=== PATIENT | male | born 1970 | race Caucasian/White ===

== ENCOUNTER 2020-01-01 19:29 | Emergency (ER) | payer BC ==
[2020-01-01] MEDS ORDERED: RINGERS LACTATED IV ONE (20:11)
[2020-01-01] MEDS ORDERED: ACETAMINOPHEN 325 MG TABLET PO ONE (20:11)
--- NOTE | 2020-01-01 20:14 | ER Document Report ---
ED Respiratory Problem - General Chief Complaint: Shortness Of Breath Stated Complaint: SHORTNESS OF BREATH Time Seen by Provider: 01/01/20 19:53 Mode of Arrival: Ambulatory Information source: Patient Notes: Patient presents complaining of body aches for the past week. Patient states he was diagnosed with Covid 5 days ago. Patient reports cough for the past 4 days. Patient denies any nausea vomiting or diarrhea. Patient states he just developed a fever today. Patient states that he checked his oxygen saturation at home and it was 88 which prompted his visit tonight. Patient denies any chronic underlying medical problems. - HPI Patient complains to provider of: Cough Onset: Other - 4 days Duration: Continuous Quality of pain: Achy Pain Level: 1 Context: denies: Hx asthma, Smoker Cough: Nonproductive Associated symptoms: Cough, Fever. denies: Anxiety, Chest pain/discomfort Similar symptoms previously: No Recently seen / treated by doctor: Yes Past Medical History - General Information source: Patient - Social History Smoking Status: Never Smoker Frequency of alcohol use: None Drug Abuse: None Occupation: [employer] Lives with: Family Family History: Reviewed & Not Pertinent - Medical History Medical History: Negative Surgical Hx: Negative Review of Systems - Review of Systems Constitutional: Fever, Recent illness - Diagnosed with Covid recently EENT: No symptoms reported Cardiovascular: No symptoms reported. denies: Chest pain Respiratory: Cough Gastrointestinal: No symptoms reported. denies: Abdominal pain, Diarrhea, Nausea, Vomiting Genitourinary: No symptoms reported Male Genitourinary: No symptoms reported Musculoskeletal: No symptoms reported Skin: No symptoms reported Hematologic/Lymphatic: No symptoms reported Neurological/Psychological: No symptoms reported Physical Exam - Vital signs Vitals: Temp Pulse Resp BP Pulse Ox 102.8 F H 118 H 32 H 127/84 H 93 01/01/20 19:48 01/01/20 19:48 01/01/20 19:48 01/01/20 19:48 01/01/20 19:48 - Notes Notes: PHYSICAL EXAMINATION: GENERAL: Well-appearing and in no acute distress. HEAD: Atraumatic, normocephalic. EYES: sclera anicteric, conjunctiva are normal. ENT: nares patent. Moist mucous membranes. NECK: Normal range of motion, supple without lymphadenopathy LUNGS: Mild tachypnea, occasional rhonchi that clears with cough HEART: Tachycardia, rhythm regular without murmur ABDOMEN: Soft, nontender, normal bowel sounds, no guarding. EXTREMITIES: Normal range of motion, no pitting edema. BACK: No CVA tenderness NEUROLOGICAL: Cranial nerves grossly intact. Normal speech. Normal gait. PSYCH: Normal mood, normal affect. SKIN: Warm, Dry, normal turgor, no rashes or lesions noted Course - Re-evaluation Re-evalutation: 01/02/20 01:37 RN states that patient's IV has been problematic for his CTA imaging. 01/02/20 01:41 CTA report reviewed, patient with bilateral groundglass opacities with bibasilar infiltrates noted. 01/02/20 02:03 Repeat vital signs temp 98.4, heart rate 94, respiratory rate 24, blood pressure 123/79, oxygen saturation 91%. Patient was road tested and oxygen saturation remained 92 to 93% heart rate was in the 110s and respiratory rate of 28. Consulted with Dr. Garcia who recommends giving a dose of Decadron as well as an inhaler. Dr. Cuevas agrees with plan to discharge patient with a prescription for antibiotic as well. Reviewed Covid pathway to determine patients who require admission or who can be managed on outpatient basis. Patient presents in the low risk category with main risk factor being obesity and male gender. Patient without any chronic underlying medical problems. 01/02/20 02:22 Discussed plan of care with patient, patient states that he is feeling better than when he initially presented. Discussed with patient worsening signs or symptoms that he should return immediately for. Patient does have a home pulse oximeter. Patient encouraged to check his oxygen saturation at home and return for any drops in oxygen level. Patient states that he does feel safe being discharged at this time. Offered to call hospitalist to discuss the case for consideration for admission, patient declines at this time. The patient was evaluated during the global Covid 19 pandemic, and that diagnosis was suspected/considered upon their initial presentation. Their evaluation, treatment and testing was consistent with current guidelines for patients who present with complaints or symptoms that may be related to Covid 19. Patient presents with upper respiratory symptoms worrisome for possible Covid 19. Patient does not have emergency worrying symptoms such as difficulty b reathing, shortness of breath, chest pain, pressure, confusion or cyanosis. Patient appears suitable for discharge as they are not of an advanced age, do not have any chronic medical conditions such as diabetes, CAD, immune deficiency, chronic lung disease or chronic kidney disease. Patient's vital signs are stable and patient is nontoxic in appearance. Good return precautions have been discussed with patient, patient verbalized understanding and is agreeable with discharge plan of care at this time. 01/02/20 02:[address] Argueta regarding outpatient management of Covid positive patients. He does advise giving this particular patient a 5-day course of the Decadron 6 mg. - Vital Signs Vital signs: Temp Pulse Resp BP Pulse Ox 99.4 F 108 H 20 117/77 91 L 01/02/20 00:06 01/01/20 22:48 01/01/20 22:48 01/01/20 22:48 01/01/20 22:48 - Laboratory Result Diagrams: 01/01/20 21:30 01/01/20 21:30 Laboratory results interpreted by me: 01/01/20 01/01/20 01/01/20 21:30 21:30 23:26 D-Dimer 0.80 H VBG pH 7.47 H VBG pCO2 32.4 L Sodium 136.9 L Glucose 129 H AST 87 H ALT 64 H Labs- All tests 24 hr 01/01/20 01/01/20 01/01/20 21:30 21:30 21:30 WBC 7.2 RBC 5.25 Hgb 15.2 Hct 43.5 MCV 83 MCH 28.9 MCHC 34.9 RDW 13.7 Plt Count 207 Lymph % (Auto) 14.9 [place] % (Auto) 8.1 Eos % (Auto) 0.0 Baso % (Auto) 0.3 Absolute Neuts (auto) 5.5 Absolute Lymphs (auto) 1.1 Absolute Monos (auto) 0.6 Absolute Eos (auto) 0.0 Absolute Basos (auto) 0.0 Seg Neutrophils % 76.7 PT 12.6 INR 0.92 D-Dimer 0.80 H VBG pH VBG pCO2 VBG HCO3 VBG Base Excess Sodium 136.9 L Potassium 4.4 Chloride 102 Carbon Dioxide 22 Anion Gap 13 BUN 16 Creatinine 0.99 Est GFR ( Amer) > 60 Est GFR (MDRD) Non-Af > 60 Glucose 129 H Lactic Acid Calcium 9.0 Total Bilirubin 0.5 Direct Bilirubin 0.2 Neonat Total Bilirubin Not Reportable Neonat Direct Bilirubin Not Reportable Neonat Indirect Bili Not Reportable AST 87 H ALT 64 H Alkaline Phosphatase 42 Total Protein 6.6 Albumin 3.8 01/01/20 01/01/20 21:30 23:26 WBC RBC Hgb Hct MCV MCH MCHC RDW Plt Count Lymph % (Auto) [place] % (Auto) Eos % (Auto) Baso % (Auto) Absolute Neuts (auto) Absolute Lymphs (auto) Absolute Monos (auto) Absolute Eos (auto) Absolute Basos (auto) Seg Neutrophils % PT INR D-Dimer VBG pH 7.47 H VBG pCO2 32.4 L VBG HCO3 23.0 VBG Base Excess 0.3 Sodium Potassium Chloride Carbon Dioxide Anion Gap BUN Creatinine Est GFR ( Amer) Est GFR (MDRD) Non-Af Glucose Lactic Acid 1.2 Calcium Total Bilirubin Direct Bilirubin Neonat Total Bilirubin Neonat Direct Bilirubin Neonat Indirect Bili AST ALT Alkaline Phosphatase Total Protein Albumin - Diagnostic Test Radiology reviewed: Image reviewed, Reports reviewed - EKG Interpretation by Me EKG shows normal: Sinus rhythm Rate: Tachycardia Rhythm: NSR Additional EKG results interpreted by me: 01/02/20 01:41 Sinus tachycardia, rate of 114, QTc 430, no acute ischemic changes Discharge - Discharge Clinical Impression: COVID-19, Pulmonary infiltrates Fever Qualifiers: Fever type: unspecified Qualified Code(s): R50.9 - Fever, unspecified Condition: Stable Disposition: HOME, SELF-CARE Instructions: Viral Pneumonia ([facility]), Steroid Medication, Inhaled Bronchodilators ([facility]) Additional Instructions: Return immediately for any new or worsening symptoms Followup with your primary care provider, call Saturday to make a followup appointment Prescriptions: Dexamethasone [Decadron 4 Mg Tablet] 6 mg PO DAILY #8 tablet Azithromycin [Zithromax 250 mg Tablet] 250 mg PO DAILY 4 Days #4 tablet Referrals: [facility] [Provider Group] - Follow up as needed
--- NOTE | 2020-01-01 20:46 | RADIOLOGY REPORT (SQ) ---
EXAM DESCRIPTION: XR CHEST 1 VIEW COMPLETED DATE/TME: 01/01/2020 20:11 CLINICAL HISTORY: 49 years, Male, fever, cough COMPARISON: None. NUMBER OF VIEWS: 1 TECHNIQUE: Portable AP upright view of the chest was obtained at 8:20 PM. LIMITATIONS: Low lung volumes FINDINGS: Heart size within normal limits for technique and low lung volumes. There is mild infiltration or edema within the right perihilar region. There is mild linear atelectasis left mid to lower chest. There is no evidence of pleural effusion or pneumothorax. IMPRESSION: Mild right perihilar infiltration or edema. copyright 2010 [employer]- All Rights Reserved
[2020-01-01] MEDS ORDERED: CEFTRIAXONE 1 GM/D5W RTU 1 GM/50 ML RTUPB IV ONE (21:21)
[2020-01-01] MEDS ORDERED: AZITHROMYCIN INJ 500 MG VIAL IV ONE (21:21)
[2020-01-01 21:58] LABS: ABSOLUTE LYMPHOCYTES (AUTO) 1.1 10^3/uL (0.5-4.7); ABSOLUTE MONOCYTES (AUTO) 0.6 10^3/uL (0.1-1.4); ABSOLUTE NEUT (AUTO) 5.5 10^3/uL (1.7-8.2); BASOPHILS % (AUTO) 0.3 % (0-2); HEMATOCRIT 43.5 % (37.9-51.0); HEMOGLOBIN 15.2 g/dL (13.5-17.0); LYMPHOCYTES % (AUTO) 14.9 % (13-45); MEAN CORPUSCULAR HEMOGLOBIN 28.9 pg (27.0-33.4); MEAN CORPUSCULAR HGB CONC 34.9 g/dL (32.0-36.0); MEAN CORPUSCULAR VOLUME 83 fl (80-97); MONOCYTES % (AUTO) 8.1 % (3-13); PLATELET COUNT 207 10^3/uL (150-450); RED BLOOD COUNT 5.25 10^6/uL (4.35-5.55); RED CELL DISTRIBUTION WIDTH 13.7 % (11.5-14.0); SEGMENTED NEUTROPHILS % (AUTO) 76.7 % (42-78); TOTAL CELLS COUNTED % (AUTO) 100 %; WHITE BLOOD COUNT 7.2 10^3/uL (4.0-10.5)
[2020-01-01 22:02] LABS: INTERNATIONAL RATION (INR) 0.92; PROTHROMBIN TIME 12.6 SEC (11.4-15.4)
[2020-01-01 22:12] LABS: ALBUMIN 3.8 g/dL (3.5-5.0); ALKALINE PHOSPHATASE 42 U/L (38-126); ANION GAP 13 (5-19); ASPARTATE AMINO TRANSFERASE 87 U/L (17-59); BILIRUBIN,DIRECT 0.2 mg/dL (0.0-0.4); BILIRUBIN,TOTAL 0.5 mg/dL (0.2-1.3); BLOOD UREA NITROGEN 16 mg/dL (7-20); CARBON DIOXIDE 22 mmol/L (22-30); CHLORIDE 102 mmol/L (98-107); GLUCOSE 129 mg/dL (75-110); POTASSIUM 4.4 mmol/L (3.6-5.0); TOTAL PROTEIN 6.6 g/dL (6.3-8.2)
--- NOTE | 2020-01-01 22:22 | EKG REPORT ---
SEVERITY:- OTHERWISE NORMAL ECG - SINUS TACHYCARDIA : Confirmed by: Kashif Eaton MD 01-Jan-2020 22:22:12
[2020-01-01] MEDS ORDERED: ACETAMINOPHEN 325 MG TABLET ONE (22:43)
[2020-01-01 23:38] LABS: VENOUS BLOOD BASE EXCESS 0.3 mmol/L; VENOUS BLOOD PCO2 32.4 mmHg (35-63); VENOUS BLOOD PH 7.47 (7.30-7.42)
--- NOTE | 2020-01-02 01:37 | RADIOLOGY REPORT (SQ) ---
EXAM DESCRIPTION: CT CHEST ANGIOGRAPHY WITHOUT THEN WITH IV CONTRAST COMPLETED DATE/TME: 01/01/2020 22:41 CLINICAL HISTORY: hypoxia, hx covid COMPARISON: None Available. TECHNIQUE: CTA of the chest obtained following the uncomplicated intravenous administration of 75 mL Omnipaque 350. 3-D/MIP reformatted images of the chest available for evaluation. FINDINGS: Chest: Pulmonary arteries: Contrast bolus is adequate.No filling defects identified in the pulmonary arteries to suggest pulmonary embolus. Thyroid:No abnormalities of the visualized thyroid. Great Vessels: Atherosclerotic calcification of the thoracic aorta. Thoracic Aorta:No abnormalities of the thoracic aorta identified. Heart: Coronary artery atherosclerosis. Cardiomegaly. No significant pericardial effusion. Lymph Nodes: Probably prominent mediastinal lymph nodes are likely reactive. Esophagus:No abnormalities of the esophagus identified. Other:No additional findings. Lungs: Diffuse bilateral peripheral groundglass opacities as well as linear bibasilar opacities. Pleura:No pleural effusion or pneumothorax. Trachea/Airways:No abnormalities of the visualized trachea or airways. Bones:No destructive osseous lesions. Upper Abdomen:Limited images of the upper abdomen demonstrate no definite abnormalities of visualized portions of the gallbladder, pancreas, spleen, adrenal glands, or kidneys. Diffusely decreased density of the liver. IMPRESSION: 1. No pulmonary embolus. 2. Diffuse bilateral peripheral groundglass opacities as well as linear bibasilar opacities. Commonly reported imaging features of COVID-19 pneumonia are present. Other processes such as influenza pneumonia and organizing pneumonia, as can be seen with drug toxicity and connective tissue disease, can cause a similar imaging pattern. [PneTyp] Reference: https://pubs.rsna.org/doi/full/10.1148/ryct.0231057682 3. Coronary artery atherosclerosis. Cardiomegaly. 4. Hepatic steatosis This exam was performed according to our departmental dose-optimization program, which includes automated exposure control, adjustment of the mA and/or kV according to patient size and/or use of iterative reconstruction technique.
[2020-01-02] MEDS ORDERED: DEXAMETHASONE SOD PHOS INJ 10 MG/1 ML VIAL IV ONE (02:04)
[2020-01-02] MEDS ORDERED: ALBUTEROL SULFATE HFA (90 MCG/PUFF) 8 GM MDI (1 MDI/ER DISP) IH ONE (02:04)
[2020-01-02 03:04] VITALS: BP 127/82
== END 2020-01-02 03:21 | disposition home or self-care (01) ==
LOC: ER 19:29
DX: U07.1 COVID-19 (principal); J98.11 Atelectasis; R50.9 Fever, unspecified; R06.02 Shortness of breath; M79.10 Myalgia, unspecified site
CPT/HCPCS: 93005; 99285; 96361; 96375; 96365; 36415; 87040; 83605; 85025; 85610; 80053; 85379; 82803; 71045; 71275; 93010; J7120; J0456; J0696; J1100; J3490

== ENCOUNTER 2020-01-03 09:36 | Inpatient (IN) | payer BC ==
--- NOTE | 2020-01-03 10:20 | RADIOLOGY REPORT (SQ) ---
EXAM DESCRIPTION: CHEST SINGLE VIEW IMAGES COMPLETED DATE/TIME: 01/03/2020 10:06 am REASON FOR STUDY: SOB COMPARISON: 01/01/2020 NUMBER OF VIEWS: One view. TECHNIQUE: Single frontal radiographic image of the chest acquired. LIMITATIONS: None. FINDINGS: LUNGS AND PLEURA: Low lung volumes. Increasing airspace opacities in both lungs. No evid ence of cavitation. MEDIASTINUM AND HEART: Stable heart size and mediastinal structures. BONY STRUCTURES: No acute findings. HARDWARE: None. OTHER: No other significant finding. IMPRESSION: Rehydration versus progressing pneumonia. TECHNICAL DOCUMENTATION: JOB ID: [id number] Reading location - IP/workstation name: [email or web address]
[2020-01-03] MEDS ORDERED: PIPERACILLIN/TAZOBACTAM 3.375 GM VIAL IV ONE (10:38)
--- NOTE | 2020-01-03 10:38 | ER Document Report ---
ED Respiratory Problem - General Chief Complaint: Shortness Of Breath Stated Complaint: DIFFICULTY BREATHING Time Seen by Provider: 01/03/20 09:44 Notes: 49-year-old male presents to emergency department with difficulty breathing. The patient was diagnosed with Covid on 23 December. Is progressively getting worse. States the difficulty breathing is gotten worse has had productive cough of clear yellow sputum. Fevers at home chills. Some nausea no vomiting. Denies any abdominal pain. Denies leg swelling. Denies rashes. Positive sore throat runny nose and congestion. Denies headache or neck stiffness. Nursing is noted low O2 sats. Patient does not have a history of respiratory disease and is not on any kind of oxygen supplementation. - Related Data Allergies/Adverse Reactions: No Known Allergies Allergy (Unverified 01/03/20 12:03) Past Medical History - Social History Smoking Status: Never Smoker Chew tobacco use (# tins/day): No Frequency of alcohol use: None Drug Abuse: None Family History: Reviewed & Not Pertinent Patient has homicidal ideation: No Review of Systems - Review of Systems Constitutional: Chills, Fever, Malaise, Weakness EENT: Nose congestion, Throat pain. denies: Eye pain, Double vision Cardiovascular: Dyspnea, Dizziness. denies: Chest pain, Palpitations, Orthopnea, Edema Respiratory: Cough, Short of breath, Wheezing. denies: Hurts to breathe, Hemoptysis, Stridor Gastrointestinal: Nausea. denies: Abdomen distended, Abdominal pain, Diarrhea, Vomiting Genitourinary: denies: Dysuria, Hematuria Musculoskeletal: denies: Back pain, Neck pain Skin: denies: Rash Neurological/Psychological: denies: Weakness, Loss of power, Headaches, Numbness -: Yes All other systems reviewed and negative Physical Exam - Vital signs Vitals: Temp 100.1 F 01/03/20 09:36 - Notes Notes: GENERAL_APPEARANCE: well_nourished, alert, cooperative, noticeable distress VITALS: reviewed, see vital signs table. HEAD: no_swelling\tenderness on the head. EYES: PERRL, EOMI, conjunctiva_clear. NOSE: Clear_nasal_discharge. Mild turbinate inflammation MOUTH: (-)decreased moisture. THROAT: Mild_tonsilar_inflammation, no_airway_obstruction. no_lymphadenopathy NECK: supple, no_neck_tenderness, (-)thyromegaly. No meningismus or nuchal rigidity BACK: no_back_tenderness. CHEST_WALL: no_chest_tenderness. LUNGS: Scant_wheezing, no_rales, no_rhonchi, (-)accessory muscle use, diminished air exchange bilateral. HEART: normal_rate, normal_rhythm, normal_S1, normal_S2, (-)S3, (-)S4, no_murmur, no_rub. ABDOMEN: normal_BS, soft, no_abd_tenderness, (-)guarding, (-)rebound, no_organomegaly, no_abd_masses. EXTREMITIES: good pulses in all_extremities, no_swelling\tenderness in the extremities, no_edema. SKIN: warm, dry, good_color, no_rash. Purpura no petechiae MENTAL_STATUS: speech_clear, oriented_X_3, normal_affect, responds_appropriately to questions. NEURO: Neg Motor or Sensory Deficits on exam, CN 2-12 intact, DTR 2+ symmetric x 4, No cerbellar signs Course - Re-evaluation Re-evalutation: 01/03/20 10:37 49-year-old Covid positive male presents with respiratory distress. Patient had sats in the 70s on room air. We placed him on a cannula then had to go to a nonrebreather. We will place him on BiPAP. Best we can get him on a nonrebreather was 89 to 90%. We will start septic work-up and admit the patient to the hospital. 01/03/20 12:24 Patient has had to go on BiPAP. He is maintained his sats with BiPAP we have given him IV steroids and empiric antibiotics. Patient will be admitted to our Covid unit here. On BiPAP the patient was given his doses IV fluids mildly elevated lactic acidosis sources known as Covid. Perfusion exam at 1220 --lungs are still diminished there is still brisk capillary refill patient is still tachycardic. Positive SIRS criteria including fever, tachypnea, leukocytosis, tachycardia - - source is Covid - Vital Signs Vital signs: Temp Pulse Resp BP Pulse Ox 100.1 F 24 H 137/95 H 96 01/03/20 10:02 01/03/20 12:12 01/03/20 10:02 01/03/20 12:12 - Laboratory Result Diagrams: 01/03/20 10:50 01/03/20 10:50 Laboratory results interpreted by me: 01/03/20 01/03/20 01/03/20 10:50 10:50 10:50 WBC 14.2 H RBC 5.57 H Seg Neuts % (Manual) 87 H Lymphocytes % (Manual) 7 L Abs Neuts (Manual) 12.4 H BUN 21 H Glucose 140 H Lactic Acid 2.7 H AST 66 H ALT 61 H - Diagnostic Test Radiology reviewed: Reports reviewed Radiology results interpreted by me: 01/03/20 12:25 Chest X-Ray 01/03/20 09:45 IMPRESSION: Rehydration versus progressing pneumonia. - EKG Interpretation by Me Rate: Tachycardia Rhythm: NSR Critical Care Note - Critical Care Note Total time excluding time spent on procedures (mins): 32 Discharge - Discharge Clinical Impression: COVID-19, Pulmonary infiltrates Fever Qualifiers: Fever type: unspecified Qualified Code(s): R50.9 - Fever, unspecified Respiratory failure Qualifiers: Chronicity: acute Respiratory failure complication: hypoxia Qualified Code(s): J96.01 - Acute respiratory failure with hypoxia Condition: Fair Disposition: ADMITTED INPATIENT Admitting Provider: Landon (Hospitalist) Unit Admitted: [facility]
[2020-01-03] MEDS ORDERED: DEXAMETHASONE SOD PHOS INJ 10 MG/1 ML VIAL IV ONE (10:39)
[2020-01-03] MEDS ORDERED: NORMAL SALINE 1000 ML 1,000 ML IV ONE ×2 (10:56→12:18)
[2020-01-03 11:10] LABS: VENOUS BLOOD BASE EXCESS 1.1 mmol/L; VENOUS BLOOD HCO3 25.8 mmol/L (20-32); VENOUS BLOOD PCO2 40.9 mmHg (35-63); VENOUS BLOOD PH 7.42 (7.30-7.42)
[2020-01-03 11:12] LABS: HEMATOCRIT 46.7 % (37.9-51.0); HEMOGLOBIN 15.9 g/dL (13.5-17.0); MEAN CORPUSCULAR HEMOGLOBIN 28.6 pg (27.0-33.4); MEAN CORPUSCULAR HGB CONC 34.1 g/dL (32.0-36.0); MEAN CORPUSCULAR VOLUME 84 fl (80-97); PLATELET COUNT 294 10^3/uL (150-450); RED BLOOD COUNT 5.57 10^6/uL (4.35-5.55); RED CELL DISTRIBUTION WIDTH 13.7 % (11.5-14.0); WHITE BLOOD COUNT 14.2 10^3/uL (4.0-10.5)
[2020-01-03 11:16] LABS: INTERNATIONAL RATION (INR) 0.96
[2020-01-03 11:33] LABS: ALKALINE PHOSPHATASE 48 U/L (38-126); ANION GAP 13 (5-19); ASPARTATE AMINO TRANSFERASE 66 U/L (17-59); BILIRUBIN,DIRECT 0.1 mg/dL (0.0-0.4); BILIRUBIN,TOTAL 0.6 mg/dL (0.2-1.3); BLOOD UREA NITROGEN 21 mg/dL (7-20); CALCIUM 9.3 mg/dL (8.4-10.2); CARBON DIOXIDE 25 mmol/L (22-30); CHLORIDE 104 mmol/L (98-107); GLUCOSE 140 mg/dL (75-110); POTASSIUM 4.3 mmol/L (3.6-5.0)
[2020-01-03 11:41] LABS: ABSOLUTE LYMPHOCYTES# (MANUAL) 1.1 10^3/uL (0.5-4.7); ABSOLUTE MONOCYTES # (MANUAL) 0.7 10^3/uL (0.1-1.4); BASOPHILS % (MANUAL) 0 % (0-2); EOSINOPHILS % (MANUAL) 0 % (0-6); LYMPHOCYTES % (MANUAL) 7 % (13-45); MONOCYTES % (MANUAL) 5 % (3-13); PLATELET COMMENT ADEQUATE; RBC MORPHOLOGY COMMENT NORMO-CYTIC/CHROMIC; SEGMENTED NEUTROPHILS % (MAN) 87 % (42-78); TOTAL CELLS COUNTED 100
--- NOTE | 2020-01-03 14:17 | EKG REPORT ---
SEVERITY:- BORDERLINE ECG - SINUS RHYTHM MILD NONSPECIFIC ST-T CHANGES INFERIOR WALL : Confirmed by: Kashif Eaton MD 03-Jan-2020 14:17:09
[2020-01-03] MEDS ORDERED: ONDANSETRON HCL INJ/PF 4 MG/2 ML SDV IV PRN (15:02)
[2020-01-03] MEDS ORDERED: DEXTROSE 40% GEL 15 GM TUBE PO PRN ×2 (15:02)
[2020-01-03] MEDS ORDERED: DEXTROSE 50%-WATER 25 GM/50 ML DISP.SYRIN IV PRN ×2 (15:02)
[2020-01-03] MEDS ORDERED: GLUCAGON,HUMAN RECOMB 1 MG INJ SUBCUT PRN (15:02)
--- NOTE | 2020-01-03 15:31 | PDOC H&P ---
History of Present Illness Admission Date/PCP: 01/03/20 12:56 History of Present Illness: ZI ALLEN is a 49 year old male who denies any significant past medical history and is on no home medications who initially presented to a local urgent care on 12/27/2019 and was diagnosed with coronavirus infection. He was stable at that time and was told to stay home and quarantine. He came to this ER on 01/01/2020 with some shortness of breath but apparently was not hypoxic at that time. He was given some Decadron and azithromycin and sent home. He comes back in today with worsening shortness of breath and was found to be hypoxic ER. He had an elevated temperature of 100.1 Fahrenheit in the ER. His oxygen saturations at 1 point were in the mid 70s on room air. He was put on nasal cannula and his saturations came up to close to 80%. He was then switched to a mask and up to a nonrebreather and only got his saturations into the upper 80s. He was put on a BiPAP and his saturations came up into the mid 90s and he was very comfortable at that point. Social History Smoking Status: Never Smoker Electronic Cigarette use?: No Family History Family History: Reviewed & Not Pertinent Parental Family History Reviewed: Yes Children Family History Reviewed: Yes Sibling(s) Family History Reviewed.: Yes Medication/Allergy Home Medications: Azithromycin [Zithromax 250 mg Tablet] 250 mg PO DAILY 4 Days #4 tablet 01/02/20 Dexamethasone [Decadron 4 Mg Tablet] 6 mg PO DAILY #8 tablet 01/02/20 Allergies/Adverse Reactions: No Known Allergies Allergy (Unverified 01/03/20 12:03) Review of Systems All systems: reviewed and no additional remarkable complaints except as stated - All systems were reviewed and were negative except as noted in the HPI Physical Exam Vital Signs: Temp Pulse Resp BP Pulse Ox 98.6 F 32 H 154/93 H 94 01/03/20 13:01 01/03/20 13:01 01/03/20 13:01 01/03/20 13:01 Intake & Output 01/02/20 01/03/20 01/04/20 07:59 06:59 06:59 Intake Total 2100 Output Total 257 Balance 1843 Weight 108.862 kg General appearance: PRESENT: cooperative, disheveled, mild distress, morbidly obese Head exam: PRESENT: atraumatic, normocephalic Eye exam: PRESENT: conjunctival injection, EOMI, PERRLA. ABSENT: nystagmus, scleral icterus Ear exam: PRESENT: normal external ear exam Neck exam: PRESENT: full ROM. ABSENT: carotid bruit, JVD, lymphadenopathy, meningismus, tenderness, thyromegaly Respiratory exam: PRESENT: symmetrical, tachypnea, unlabored. ABSENT: accessory muscle use, chest wall tenderness, clear to auscultation deepali - Breath sounds were coarse, crackles, prolonged expiratory phas, rhonchi, wheezes Cardiovascular exam: PRESENT: RRR, +S1, +S2 Pulses: PRESENT: normal carotid pulses Vascular exam: PRESENT: normal capillary refill GI/Abdominal exam: PRESENT: normal bowel sounds, soft, other - Pendulous abdominal pannus. ABSENT: distended, guarding, rebound, tenderness Extremities exam: ABSENT: clubbing, pedal edema Musculoskeletal exam: PRESENT: normal inspection. ABSENT: deformity Neurological exam: PRESENT: alert, awake, oriented to person, oriented to place, oriented to time, oriented to situation, CN II-XII grossly intact. ABSENT: motor sensory deficit Psychiatric exam: PRESENT: appropriate affect, normal mood Skin exam: PRESENT: dry, warm Results Laboratory Results: 01/03/20 10:50 01/03/20 10:50 01/03/20 01/03/20 01/03/20 10:50 10:50 10:50 WBC 14.2 H RBC 5.57 H Hgb 15.9 Hct 46.7 MCV 84 MCH 28.6 MCHC 34.1 RDW 13.7 Plt Count 294 Seg Neutrophils % Not Reportable VBG pH 7.42 VBG pCO2 40.9 VBG HCO3 25.8 VBG Base Excess 1.1 Sodium 141.9 Potassium 4.3 Chloride 104 Carbon Dioxide 25 Anion Gap 13 BUN 21 H Creatinine 1.07 Est GFR ( Amer) > 60 Glucose 140 H Lactic Acid Calcium 9.3 Total Bilirubin 0.6 AST 66 H Alkaline Phosphatase 48 Total Protein 7.0 Albumin 4.0 01/03/20 01/03/20 10:50 13:00 WBC RBC Hgb Hct MCV MCH MCHC RDW Plt Count Seg Neutrophils % VBG pH VBG pCO2 VBG HCO3 VBG Base Excess Sodium Potassium Chloride Carbon Dioxide Anion Gap BUN Creatinine Est GFR ( Amer) Glucose Lactic Acid 2.7 H 1.6 Calcium Total Bilirubin AST Alkaline Phosphatase Total Protein Albumin Impressions: Chest X-Ray 01/03/20 09:45 IMPRESSION: Rehydration versus progressing pneumonia. Assessment and Plan - Diagnosis (1) Acute respiratory failure with hypoxia Is this a current diagnosis for this admission?: Yes (2) COVID-19 Is this a current diagnosis for this admission?: Yes (3) Obesity (BMI 30-39.9) Is this a current diagnosis for this admission?: Yes - Plan Summary Summary: Patient does not have a primary care provider and has not seen a doctor in quite some time so it is unknown what health problems he actually has aside from obesity. He said he does not smoke, drink, or use any drugs. He does not have any known heart, kidney, or liver problems, and he does not know of any problems with his blood sugar. He said he was sick for about 3 days before he went to see the urgent care on 26 December. That would mean that today is day 12 of his symptoms. He is away from the initial onset of his symptoms by a long enough period of time that remdesivir may not be able to help him, but his symptoms have progressed and it would be reasonable to give this to him and so we have gotten it released from the pharmacy. We will put him on some Decadron. We will provide oxygen support. He is gotten some IV fluids. We will try to wean him to the nasal cannula or high flow nasal cannula as he tolerates. - Time Time Spent with patient: 35 or more minutes Anticipated Discharge Disposition: Pending clinical course Anticipated Discharge Timeframe: Pending clinical course - Inpatient Certification Based on my medical assessment, after consideration of the patient's comorbidities, presenting symptoms, or acuity I expect that the services needed warrant INPATIENT care.: Yes I certify that my determination is in accordance with my understanding of Medicare's requirements for reasonable and necessary INPATIENT services [42 CFR 412.3e].: Yes Medical Necessity: Failure to Improve With Outpatient Therapy, Need Close Monitoring Due to Risk of Patient Decompensation, Need For Continuous Telemetry Monitoring, Risk of Complication if Not Cared For in Hospital
[2020-01-03] MEDS ORDERED: REMDESIVIR 200 MG in NORMAL SALINE 250 ML IV ONE (16:00)
[2020-01-03] MEDS: POTASSI CL 20 MEQ/D5-1/2NS 1L 1,000 ML IV PRN (16:39)
[2020-01-03] MEDS: ENOXAPARIN SODIUM INJ 40 MG/0.4 ML DISP.SYRIN SUBCUT SCH (17:33)
[2020-01-03] MEDS ORDERED: IPRATROPIUM/ALBUTEROL 0.5-2.5 MG/3 ML AMPUL NEB ONE (21:00)
[2020-01-04] MEDS: IPRATROPIUM/ALBUTEROL 0.5-2.5 MG/3 ML AMPUL NEB SCH ×4 (02:24→20:31)
[2020-01-04 08:25] LABS: HEMATOCRIT 42.6 % (37.9-51.0); HEMOGLOBIN 14.4 g/dL (13.5-17.0); MEAN CORPUSCULAR HEMOGLOBIN 28.7 pg (27.0-33.4); MEAN CORPUSCULAR HGB CONC 33.9 g/dL (32.0-36.0); MEAN CORPUSCULAR VOLUME 85 fl (80-97); PLATELET COUNT 263 10^3/uL (150-450); RED BLOOD COUNT 5.03 10^6/uL (4.35-5.55); RED CELL DISTRIBUTION WIDTH 14.2 % (11.5-14.0); WHITE BLOOD COUNT 12.7 10^3/uL (4.0-10.5)
[2020-01-04 08:41] LABS: ANION GAP 9 (5-19); BLOOD UREA NITROGEN 19 mg/dL (7-20); CALCIUM 8.4 mg/dL (8.4-10.2); CARBON DIOXIDE 23 mmol/L (22-30); CHLORIDE 110 mmol/L (98-107); GLUCOSE 123 mg/dL (75-110); POTASSIUM 4.5 mmol/L (3.6-5.0)
[2020-01-04] MEDS ORDERED: DEXAMETHASONE SOD PHOSPHATE INJ 4 MG/1 ML VIAL IV SCH (10:00)
[2020-01-04] MEDS ORDERED: DEXAMETHASONE SOD PHOS INJ 10 MG/1 ML VIAL IV SCH (10:00)
[2020-01-04] MEDS: CEFTRIAXONE 1 GM/D5W RTU 1 GM/50 ML RTUPB IV SCH (11:13)
[2020-01-04] MEDS: ENOXAPARIN SODIUM INJ 40 MG/0.4 ML DISP.SYRIN SUBCUT SCH (11:14)
[2020-01-04] MEDS: REMDESIVIR 100 MG in NORMAL SALINE 250 ML IV SCH (11:14)
[2020-01-04] MEDS: AZITHROMYCIN 500 MG in DEXTROSE 5%-WATER 250 ML IV SCH (11:14)
[2020-01-04] MEDS: DEXAMETHASONE SOD PHOSPHATE INJ 4 MG/1 ML VIAL IV SCH (11:16)
[2020-01-04] MEDS: POTASSI CL 20 MEQ/D5-1/2NS 1L 1,000 ML IV PRN (14:50)
--- NOTE | 2020-01-04 15:08 | PDOC PROGRESS REPORT ---
Subjective Progress Note for:: 01/04/20 Subjective:: No adverse events overnight. Patient remains BiPAP dependent. He is comfortable as long as he is on BiPAP. We have been unable to wean him thus far. Reason For Visit: ACUTE HYPOXIC RESPIRATORY FAILURE,COVID 19 Physical Exam Vital Signs: Temp Pulse Resp BP Pulse Ox 98.5 F 87 28 H 152/82 H 94 01/04/20 08:00 01/04/20 14:32 01/04/20 14:32 01/04/20 08:00 01/04/20 14:32 Intake & Output 01/03/20 01/04/20 01/05/20 06:59 06:59 06:59 Intake Total 3350 Output Total 1162 Balance 2188 Weight 109.9 kg General appearance: PRESENT: cooperative, disheveled, no apparent distress, morbidly obese Respiratory exam: PRESENT: symmetrical, tachypnea, unlabored. ABSENT: accessory muscle use, chest wall tenderness, clear to auscultation deepali - Breath sounds were coarse, crackles, prolonged expiratory phas, rhonchi, wheezes Cardiovascular exam: PRESENT: RRR, +S1, +S2 Pulses: PRESENT: normal carotid pulses Vascular exam: PRESENT: normal capillary refill GI/Abdominal exam: PRESENT: normal bowel sounds, soft, other - Pendulous abdominal pannus. ABSENT: distended, guarding, rebound, tenderness Extremities exam: ABSENT: clubbing, pedal edema Musculoskeletal exam: PRESENT: normal inspection. ABSENT: deformity Neurological exam: PRESENT: alert, awake, oriented to person, oriented to place, oriented to time, oriented to situation Psychiatric exam: PRESENT: appropriate affect, normal mood Skin exam: PRESENT: dry, warm Results Laboratory Results: 01/04/20 07:39 01/04/20 07:39 01/03/20 01/04/20 01/04/20 15:30 07:39 07:39 WBC 12.7 H RBC 5.03 Hgb 14.4 Hct 42.6 MCV 85 MCH 28.7 MCHC 33.9 RDW 14.2 H Plt Count 263 Sodium 142.1 Potassium 4.5 Chloride 110 H Carbon Dioxide 23 Anion Gap 9 BUN 19 Creatinine 0.84 Est GFR ( Amer) > 60 Glucose 123 H Lactic Acid 1.3 Calcium 8.4 Impressions: Chest X-Ray 01/03/20 09:45 IMPRESSION: Rehydration versus progressing pneumonia. Assessment and Plan - Diagnosis (1) Acute respiratory failure with hypoxia Is this a current diagnosis for this admission?: Yes (2) COVID-19 Is this a current diagnosis for this admission?: Yes (3) Obesity (BMI 30-39.9) Is this a current diagnosis for this admission?: Yes - Plan Summary Summary: We continue with BiPAP support, remdesivir, and dexamethasone. He is on empiric antibiotic coverage for any possible bacterial pneumonia. We will continue to wean O2 as tolerated. Continue supportive care. - Time Time Spent with patient: 15-24 minutes Anticipated Discharge Disposition: Pending clinical course Anticipated Discharge Timeframe: Ending clinical course
[2020-01-05] MEDS: IPRATROPIUM/ALBUTEROL 0.5-2.5 MG/3 ML AMPUL NEB SCH ×4 (02:08→20:59)
[2020-01-05 05:46] LABS: HEMATOCRIT 47.7 % (37.9-51.0); HEMOGLOBIN 16.3 g/dL (13.5-17.0); MEAN CORPUSCULAR HEMOGLOBIN 28.5 pg (27.0-33.4); MEAN CORPUSCULAR HGB CONC 34.2 g/dL (32.0-36.0); MEAN CORPUSCULAR VOLUME 83 fl (80-97); PLATELET COUNT 300 10^3/uL (150-450); RED BLOOD COUNT 5.73 10^6/uL (4.35-5.55); WHITE BLOOD COUNT 12.9 10^3/uL (4.0-10.5)
[2020-01-05 05:52] LABS: ANION GAP 11 (5-19); BLOOD UREA NITROGEN 17 mg/dL (7-20); CALCIUM 8.8 mg/dL (8.4-10.2); CARBON DIOXIDE 26 mmol/L (22-30); CHLORIDE 107 mmol/L (98-107); GLUCOSE 128 mg/dL (75-110)
[2020-01-05 06:32] LABS: POTASSIUM 4.1 mmol/L (3.6-5.0)
[2020-01-05] MEDS: ZINC SULFATE 220 MG CAPSULE PO SCH (09:18)
[2020-01-05] MEDS: CHOLECALCIFEROL (D3) 1,000 UNIT (25 MCG) TABLET PO SCH (09:18)
[2020-01-05] MEDS: ASCORBIC ACID 500 MG TABLET PO SCH ×2 (09:18→18:05)
[2020-01-05] MEDS: ENOXAPARIN SODIUM INJ 40 MG/0.4 ML DISP.SYRIN SUBCUT SCH (09:19)
[2020-01-05] MEDS: DEXAMETHASONE SOD PHOSPHATE INJ 4 MG/1 ML VIAL IV SCH (09:19)
[2020-01-05] MEDS: CEFTRIAXONE 1 GM/D5W RTU 1 GM/50 ML RTUPB IV SCH (09:21)
[2020-01-05] MEDS: AZITHROMYCIN 500 MG in DEXTROSE 5%-WATER 250 ML IV SCH (11:24)
[2020-01-05] MEDS: REMDESIVIR 100 MG in NORMAL SALINE 250 ML IV SCH (12:30)
[2020-01-05] MEDS: POTASSI CL 20 MEQ/D5-1/2NS 1L 1,000 ML IV PRN (13:30)
--- NOTE | 2020-01-05 15:12 | PDOC PROGRESS REPORT ---
Subjective Progress Note for:: 01/05/20 Subjective:: Patient remains very hypoxic. However seems to be comfortable on CPAP. He was tried on nonrebreather this morning but did not tolerate it and had to be placed back on NIPPV. Settings changed to CPAP from BiPAP. Doing adequately on CPAP. However requiring high FiO2's. Patient himself voices some shortness of breath but states is tolerable while he is on the machine. He has not been able to eat anything so far. Discussed with him about trying him on some food today. We will try to put him on a high flow nasal cannula while eating. Reason For Visit: ACUTE HYPOXIC RESPIRATORY FAILURE,COVID 19 Physical Exam Vital Signs: Temp Pulse Resp BP Pulse Ox 97.8 F 97 22 H 161/84 H 90 L 01/05/20 08:39 01/05/20 08:39 01/05/20 08:39 01/05/20 08:39 01/05/20 08:39 Intake & Output 01/04/20 01/05/20 01/06/20 06:59 06:59 06:59 Intake Total 3350 550 300 Output Total 1162 1150 Balance 2188 -600 300 Weight 109.9 kg 110 kg General appearance: PRESENT: no acute distress, cooperative Neck exam: ABSENT: JVD Respiratory exam: PRESENT: rales, tachypnea, unlabored. ABSENT: accessory muscle use, retraction, symmetrical, wheezes Cardiovascular exam: PRESENT: RRR, +S1, +S2. ABSENT: tachycardia GI/Abdominal exam: PRESENT: soft. ABSENT: rebound, rigid, tenderness Neurological exam: PRESENT: alert, awake, oriented to person, oriented to place, oriented to time, oriented to situation Psychiatric exam: ABSENT: agitated, anxious Results Laboratory Results: 01/05/20 04:28 01/05/20 04:28 01/05/20 01/05/20 01/05/20 04:28 04:28 10:10 WBC 12.9 H RBC 5.73 H Hgb 16.3 Hct 47.7 MCV 83 MCH 28.5 MCHC 34.2 RDW 14.0 Plt Count 300 Sodium 143.7 Potassium 4.1 Chloride 107 Carbon Dioxide 26 Anion Gap 11 BUN 17 Creatinine 0.83 Est GFR ( Amer) > 60 Glucose 128 H Calcium 8.8 Blood Type B POSITIVE Antibody Screen NEGATIVE Impressions: Chest X-Ray 01/03/20 09:45 IMPRESSION: Rehydration versus progressing pneumonia. Assessment and Plan - Diagnosis (1) Acute respiratory failure with hypoxia Is this a current diagnosis for this admission?: Yes Plan: Secondary to COVID-19 infection. Still significantly hypoxic. NIPPV changed to CPAP 12/85%. We will try high flow nasal cannula intermittently to allow us start him on a diet. Check ABG today (2) Pneumonia due to COVID-19 virus Is this a current diagnosis for this admission?: Yes Plan: Not much improvement. Receiving azithromycin d2/3, ceftriaxone, remdesivir day 3, IV dexamethasone day 3 We will try some convalescent plasma today. Start vitamin and zinc supplements Bronchodilator therapy Check D-dimer in the a.m. (3) High blood pressure Qualifiers: Hypertension type: unspecified Qualified Code(s): I10 - Essential (primary) hypertension Is this a current diagnosis for this admission?: Yes Plan: Blood pressure has remained quite high, will start patient on a small dose of amlodipine. (4) Obesity (BMI 30-39.9) Is this a current diagnosis for this admission?: Yes - Time Time Spent with patient: 15-24 minutes Anticipated Discharge Disposition: Home, Self Care Anticipated Discharge Timeframe: >72hr
[2020-01-05] MEDS ORDERED: AMLODIPINE BESYLATE 5 MG TABLET PO ONE ×2 (15:30→18:45)
[2020-01-06] MEDS: IPRATROPIUM/ALBUTEROL 0.5-2.5 MG/3 ML AMPUL NEB SCH ×4 (02:12→20:00)
[2020-01-06] MEDS: POTASSI CL 20 MEQ/D5-1/2NS 1L 1,000 ML IV PRN ×2 (04:25→17:10)
[2020-01-06 05:57] LABS: HEMATOCRIT 43.4 % (37.9-51.0); HEMOGLOBIN 14.9 g/dL (13.5-17.0); MEAN CORPUSCULAR HEMOGLOBIN 28.8 pg (27.0-33.4); MEAN CORPUSCULAR HGB CONC 34.4 g/dL (32.0-36.0); MEAN CORPUSCULAR VOLUME 84 fl (80-97); PLATELET COUNT 353 10^3/uL (150-450); RED BLOOD COUNT 5.17 10^6/uL (4.35-5.55); RED CELL DISTRIBUTION WIDTH 13.4 % (11.5-14.0); WHITE BLOOD COUNT 13.8 10^3/uL (4.0-10.5)
[2020-01-06 06:16] LABS: ANION GAP 10 (5-19); BLOOD UREA NITROGEN 17 mg/dL (7-20); CALCIUM 8.7 mg/dL (8.4-10.2); CARBON DIOXIDE 24 mmol/L (22-30); CHLORIDE 107 mmol/L (98-107); GLUCOSE 123 mg/dL (75-110); POTASSIUM 4.8 mmol/L (3.6-5.0)
[2020-01-06 06:22] LABS: ARTERIAL BLOOD BASE EXCESS -2.2 mmol/L; ARTERIAL BLOOD H2CO3 0.91 mmol/L (1.05-1.35); ARTERIAL BLOOD HCO3 20.6 mmol/L (20-24); ARTERIAL BLOOD O2 SATURATION 93.3 % (94-98); ARTERIAL BLOOD PCO2 30.2 mmHg (35-45); ARTERIAL BLOOD PH 7.45 (7.35-7.45); ARTERIAL BLOOD PO2 62.6 mmHg (80-100); ARTERIAL BLOOD TOTAL CO2 21.5 mmol/L (23-27)
[2020-01-06 06:33] LABS: ARTERIAL BLOOD FIO2 75%
[2020-01-06] MEDS: ENOXAPARIN SODIUM INJ 40 MG/0.4 ML DISP.SYRIN SUBCUT SCH (10:23)
[2020-01-06] MEDS: ZINC SULFATE 220 MG CAPSULE PO SCH (10:23)
[2020-01-06] MEDS: AMLODIPINE BESYLATE 5 MG TABLET PO SCH (10:23)
[2020-01-06] MEDS: ASCORBIC ACID 500 MG TABLET PO SCH ×2 (10:23→17:06)
[2020-01-06] MEDS: DEXAMETHASONE SOD PHOSPHATE INJ 4 MG/1 ML VIAL IV SCH (10:23)
[2020-01-06] MEDS: CHOLECALCIFEROL (D3) 1,000 UNIT (25 MCG) TABLET PO SCH (10:23)
[2020-01-06] MEDS: CEFTRIAXONE 1 GM/D5W RTU 1 GM/50 ML RTUPB IV SCH (10:24)
[2020-01-06] MEDS: AZITHROMYCIN 500 MG in DEXTROSE 5%-WATER 250 ML IV SCH (11:14)
--- NOTE | 2020-01-06 12:34 | PDOC PROGRESS REPORT ---
Subjective Progress Note for:: 01/06/20 Subjective:: Patient remains quite hypoxic. Still voices that he feels okay in terms of his breathing. He denies any chest pain. Appears quite fatigued. Asked for some help reaching his food tray to eat breakfast this morning. Reason For Visit: ACUTE HYPOXIC RESPIRATORY FAILURE,COVID 19 Physical Exam Vital Signs: Temp Pulse Resp BP Pulse Ox 98.5 F 99 18 145/80 H 91 L 01/06/20 10:06 01/06/20 10:06 01/06/20 10:06 01/06/20 10:06 01/06/20 10:06 Intake & Output 01/05/20 01/06/20 01/07/20 06:59 06:59 06:59 Intake Total 1550 1910 50 Output Total 1150 850 Balance 400 1060 50 Weight 110 kg 112 kg General appearance: PRESENT: cooperative, mild distress Neck exam: ABSENT: JVD Respiratory exam: PRESENT: accessory muscle use, symmetrical, unlabored. ABSENT: tachypnea, wheezes Cardiovascular exam: PRESENT: RRR, +S1, +S2. ABSENT: tachycardia GI/Abdominal exam: PRESENT: soft. ABSENT: rebound, rigid, tenderness Neurological exam: PRESENT: alert, awake, oriented to person, oriented to place, oriented to time Results Laboratory Results: 01/06/20 05:11 01/06/20 05:11 01/06/20 01/06/20 01/06/20 05:11 05:11 06:00 WBC 13.8 H RBC 5.17 Hgb 14.9 Hct 43.4 MCV 84 MCH 28.8 MCHC 34.4 RDW 13.4 Plt Count 353 Carbonic Acid 0.91 L HCO3/H2CO3 Ratio 22:1 ABG pH 7.45 ABG pCO2 30.2 L ABG pO2 62.6 L ABG HCO3 20.6 ABG O2 Saturation 93.3 L ABG Base Excess -2.2 FiO2 75% Sodium 140.7 Potassium 4.8 Chloride 107 Carbon Dioxide 24 Anion Gap 10 BUN 17 Creatinine 0.86 Est GFR ( Amer) > 60 Glucose 123 H Calcium 8.7 Impressions: Chest X-Ray 01/03/20 09:45 IMPRESSION: Rehydration versus progressing pneumonia. Assessment and Plan - Diagnosis (1) Acute respiratory failure with hypoxia Is this a current diagnosis for this admission?: Yes Plan: Secondary to COVID-19 infection. Still significantly hypoxic. CPAP 12/75%. Alternate between that and HFNC 55L/80% to allow patient to eat. ABG with pO2/FIO2 of 82 indicative of Severe ARDS (2) Pneumonia due to COVID-19 virus Is this a current diagnosis for this admission?: Yes Plan: No significant improvement. Received azithromycin 3-4 days of Azithromycin and ceftriaxone which I will go ahead and d/c. Remdesivir day 06/06, IV dexamethasone day 06/11 Planned for convalescent plasma. However patient is B+ and currently no compatible units are available at this time according to Blood bank. Vitamin and zinc supplements Bronchodilator therapy D-dimer is elevated so I will start patient on therapeutic range Lovenox (3) High blood pressure Qualifiers: Hypertension type: unspecified Qualified Code(s): I10 - Essential (primary) hypertension Is this a current diagnosis for this admission?: Yes Plan: Still high but better controlled today on a small dose of amlodipine. (4) Obesity (BMI 30-39.9) Is this a current diagnosis for this admission?: Yes - Time Time Spent with patient: 25-34 minutes Anticipated Discharge Disposition: Home, Self Care Anticipated Discharge Timeframe: >72hr
[2020-01-06] MEDS: REMDESIVIR 100 MG in NORMAL SALINE 250 ML IV SCH (13:55)
[2020-01-06] MEDS ORDERED: ENOXAPARIN SODIUM INJ 40 MG/0.4 ML DISP.SYRIN SUBCUT SCH (22:00)
[2020-01-06] MEDS: ENOXAPARIN SODIUM INJ 120 MG/0.8 ML DISP.SYRIN SUBCUT SCH (22:28)
[2020-01-07] MEDS: IPRATROPIUM/ALBUTEROL 0.5-2.5 MG/3 ML AMPUL NEB SCH ×4 (01:55→19:52)
[2020-01-07] MEDS: POTASSI CL 20 MEQ/D5-1/2NS 1L 1,000 ML IV PRN ×2 (02:39→23:00)
[2020-01-07] MEDS ORDERED: LORAZEPAM INJ 2 MG/1 ML VIAL IV ONE ×2 (05:00→23:30)
[2020-01-07] MEDS ORDERED: ONDANSETRON HCL INJ/PF 4 MG/2 ML SDV IV PRN (09:30)
[2020-01-07] MEDS: CHOLECALCIFEROL (D3) 1,000 UNIT (25 MCG) TABLET PO SCH (10:00)
[2020-01-07] MEDS: AMLODIPINE BESYLATE 5 MG TABLET PO SCH (10:00)
[2020-01-07] MEDS: ENOXAPARIN SODIUM INJ 120 MG/0.8 ML DISP.SYRIN SUBCUT SCH ×2 (10:00→21:23)
[2020-01-07] MEDS: ZINC SULFATE 220 MG CAPSULE PO SCH (10:00)
[2020-01-07] MEDS: REMDESIVIR 100 MG in NORMAL SALINE 250 ML IV SCH (10:00)
[2020-01-07] MEDS: DEXAMETHASONE SOD PHOSPHATE INJ 4 MG/1 ML VIAL IV SCH (10:00)
[2020-01-07] MEDS: ASCORBIC ACID 500 MG TABLET PO SCH ×2 (10:00→17:15)
--- NOTE | 2020-01-07 14:42 | PDOC PROGRESS REPORT ---
Subjective Progress Note for:: 01/07/20 Subjective:: No adverse events overnight. Patient is stable on CPAP with FiO2 of 80%. He gets a little anxious at times and he got a dose of Ativan last night and was able to rest comfortably enough without his respiratory rate being compromised. He has had a little bit of an elevated temperature but no outright fever. They were having some trouble obtaining his convalescent plasma because of his blood type. Reason For Visit: ACUTE HYPOXIC RESPIRATORY FAILURE,COVID 19 Physical Exam Vital Signs: Temp Pulse Resp BP Pulse Ox 100.0 F 108 H 22 H 140/85 H 94 01/07/20 12:17 01/07/20 12:17 01/07/20 12:17 01/07/20 12:17 01/07/20 12:17 Intake & Output 01/06/20 01/07/20 01/08/20 06:59 06:59 06:59 Intake Total 1910 1524 250 Output Total 850 1005 200 Balance 1060 519 50 Weight 112 kg 110.8 kg General appearance: PRESENT: cooperative, disheveled, no apparent distress, morbidly obese Respiratory exam: PRESENT: symmetrical, tachypnea, unlabored. ABSENT: accessory muscle use, chest wall tenderness, clear to auscultation deepali - Breath sounds were coarse, crackles, prolonged expiratory phase, rhonchi, wheezes Cardiovascular exam: PRESENT: RRR, +S1, +S2 Pulses: PRESENT: normal carotid pulses Vascular exam: PRESENT: normal capillary refill GI/Abdominal exam: PRESENT: normal bowel sounds, soft, other - Pendulous abdominal pannus. ABSENT: distended, guarding, rebound, tenderness Extremities exam: ABSENT: clubbing, pedal edema Musculoskeletal exam: PRESENT: normal inspection. ABSENT: deformity Neurological exam: PRESENT: Drowsy but arousable, oriented to person, oriented to place, oriented to time, oriented to situation Psychiatric exam: PRESENT: appropriate affect, normal mood Skin exam: PRESENT: dry, warm Results Laboratory Results: 01/06/20 05:11 01/06/20 05:11 Impressions: Chest X-Ray 01/03/20 09:45 IMPRESSION: Rehydration versus progressing pneumonia. Assessment and Plan - Diagnosis (1) Acute respiratory failure with hypoxia Is this a current diagnosis for this admission?: Yes (2) COVID-19 Is this a current diagnosis for this admission?: Yes (3) Obesity (BMI 30-39.9) Is this a current diagnosis for this admission?: Yes - Plan Summary Summary: He has been receiving remdesivir and Decadron. Currently on CPAP with 80% FiO2. Attempting to acquire his convalescent plasma treatment but he may be beyond the window which it would do him any good. Continue other supportive measures. Monitoring closely for changes in status. - Time Time Spent with patient: 15-24 minutes Anticipated Discharge Disposition: Undetermined Anticipated Discharge Timeframe: Undetermined
[2020-01-07] MEDS ORDERED: LORAZEPAM INJ 2 MG/1 ML VIAL ONE (23:11)
[2020-01-08 00:58] LABS: ARTERIAL BLOOD BASE EXCESS -1.6 mmol/L; ARTERIAL BLOOD H2CO3 0.92 mmol/L (1.05-1.35); ARTERIAL BLOOD HCO3 21.1 mmol/L (20-24); ARTERIAL BLOOD O2 SATURATION 92.4 % (94-98); ARTERIAL BLOOD PCO2 30.6 mmHg (35-45); ARTERIAL BLOOD PH 7.46 (7.35-7.45); ARTERIAL BLOOD PO2 59.6 mmHg (80-100); ARTERIAL BLOOD TOTAL CO2 22.1 mmol/L (23-27)
[2020-01-08 00:59] LABS: ARTERIAL BLOOD FIO2 75%
[2020-01-08] MEDS: IPRATROPIUM/ALBUTEROL 0.5-2.5 MG/3 ML AMPUL NEB SCH ×4 (02:09→20:16)
[2020-01-08] MEDS ORDERED: LORAZEPAM INJ 2 MG/1 ML VIAL ONE (06:33)
[2020-01-08] MEDS ORDERED: LORAZEPAM INJ 2 MG/1 ML VIAL IV ONE (07:00)
--- NOTE | 2020-01-08 07:56 | RADIOLOGY REPORT (SQ) ---
CHEST X-RAY 1 VIEW on 01/08/2020 at 7:22 AM CLINICAL INDICATION: Respiratory distress COMPARISON: 01/03/2020 FINDINGS: There is mild elevation of the right hemidiaphragm. There has been improvement in bilateral opacities consistent with improving edema and/or pneumonia, differential diagnosis would include viral infections and based upon the patient's prior chest CT from 01/02/2020 this likely represents improving COVID 19 pneumonia but please correlate clinically. Heart is upper limits of normal for size. Hilar and mediastinal contours are within normal limits. IMPRESSION: Improving bilateral opacities likely improvement in COVID 19 pneumonia.
[2020-01-08] MEDS: AMLODIPINE BESYLATE 5 MG TABLET PO SCH (09:01)
[2020-01-08] MEDS: ASCORBIC ACID 500 MG TABLET PO SCH ×2 (09:02→17:14)
[2020-01-08] MEDS: CHOLECALCIFEROL (D3) 1,000 UNIT (25 MCG) TABLET PO SCH (09:02)
[2020-01-08] MEDS: DEXAMETHASONE SOD PHOSPHATE INJ 4 MG/1 ML VIAL IV SCH (09:02)
[2020-01-08] MEDS: ENOXAPARIN SODIUM INJ 120 MG/0.8 ML DISP.SYRIN SUBCUT SCH ×2 (09:02→21:40)
[2020-01-08] MEDS: ZINC SULFATE 220 MG CAPSULE PO SCH (09:02)
[2020-01-08] MEDS: ACETAMINOPHEN 325 MG TABLET PO PRN (09:03)
[2020-01-08] MEDS ORDERED: FUROSEMIDE INJ/PF 40 MG/4 ML SDV IV ONE (11:15)
--- NOTE | 2020-01-08 14:34 | PDOC PROGRESS REPORT ---
Subjective Progress Note for:: 01/08/20 Subjective:: Patient notably became more hypoxic overnight and fio2 and PEEP were increased overnight. Also informed that he often gets quite anxious. On assessment this morning, he was on cpap at 90%. He states that he did not feel out of breath at the time and was sitting comfortably in his bed but states that when he gets up to go to the bathroom to urinate he gets very out of breath. He denies any chest pains. Able to eat some food yesterday but not much. Reason For Visit: ACUTE HYPOXIC RESPIRATORY FAILURE,COVID 19 Physical Exam Vital Signs: Temp Pulse Resp BP Pulse Ox 97.7 F 108 H 20 116/69 95 01/08/20 12:18 01/08/20 13:47 01/08/20 13:47 01/08/20 12:18 01/08/20 13:47 Intake & Output 01/07/20 01/08/20 01/09/20 06:59 06:59 06:59 Intake Total 1524 1886 Output Total 1005 2000 Balance 519 -114 Weight 110.8 kg 108.3 kg General appearance: PRESENT: no acute distress, cooperative Neck exam: ABSENT: JVD Respiratory exam: PRESENT: crackles - Bilateral lower lung abrams, symmetrical, tachypnea, unlabored. ABSENT: accessory muscle use, wheezes Cardiovascular exam: PRESENT: +S1, +S2, tachycardia. ABSENT: irregular rhythm GI/Abdominal exam: PRESENT: soft. ABSENT: rebound, rigid, tenderness Extremities exam: ABSENT: pedal edema Neurological exam: PRESENT: alert, awake Psychiatric exam: PRESENT: anxious - Mild. ABSENT: agitated Results Laboratory Results: 01/06/20 05:11 01/06/20 05:11 01/05/20 01/08/20 10:10 00:45 Carbonic Acid 0.92 L HCO3/H2CO3 Ratio 22:1 ABG pH 7.46 H ABG pCO2 30.6 L ABG pO2 59.6 L ABG HCO3 21.1 ABG O2 Saturation 92.4 L ABG Base Excess -1.6 FiO2 75% Blood Type B POSITIVE Antibody Screen NEGATIVE 01/03/20 13:00 Blood Blood Culture - Final NO GROWTH IN 5 DAYS 01/03/20 10:50 Blood Blood Culture - Final NO GROWTH IN 5 DAYS Impressions: Chest X-Ray 11/06/20 00:00 IMPRESSION: Improving bilateral opacities likely improvement in COVID 19 pneumonia. Assessment and Plan - Diagnosis (1) Acute respiratory failure with hypoxia Is this a current diagnosis for this admission?: Yes Plan: Secondary to COVID-19 infection likely w/ ARDS. Unfortunately patient's hypoxia continues to worsen now requiring CPAP FiO2 90%. He is also notably on high PEEP but seems to be tolerating it ok. ABG today showing pao2/fio2 ratio <100 We will leave him on CPAP trial today and only put him on high flow for meals. He has very prominent crackles which may be from his pneumonia/ards but I will try IV lasix and see if he responds to this. (2) Pneumonia due to COVID-19 virus Is this a current diagnosis for this admission?: Yes Plan: No significant improvement. Received azithromycin 3-4 days of Azithromycin and ceftriaxone. Completed 5 days of remdesivir IV dexamethasone day 6 Planned for convalescent plasma. However patient is B+ and currently no compatible units are available at this time according to Blood bank. Vitamin and zinc supplements Bronchodilator therapy Continue therapeutic range Lovenox and trend D-dimer (3) High blood pressure Qualifiers: Hypertension type: unspecified Qualified Code(s): I10 - Essential (primary) hypertension Is this a current diagnosis for this admission?: Yes Plan: c/w amlodipine. (4) Obesity (BMI 30-39.9) Is this a current diagnosis for this admission?: Yes - Time Time Spent with patient: 25-34 minutes Anticipated Discharge Disposition: Home, Self Care Anticipated Discharge Timeframe: undetermined
[2020-01-09] MEDS: IPRATROPIUM/ALBUTEROL 0.5-2.5 MG/3 ML AMPUL NEB SCH ×4 (01:13→20:34)
[2020-01-09 07:14] LABS: ANION GAP 11 (5-19); BLOOD UREA NITROGEN 27 mg/dL (7-20); CARBON DIOXIDE 26 mmol/L (22-30); CHLORIDE 103 mmol/L (98-107); GLUCOSE 103 mg/dL (75-110); PHOSPHORUS 4.6 mg/dL (2.5-4.5); POTASSIUM 4.5 mmol/L (3.6-5.0)
[2020-01-09] MEDS: CHOLECALCIFEROL (D3) 1,000 UNIT (25 MCG) TABLET PO SCH (10:25)
[2020-01-09] MEDS: ASCORBIC ACID 500 MG TABLET PO SCH ×2 (10:25→17:38)
[2020-01-09] MEDS: AMLODIPINE BESYLATE 5 MG TABLET PO SCH (10:25)
[2020-01-09] MEDS: ZINC SULFATE 220 MG CAPSULE PO SCH (10:26)
[2020-01-09] MEDS: ENOXAPARIN SODIUM INJ 120 MG/0.8 ML DISP.SYRIN SUBCUT SCH ×2 (10:26→22:50)
[2020-01-09] MEDS: DEXAMETHASONE SOD PHOSPHATE INJ 4 MG/1 ML VIAL IV SCH (10:26)
--- NOTE | 2020-01-09 12:28 | PDOC PROGRESS REPORT ---
Subjective Progress Note for:: 01/09/20 Subjective:: Patient put out about 2 L yesterday after receiving the Lasix. Today patient appears comfortable during encounter today. Still with mild anxiety. However he is not restless. He requests something to help with nasal congestion. He is not having any fever. Still limited in terms of his ambulation due to his shortness of breath. I discussed with him about getting him up and into a chair today. Reason For Visit: ACUTE HYPOXIC RESPIRATORY FAILURE,COVID 19 Physical Exam Vital Signs: Temp Pulse Resp BP Pulse Ox 98.1 F 87 22 H 127/82 H 95 01/09/20 07:45 01/09/20 09:20 01/09/20 09:20 01/09/20 07:45 01/09/20 09:20 Intake & Output 01/08/20 01/09/20 01/10/20 06:59 06:59 06:59 Intake Total 1886 430 Output Total 1999 2200 Balance -114 -1770 Weight 108.3 kg 108.3 kg General appearance: PRESENT: no acute distress, cooperative Neck exam: ABSENT: JVD Respiratory exam: PRESENT: crackles, symmetrical, unlabored. ABSENT: tachypnea, wheezes Cardiovascular exam: PRESENT: RRR, +S1, +S2. ABSENT: tachycardia GI/Abdominal exam: PRESENT: soft. ABSENT: rebound, rigid, tenderness Extremities exam: ABSENT: pedal edema Neurological exam: PRESENT: alert, awake, oriented to person, oriented to place, oriented to time, oriented to situation Psychiatric exam: PRESENT: anxious - Mild. ABSENT: agitated Focused psych exam: ABSENT: restlessness Results Laboratory Results: 01/06/20 05:11 01/09/20 06:30 01/09/20 06:30 Sodium 140.2 Potassium 4.5 Chloride 103 Carbon Dioxide 26 Anion Gap 11 BUN 27 H Creatinine 0.92 Est GFR ( Amer) > 60 Glucose 103 Calcium 9.0 Phosphorus 4.6 H Magnesium 2.3 01/03/20 13:00 Blood Blood Culture - Final NO GROWTH IN 5 DAYS 01/03/20 10:50 Blood Blood Culture - Final NO GROWTH IN 5 DAYS 01/06/20 05:11 NT-Pro-B Natriuret Pep 338 H Impressions: Chest X-Ray 01/08/20 00:00 IMPRESSION: Improving bilateral opacities likely improvement in COVID 19 pneumonia. Assessment and Plan - Diagnosis (1) Acute respiratory failure with hypoxia Is this a current diagnosis for this admission?: Yes Plan: Unimproved. Secondary to COVID-19 infection likely w/ ARDS. CPAP high peep, FiO2 90%. Alternate with HFNC 90% during meals He did have some response to Lasix yesterday in terms of diuresis. I will try another dose today especially as he will be getting plasma. BNP is not all that impressive. (2) Pneumonia due to COVID-19 virus Is this a current diagnosis for this admission?: Yes Plan: No significant improvement. Received azithromycin 3-4 days of Azithromycin and ceftriaxone. Completed 5 days of remdesivir IV dexamethasone day 7 Convalescent plasma available today Vitamin and zinc supplements Bronchodilator therapy Continue therapeutic range Lovenox and trend D-dimer (3) High blood pressure Qualifiers: Hypertension type: unspecified Qualified Code(s): I10 - Essential (primary) hypertension Is this a current diagnosis for this admission?: Yes Plan: c/w amlodipine. (4) Obesity (BMI 30-39.9) Is this a current diagnosis for this admission?: Yes - Time Time Spent with patient: 25-34 minutes Anticipated Discharge Disposition: Home, Self Care Anticipated Discharge Timeframe: Undetermined
[2020-01-09] MEDS ORDERED: FUROSEMIDE INJ/PF 40 MG/4 ML SDV IV ONE (13:00)
[2020-01-09] MEDS: FLUTICASONE NASAL SPRAY 50 MCG/SPRY 120 SPRAY/16 GM NASL SCH (17:38)
[2020-01-10] MEDS: IPRATROPIUM/ALBUTEROL 0.5-2.5 MG/3 ML AMPUL NEB SCH ×4 (02:30→20:35)
[2020-01-10] MEDS: FLUTICASONE NASAL SPRAY 50 MCG/SPRY 120 SPRAY/16 GM NASL SCH ×2 (05:47→17:35)
[2020-01-10] MEDS: ZINC SULFATE 220 MG CAPSULE PO SCH (09:47)
[2020-01-10] MEDS: CHOLECALCIFEROL (D3) 1,000 UNIT (25 MCG) TABLET PO SCH (09:47)
[2020-01-10] MEDS: ENOXAPARIN SODIUM INJ 120 MG/0.8 ML DISP.SYRIN SUBCUT SCH ×2 (09:47→21:24)
[2020-01-10] MEDS: ASCORBIC ACID 500 MG TABLET PO SCH ×2 (09:47→17:34)
[2020-01-10] MEDS: AMLODIPINE BESYLATE 5 MG TABLET PO SCH (09:47)
[2020-01-10] MEDS: DEXAMETHASONE SOD PHOSPHATE INJ 4 MG/1 ML VIAL IV SCH (09:47)
--- NOTE | 2020-01-10 10:33 | PDOC PROGRESS REPORT ---
Subjective Progress Note for:: 01/10/20 Subjective:: Patient received his convalescent plasma yesterday. This morning we were able to wean down his CPAP FiO2 to 70%. We did transition him to high flow for the daytime. He is resting comfortably in bed. He denies any chest pain. Reason For Visit: ACUTE HYPOXIC RESPIRATORY FAILURE,COVID 19 Physical Exam Vital Signs: Temp Pulse Resp BP Pulse Ox 97.5 F 79 16 133/67 H 94 01/10/20 08:18 01/10/20 08:47 01/10/20 08:47 01/10/20 08:18 01/10/20 08:47 Intake & Output 01/09/20 01/10/20 01/11/20 06:59 06:59 06:59 Intake Total 430 687 Output Total 2200 2250 Balance -1770 -1563 Weight 108.3 kg 108.3 kg General appearance: PRESENT: no acute distress, cooperative Neck exam: ABSENT: JVD Respiratory exam: PRESENT: crackles, symmetrical, unlabored. ABSENT: accessory muscle use, tachypnea, wheezes Cardiovascular exam: PRESENT: RRR, +S1, +S2. ABSENT: tachycardia GI/Abdominal exam: PRESENT: soft. ABSENT: rebound, rigid, tenderness Extremities exam: ABSENT: pedal edema Neurological exam: PRESENT: alert, awake, oriented to person, oriented to place, oriented to time, oriented to situation Psychiatric exam: ABSENT: agitated, anxious Focused psych exam: ABSENT: restlessness Results Laboratory Results: 01/06/20 05:11 01/09/20 06:30 01/09/20 12:45 Blood Type B POSITIVE 01/06/20 05:11 NT-Pro-B Natriuret Pep 338 H Impressions: Chest X-Ray 01/08/20 00:00 IMPRESSION: Improving bilateral opacities likely improvement in COVID 19 pneumonia. Assessment and Plan - Diagnosis (1) Acute respiratory failure with hypoxia Is this a current diagnosis for this admission?: Yes Plan: Unimproved. Secondary to COVID-19 infection likely w/ ARDS. CPAP high peep, FiO2 weaned from 90% to 70%. Alternate with HFNC 80% during meals He did have some response to daily Lasix for the past 2 days in terms of diuresis. It is unclear if this is what has allowed us to wean his FiO2. I will check a BMP and if his renal function permits, we can try another dose today. (2) Pneumonia due to COVID-19 virus Is this a current diagnosis for this admission?: Yes Plan: Tested positive outpatient-record in chart Received azithromycin 3-4 days of Azithromycin and ceftriaxone. Completed 5 days of remdesivir IV dexamethasone day 8 Received convalescent plasma 01/08 Vitamin and zinc supplements Bronchodilator therapy Continue therapeutic range Lovenox and trend D-dimer (3) High blood pressure Qualifiers: Hypertension type: unspecified Qualified Code(s): I10 - Essential (primary) hypertension Is this a current diagnosis for this admission?: Yes Plan: c/w amlodipine. BP is controlled now. (4) Obesity (BMI 30-39.9) Is this a current diagnosis for this admission?: Yes - Time Time Spent with patient: 15-24 minutes Anticipated Discharge Disposition: Home, Self Care Anticipated Discharge Timeframe: Undetermined
[2020-01-10 12:47] LABS: ANION GAP 13 (5-19); BLOOD UREA NITROGEN 35 mg/dL (7-20); CALCIUM 9.3 mg/dL (8.4-10.2); CARBON DIOXIDE 25 mmol/L (22-30); CHLORIDE 102 mmol/L (98-107); GLUCOSE 115 mg/dL (75-110); POTASSIUM 4.4 mmol/L (3.6-5.0)
[2020-01-10] MEDS: MELATONIN 5 MG TABLET PO PRN (23:25)
[2020-01-10] MEDS: ACETAMINOPHEN 325 MG TABLET PO PRN (23:25)
[2020-01-11] MEDS: IPRATROPIUM/ALBUTEROL 0.5-2.5 MG/3 ML AMPUL NEB SCH ×4 (02:25→23:59)
[2020-01-11] MEDS: FLUTICASONE NASAL SPRAY 50 MCG/SPRY 120 SPRAY/16 GM NASL SCH ×2 (05:00→17:52)
[2020-01-11 07:00] LABS: HEMATOCRIT 43.8 % (37.9-51.0); HEMOGLOBIN 14.9 g/dL (13.5-17.0); MEAN CORPUSCULAR HEMOGLOBIN 28.5 pg (27.0-33.4); MEAN CORPUSCULAR HGB CONC 34.1 g/dL (32.0-36.0); MEAN CORPUSCULAR VOLUME 84 fl (80-97); PLATELET COUNT 346 10^3/uL (150-450); RED BLOOD COUNT 5.24 10^6/uL (4.35-5.55); RED CELL DISTRIBUTION WIDTH 13.4 % (11.5-14.0); WHITE BLOOD COUNT 14.3 10^3/uL (4.0-10.5)
[2020-01-11 07:26] LABS: ANION GAP 10 (5-19); BLOOD UREA NITROGEN 32 mg/dL (7-20); CALCIUM 9.2 mg/dL (8.4-10.2); CARBON DIOXIDE 29 mmol/L (22-30); CHLORIDE 99 mmol/L (98-107); GLUCOSE 96 mg/dL (75-110); POTASSIUM 4.6 mmol/L (3.6-5.0)
[2020-01-11] MEDS: AMLODIPINE BESYLATE 5 MG TABLET PO SCH (10:14)
[2020-01-11] MEDS: ASCORBIC ACID 500 MG TABLET PO SCH ×2 (10:14→17:52)
[2020-01-11] MEDS: ENOXAPARIN SODIUM INJ 120 MG/0.8 ML DISP.SYRIN SUBCUT SCH (10:14)
[2020-01-11] MEDS: CHOLECALCIFEROL (D3) 1,000 UNIT (25 MCG) TABLET PO SCH (10:14)
[2020-01-11] MEDS: ZINC SULFATE 220 MG CAPSULE PO SCH (10:14)
[2020-01-11] MEDS: DEXAMETHASONE SOD PHOSPHATE INJ 4 MG/1 ML VIAL IV SCH (10:15)
--- NOTE | 2020-01-11 11:04 | PDOC PROGRESS REPORT ---
Subjective Date:: 01/11/20 Subjective:: Patient's did well yesterday of CPAP for the most part. He still requiring high FiO2 on high flow nasal cannula. He appears very comfortable at rest. Still complaining of stuffy nose. Denies shortness of breath at the time. Denies chest pain. States that he has been sitting up in his chair. Reason For Visit: ACUTE HYPOXIC RESPIRATORY FAILURE,COVID 19 Physical Exam Vital Signs: Temp Pulse Resp BP Pulse Ox 98.1 F 94 22 H 114/74 94 01/11/20 07:16 01/11/20 09:20 01/11/20 09:20 01/11/20 07:16 01/11/20 09:20 Intake & Output 01/10/20 01/11/20 01/12/20 06:59 06:59 06:59 Intake Total 687 580 Output Total 2250 905 200 Balance -1563 -325 -200 Weight 108.3 kg 102.5 kg General appearance: PRESENT: no acute distress, cooperative Head exam: PRESENT: normocephalic Eye exam: PRESENT: EOMI Neck exam: ABSENT: JVD Respiratory exam: PRESENT: crackles - mild lower lung abrams, symmetrical, unlabored. ABSENT: tachypnea, wheezes Cardiovascular exam: PRESENT: RRR, +S1, +S2. ABSENT: tachycardia GI/Abdominal exam: PRESENT: soft. ABSENT: rebound, rigid, tenderness Extremities exam: ABSENT: pedal edema Neurological exam: PRESENT: alert, awake, oriented to person, oriented to place, oriented to time Psychiatric exam: ABSENT: agitated, anxious Results Laboratory Results: 01/11/20 06:09 01/11/20 06:09 01/10/20 01/11/20 01/11/20 12:00 06:09 06:09 WBC 14.3 H RBC 5.24 Hgb 14.9 Hct 43.8 MCV 84 MCH 28.5 MCHC 34.1 RDW 13.4 Plt Count 346 Sodium 140.0 137.6 Potassium 4.4 4.6 Chloride 102 99 Carbon Dioxide 25 29 Anion Gap 13 10 BUN 35 H 32 H Creatinine 0.83 0.84 Est GFR ( Amer) > 60 > 60 Glucose 115 H 96 Calcium 9.3 9.2 Magnesium 2.5 H 01/06/20 05:11 NT-Pro-B Natriuret Pep 338 H Impressions: Chest X-Ray 01/08/20 00:00 IMPRESSION: Improving bilateral opacities likely improvement in COVID 19 pneumonia. Assessment and Plan - Diagnosis (1) Acute respiratory failure with hypoxia Is this a current diagnosis for this admission?: Yes Plan: Some improvement as was able stay off CPAP through yesterday. Secondary to COVID-19 infection likely w/ ARDS. Continue HFNC. Currently spo2 low 90s on 55L/fio2 90% [Goal spo2 90-94%]. CPAP will be kept on standby. He did have some response to 2 days of daily Lasix pushes but I will hold off for now to avoid dehydration since BUN climbed. (2) Pneumonia due to COVID-19 virus Is this a current diagnosis for this admission?: Yes Plan: Tested positive outpatient-record in chart Received azithromycin 3-4 days of Azithromycin and ceftriaxone. Completed 5 days of remdesivir IV dexamethasone day 9 Received convalescent plasma 01/08 Vitamin and zinc supplements Bronchodilator therapy I will de-escalate therapeutic Lovenox to high dose prophylaxis now that he is D-dimer has normalized. We will continue to trend D-dimer every 48 hours. (3) High blood pressure Qualifiers: Hypertension type: unspecified Qualified Code(s): I10 - Essential (primary) hypertension Is this a current diagnosis for this admission?: Yes Plan: c/w amlodipine. BP is controlled now. (4) Obesity (BMI 30-39.9) Is this a current diagnosis for this admission?: Yes - Time Time Spent with patient: 15-24 minutes Anticipated Discharge Disposition: Home, Self Care Anticipated Discharge Timeframe: within 72 hours
[2020-01-11] MEDS ORDERED: ENOXAPARIN SODIUM INJ 120 MG/0.8 ML DISP.SYRIN SUBCUT SCH (22:00)
[2020-01-11] MEDS: ENOXAPARIN SODIUM INJ 40 MG/0.4 ML DISP.SYRIN SUBCUT SCH (22:34)
[2020-01-11] MEDS: MELATONIN 5 MG TABLET PO PRN (22:34)
[2020-01-12] MEDS: FLUTICASONE NASAL SPRAY 50 MCG/SPRY 120 SPRAY/16 GM NASL SCH ×2 (05:49→17:25)
[2020-01-12] MEDS: IPRATROPIUM/ALBUTEROL 0.5-2.5 MG/3 ML AMPUL NEB SCH ×2 (09:18→16:26)
[2020-01-12] MEDS: ENOXAPARIN SODIUM INJ 40 MG/0.4 ML DISP.SYRIN SUBCUT SCH ×2 (10:47→21:58)
[2020-01-12] MEDS: DEXAMETHASONE SOD PHOSPHATE INJ 4 MG/1 ML VIAL IV SCH (10:48)
[2020-01-12] MEDS: ZINC SULFATE 220 MG CAPSULE PO SCH (10:48)
[2020-01-12] MEDS: AMLODIPINE BESYLATE 5 MG TABLET PO SCH (10:48)
[2020-01-12] MEDS: ASCORBIC ACID 500 MG TABLET PO SCH ×2 (10:48→17:25)
[2020-01-12] MEDS: CHOLECALCIFEROL (D3) 1,000 UNIT (25 MCG) TABLET PO SCH (10:48)
--- NOTE | 2020-01-12 14:13 | PDOC PROGRESS REPORT ---
Subjective Date:: 01/12/20 Subjective:: No adverse events overnight. On high-flow NC, when he sleeps he goes on CPAP. H e has been eating a little bit. No fevers. Reason For Visit: ACUTE HYPOXIC RESPIRATORY FAILURE,COVID 19 Physical Exam Vital Signs: Temp Pulse Resp BP Pulse Ox 97.6 F 116 H 22 H 115/62 91 L 01/12/20 11:33 01/12/20 11:33 01/12/20 11:33 01/12/20 11:33 01/12/20 11:33 Intake & Output 01/11/20 01/12/20 01/13/20 06:59 06:59 06:59 Intake Total 580 1220 Output Total 905 1325 Balance -325 -105 Weight 102.5 kg 105.1 kg General appearance: PRESENT: no acute distress, cooperative Head exam: PRESENT: normocephalic Eye exam: PRESENT: EOMI Neck exam: ABSENT: JVD Respiratory exam: PRESENT: crackles -very faint in lower lung abrams, symmetrical, unlabored. ABSENT: tachypnea, wheezes Cardiovascular exam: PRESENT: RRR, +S1, +S2. ABSENT: tachycardia GI/Abdominal exam: PRESENT: soft. ABSENT: rebound, rigid, tenderness Extremities exam: ABSENT: pedal edema Neurological exam: PRESENT: alert, awake, oriented to person, oriented to place, oriented to time Psychiatric exam: ABSENT: agitated, anxious Results Laboratory Results: 01/11/20 06:09 01/11/20 06:09 01/06/20 05:11 NT-Pro-B Natriuret Pep 338 H Impressions: Chest X-Ray 01/08/20 00:00 IMPRESSION: Improving bilateral opacities likely improvement in COVID 19 pneumonia. Assessment and Plan - Diagnosis (1) Acute respiratory failure with hypoxia Is this a current diagnosis for this admission?: Yes (2) COVID-19 Is this a current diagnosis for this admission?: Yes (3) Obesity (BMI 30-39.9) Is this a current diagnosis for this admission?: Yes - Plan Summary Summary: He continues on Decadron. He has received remdesivir and convalescent plasma. He continues on empiric antibiotic therapy. He is anticoagulated. We will continue supportive care with noninvasive ventilation. - Time Time Spent with patient: 15-24 minutes Anticipated Discharge Disposition: Undetermined Anticipated Discharge Timeframe: Undetermined
[2020-01-13] MEDS: IPRATROPIUM/ALBUTEROL 0.5-2.5 MG/3 ML AMPUL NEB SCH ×3 (00:38→15:58)
[2020-01-13] MEDS: FLUTICASONE NASAL SPRAY 50 MCG/SPRY 120 SPRAY/16 GM NASL SCH ×2 (05:43→18:08)
[2020-01-13] MEDS: ZINC SULFATE 220 MG CAPSULE PO SCH (10:49)
[2020-01-13] MEDS: DEXAMETHASONE SOD PHOSPHATE INJ 4 MG/1 ML VIAL IV SCH (10:49)
[2020-01-13] MEDS: AMLODIPINE BESYLATE 5 MG TABLET PO SCH (10:49)
[2020-01-13] MEDS: ENOXAPARIN SODIUM INJ 40 MG/0.4 ML DISP.SYRIN SUBCUT SCH ×2 (10:49→21:31)
[2020-01-13] MEDS: ASCORBIC ACID 500 MG TABLET PO SCH ×2 (10:49→18:01)
[2020-01-13] MEDS: CHOLECALCIFEROL (D3) 1,000 UNIT (25 MCG) TABLET PO SCH (10:49)
--- NOTE | 2020-01-13 15:37 | PDOC PROGRESS REPORT ---
Subjective Date:: 01/13/20 Subjective:: No adverse events overnight. He was switched over to the high flow nasal cannul a and looks comfortable. His saturations were in the upper 80s and low 90s. He said he got short of breath when he went to go to the bathroom. Reason For Visit: ACUTE HYPOXIC RESPIRATORY FAILURE,COVID 19 Physical Exam Vital Signs: Temp Pulse Resp BP Pulse Ox 98.3 F 98 18 112/72 92 01/13/20 11:27 01/13/20 11:27 01/13/20 14:09 01/13/20 11:27 01/13/20 14:09 Intake & Output 01/12/20 01/13/20 01/14/20 06:59 06:59 06:59 Intake Total 1220 Output Total 1325 1100 Balance -105 -1100 Weight 105.1 kg 106 kg General appearance: PRESENT: no acute distress, cooperative Head exam: PRESENT: normocephalic Eye exam: PRESENT: EOMI Neck exam: ABSENT: JVD Respiratory exam: PRESENT: crackles -very faint in lower lung abrams, symmetrical, unlabored. ABSENT: tachypnea, wheezes Cardiovascular exam: PRESENT: RRR, +S1, +S2. ABSENT: tachycardia GI/Abdominal exam: PRESENT: soft. ABSENT: rebound, rigid, tenderness Extremities exam: ABSENT: pedal edema Neurological exam: PRESENT: alert, awake, oriented to person, oriented to place, oriented to time Psychiatric exam: ABSENT: agitated, anxious Results Laboratory Results: 01/11/20 06:09 01/11/20 06:09 01/06/20 05:11 NT-Pro-B Natriuret Pep 338 H Impressions: Chest X-Ray 01/08/20 00:00 IMPRESSION: Improving bilateral opacities likely improvement in COVID 19 pneumonia. Assessment and Plan - Diagnosis (1) Acute respiratory failure with hypoxia Is this a current diagnosis for this admission?: Yes (2) COVID-19 Is this a current diagnosis for this admission?: Yes (3) Obesity (BMI 30-39.9) Is this a current diagnosis for this admission?: Yes - Plan Summary Summary: He continues on Decadron. He has received remdesivir and convalescent plasma. He continues on empiric antibiotic therapy. He is anticoagulated. We will continue supportive care with noninvasive ventilation. He has been transitioned to the high flow nasal cannula. We will wean as tolerated to try to keep his SPO2 at least in the mid to upper 80s as long as he looks comfortable. - Time Time Spent with patient: 15-24 minutes Anticipated Discharge Disposition: Undetermined Anticipated Discharge Timeframe: Undetermined
[2020-01-14] MEDS: IPRATROPIUM/ALBUTEROL 0.5-2.5 MG/3 ML AMPUL NEB SCH ×3 (00:54→16:30)
[2020-01-14] MEDS: FLUTICASONE NASAL SPRAY 50 MCG/SPRY 120 SPRAY/16 GM NASL SCH ×2 (05:16→17:15)
[2020-01-14] MEDS: ZINC SULFATE 220 MG CAPSULE PO SCH (10:09)
[2020-01-14] MEDS: ASCORBIC ACID 500 MG TABLET PO SCH ×2 (10:09→17:16)
[2020-01-14] MEDS: CHOLECALCIFEROL (D3) 1,000 UNIT (25 MCG) TABLET PO SCH (10:09)
[2020-01-14] MEDS: ENOXAPARIN SODIUM INJ 40 MG/0.4 ML DISP.SYRIN SUBCUT SCH ×2 (10:09→21:26)
[2020-01-14] MEDS: AMLODIPINE BESYLATE 5 MG TABLET PO SCH (10:09)
--- NOTE | 2020-01-14 15:48 | PDOC PROGRESS REPORT ---
Subjective Date:: 01/14/20 Subjective:: No adverse events overnight. He still on the high flow nasal cannula, but his f low rate has been cut down to 60 and he appears very comfortable. He has been sleeping fine. Eating and drinking without difficulty. Still gets short of breath when he gets up to go to the bathroom. Reason For Visit: ACUTE HYPOXIC RESPIRATORY FAILURE,COVID 19 Physical Exam Vital Signs: Temp Pulse Resp BP Pulse Ox 98.2 F 121 H 19 122/71 84 L 01/14/20 12:19 01/14/20 14:00 01/14/20 12:19 01/14/20 12:19 01/14/20 12:19 Intake & Output 01/13/20 01/14/20 01/15/20 06:59 06:59 06:59 Output Total 1100 475 Balance -1100 -475 Weight 106 kg 105.9 kg 105.9 kg General appearance: PRESENT: no acute distress, cooperative Head exam: PRESENT: normocephalic Eye exam: PRESENT: EOMI Neck exam: ABSENT: JVD Respiratory exam: PRESENT: crackles -very faint in lower lung abrams, symmetrical, unlabored. ABSENT: tachypnea, wheezes Cardiovascular exam: PRESENT: RRR, +S1, +S2. ABSENT: tachycardia GI/Abdominal exam: PRESENT: soft. ABSENT: rebound, rigid, tenderness Extremities exam: ABSENT: pedal edema Neurological exam: PRESENT: alert, awake, oriented to person, oriented to place, oriented to time Psychiatric exam: ABSENT: agitated, anxious Results Laboratory Results: 01/11/20 06:09 01/11/20 06:09 01/06/20 05:11 NT-Pro-B Natriuret Pep 338 H Impressions: Chest X-Ray 01/08/20 00:00 IMPRESSION: Improving bilateral opacities likely improvement in COVID 19 pneumonia. Assessment and Plan - Diagnosis (1) Acute respiratory failure with hypoxia Is this a current diagnosis for this admission?: Yes (2) COVID-19 Is this a current diagnosis for this admission?: Yes (3) Obesity (BMI 30-39.9) Is this a current diagnosis for this admission?: Yes - Plan Summary Summary: He continues on Decadron. He has received remdesivir and convalescent plasma. He continues on empiric antibiotic therapy. He is anticoagulated. We will continue supportive care with noninvasive ventilation. He has been transitioned to the high flow nasal cannula. We will wean as tolerated to try to keep his SPO2 at least in the mid to upper 80s as long as he looks comfortable. We are now weaning the oxygen and he seems to be tolerating it thus far. - Time Time Spent with patient: 15-24 minutes Anticipated Discharge Disposition: Undetermined Anticipated Discharge Timeframe: Undetermined
[2020-01-15] MEDS: IPRATROPIUM/ALBUTEROL 0.5-2.5 MG/3 ML AMPUL NEB SCH ×3 (00:49→16:46)
[2020-01-15] MEDS: FLUTICASONE NASAL SPRAY 50 MCG/SPRY 120 SPRAY/16 GM NASL SCH ×2 (05:14→17:58)
[2020-01-15] MEDS: ZINC SULFATE 220 MG CAPSULE PO SCH (10:36)
[2020-01-15] MEDS: ASCORBIC ACID 500 MG TABLET PO SCH ×2 (10:37→17:57)
[2020-01-15] MEDS: ENOXAPARIN SODIUM INJ 40 MG/0.4 ML DISP.SYRIN SUBCUT SCH ×2 (10:37→21:03)
[2020-01-15] MEDS: CHOLECALCIFEROL (D3) 1,000 UNIT (25 MCG) TABLET PO SCH (10:37)
[2020-01-15] MEDS: AMLODIPINE BESYLATE 5 MG TABLET PO SCH (10:37)
--- NOTE | 2020-01-15 14:33 | PDOC PROGRESS REPORT ---
Subjective Date:: 01/15/20 Subjective:: No adverse events overnight. He still on the high flow nasal cannula, but his f low rate has been cut down to 15 and he appears very comfortable. He has been sleeping fine. Eating and drinking without difficulty. Still gets short of breath with minimal exertion. He has had a compensatory sinus tachycardia but is asymptomatic. Reason For Visit: ACUTE HYPOXIC RESPIRATORY FAILURE,COVID 19 Physical Exam Vital Signs: Temp Pulse Resp BP Pulse Ox 98.5 F 125 H 18 133/78 H 89 L 01/15/20 11:21 01/15/20 11:21 01/15/20 11:21 01/15/20 11:21 01/15/20 11:21 Intake & Output 01/14/20 01/15/20 01/16/20 06:59 06:59 06:59 Intake Total 160 Output Total 475 1080 Balance -475 -920 Weight 105.9 kg 102.7 kg General appearance: PRESENT: no acute distress, cooperative Head exam: PRESENT: normocephalic Eye exam: PRESENT: EOMI Neck exam: ABSENT: JVD Respiratory exam: PRESENT: crackles -very faint in lower lung abrams, symmetrica l, unlabored. ABSENT: tachypnea, wheezes Cardiovascular exam: PRESENT: tachycardia, +S1, +S2. GI/Abdominal exam: PRESENT: soft. ABSENT: rebound, rigid, tenderness Extremities exam: ABSENT: pedal edema Neurological exam: PRESENT: alert, awake, oriented to person, oriented to place, oriented to time Psychiatric exam: ABSENT: agitated, anxious Results Laboratory Results: 01/11/20 06:09 01/11/20 06:09 01/06/20 05:11 NT-Pro-B Natriuret Pep 338 H Impressions: Chest X-Ray 01/08/20 00:00 IMPRESSION: Improving bilateral opacities likely improvement in COVID 19 pneumonia. Assessment and Plan - Diagnosis (1) Acute respiratory failure with hypoxia Is this a current diagnosis for this admission?: Yes (2) COVID-19 Is this a current diagnosis for this admission?: Yes (3) Obesity (BMI 30-39.9) Is this a current diagnosis for this admission?: Yes - Plan Summary Summary: He continues on Decadron. He has received remdesivir and convalescent plasma. He continues on empiric antibiotic therapy. He is anticoagulated. We will continue supportive care with noninvasive ventilation. He has been transitioned to the high flow nasal cannula. We will wean as tolerated to try to keep his S PO2 at least in the mid to upper 80s as long as he looks comfortable. We are now weaning the oxygen and he seems to be tolerating it thus far. I am not going to do anything about his tachycardia as long as her heart rate remains about where it is. I believe it is compensatory. - Time Time Spent with patient: 15-24 minutes Anticipated Discharge Disposition: Undetermined Anticipated Discharge Timeframe: Undetermined
[2020-01-15] MEDS: ACETAMINOPHEN 325 MG TABLET PO PRN ×2 (14:56→21:05)
[2020-01-15] MEDS: MELATONIN 5 MG TABLET PO PRN (21:04)
[2020-01-16] MEDS: IPRATROPIUM/ALBUTEROL 0.5-2.5 MG/3 ML AMPUL NEB SCH ×3 (00:46→16:34)
[2020-01-16 04:55] LABS: HEMATOCRIT 41.4 % (37.9-51.0); MEAN CORPUSCULAR HEMOGLOBIN 28.5 pg (27.0-33.4); MEAN CORPUSCULAR HGB CONC 33.8 g/dL (32.0-36.0); MEAN CORPUSCULAR VOLUME 84 fl (80-97); PLATELET COUNT 255 10^3/uL (150-450); RED BLOOD COUNT 4.91 10^6/uL (4.35-5.55); RED CELL DISTRIBUTION WIDTH 13.5 % (11.5-14.0); WHITE BLOOD COUNT 17.6 10^3/uL (4.0-10.5)
[2020-01-16 05:07] LABS: ANION GAP 11 (5-19); BLOOD UREA NITROGEN 21 mg/dL (7-20); CALCIUM 9.2 mg/dL (8.4-10.2); CARBON DIOXIDE 25 mmol/L (22-30); CHLORIDE 101 mmol/L (98-107); GLUCOSE 106 mg/dL (75-110)
[2020-01-16] MEDS: FLUTICASONE NASAL SPRAY 50 MCG/SPRY 120 SPRAY/16 GM NASL SCH ×3 (05:12→17:46)
[2020-01-16] MEDS: ENOXAPARIN SODIUM INJ 40 MG/0.4 ML DISP.SYRIN SUBCUT SCH (09:35)
[2020-01-16] MEDS: CHOLECALCIFEROL (D3) 1,000 UNIT (25 MCG) TABLET PO SCH (09:36)
[2020-01-16] MEDS: ZINC SULFATE 220 MG CAPSULE PO SCH (09:36)
[2020-01-16] MEDS: ASCORBIC ACID 500 MG TABLET PO SCH ×2 (09:36→17:32)
[2020-01-16] MEDS: AMLODIPINE BESYLATE 5 MG TABLET PO SCH (09:36)
[2020-01-16] MEDS ORDERED: CEFEPIME 2 GM/D5W RTU 2 GM/50 ML RTUPB IV SCH (10:30)
--- NOTE | 2020-01-16 12:32 | RADIOLOGY REPORT (SQ) ---
EXAM DESCRIPTION: CHEST SINGLE VIEW IMAGES COMPLETED DATE/TIME: 01/16/2020 11:10 am REASON FOR STUDY: hypoxemia COMPARISON: Chest films 01/08/2020, 01/03/2020, 01/01/2020 CT chest 01/02/2020 EXAM PARAMETERS: NUMBER OF VIEWS: One view. TECHNIQUE: Single frontal radiographic view of the chest acquired. RADIATION DOSE: NA LIMITATIONS: None. FINDINGS: LUNGS AND PLEURA: Low lung volumes. Diffuse bilateral airspace disease is present, simila r compared to 01/03/2020. No gross pleural effusion or pneumothorax MEDIASTINUM AND HILAR STRUCTURES: No masses. Contour normal. HEART AND VASCULAR STRUCTURES: No cardiomegaly BONES: No acute findings. HARDWARE: None in the chest. OTHER: No other significant finding. IMPRESSION: Low lung volumes. Diffuse bilateral airspace disease similar compared to 01/03/2020 TECHNICAL DOCUMENTATION: JOB ID: [id number] 2010 [employer]- All Rights Reserved Reading location - IP/workstation name: [email or web address]
[2020-01-16] MEDS: CEFEPIME HCL 2 GM in DEXTROSE 5%-WATER 50 ML IV SCH (12:37)
[2020-01-16] MEDS ORDERED: ROCURONIUM BROMIDE INJ 50 MG/5 ML VIAL IV ONE (14:42)
--- NOTE | 2020-01-16 16:50 | PDOC PROGRESS REPORT ---
Subjective Date:: 01/16/20 Subjective:: No adverse events overnight. Patient remains on a high level of supplemental ox ygen, was switched over to CPAP last night and has not been able to come off. He is on a pressure of 16 and 100% FiO2. He has been afebrile. He is persistently tachycardic, which is compensatory in nature. He does not have any evidence of coexisting bacterial infection. He appears comfortable at rest. Reason For Visit: ACUTE HYPOXIC RESPIRATORY FAILURE,COVID 19 Physical Exam Vital Signs: Temp Pulse Resp BP Pulse Ox 98.8 F 117 H 22 H 119/84 92 01/16/20 08:06 01/16/20 14:00 01/16/20 12:30 01/16/20 08:06 01/16/20 12:30 Intake & Output 01/15/20 01/16/20 01/17/20 06:59 06:59 06:59 Intake Total 160 Output Total 1080 800 Balance -920 -800 Weight 102.7 kg 103.3 kg General appearance: PRESENT: no acute distress, cooperative Head exam: PRESENT: normocephalic Eye exam: PRESENT: EOMI Neck exam: ABSENT: JVD Respiratory exam: PRESENT: crackles -very faint in lower lung abrams, symmetrical, unlabored. ABSENT: tachypnea, wheezes Cardiovascular exam: PRESENT: tachycardia, +S1, +S2. GI/Abdominal exam: PRESENT: soft. ABSENT: rebound, rigid, tenderness Extremities exam: ABSENT: pedal edema Neurological exam: PRESENT: alert, awake, oriented to person, oriented to place, oriented to time Psychiatric exam: ABSENT: agitated, anxious Results Laboratory Results: 01/16/20 04:17 01/16/20 04:17 01/16/20 01/16/20 04:17 04:17 WBC 17.6 H RBC 4.91 Hgb 14.0 Hct 41.4 MCV 84 MCH 28.5 MCHC 33.8 RDW 13.5 Plt Count 255 Sodium 136.6 L Potassium 5.0 Chloride 101 Carbon Dioxide 25 Anion Gap 11 BUN 21 H Creatinine 0.65 Est GFR ( Amer) > 60 Glucose 106 Calcium 9.2 01/06/20 05:11 NT-Pro-B Natriuret Pep 338 H Impressions: Chest X-Ray 01/16/20 00:00 IMPRESSION: Low lung volumes. Diffuse bilateral airspace disease similar compared to 01/03/2020 Assessment and Plan - Diagnosis (1) Acute respiratory failure with hypoxia Is this a current diagnosis for this admission?: Yes (2) COVID-19 Is this a current diagnosis for this admission?: Yes (3) Obesity (BMI 30-39.9) Is this a current diagnosis for this admission?: Yes - Plan Summary Summary: He has completed Decadron, remdesivir, and convalescent plasma. He has an ARDS picture at this time. He is far enough along in the disease course that I do not think further steroids would help him. Evidence suggests that in starting steroids later on the disease process may actually be harmful. His white blood cell count was going up and so I will put him empirically on cefepime. He has not been febrile. He is in a net negative fluid balance. I am not going to do anything about his tachycardia as long as the heart rate remains about where it is. I believe it is compensatory and if I attempt to bring it down I will cause him harm. - Time Time Spent with patient: 25-34 minutes Anticipated Discharge Disposition: Undetermined Anticipated Discharge Timeframe: Undetermined
[2020-01-16 20:02] LABS: ARTERIAL BLOOD BASE EXCESS 1.1 mmol/L; ARTERIAL BLOOD HCO3 23.9 mmol/L (20-24); ARTERIAL BLOOD O2 SATURATION 88.8 % (94-98); ARTERIAL BLOOD PCO2 33.1 mmHg (35-45); ARTERIAL BLOOD PH 7.48 (7.35-7.45); ARTERIAL BLOOD TOTAL CO2 24.9 mmol/L (23-27)
[2020-01-16 20:07] LABS: ARTERIAL BLOOD FIO2 100%
[2020-01-16] MEDS ORDERED: METOPROLOL TARTRATE PF/INJ 5 MG/5 ML SDV IV ONE (21:00)
[2020-01-16] MEDS ORDERED: ENOXAPARIN SODIUM INJ 100 MG/1 ML DISP.SYRIN SUBCUT ONE (21:00)
[2020-01-16] MEDS ORDERED: MORPHINE SULFATE 10 MG/ML INJ ONE (21:03)
[2020-01-16] MEDS ORDERED: IPRATROPIUM/ALBUTEROL 0.5-2.5 MG/3 ML AMPUL NEB ONE (21:29)
[2020-01-16] MEDS ORDERED: NORMAL SALINE 1000 ML 1,000 ML IV ONE (21:30)
--- NOTE | 2020-01-16 21:49 | Progress Note ---
Provider Note Provider Note: Called about patient as he has become more tachycardic. Heart rate now persistently in the 150s. Also informed that he desaturates into the 70s to low 80s anytime he moves or even just as much as sits on the edge of the bed. Examined patient. He complains of some shortness of breath but appears comfortable. Does endorse mild chest pain that started earlier. SPO2 is 90% on CPAP 18/100%. Reviewed chest x-ray from earlier today. ABG obtained which showed worsening hypoxemia. EKG showing sinus tachycardia @ 150. Troponin ordered. We will try some IV fluids. Increased high-dose prophylaxis to therapeutic Lovenox. Patient's hypoxemia is worsening which is driving patient's worsening tachycardia. I discussed with macadam raker who evaluated patient and has accepted patient to the ICU. I Have placed transfer orders.
[2020-01-16] MEDS ORDERED: ETOMIDATE INJ/PF 20 MG/10 ML SDV IV ONE (21:58)
[2020-01-16] MEDS ORDERED: ENOXAPARIN SODIUM INJ 100 MG/1 ML DISP.SYRIN SUBCUT SCH (22:00)
[2020-01-16] MEDS ORDERED: DEXAMETHASONE SOD PHOSPHATE INJ 4 MG/1 ML VIAL ONE (22:20)
[2020-01-16] MEDS: PROPOFOL 1,000 MG/100 ML INFUS..BTL IV PRN (22:20)
[2020-01-16] MEDS ORDERED: PROPOFOL 1,000 MG/100 ML INFUS..BTL IV ONE (22:21)
[2020-01-16] MEDS ORDERED: ACETAMINOPHEN SOLN 325 MG/10.15 ML UDCUP PO PRN (23:12)
[2020-01-16] MEDS ORDERED: NORMAL SALINE 1000 ML 1,000 ML IV PRN (23:15)
[2020-01-16 23:23] LABS: VENOUS BLOOD BASE EXCESS -12.1 mmol/L; VENOUS BLOOD HCO3 15.2 mmol/L (20-32); VENOUS BLOOD PCO2 39.7 mmHg (35-63); VENOUS BLOOD PH 7.2 (7.30-7.42)
--- NOTE | 2020-01-16 23:38 | RADIOLOGY REPORT (SQ) ---
EXAM DESCRIPTION: Site: CHEST SINGLE VIEW RP: XR CHEST 1 VIEW CLINICAL HISTORY: 49 years Male; ETT Placement; FINDINGS: AP chest at 2048. Since this morning at 1044, endotracheal tube has been placed, tip 3-4 cm above chris. Enteric tube tip is in the fundus of the stomach. Diffuse bilateral infiltrates are slightly worse. No pneumothorax or significant pleural effusion. Mediastinum is grossly unchanged. IMPRESSION: Intubated. Slightly worse bilateral infiltrates
[2020-01-16] MEDS ORDERED: PHARMACY COMMUNICATION ORDER MC NR (23:45)
[2020-01-16] MEDS ORDERED: PANTOPRAZOLE SODIUM 40 MG VIAL IV SCH (23:45)
[2020-01-16 23:58] LABS: ALBUMIN 3.1 g/dL (3.5-5.0); ALKALINE PHOSPHATASE 76 U/L (38-126); ANION GAP 16 (5-19); ASPARTATE AMINO TRANSFERASE 66 U/L (17-59); BILIRUBIN,DIRECT 0.6 mg/dL (0.0-0.4); BILIRUBIN,TOTAL 1.3 mg/dL (0.2-1.3); BLOOD UREA NITROGEN 25 mg/dL (7-20); CALCIUM 8.5 mg/dL (8.4-10.2); CARBON DIOXIDE 20 mmol/L (22-30); CHLORIDE 103 mmol/L (98-107); GLUCOSE 270 mg/dL (75-110); POTASSIUM 4.6 mmol/L (3.6-5.0); TOTAL PROTEIN 6.2 g/dL (6.3-8.2)
[2020-01-16] MEDS ORDERED: ACETAMINOPHEN 325 MG TABLET NG PRN (23:59)
[2020-01-16] MEDS ORDERED: ACETAMINOPHEN SOLN 325 MG/10.15 ML UDCUP NG PRN (23:59)
[2020-01-17] MEDS ORDERED: ASCORBIC ACID 500 MG TABLET PO SCH
[2020-01-17] MEDS ORDERED: NORMAL SALINE INJ/PF 0.9% 10 ML SDV IV PRN (00:09)
[2020-01-17] MEDS ORDERED: METOPROLOL TARTRATE PF/INJ 5 MG/5 ML SDV IV ONE (00:14)
[2020-01-17] MEDS ORDERED: ENOXAPARIN SODIUM INJ 100 MG/1 ML DISP.SYRIN SUBCUT ONE (00:22)
[2020-01-17] MEDS: CEFEPIME HCL 2 GM in DEXTROSE 5%-WATER 50 ML IV SCH ×4 (00:23→22:08)
[2020-01-17 00:25] LABS: ARTERIAL BLOOD BASE EXCESS -19.8 mmol/L; ARTERIAL BLOOD H2CO3 0.68 mmol/L (1.05-1.35); ARTERIAL BLOOD HCO3 7.5 mmol/L (20-24); ARTERIAL BLOOD PCO2 22.5 mmHg (35-45); ARTERIAL BLOOD TOTAL CO2 8.2 mmol/L (23-27)
[2020-01-17 00:28] LABS: ARTERIAL BLOOD PH 7.14 (7.35-7.45)
[2020-01-17 00:29] LABS: ARTERIAL BLOOD FIO2 100%; ARTERIAL BLOOD PO2 40.6 mmHg (80-100)
[2020-01-17] MEDS ORDERED: MELATONIN 5 MG TABLET NG PRN (00:30)
[2020-01-17] MEDS ORDERED: DEXTROSE 5%-WATER 1000 ML 1,000 ML with SODIUM BICARBONATE 150 MEQ IV PRN ×2 (00:32)
[2020-01-17] MEDS ORDERED: SODIUM BICARBONATE 8.4% INJ 50 MEQ/50 ML DISP.SYRIN ONE (00:39)
[2020-01-17] MEDS: IPRATROPIUM/ALBUTEROL 0.5-2.5 MG/3 ML AMPUL NEB SCH ×7 (00:41→20:55)
[2020-01-17] MEDS ORDERED: SODIUM BICARBONATE 8.4% INJ 50 MEQ/50 ML DISP.SYRIN IV ONE (00:45)
[2020-01-17] MEDS ORDERED: ROCURONIUM BROMIDE INJ 50 MG/5 ML VIAL IV ONE ×2 (00:47→05:33)
[2020-01-17 01:04] LABS: ARTERIAL BLOOD BASE EXCESS -8.4 mmol/L; ARTERIAL BLOOD H2CO3 1.54 mmol/L (1.05-1.35); ARTERIAL BLOOD HCO3 19.9 mmol/L (20-24); ARTERIAL BLOOD O2 SATURATION 86.4 % (94-98); ARTERIAL BLOOD PCO2 51.2 mmHg (35-45); ARTERIAL BLOOD PH 7.21 (7.35-7.45); ARTERIAL BLOOD TOTAL CO2 21.5 mmol/L (23-27)
[2020-01-17 01:13] LABS: ARTERIAL BLOOD FIO2 100%
[2020-01-17] MEDS: FENTANYL CITRATE INJ/PF 100 MCG/2 ML AMPUL IV PRN ×2 (01:14→16:40)
[2020-01-17] MEDS: PROPOFOL 1,000 MG/100 ML INFUS..BTL IV PRN ×7 (01:18→20:30)
--- NOTE | 2020-01-17 01:25 | CRITICAL CARE ADMISSION REPORT ---
HPI Date:: 01/16/20 Time:: 21:55 Reason for ICU Reason:: increased hypoxemia tachycardia Admission Date/Time & PCP: Admission Date/Time: 01/03/20 12:56 Primary Care Provider: ZI ALLEN is a 49 year old male who denies any significant past medical history and is on no home medications who initially presented to a local urgent care on 12/27/2019 and was diagnosed with coronavirus infection. He was stable at that time and was told to stay home and quarantine. He came to this ER on 01/01/2020 with some shortness of breath but apparently was not hypoxic at that time. He was given some Decadron and azithromycin and sent home. He comes back in today with worsening shortness of breath and was found to be hypoxic ER. He had an elevated temperature of 100.1 Fahrenheit in the ER. His oxygen saturations at 1 point were in the mid 70s on room air. He was put on nasal cannula and his saturations came up to close to 80%. He was then switched to a mask and up to a nonrebreather and only got his saturations into the upper 80s. He was put on a BiPAP and his saturations came up into the mid 90s and he was very comfortable at that point. I was called by the hospitalist service to evaluate the patient as he was becoming more hypoxic and his tachycardia was increasing. Upon evaluating the patient on the floor I attempted to prone him without any increase in his saturation and the decision was made to transfer him to ICU. Once in the ICU the patient continued to desaturate and required intubation. The patient was febrile with a temp of 102.9 Past Medical History Psychiatric Medical History: Denies: Depression Social/Family History - Social History Smoking Status: Never Smoker Frequency of Alcohol Use: None Hx Recreational Drug Use: No Drugs: None Hx Prescription Drug Abuse: No - Medication/Allergies Home Medications: Azithromycin [Zithromax 250 mg Tablet] 250 mg PO DAILY 4 Days #4 tablet 01/02/20 Dexamethasone [Decadron 4 Mg Tablet] 6 mg PO DAILY #8 tablet 01/02/20 Allergies/Adverse Reactions: No Known Allergies Allergy (Unverified 01/03/20 12:03) Physical Exam Vital Signs: Temp Pulse Resp BP Pulse Ox 99.0 F 153 H 28 H 129/67 H 91 L 01/16/20 22:39 01/16/20 22:39 01/16/20 22:39 01/16/20 22:39 01/16/20 22:39 Intake & Output 01/15/20 01/16/20 01/17/20 06:59 06:59 06:59 Intake Total 160 112 Output Total 1080 800 700 Balance -920 -800 -588 Weight 102.7 kg 103.3 kg Weight/Height Weight 103.3 kg Height 5 ft 8 in Laboratory/Radiographs Laboratory Results: 01/16/20 04:17 01/16/20 23:25 01/16/20 01/16/20 01/16/20 04:17 04:17 19:50 WBC 17.6 H RBC 4.91 Hgb 14.0 Hct 41.4 MCV 84 MCH 28.5 MCHC 33.8 RDW 13.5 Plt Count 255 Carbonic Acid 1.00 L HCO3/H2CO3 Ratio 23:1 ABG pH 7.48 H ABG pCO2 33.1 L ABG pO2 51.0 L ABG HCO3 23.9 ABG O2 Saturation 88.8 L ABG Base Excess 1.1 VBG pH VBG pCO2 VBG HCO3 VBG Base Excess FiO2 100% Sodium 136.6 L Potassium 5.0 Chloride 101 Carbon Dioxide 25 Anion Gap 11 BUN 21 H Creatinine 0.65 Est GFR ( Amer) > 60 Glucose 106 Serum Osmolality Calcium 9.2 Total Bilirubin AST Alkaline Phosphatase Total Protein Albumin 01/16/20 01/16/20 01/16/20 23:13 23:25 23:25 WBC RBC Hgb Hct MCV MCH MCHC RDW Plt Count Carbonic Acid HCO3/H2CO3 Ratio ABG pH ABG pCO2 ABG pO2 ABG HCO3 ABG O2 Saturation ABG Base Excess VBG pH 7.20 L VBG pCO2 39.7 VBG HCO3 15.2 L VBG Base Excess -12.1 FiO2 Sodium 138.5 Potassium 4.6 Chloride 103 Carbon Dioxide 20 L Anion Gap 16 BUN 25 H Creatinine 0.94 Est GFR ( Amer) > 60 Glucose 270 H Serum Osmolality 306 H Calcium 8.5 Total Bilirubin 1.3 AST 66 H Alkaline Phosphatase 76 Total Protein 6.2 L Albumin 3.1 L 01/16/20 01/17/20 23:55 00:55 WBC RBC Hgb Hct MCV MCH MCHC RDW Plt Count Carbonic Acid 0.68 L 1.54 H HCO3/H2CO3 Ratio 11:1 12:1 ABG pH 7.14 L* 7.21 L ABG pCO2 22.5 L 51.2 H ABG pO2 40.6 L* 62.0 L ABG HCO3 7.5 L 19.9 L ABG O2 Saturation 62.0 L 86.4 L ABG Base Excess -19.8 -8.4 VBG pH VBG pCO2 VBG HCO3 VBG Base Excess FiO2 100% 100% Sodium Potassium Chloride Carbon Dioxide Anion Gap BUN Creatinine Est GFR ( Amer) Glucose Serum Osmolality Calcium Total Bilirubin AST Alkaline Phosphatase Total Protein Albumin 01/06/20 01/16/20 05:11 21:00 Troponin I < 0.012 NT-Pro-B Natriuret Pep 338 H Impressions: Chest X-Ray 01/16/20 00:00 IMPRESSION: Intubated. Slightly worse bilateral infiltrates Critical Time Critical Time (minutes): 60 -: The care of a critically ill patient is dynamic. This note represents a static moment in the admission process. Orders and treatments may be given simultaneously and urgently, and time is not human resources hr representative of the treatment process. This patient requires Critical Care secondary to life threatening organ or limb dysfunction. Without Critical Care services, the patient is at risk for increased mortality and morbidity.
[2020-01-17] MEDS: NORMAL SALINE 500 ML with ROCURONIUM BROMIDE 500 MG IV PRN ×4 (01:45→19:15)
--- NOTE | 2020-01-17 01:48 | CRITICAL CARE ADMISSION REPORT ---
ISAAC Date:: 01/16/20 Time:: 23:15 Reason for ICU Reason:: hypoxia tachycardia Admission Date/Time & PCP: Admission Date/Time: 01/03/20 12:56 Primary Care Provider: transfer from floor to Dr. Alicia HPI: ZI ALLEN is a 49 year old male who denies any significant past medical history and is on no home medications who initially presented to a local urgent care on 12/27/2019 and was diagnosed with coronavirus infection. He was stable at that time and was told to stay home and quarantine. He came to this ER on with some shortness of breath but apparently was not hypoxic at that time. He was given some Decadron and azithromycin and sent home. He comes back in today with worsening shortness of breath and was found to be hypoxic ER. He had an elevated temperature of 100.1 Fahrenheit in the ER. His oxygen saturations at 1 point were in the mid 70s on room air. He was put on nasal cannula and his saturations came up to close to 80%. He was then switched to a mask and up to a nonrebreather and only got his saturations into the upper 80s. He was put on a BiPAP and his saturations came up into the mid 90s and he was very comfortable at that point. I was called to the floor to evaluate this patient for increaesd oxygen demands and increased heart rate. Upon my arrival to the floor the patient was hypoxic saturations in hte 70's and despite attempts to improve oxygenation was unsuccessful. I accepted this patient on transfer to the ICU and once arrived in the unit the decision was made to intubate him due to continued desaturation. I called and spoke with the patients regarding the need for mechanical ventilation and she was in agreement with the treatment plan. - Diagnosis/Plan (1) Acute respiratory failure with hypoxia Is this a current diagnosis for this admission?: Yes Plan: mechanical ventilation wean as tolerated (2) COVID-19 Is this a current diagnosis for this admission?: Yes Plan: ventilator support continue vitamin regimen continue cefepime for elevated wbc lthough most likely viral in nature (3) Fever Qualifiers: Fever type: unspecified Qualified Code(s): R50.9 - Fever, unspecified Is this a current diagnosis for this admission?: Yes Plan: tylenol PRN (4) Obesity (BMI 30-39.9) Is this a current diagnosis for this admission?: No (5) Pneumonia due to COVID-19 virus Is this a current diagnosis for this admission?: Yes Plan: continue cefepime (6) Pulmonary infiltrates Is this a current diagnosis for this admission?: Yes Plan: vent support cefepime (7) Respiratory failure Qualifiers: Chronicity: acute Respiratory failure complication: hypoxia Qualified Code(s): J96.01 - Acute respiratory failure with hypoxia Is this a current diagnosis for this admission?: Yes Plan: vent support considering proning patient if no improvement Past Medical History Psychiatric Medical History: Denies: Depression Social/Family History - Social History Lives with: Family Smoking Status: Never Smoker Frequency of Alcohol Use: None Hx Recreational Drug Use: No Drugs: None Hx Prescription Drug Abuse: No - Family History Family History: None - Medication/Allergies Home Medications: Azithromycin [Zithromax 250 mg Tablet] 250 mg PO DAILY 4 Days #4 tablet 01/02/20 Dexamethasone [Decadron 4 Mg Tablet] 6 mg PO DAILY #8 tablet 01/02/20 Allergies/Adverse Reactions: No Known Allergies Allergy (Unverified 01/03/20 12:03) Review of Systems ROS unobtainable: Due to endotracheal tube Physical Exam Vital Signs: Temp Pulse Resp BP Pulse Ox 100.8 F H 153 H 28 H 129/67 H 91 L 01/17/20 01:22 01/16/20 22:39 01/16/20 22:39 01/16/20 22:39 01/16/20 22:39 Intake & Output 01/15/20 01/16/20 01/17/20 06:59 06:59 06:59 Intake Total 160 135 Output Total 1080 800 700 Balance -920 -800 -565 Weight 102.7 kg 103.3 kg Weight/Height Weight 103.3 kg Height 5 ft 8 in General appearance: PRESENT: severe distress Head exam: PRESENT: atraumatic, normocephalic Eye exam: PRESENT: PERRLA Ear exam: PRESENT: normal external ear exam Mouth exam: PRESENT: dry mucosa Neck exam: PRESENT: full ROM Respiratory exam: PRESENT: accessory muscle use, decreased breath sounds, tachypnea Cardiovascular exam: PRESENT: +S1, +S2, tachycardia Pulses: PRESENT: normal radial pulses, +2 pedal pulses bilateral GI/Abdominal exam: PRESENT: diminished bowel sounds, distended, firm Rectal exam: PRESENT: deferred Musculoskeletal exam: PRESENT: full ROM Neurological exam: PRESENT: alert, awake, oriented to person, oriented to place, oriented to time, oriented to situation - prior to intubation Psychiatric exam: PRESENT: anxious Skin exam: PRESENT: dry, mottled - lower extremities Tubes/Lines: PRESENT: Endotracheal Tube, Central Line - placed after arrival to floor Laboratory/Radiographs Laboratory Results: 01/16/20 04:17 01/16/20 23:25 01/16/20 01/16/20 01/16/20 04:17 04:17 19:50 WBC 17.6 H RBC 4.91 Hgb 14.0 Hct 41.4 MCV 84 MCH 28.5 MCHC 33.8 RDW 13.5 Plt Count 255 Carbonic Acid 1.00 L HCO3/H2CO3 Ratio 23:1 ABG pH 7.48 H ABG pCO2 33.1 L ABG pO2 51.0 L ABG HCO3 23.9 ABG O2 Saturation 88.8 L ABG Base Excess 1.1 VBG pH VBG pCO2 VBG HCO3 VBG Base Excess FiO2 100% Sodium 136.6 L Potassium 5.0 Chloride 101 Carbon Dioxide 25 Anion Gap 11 BUN 21 H Creatinine 0.65 Est GFR ( Amer) > 60 Glucose 106 Serum Osmolality Calcium 9.2 Total Bilirubin AST Alkaline Phosphatase Total Protein Albumin 01/16/20 01/16/20 01/16/20 23:13 23:25 23:25 WBC RBC Hgb Hct MCV MCH MCHC RDW Plt Count Carbonic Acid HCO3/H2CO3 Ratio ABG pH ABG pCO2 ABG pO2 ABG HCO3 ABG O2 Saturation ABG Base Excess VBG pH 7.20 L VBG pCO2 39.7 VBG HCO3 15.2 L VBG Base Excess -12.1 FiO2 Sodium 138.5 Potassium 4.6 Chloride 103 Carbon Dioxide 20 L Anion Gap 16 BUN 25 H Creatinine 0.94 Est GFR ( Amer) > 60 Glucose 270 H Serum Osmolality 306 H Calcium 8.5 Total Bilirubin 1.3 AST 66 H Alkaline Phosphatase 76 Total Protein 6.2 L Albumin 3.1 L 01/16/20 01/17/20 23:55 00:55 WBC RBC Hgb Hct MCV MCH MCHC RDW Plt Count Carbonic Acid 0.68 L 1.54 H HCO3/H2CO3 Ratio 11:1 12:1 ABG pH 7.14 L* 7.21 L ABG pCO2 22.5 L 51.2 H ABG pO2 40.6 L* 62.0 L ABG HCO3 7.5 L 19.9 L ABG O2 Saturation 62.0 L 86.4 L ABG Base Excess -19.8 -8.4 VBG pH VBG pCO2 VBG HCO3 VBG Base Excess FiO2 100% 100% Sodium Potassium Chloride Carbon Dioxide Anion Gap BUN Creatinine Est GFR ( Amer) Glucose Serum Osmolality Calcium Total Bilirubin AST Alkaline Phosphatase Total Protein Albumin 01/06/20 01/16/20 05:11 21:00 Troponin I < 0.012 NT-Pro-B Natriuret Pep 338 H Impressions: Chest X-Ray 01/16/20 00:00 IMPRESSION: Intubated. Slightly worse bilateral infiltrates All labs, radiographs, diagnostic studies and EKGs were personally reviewed: Yes In addition, reports of radiographic and diagnostic studies were read: Yes Critical Time Critical Time (minutes): 60 -: The care of a critically ill patient is dynamic. This note represents a static moment in the admission process. Orders and treatments may be given simultaneously and urgently, and time is not professional healthcare representative of the treatment process. This patient requires Critical Care secondary to life threatening organ or limb dysfunction. Without Critical Care services, the patient is at risk for increased mortality and morbidity.
[2020-01-17] MEDS ORDERED: MORPHINE SULFATE 10 MG/ML INJ IV ONE (02:00)
[2020-01-17] MEDS: FENTANYL CITRATE/PF 600 MCG/60 ML BAG IV PRN ×5 (02:04→20:31)
--- NOTE | 2020-01-17 02:47 | Operative Report ---
Bedside Procedure - History of Present Illness History of Present Illness: ZI ALLEN is a 49 year old male who denies any significant past medical history and is on no home medications who initially presented to a local urgent care on 12/27/2019 and was diagnosed with coronavirus infection. He was stable at that time and was told to stay home and quarantine. He came to this ER on 01/01/2020 with some shortness of breath but apparently was not hypoxic at that time. He was given some Decadron and azithromycin and sent home. He comes back in today with worsening shortness of breath and was found to be hypoxic ER. He had an elevated temperature of 100.1 Fahrenheit in the ER. His oxygen saturations at 1 point were in the mid 70s on room air. He was put on nasal cannula and his saturations came up to close to 80%. He was then switched to a mask and up to a nonrebreather and only got his saturations into the upper 80s. He was put on a BiPAP and his saturations came up into the mid 90s and he was very comfortable at that point. I was called to the floor to evaluate this patient for increaesd oxygen demands and increased heart rate. Upon my arrival to the floor the patient was hypoxic saturations in hte 70's and despite attempts to improve oxygenation was unsuccessful. I accepted this patient on transfer to the ICU and once arrived in the unit the decision was made to intubate him due to continued desaturation. I called and spoke with the patients regarding the need for mechanical venti lation and she was in agreement with the treatment plan. Indication for Procedure: hypoxemia/sepsis Provider: TYE MITCHELL - Central Line Right Internal jugular Time completed: 23:10 - 01/16/2020 Consent obtained: Yes - verbal consent from fannie Central line pre-insertion: Sterile PPE donned, Chloraprep applied, Sterile drapes applied Central line size (Fr.): 7 Central line lumen type: Triple Anesthetic type: 1% Lidocaine mL's of anesthesia: 5 Ultrasound guided: Yes Line secured with sutures: Yes Central line post-insertion: Blood return from lumens, Biopatch applied, Sutured, Sterile dressing applied, Position confirmed w/ CXR Number of attempts: 1 Complications: No - Intubation Tracheostomy Time of Intubation: 22:55 - 01/16/2020 Airway evaluation: Normal anatomy Medications: Etomidate, Other - rocuronium Intubation method: Orotracheal Blade type: Alena Blade size: 4 Equipment used: Glidescope ETT size: 8.0 ETT secured at: Lips - 24 ETT secured at (cm): 24 Post Intubation Xray: Yes Intubation Complications: No complications - bagged abd saturation remained in the 80's
[2020-01-17] MEDS ORDERED: ETOMIDATE INJ/PF 20 MG/10 ML SDV IV ONE (05:32)
[2020-01-17 05:33] LABS: HEMATOCRIT 36.4 % (37.9-51.0); HEMOGLOBIN 12.2 g/dL (13.5-17.0); MEAN CORPUSCULAR HEMOGLOBIN 28.3 pg (27.0-33.4); MEAN CORPUSCULAR HGB CONC 33.6 g/dL (32.0-36.0); MEAN CORPUSCULAR VOLUME 84 fl (80-97); PLATELET COUNT 190 10^3/uL (150-450); RED BLOOD COUNT 4.32 10^6/uL (4.35-5.55); RED CELL DISTRIBUTION WIDTH 13.7 % (11.5-14.0); WHITE BLOOD COUNT 23.3 10^3/uL (4.0-10.5)
[2020-01-17 05:47] LABS: ARTERIAL BLOOD BASE EXCESS 4.8 mmol/L; ARTERIAL BLOOD H2CO3 1.35 mmol/L (1.05-1.35); ARTERIAL BLOOD HCO3 29.6 mmol/L (20-24); ARTERIAL BLOOD O2 SATURATION 87.6 % (94-98); ARTERIAL BLOOD PCO2 44.7 mmHg (35-45); ARTERIAL BLOOD PH 7.44 (7.35-7.45); ARTERIAL BLOOD PO2 51.7 mmHg (80-100)
[2020-01-17 05:49] LABS: ALBUMIN 2.6 g/dL (3.5-5.0); ALKALINE PHOSPHATASE 66 U/L (38-126); ASPARTATE AMINO TRANSFERASE 48 U/L (17-59); BILIRUBIN,DIRECT 0.6 mg/dL (0.0-0.4); BILIRUBIN,TOTAL 0.9 mg/dL (0.2-1.3); BLOOD UREA NITROGEN 31 mg/dL (7-20); CALCIUM 7.8 mg/dL (8.4-10.2); CHLORIDE 100 mmol/L (98-107); CREATINE KINASE 38 U/L (55-170); GLUCOSE 227 mg/dL (75-110); PHOSPHORUS 3.2 mg/dL (2.5-4.5); POTASSIUM 3.9 mmol/L (3.6-5.0); TOTAL PROTEIN 5.3 g/dL (6.3-8.2)
[2020-01-17 06:00] LABS: CREATINE KINASE MB 1.63 ng/mL (<4.55); TROPONIN I 0.028 ng/mL
[2020-01-17 06:10] LABS: ABSOLUTE LYMPHOCYTES# (MANUAL) 0.7 10^3/uL (0.5-4.7); ABSOLUTE MONOCYTES # (MANUAL) 0.7 10^3/uL (0.1-1.4); ARTERIAL BLOOD FIO2 100%; BAND NEUTROPHILS % (MANUAL) 2 % (3-5); BASOPHILS % (MANUAL) 0 % (0-2); EOSINOPHILS % (MANUAL) 0 % (0-6); LYMPHOCYTES % (MANUAL) 3 % (13-45); MONOCYTES % (MANUAL) 3 % (3-13); SEGMENTED NEUTROPHILS % (MAN) 92 % (42-78); TOTAL CELLS COUNTED 100
[2020-01-17 06:11] LABS: PLATELET COMMENT ADEQUATE
[2020-01-17 06:12] LABS: ANION GAP 8 (5-19); POLYCHROMASIA SLIGHT
[2020-01-17 06:14] LABS: HYPERSEGMENTED NEUTROPHILS PRESENT; POIKILOCYTOSIS SLIGHT
[2020-01-17 06:17] LABS: CARBON DIOXIDE 34 mmol/L (22-30)
[2020-01-17] MEDS: DEXAMETHASONE SOD PHOSPHATE INJ 4 MG/1 ML VIAL IV SCH ×3 (06:44→22:07)
[2020-01-17] MEDS: FLUTICASONE NASAL SPRAY 50 MCG/SPRY 120 SPRAY/16 GM NASL SCH ×2 (06:45→17:50)
[2020-01-17] MEDS: ASCORBIC ACID 500 MG TABLET NG SCH ×3 (06:46→18:01)
[2020-01-17] MEDS: ALBUMIN HUMAN 12.5 GM/50 ML RTUINJ IV SCH ×3 (07:04→08:58)
--- NOTE | 2020-01-17 07:39 | RADIOLOGY REPORT (SQ) ---
EXAM DESCRIPTION: CHEST SINGLE VIEW IMAGES COMPLETED DATE/TIME: 01/17/2020 6:45 am REASON FOR STUDY: vent COMPARISON: 01/08/2020, 01/16/2020 EXAM PARAMETERS: NUMBER OF VIEWS: One view. TECHNIQUE: Single frontal radiographic view of the chest acquired. RADIATION DOSE: NA LIMITATIONS: None. FINDINGS: LUNGS AND PLEURA: Diffuse alveolar and interstitial are present, similar compared to 01/15 No pleural effusion. No pneumothorax. MEDIASTINUM AND HILAR STRUCTURES: No masses. Contour normal. HEART AND VASCULAR STRUCTURES: No cardiomegaly BONES: No acute findings. HARDWARE: Endotracheal tube tip 4 cm above the chris. Right jugular central line tip in the right a trium. Nasogastric tip and side port in stomach OTHER: No other significant finding. IMPRESSION: No change from yesterday TECHNICAL DOCUMENTATION: JOB ID: [id number] 2010 [employer]- All Rights Reserved Reading location - IP/workstation name: [email or web address]
[2020-01-17 08:11] LABS: AMORPHOUS SEDIMENT,URINE TRACE /HPF; APPEARANCE,URINE TURBID; BILIRUBIN,URINE NEGATIVE (NEGATIVE); COLOR,URINE YELLOW; GLUCOSE, URINE NEGATIVE (NEGATIVE); KETONES,URINE NEGATIVE (NEGATIVE); PROTEIN,URINE 30 mg/dL (NEGATIVE); URINE SPECIFIC GRAVITY 1.025
--- NOTE | 2020-01-17 08:56 | EKG REPORT ---
SEVERITY:- OTHERWISE NORMAL ECG - SINUS TACHYCARDIA : Confirmed by: Leia Bautista 17-Jan-2020 08:55:22
[2020-01-17] MEDS: ENOXAPARIN SODIUM INJ 100 MG/1 ML DISP.SYRIN SUBCUT SCH ×2 (09:46→22:05)
[2020-01-17] MEDS: ZINC SULFATE 220 MG CAPSULE NG SCH (09:47)
[2020-01-17] MEDS: PANTOPRAZOLE SODIUM 40 MG VIAL IV SCH (09:47)
[2020-01-17] MEDS: CHOLECALCIFEROL (D3) 1,000 UNIT (25 MCG) TABLET NG SCH (09:47)
[2020-01-17] MEDS ORDERED: AMLODIPINE BESYLATE 5 MG TABLET NG SCH (10:00)
--- NOTE | 2020-01-17 11:17 | Progress Note ---
Provider Note Provider Note: Patient admitted today and intubated for respiratory distress. He has been in the ICU about 10 hours thus far. He is somewhat stable although his oxygen saturations are between 86-91. This is typical of COVID especially shortly after intubation. His RR is set at 28 and will check an ABG to assess his pH. PEEP is 10 and FIO2 100%.
[2020-01-17 14:15] LABS: ARTERIAL BLOOD BASE EXCESS 8.2 mmol/L; ARTERIAL BLOOD FIO2 100%; ARTERIAL BLOOD H2CO3 1.42 mmol/L (1.05-1.35); ARTERIAL BLOOD O2 SATURATION 93.3 % (94-98); ARTERIAL BLOOD PCO2 47.3 mmHg (35-45); ARTERIAL BLOOD PH 7.46 (7.35-7.45); ARTERIAL BLOOD TOTAL CO2 34.5 mmol/L (23-27)
[2020-01-17] MEDS ORDERED: NORMAL SALINE 1000 ML 1,000 ML IV PRN (14:32)
[2020-01-17] MEDS: NORMAL SALINE 1000 ML 1,000 ML IV PRN ×2 (16:41→20:32)
[2020-01-17] MEDS: MINERAL OIL/PETROLATUM,WHITE OPH OINT 3.5 GM OU PRN (18:01)
[2020-01-18] MEDS: IPRATROPIUM/ALBUTEROL 0.5-2.5 MG/3 ML AMPUL NEB SCH ×6 (00:08→19:54)
[2020-01-18] MEDS: ASCORBIC ACID 500 MG TABLET NG SCH ×5 (00:31→23:04)
[2020-01-18] MEDS: PROPOFOL 1,000 MG/100 ML INFUS..BTL IV PRN ×5 (00:32→16:32)
[2020-01-18] MEDS: FENTANYL CITRATE/PF 600 MCG/60 ML BAG IV PRN ×8 (00:33→21:29)
[2020-01-18] MEDS ORDERED: NORMAL SALINE 1000 ML 500 ML IV ONE (01:00)
[2020-01-18 04:01] LABS: HEMATOCRIT 33.1 % (37.9-51.0); MEAN CORPUSCULAR HEMOGLOBIN 28.6 pg (27.0-33.4); MEAN CORPUSCULAR HGB CONC 33.4 g/dL (32.0-36.0); MEAN CORPUSCULAR VOLUME 86 fl (80-97); PLATELET COUNT 174 10^3/uL (150-450); RED BLOOD COUNT 3.86 10^6/uL (4.35-5.55); RED CELL DISTRIBUTION WIDTH 13.5 % (11.5-14.0); WHITE BLOOD COUNT 16.1 10^3/uL (4.0-10.5)
[2020-01-18] MEDS ORDERED: FUROSEMIDE INJ/PF 40 MG/4 ML SDV ONE (05:48)
[2020-01-18] MEDS: DEXAMETHASONE SOD PHOSPHATE INJ 4 MG/1 ML VIAL IV SCH ×3 (06:13→22:45)
[2020-01-18] MEDS: CEFEPIME HCL 2 GM in DEXTROSE 5%-WATER 50 ML IV SCH ×3 (06:15→22:44)
[2020-01-18 06:21] LABS: ANION GAP 9 (5-19); BLOOD UREA NITROGEN 27 mg/dL (7-20); CALCIUM 7.8 mg/dL (8.4-10.2); CARBON DIOXIDE 29 mmol/L (22-30); CHLORIDE 105 mmol/L (98-107); GLUCOSE 148 mg/dL (75-110); PHOSPHORUS 2.9 mg/dL (2.5-4.5); POTASSIUM 3.8 mmol/L (3.6-5.0)
[2020-01-18] MEDS: FLUTICASONE NASAL SPRAY 50 MCG/SPRY 120 SPRAY/16 GM NASL SCH ×2 (07:03→17:27)
[2020-01-18] MEDS: MINERAL OIL/PETROLATUM,WHITE OPH OINT 3.5 GM OU PRN ×2 (07:56→13:36)
[2020-01-18 08:18] LABS: ABSOLUTE LYMPHOCYTES# (MANUAL) 0.8 10^3/uL (0.5-4.7); ABSOLUTE MONOCYTES # (MANUAL) 0.2 10^3/uL (0.1-1.4); BASOPHILS % (MANUAL) 0 % (0-2); EOSINOPHILS % (MANUAL) 0 % (0-6); LYMPHOCYTES % (MANUAL) 5 % (13-45); MONOCYTES % (MANUAL) 1 % (3-13); PLATELET COMMENT ADEQUATE; RBC MORPHOLOGY COMMENT NORMO-CYTIC/CHROMIC; SEGMENTED NEUTROPHILS % (MAN) 94 % (42-78); TOTAL CELLS COUNTED 100
--- NOTE | 2020-01-18 08:34 | RADIOLOGY REPORT (SQ) ---
EXAM DESCRIPTION: CHEST SINGLE VIEW IMAGES COMPLETED DATE/TIME: 01/18/2020 6:36 am REASON FOR STUDY: vent COMPARISON: None. EXAM PARAMETERS: NUMBER OF VIEWS: One view. TECHNIQUE: An AP view of the chest was obtained. RADIATION DOSE: NA LIMITATIONS: None. FINDINGS: LUNGS AND PLEURA: Unchanged appearance of the lungs and pleura. MEDIASTINUM AND HILAR STRUCTURES: Stable mediastinal and hilar contours. HEART AND VASCULAR STRUCTURES: Stable cardiac silhouette. BONES: No acute findings. HARDWARE: The tip of the endotracheal tube projects 3 cm above the chris. The tip of the right IJ c entral venous catheter projects within the SVC. The tip of the enteric tube project within the gastr ic lumen. OTHER: No other finding. IMPRESSION: Tubes and lines as above. Otherwise unchanged radiographic appearance of the chest. TECHNICAL DOCUMENTATION: JOB ID: [id number] 2010 [email or web address]- All Rights Reserved Reading location - IP/workstation name: [email or web address]
[2020-01-18] MEDS: NORMAL SALINE 1000 ML 1,000 ML IV PRN ×2 (09:16→18:16)
[2020-01-18] MEDS: ENOXAPARIN SODIUM INJ 100 MG/1 ML DISP.SYRIN SUBCUT SCH ×2 (10:47→22:44)
[2020-01-18] MEDS: PANTOPRAZOLE SODIUM 40 MG VIAL IV SCH (10:47)
[2020-01-18] MEDS: CHOLECALCIFEROL (D3) 1,000 UNIT (25 MCG) TABLET NG SCH (10:47)
[2020-01-18] MEDS: ZINC SULFATE 220 MG CAPSULE NG SCH (10:47)
--- NOTE | 2020-01-18 12:50 | PDOC CRITICAL CARE PROG REPORT ---
General Date:: 01/18/20 ICU Day:: 2 Ventilator Day:: 2 Hospital Day:: 15 Events in the past 12 to 24 Hours:: The patient got more and more hypoxemic and short of breath requiring intubation and mechanical ventialtion. Reason for ICU Addmission:: hypoxia tachycardia Physical Exam Vital Signs: Temp Pulse Resp BP Pulse Ox 99.0 F 109 H 28 H 120/78 92 01/18/20 08:00 01/18/20 12:25 01/18/20 12:25 01/18/20 11:58 01/18/20 12:25 Intake & Output 01/17/20 01/18/20 01/19/20 06:59 06:59 06:59 Intake Total 1867 2827 93 Output Total 803 43 2000 Balance 957 1807 -1885 Weight 103.3 kg 109.1 kg 109.1 kg Weight/Height Weight 109.1 kg Height 5 ft 8 in General appearance: PRESENT: morbidly obese Head exam: PRESENT: atraumatic, normocephalic Eye exam: PRESENT: conjunctiva pink, PERRLA Ear exam: PRESENT: normal external ear exam Mouth exam: PRESENT: moist Neck exam: PRESENT: full ROM. ABSENT: JVD, lymphadenopathy Respiratory exam: PRESENT: crackles Pulses: PRESENT: normal carotid pulses, normal dorsalis pedis pul GI/Abdominal exam: PRESENT: normal bowel sounds, soft Rectal exam: PRESENT: deferred Extremities exam: ABSENT: joint swelling Neurological exam: PRESENT: other - The patient is fully sedated and paralyzed on the ventilator Laboratory/Radiographs Laboratory Results: 01/18/20 03:15 01/18/20 03:15 01/17/20 01/18/20 01/18/20 13:36 03:15 03:15 WBC RBC Hgb Hct MCV MCH MCHC RDW Plt Count Seg Neutrophils % Carbonic Acid 1.42 H HCO3/H2CO3 Ratio 23:1 ABG pH 7.46 H ABG pCO2 47.3 H ABG pO2 64.0 L ABG HCO3 33.0 H ABG O2 Saturation 93.3 L ABG Base Excess 8.2 FiO2 100% Sodium 142.5 Potassium 3.8 Chloride 105 Carbon Dioxide 29 Anion Gap 9 BUN 27 H Creatinine 0.79 Est GFR ( Amer) > 60 Glucose 148 H Calcium 7.8 L Phosphorus 2.9 Magnesium 2.3 01/18/20 03:15 WBC 16.1 H RBC 3.86 L Hgb 11.0 L Hct 33.1 L MCV 86 MCH 28.6 MCHC 33.4 RDW 13.5 Plt Count 174 Seg Neutrophils % Not Reportable Carbonic Acid HCO3/H2CO3 Ratio ABG pH ABG pCO2 ABG pO2 ABG HCO3 ABG O2 Saturation ABG Base Excess FiO2 Sodium Potassium Chloride Carbon Dioxide Anion Gap BUN Creatinine Est GFR ( Amer) Glucose Calcium Phosphorus Magnesium 01/06/20 01/16/20 01/17/20 05:11 21:00 05:00 Creatine Kinase 38 L CK-MB (CK-2) Troponin I < 0.012 NT-Pro-B Natriuret Pep 338 H 01/17/20 05:00 Creatine Kinase CK-MB (CK-2) 1.63 Troponin I 0.028 NT-Pro-B Natriuret Pep 504 H Impressions: Chest X-Ray 01/18/20 06:00 IMPRESSION: Tubes and lines as above. Otherwise unchanged radiographic appearance of the chest. Assessment and Plan - Diagnosis (1) Acute respiratory failure with hypoxia Is this a current diagnosis for this admission?: Yes Plan: Some improvement as was able stay off CPAP through yesterday. Secondary to COVID-19 infection likely w/ ARDS. Continue HFNC. Currently spo2 low 90s on 55L/fio2 90% [Goal spo2 90-94%]. CPAP will be kept on standby. He did have some response to 2 days of daily Lasix pushes but I will hold off for now to avoid dehydration since BUN climbed. 01/17 The patient's condition worsened yesterday necessitation movement to the ICU and eventual intuabtion and paralysis. Given his high FI02 requirements there was an intial attempt too prone the patient that was unsuccessful. [place] remains guarded. I have placedd the patient on pCV ventialtion with a 1:1 IE ratio. (2) Obesity (BMI 30-39.9) Is this a current diagnosis for this admission?: No (3) Pneumonia due to COVID-19 virus Is this a current diagnosis for this admission?: Yes Plan: Tested positive outpatient-record in chart Received azithromycin 3-4 days of Azithromycin and ceftriaxone. Completed 5 days of remdesivir IV dexamethasone day 9 Received convalescent plasma 01/08 Vitamin and zinc supplements Bronchodilator therapy I will de-escalate therapeutic Lovenox to high dose prophylaxis now that he is D-dimer has normalized. We will continue to trend D-dimer every 48 hours. 01/17 His CRP and LDH are fairly elevated CXR shows a dense LLL infitrate. Patient started on Cefipime on 01/15 Repeat C and S resp. ordered. Critical Time Critical Time (minutes): 40 Level of Care: ICU -: 1. The care of a critical patient is a dynamic process. This note is a industrial sales representative synopsis but static in nature. The timeframe for treatments given in order is not necessarily the actual time these treatments may have been done. 2. This patient requires critical care secondary to ongoing requirements for therapy not offered or safe outside the critical care environment. Transfer to a lower level of care will result in altered life or limb morbidity and mortality. 3. Multidisciplinary rounds completed. 4. ABCDE bundle addressed.
[2020-01-18 14:17] LABS: ARTERIAL BLOOD BASE EXCESS -1.7 mmol/L; ARTERIAL BLOOD H2CO3 1.23 mmol/L (1.05-1.35); ARTERIAL BLOOD HCO3 23.3 mmol/L (20-24); ARTERIAL BLOOD PCO2 40.8 mmHg (35-45); ARTERIAL BLOOD PH 7.38 (7.35-7.45); ARTERIAL BLOOD PO2 76.4 mmHg (80-100); ARTERIAL BLOOD TOTAL CO2 24.6 mmol/L (23-27)
[2020-01-18 14:19] LABS: ARTERIAL BLOOD FIO2 85%
[2020-01-18] MEDS: AMINO AC/PROTEIN HYDR/WHEY PRO 11 GM/45 ML PKT NG SCH ×3 (16:18→23:04)
[2020-01-18] MEDS: NORMAL SALINE 500 ML with ROCURONIUM BROMIDE 500 MG IV PRN ×2 (18:15)
[2020-01-18] MEDS: MIDAZOLAM HCL 50 MG/100 ML RTUINJ IV PRN ×2 (19:06→23:05)
[2020-01-19] MEDS: FENTANYL CITRATE/PF 600 MCG/60 ML BAG IV PRN ×8 (00:30→21:40)
[2020-01-19] MEDS: IPRATROPIUM/ALBUTEROL 0.5-2.5 MG/3 ML AMPUL NEB SCH ×5 (00:55→20:34)
[2020-01-19] MEDS: MINERAL OIL/PETROLATUM,WHITE OPH OINT 3.5 GM OU PRN ×2 (01:23→14:29)
[2020-01-19 04:34] LABS: HEMATOCRIT 31.4 % (37.9-51.0); HEMOGLOBIN 10.4 g/dL (13.5-17.0); MEAN CORPUSCULAR HEMOGLOBIN 28.4 pg (27.0-33.4); MEAN CORPUSCULAR HGB CONC 33.2 g/dL (32.0-36.0); MEAN CORPUSCULAR VOLUME 86 fl (80-97); PLATELET COUNT 165 10^3/uL (150-450); RED BLOOD COUNT 3.67 10^6/uL (4.35-5.55); RED CELL DISTRIBUTION WIDTH 13.9 % (11.5-14.0); WHITE BLOOD COUNT 13.7 10^3/uL (4.0-10.5)
[2020-01-19 04:37] LABS: ARTERIAL BLOOD BASE EXCESS 0.7 mmol/L; ARTERIAL BLOOD H2CO3 1.54 mmol/L (1.05-1.35); ARTERIAL BLOOD HCO3 27.5 mmol/L (20-24); ARTERIAL BLOOD O2 SATURATION 96.6 % (94-98); ARTERIAL BLOOD PCO2 51.3 mmHg (35-45); ARTERIAL BLOOD PH 7.35 (7.35-7.45); ARTERIAL BLOOD TOTAL CO2 29.1 mmol/L (23-27)
[2020-01-19 04:38] LABS: ARTERIAL BLOOD FIO2 85%
[2020-01-19 05:21] LABS: ANION GAP 5 (5-19); BLOOD UREA NITROGEN 32 mg/dL (7-20); CALCIUM 7.9 mg/dL (8.4-10.2); CARBON DIOXIDE 29 mmol/L (22-30); CHLORIDE 108 mmol/L (98-107); GLUCOSE 132 mg/dL (75-110); POTASSIUM 4.2 mmol/L (3.6-5.0)
[2020-01-19] MEDS: DEXAMETHASONE SOD PHOSPHATE INJ 4 MG/1 ML VIAL IV SCH ×3 (05:31→21:53)
[2020-01-19] MEDS: AMINO AC/PROTEIN HYDR/WHEY PRO 11 GM/45 ML PKT NG SCH ×4 (05:32→23:32)
[2020-01-19] MEDS: ASCORBIC ACID 500 MG TABLET NG SCH ×4 (05:32→23:32)
[2020-01-19] MEDS: FLUTICASONE NASAL SPRAY 50 MCG/SPRY 120 SPRAY/16 GM NASL SCH ×2 (05:32→18:57)
[2020-01-19] MEDS: NORMAL SALINE 1000 ML 1,000 ML IV PRN ×3 (05:33→21:54)
[2020-01-19] MEDS: CEFEPIME HCL 2 GM in DEXTROSE 5%-WATER 50 ML IV SCH ×3 (05:33→21:53)
[2020-01-19] MEDS: MIDAZOLAM HCL 50 MG/100 ML RTUINJ IV PRN ×3 (05:34→21:54)
--- NOTE | 2020-01-19 08:49 | RADIOLOGY REPORT (SQ) ---
EXAM DESCRIPTION: CHEST SINGLE VIEW IMAGES COMPLETED DATE/TIME: 01/19/2020 6:16 am REASON FOR STUDY: vent COMPARISON: 01/18/2020. EXAM PARAMETERS: NUMBER OF VIEWS: One view. TECHNIQUE: Single frontal radiographic view of the chest acquired. RADIATION DOSE: NA LIMITATIONS: None. FINDINGS: LUNGS AND PLEURA: Diffuse bilateral airspace disease, unchanged. MEDIASTINUM AND HILAR STRUCTURES: No masses. Contour normal. HEART AND VASCULAR STRUCTURES: Borderline cardiomegaly. BONES: No acute findings. HARDWARE: Stable endotracheal tube, nasogastric tube, and central line. OTHER: No other significant finding. IMPRESSION: NO SIGNIFICANT CHANGE IN APPEARANCE OF THE CHEST. TECHNICAL DOCUMENTATION: JOB ID: [id number] 2010 [employer]- All Rights Reserved Reading location - IP/workstation name: [email or web address]
--- NOTE | 2020-01-19 09:03 | PDOC CRITICAL CARE PROG REPORT ---
General Date:: 01/19/20 ICU Day:: 3 Ventilator Day:: 3 Hospital Day:: 16 Events in the past 12 to 24 Hours:: The patient got more and more hypoxemic and short of breath requiring intubation and mechanical ventialtion. 01/18 The patient was proned about 4:30PM yesterday given his FI02 needs. He was switched to PC ventiltion as well. Presently on PC of 26 and PEEP of 14. We will turn him back later this AM. he remains on a rocuronium infusion and is heavily sedated. Will place an arterial line today. Reason for ICU Addmission:: hypoxia tachycardia Physical Exam Vital Signs: Temp Pulse Resp BP Pulse Ox 97.7 F 102 H 28 H 142/95 H 95 01/19/20 08:00 01/19/20 08:20 01/19/20 08:20 01/19/20 08:00 01/19/20 08:20 Intake & Output 01/18/20 01/19/20 01/20/20 06:59 06:59 06:59 Intake Total 2827 2526 Output Total 60 3950 250 Balance 2767 -1424 -250 Weight 109.1 kg 106.6 kg Weight/Height Weight 106.6 kg Height 5 ft 8 in Laboratory/Radiographs Laboratory Results: 01/19/20 04:12 01/19/20 04:12 01/18/20 01/18/20 01/19/20 03:15 13:35 04:12 WBC RBC Hgb Hct MCV MCH MCHC RDW Plt Count Carbonic Acid 1.23 HCO3/H2CO3 Ratio 18:1 ABG pH 7.38 ABG pCO2 40.8 ABG pO2 76.4 L ABG HCO3 23.3 ABG O2 Saturation 95.0 ABG Base Excess -1.7 FiO2 85% Sodium 142.2 Potassium 4.2 Chloride 108 H Carbon Dioxide 29 Anion Gap 5 BUN 32 H Creatinine 0.86 Est GFR ( Amer) > 60 Glucose 132 H Calcium 7.9 L Ionized Calcium Miracle Phosphorus 3.0 Magnesium 2.5 H Triglycerides 232 H 01/19/20 01/19/20 04:12 04:12 WBC 13.7 H RBC 3.67 L Hgb 10.4 L Hct 31.4 L MCV 86 MCH 28.4 MCHC 33.2 RDW 13.9 Plt Count 165 Carbonic Acid 1.54 H HCO3/H2CO3 Ratio 17:1 ABG pH 7.35 ABG pCO2 51.3 H ABG pO2 92.0 ABG HCO3 27.5 H ABG O2 Saturation 96.6 ABG Base Excess 0.7 FiO2 85% Sodium Potassium Chloride Carbon Dioxide Anion Gap BUN Creatinine Est GFR ( Amer) Glucose Calcium Ionized Calcium Miracle 1.17 Phosphorus Magnesium Triglycerides 01/06/20 01/16/20 01/17/20 05:11 21:00 05:00 Creatine Kinase 38 L CK-MB (CK-2) Troponin I < 0.012 NT-Pro-B Natriuret Pep 338 H 01/17/20 05:00 Creatine Kinase CK-MB (CK-2) 1.63 Troponin I 0.028 NT-Pro-B Natriuret Pep 504 H Impressions: Chest X-Ray 01/19/20 06:00 IMPRESSION: NO SIGNIFICANT CHANGE IN APPEARANCE OF THE CHEST. Assessment and Plan - Diagnosis (1) Acute respiratory failure with hypoxia Is this a current diagnosis for this admission?: Yes Plan: Some improvement as was able stay off CPAP through yesterday. Secondary to COVID-19 infection likely w/ ARDS. Continue HFNC. Currently spo2 low 90s on 55L/fio2 90% [Goal spo2 90-94%]. CPAP will be kept on standby. He did have some response to 2 days of daily Lasix pushes but I will hold off for now to avoid dehydration since BUN climbed. 01/17 The patient's condition worsened yesterday necessitation movement to the ICU and eventual intuabtion and paralysis. Given his high FI02 requirements there was an initial attempt too prone the patient that was unsuccessful. [place] remains guarded. I have placed the patient on PCV ventialtion with a 1:1 IE ratio. 01/18 As noted we proned the patient in the late afternoon yesterday. He remains sedated and paralyzed. I was able to turn his FI02 to 70% which is still rather high. His p/F ratio is 108. Repeat sputum culture pending. The atient is on full dose anticoagulation. [place] remaoisn guarded. (2) Obesity (BMI 30-39.9) Is this a current diagnosis for this admission?: No (3) Pneumonia due to COVID-19 virus Is this a current diagnosis for this admission?: Yes Plan: Tested positive outpatient-record in chart Received azithromycin 3-4 days of Azithromycin and ceftriaxone. Completed 5 days of remdesivir IV dexamethasone day 9 Received convalescent plasma 01/08 Vitamin and zinc supplements Bronchodilator therapy I will de-escalate therapeutic Lovenox to high dose prophylaxis now that he is D-dimer has normalized. We will continue to trend D-dimer every 48 hours. 01/17 His CRP and LDH are fairly elevated CXR shows a dense LLL infitrate. Patient started on Cefipime on 01/15 Repeat C and S resp. ordered. 01/18 The patient remais non decadron. Has been in the hospitla since 01/02 but intubated on 01/16. Critical Time Critical Time (minutes): 45 Level of Care: ICU -: 1. The care of a critical patient is a dynamic process. This note is a claims representative synopsis but static in nature. The timeframe for treatments given in order is not necessarily the actual time these treatments may have been done. 2. This patient requires critical care secondary to ongoing requirements for therapy not offered or safe outside the critical care environment. Transfer to a lower level of care will result in altered life or limb morbidity and mortality. 3. Multidisciplinary rounds completed. 4. ABCDE bundle addressed.
[2020-01-19] MEDS: ENOXAPARIN SODIUM INJ 100 MG/1 ML DISP.SYRIN SUBCUT SCH ×2 (09:47→21:52)
[2020-01-19] MEDS: PANTOPRAZOLE SODIUM 40 MG VIAL IV SCH (09:47)
[2020-01-19] MEDS: CHOLECALCIFEROL (D3) 1,000 UNIT (25 MCG) TABLET NG SCH (09:48)
[2020-01-19] MEDS: ZINC SULFATE 220 MG CAPSULE NG SCH (09:48)
[2020-01-19] MEDS: NORMAL SALINE 500 ML with ROCURONIUM BROMIDE 500 MG IV PRN ×2 (12:21)
[2020-01-20] MEDS: FENTANYL CITRATE/PF 600 MCG/60 ML BAG IV PRN ×9 (00:15→23:15)
[2020-01-20] MEDS: IPRATROPIUM/ALBUTEROL 0.5-2.5 MG/3 ML AMPUL NEB SCH ×4 (02:12→20:36)
[2020-01-20 04:20] LABS: HEMATOCRIT 29.7 % (37.9-51.0); MEAN CORPUSCULAR HEMOGLOBIN 28.9 pg (27.0-33.4); MEAN CORPUSCULAR HGB CONC 33.7 g/dL (32.0-36.0); MEAN CORPUSCULAR VOLUME 86 fl (80-97); PLATELET COUNT 146 10^3/uL (150-450); RED BLOOD COUNT 3.47 10^6/uL (4.35-5.55); RED CELL DISTRIBUTION WIDTH 13.5 % (11.5-14.0)
[2020-01-20 04:30] LABS: ARTERIAL BLOOD BASE EXCESS -2.3 mmol/L; ARTERIAL BLOOD FIO2 65%; ARTERIAL BLOOD H2CO3 1.26 mmol/L (1.05-1.35); ARTERIAL BLOOD O2 SATURATION 93.6 % (94-98); ARTERIAL BLOOD PCO2 41.8 mmHg (35-45); ARTERIAL BLOOD PH 7.36 (7.35-7.45); ARTERIAL BLOOD PO2 70.7 mmHg (80-100); ARTERIAL BLOOD TOTAL CO2 24.3 mmol/L (23-27)
[2020-01-20 04:56] LABS: ANION GAP 6 (5-19); BLOOD UREA NITROGEN 38 mg/dL (7-20); CALCIUM 8.1 mg/dL (8.4-10.2); CARBON DIOXIDE 24 mmol/L (22-30); CHLORIDE 113 mmol/L (98-107); GLUCOSE 137 mg/dL (75-110); POTASSIUM 4.5 mmol/L (3.6-5.0)
[2020-01-20] MEDS: MIDAZOLAM HCL 50 MG/100 ML RTUINJ IV PRN ×3 (05:30→19:30)
[2020-01-20] MEDS: CEFEPIME HCL 2 GM in DEXTROSE 5%-WATER 50 ML IV SCH ×3 (05:40→21:24)
[2020-01-20] MEDS: NORMAL SALINE 500 ML with ROCURONIUM BROMIDE 500 MG IV PRN ×4 (05:46→18:01)
[2020-01-20] MEDS: ASCORBIC ACID 500 MG TABLET NG SCH ×4 (05:47→23:34)
[2020-01-20] MEDS: DEXAMETHASONE SOD PHOSPHATE INJ 4 MG/1 ML VIAL IV SCH ×3 (05:47→21:24)
[2020-01-20] MEDS: AMINO AC/PROTEIN HYDR/WHEY PRO 11 GM/45 ML PKT NG SCH ×4 (05:47→23:34)
[2020-01-20] MEDS: FLUTICASONE NASAL SPRAY 50 MCG/SPRY 120 SPRAY/16 GM NASL SCH ×2 (05:48→17:56)
[2020-01-20] MEDS: MINERAL OIL/PETROLATUM,WHITE OPH OINT 3.5 GM OU PRN ×3 (05:56→18:00)
[2020-01-20] MEDS: ENOXAPARIN SODIUM INJ 100 MG/1 ML DISP.SYRIN SUBCUT SCH ×2 (09:43→21:24)
[2020-01-20] MEDS: PANTOPRAZOLE SODIUM 40 MG VIAL IV SCH (09:44)
[2020-01-20] MEDS: ZINC SULFATE 220 MG CAPSULE NG SCH (09:44)
[2020-01-20] MEDS: CHOLECALCIFEROL (D3) 1,000 UNIT (25 MCG) TABLET NG SCH (09:44)
--- NOTE | 2020-01-20 11:11 | PDOC CRITICAL CARE PROG REPORT ---
General Date:: 01/20/20 ICU Day:: 4 Ventilator Day:: 4 Hospital Day:: 17 Resuscitation Status: Full Code Events in the past 12 to 24 Hours:: The patient got more and more hypoxemic and short of breath requiring intubation and mechanical ventialtion. 01/18 The patient was proned about 4:30PM yesterday given his FI02 needs. He was switched to PC ventilation as well. Presently on PC of 26 and PEEP of 14. We will turn him back later this AM. he remains on a rocuronium infusion and is heavily sedated. Will place an arterial line today. 01/19 The patient remains on 65% FI02 presently. He is supine He remains on paralysis. Little change radiographically as of 01/18. Has been afebbrile. Reason for ICU Addmission:: hypoxia tachycardia Physical Exam Vital Signs: Temp Pulse Resp BP Pulse Ox 99.1 F 116 H 28 H 160/93 H 91 L 01/20/20 10:00 01/20/20 10:00 01/20/20 10:00 01/20/20 10:00 01/20/20 10:00 Intake & Output 01/19/20 01/20/20 01/21/20 06:59 06:59 06:59 Intake Total 2526 3580 143 Output Total 3950 2625 475 Balance -1424 955 -332 Weight 106.6 kg 109.9 kg Weight/Height Weight 109.9 kg Height 5 ft 8 in Laboratory/Radiographs Laboratory Results: 01/20/20 04:04 01/20/20 04:04 01/20/20 01/20/20 01/20/20 04:04 04:04 04:04 WBC 9.0 RBC 3.47 L Hgb 10.0 L Hct 29.7 L MCV 86 MCH 28.9 MCHC 33.7 RDW 13.5 Plt Count 146 L Carbonic Acid 1.26 HCO3/H2CO3 Ratio 18:1 ABG pH 7.36 ABG pCO2 41.8 ABG pO2 70.7 L ABG HCO3 23.0 ABG O2 Saturation 93.6 L ABG Base Excess -2.3 FiO2 65% Sodium 143.0 Potassium 4.5 Chloride 113 H Carbon Dioxide 24 Anion Gap 6 BUN 38 H Creatinine 0.85 Est GFR ( Amer) > 60 Glucose 137 H Calcium 8.1 L Ionized Calcium Miracle 1.17 01/06/20 01/16/20 01/17/20 05:11 21:00 05:00 Creatine Kinase 38 L CK-MB (CK-2) Troponin I < 0.012 NT-Pro-B Natriuret Pep 338 H 01/17/20 05:00 Creatine Kinase CK-MB (CK-2) 1.63 Troponin I 0.028 NT-Pro-B Natriuret Pep 504 H Impressions: Chest X-Ray 01/19/20 06:00 IMPRESSION: NO SIGNIFICANT CHANGE IN APPEARANCE OF THE CHEST. Assessment and Plan - Diagnosis (1) Acute respiratory failure with hypoxia Is this a current diagnosis for this admission?: Yes Plan: Some improvement as was able stay off CPAP through yesterday. Secondary to COVID-19 infection likely w/ ARDS. Continue HFNC. Currently spo2 low 90s on 55L/fio2 90% [Goal spo2 90-94%]. CPAP will be kept on standby. He did have some response to 2 days of daily Lasix pushes but I will hold off for now to avoid dehydration since BUN climbed. 01/17 The patient's condition worsened yesterday necessitation movement to the ICU and eventual intuabtion and paralysis. Given his high FI02 requirements there was an initial attempt too prone the patient that was unsuccessful. [place] remains guarded. I have placed the patient on PCV ventialtion with a 1:1 IE ratio. 01/18 As noted we proned the patient in the late afternoon yesterday. He remains sedated and paralyzed. I was able to turn his FI02 to 70% which is still rather high. His p/F ratio is 108. Repeat sputum culture pending. The patient is on full dose anticoagulation. [place] remaoisn guarded. 01/19 The patient is doing a little better He remains paralyzed on the ventialtor recent tracheal aspirate culuture negative. CXR shows bilateral lower lobe opacities. (2) Obesity (BMI 30-39.9) Is this a current diagnosis for this admission?: No (3) Pneumonia due to COVID-19 virus Is this a current diagnosis for this admission?: Yes Plan: Tested positive outpatient-record in chart Received azithromycin 3-4 days of Azithromycin and ceftriaxone. Completed 5 days of remdesivir IV dexamethasone day 9 Received convalescent plasma 01/08 Vitamin and zinc supplements Bronchodilator therapy I will de-escalate therapeutic Lovenox to high dose prophylaxis now that he is D-dimer has normalized. We will continue to trend D-dimer every 48 hours. 01/17 His CRP and LDH are fairly elevated CXR shows a dense LLL infitrate. Patient started on Cefipime on 01/15 Repeat C and S resp. ordered. 01/18 The patient remais non decadron. Has been in the hospitla since 01/02 but intubated on 01/16. Critical Time Critical Time (minutes): 35 Level of Care: ICU -: 1. The care of a critical patient is a dynamic process. This note is a service center representative synopsis but static in nature. The timeframe for treatments given in order is not necessarily the actual time these treatments may have been done. 2. This patient requires critical care secondary to ongoing requirements for therapy not offered or safe outside the critical care environment. Transfer to a lower level of care will result in altered life or limb morbidity and mortality. 3. Multidisciplinary rounds completed. 4. ABCDE bundle addressed.
[2020-01-20] MEDS ORDERED: PROPOFOL INJ 200 MG/20 ML VIAL IV ONE ×2 (14:44→16:30)
--- NOTE | 2020-01-20 16:53 | RADIOLOGY REPORT (SQ) ---
EXAM DESCRIPTION: CHEST SINGLE VIEW IMAGES COMPLETED DATE/TIME: 01/20/2020 4:42 pm REASON FOR STUDY: Check placement of ETT, OGT, central line Rt IJ COMPARISON: 01/19/2020 NUMBER OF VIEWS: One view. TECHNIQUE: Single frontal radiographic image of the chest acquired. LIMITATIONS: None. FINDINGS: LUNGS AND PLEURA: Persistent basilar infiltrates improved from yesterday. MEDIASTINUM AND HILAR STRUCTURES: Stable heart size and mediastinal structures. HEART AND VASCULAR STRUCTURES: Stable appearance. SUPPORT DEVICES: Appropriate location without change. BONES: No acute findings. OTHER: No other significant finding. IMPRESSION: Persistent basilar infiltrates but significantly improved from yesterday. Support lines and tubes remain in place. TECHNICAL DOCUMENTATION: JOB ID: [id number] 2010 [employer]- All Rights Reserved Reading location - IP/workstation name: [email or web address]
--- NOTE | 2020-01-20 18:34 | Operative Report ---
Bedside Procedure - History of Present Illness Indication for Procedure: arterial pressure read and abiity to draw blood specimens Date: 01/20/20 Provider: SHI CALDERON - Additional Procedures Arterial Line Time performed: 15:00 - placed in the right brachial artery Notes: Attempts mad to place the radial arterial line onboth sides unsuccessfuly. A puse was palpated but the arety was difficult to visualize with US. After many attempts the right femoral artery site was pursued. In was difficult to palpate a pulse here despite a good BP. The vessel was difficult to visulaize with US. As a last ditch effort the right brachail artery was palpated and cannulated on the 2nd attempt. the area had been cleaned. A guidwire was utilized with Seldingher approach. te catheter rosalee flores sutred inplace. AAn excellent wave form was confirmed thereafter. Consent optained telephonically from the patient's .
--- NOTE | 2020-01-20 18:35 | Operative Report ---
Bedside Procedure - History of Present Illness Indication for Procedure: Central access for medications Date: 01/20/20 Provider: SHI CALDERON - Central Line Right Internal jugular Time completed: 13:00 Consent obtained: Yes Central line pre-insertion: Sterile PPE donned, Chloraprep applied Central line lumen type: Triple Anesthetic type: 2% Lidocaine Ultrasound guided: No - done using guidwire technique on existing line Line secured with sutures: Yes Central line post-insertion: Blood return from lumens, Sutured, Sterile dressing applied Complications: No
[2020-01-20] MEDS: NORMAL SALINE 1000 ML 1,000 ML IV PRN (21:27)
[2020-01-21] MEDS: IPRATROPIUM/ALBUTEROL 0.5-2.5 MG/3 ML AMPUL NEB SCH ×4 (02:43→20:33)
[2020-01-21] MEDS: FENTANYL CITRATE/PF 600 MCG/60 ML BAG IV PRN ×8 (03:07→21:50)
[2020-01-21] MEDS: MIDAZOLAM HCL 50 MG/100 ML RTUINJ IV PRN ×5 (03:07→20:30)
[2020-01-21 03:27] LABS: HEMATOCRIT 28.1 % (37.9-51.0); HEMOGLOBIN 9.4 g/dL (13.5-17.0); MEAN CORPUSCULAR HEMOGLOBIN 28.9 pg (27.0-33.4); MEAN CORPUSCULAR HGB CONC 33.6 g/dL (32.0-36.0); MEAN CORPUSCULAR VOLUME 86 fl (80-97); PLATELET COUNT 134 10^3/uL (150-450); RED BLOOD COUNT 3.27 10^6/uL (4.35-5.55); RED CELL DISTRIBUTION WIDTH 13.5 % (11.5-14.0); WHITE BLOOD COUNT 9.7 10^3/uL (4.0-10.5)
[2020-01-21 03:43] LABS: BLOOD UREA NITROGEN 38 mg/dL (7-20); CALCIUM 8.1 mg/dL (8.4-10.2); GLUCOSE 141 mg/dL (75-110); POTASSIUM 4.9 mmol/L (3.6-5.0)
[2020-01-21 03:50] LABS: ANION GAP 5 (5-19); CARBON DIOXIDE 23 mmol/L (22-30); CHLORIDE 111 mmol/L (98-107)
[2020-01-21] MEDS: MINERAL OIL/PETROLATUM,WHITE OPH OINT 3.5 GM OU PRN ×2 (04:26→12:14)
[2020-01-21 05:01] LABS: ARTERIAL BLOOD FIO2 65%; ARTERIAL BLOOD H2CO3 1.06 mmol/L (1.05-1.35); ARTERIAL BLOOD HCO3 21.2 mmol/L (20-24); ARTERIAL BLOOD O2 SATURATION 93.3 % (94-98); ARTERIAL BLOOD PCO2 35.1 mmHg (35-45); ARTERIAL BLOOD PO2 66.3 mmHg (80-100); ARTERIAL BLOOD TOTAL CO2 22.3 mmol/L (23-27)
[2020-01-21 05:03] LABS: ANION GAP 8 (5-19); BLOOD UREA NITROGEN 37 mg/dL (7-20); CARBON DIOXIDE 19 mmol/L (22-30); CHLORIDE 111 mmol/L (98-107); GLUCOSE 140 mg/dL (75-110); POTASSIUM 4.8 mmol/L (3.6-5.0)
[2020-01-21] MEDS: ASCORBIC ACID 500 MG TABLET NG SCH ×3 (06:29→17:11)
[2020-01-21] MEDS: AMINO AC/PROTEIN HYDR/WHEY PRO 11 GM/45 ML PKT NG SCH ×3 (06:29→17:11)
[2020-01-21] MEDS: FLUTICASONE NASAL SPRAY 50 MCG/SPRY 120 SPRAY/16 GM NASL SCH ×2 (06:29→17:11)
[2020-01-21] MEDS: DEXAMETHASONE SOD PHOSPHATE INJ 4 MG/1 ML VIAL IV SCH ×3 (06:29→22:10)
[2020-01-21] MEDS: CEFEPIME HCL 2 GM in DEXTROSE 5%-WATER 50 ML IV SCH ×3 (06:30→21:30)
[2020-01-21] MEDS: ENOXAPARIN SODIUM INJ 100 MG/1 ML DISP.SYRIN SUBCUT SCH ×2 (09:20→22:10)
[2020-01-21] MEDS: PANTOPRAZOLE SODIUM 40 MG VIAL IV SCH (09:20)
[2020-01-21] MEDS: ZINC SULFATE 220 MG CAPSULE NG SCH (09:20)
[2020-01-21] MEDS: CHOLECALCIFEROL (D3) 1,000 UNIT (25 MCG) TABLET NG SCH (09:20)
[2020-01-21] MEDS: NORMAL SALINE 500 ML with ROCURONIUM BROMIDE 500 MG IV PRN ×4 (09:22→22:15)
[2020-01-21] MEDS: NORMAL SALINE 1000 ML 1,000 ML IV PRN ×2 (09:24→22:41)
--- NOTE | 2020-01-21 13:19 | PDOC CRITICAL CARE PROG REPORT ---
General Date:: 01/21/20 Ventilator Day:: 5 Hospital Day:: 18 Resuscitation Status: Full Code Events in the past 12 to 24 Hours:: The patient got more and more hypoxemic and short of breath requiring intubation and mechanical ventialtion. 01/18 The patient was proned about 4:30PM yesterday given his FI02 needs. He was switched to PC ventilation as well. Presently on PC of 26 and PEEP of 14. We will turn him back later this AM. he remains on a rocuronium infusion and is heavily sedated. Will place an arterial line today. 01/19 The patient remains on 65% FI02 presently. He is supine He remains on paralysis. Little change radiographically as of 01/18. Has been afebbrile. 01/20 Little change from yesterday overall. The patient remains sedated and paralyzed on the ventilator. Had arterial line placed and CVP replaced yesterday. He is on PV ventilation. CXR showed persistent bibasilar infiltrates somewhat improved as of yesterday. Reason for ICU Addmission:: hypoxia tachycardia Physical Exam Vital Signs: Temp Pulse Resp BP Pulse Ox 98.4 F 133 H 28 H 149/85 H 92 01/21/20 10:00 01/21/20 10:00 01/21/20 11:00 01/21/20 10:00 01/21/20 12:25 Intake & Output 01/20/20 01/21/20 01/22/20 06:59 06:59 06:59 Intake Total 4580 2279 600 Output Total 2625 3360 650 Balance 1954 Weight 109.9 kg 111.7 kg Weight/Height Weight 111.7 kg Height 5 ft 8 in Laboratory/Radiographs Laboratory Results: 01/21/20 03:12 01/21/20 03:49 01/21/20 01/21/20 01/21/20 03:12 03:12 03:49 WBC 9.7 RBC 3.27 L Hgb 9.4 L Hct 28.1 L MCV 86 MCH 28.9 MCHC 33.6 RDW 13.5 Plt Count 134 L Carbonic Acid HCO3/H2CO3 Ratio ABG pH ABG pCO2 ABG pO2 ABG HCO3 ABG O2 Saturation ABG Base Excess FiO2 Sodium 139.4 138.4 Potassium 4.9 4.8 Chloride 111 H 111 H Carbon Dioxide 23 19 L Anion Gap 5 8 BUN 38 H 37 H Creatinine 0.73 0.68 Est GFR ( Amer) > 60 > 60 Glucose 141 H 140 H Calcium 8.1 L 8.0 L 01/21/20 04:45 WBC RBC Hgb Hct MCV MCH MCHC RDW Plt Count Carbonic Acid 1.06 HCO3/H2CO3 Ratio 20:1 ABG pH 7.40 ABG pCO2 35.1 ABG pO2 66.3 L ABG HCO3 21.2 ABG O2 Saturation 93.3 L ABG Base Excess -3.0 FiO2 65% Sodium Potassium Chloride Carbon Dioxide Anion Gap BUN Creatinine Est GFR ( Amer) Glucose Calcium 01/19/20 04:12 Tracheal Aspirate Gram Stain - Final 01/19/20 04:12 Tracheal Aspirate Sputum Culture - Final Serratia Marcescens Yeast, Not Gilma Albicans Greatly Reduced Normal Kathy 01/06/20 01/16/20 01/17/20 05:11 21:00 05:00 Creatine Kinase 38 L CK-MB (CK-2) Troponin I < 0.012 NT-Pro-B Natriuret Pep 338 H 01/17/20 05:00 Creatine Kinase CK-MB (CK-2) 1.63 Troponin I 0.028 NT-Pro-B Natriuret Pep 504 H Impressions: Chest X-Ray 01/20/20 15:49 IMPRESSION: Persistent basilar infiltrates but significantly improved from yesterday. Support lines and tubes remain in place. Assessment and Plan - Diagnosis (1) Acute respiratory failure with hypoxia Is this a current diagnosis for this admission?: Yes Plan: Some improvement as was able stay off CPAP through yesterday. Secondary to COVID-19 infection likely w/ ARDS. Continue HFNC. Currently spo2 low 90s on 55L/fio2 90% [Goal spo2 90-94%]. CPAP w ill be kept on standby. He did have some response to 2 days of daily Lasix pushes but I will hold off for now to avoid dehydration since BUN climbed. 01/17 The patient's condition worsened yesterday necessitation movement to the ICU and eventual intuabtion and paralysis. Given his high FI02 requirements there was an initial attempt too prone the patient that was unsuccessful. [place] remains guarded. I have placed the patient on PCV ventialtion with a 1:1 IE ratio. 01/18 As noted we proned the patient in the late afternoon yesterday. He remains sedated and paralyzed. I was able to turn his FI02 to 70% which is still rather high. His p/F ratio is 108. Repeat sputum culture pending. The patient is on full dose anticoagulation. [place] remaoisn guarded. 01/19 The patient is doing a little better He remains paralyzed on the ventialtor recent tracheal aspirate culuture negative. CXR shows bilateral lower lobe opacities. 01/20 His 02 sat is 90-92% on 65% FI02. Little change from yesterday. The patient remains on PCV ventilation with IP of 26 and PEEP of 14. The patient grew out Serratia on his last sputm culture of 01/18. Unclear if it is truly a pathogen. Nevertheless, the patient remains on cefipime since 01/15. (2) Obesity (BMI 30-39.9) Is this a current diagnosis for this admission?: No (3) Pneumonia due to COVID-19 virus Is this a current diagnosis for this admission?: Yes Plan: Tested positive outpatient-record in chart Received azithromycin 3-4 days of Azithromycin and ceftriaxone. Completed 5 days of remdesivir IV dexamethasone day 9 Received convalescent plasma 01/08 Vitamin and zinc supplements Bronchodilator therapy I will de-escalate therapeutic Lovenox to high dose prophylaxis now that he is D-dimer has normalized. We will continue to trend D-dimer every 48 hours. 01/17 His CRP and LDH are fairly elevated CXR shows a dense LLL infitrate. Patient started on Cefipime on 01/15 Repeat C and S resp. ordered. 01/18 The patient remais non decadron. Has been in the hospitla since 01/02 but intubated on 01/16. Critical Time Critical Time (minutes): 35 Level of Care: ICU -: 1. The care of a critical patient is a dynamic process. This note is a represe ntative synopsis but static in nature. The timeframe for treatments given in order is not necessarily the actual time these treatments may have been done. 2. This patient requires critical care secondary to ongoing requirements for therapy not offered or safe outside the critical care environment. Transfer to a lower level of care will result in altered life or limb morbidity and mortality. 3. Multidisciplinary rounds completed. 4. ABCDE bundle addressed.
[2020-01-22] MEDS: FENTANYL CITRATE/PF 600 MCG/60 ML BAG IV PRN ×9 (01:05→23:54)
[2020-01-22] MEDS: MIDAZOLAM HCL 50 MG/100 ML RTUINJ IV PRN ×6 (01:38→21:02)
[2020-01-22] MEDS: ASCORBIC ACID 500 MG TABLET NG SCH ×4 (01:38→19:08)
[2020-01-22] MEDS: AMINO AC/PROTEIN HYDR/WHEY PRO 11 GM/45 ML PKT NG SCH ×4 (01:40→19:09)
[2020-01-22] MEDS: IPRATROPIUM/ALBUTEROL 0.5-2.5 MG/3 ML AMPUL NEB SCH ×4 (02:16→20:40)
[2020-01-22 04:00] LABS: HEMATOCRIT 27.9 % (37.9-51.0); HEMOGLOBIN 9.2 g/dL (13.5-17.0); MEAN CORPUSCULAR HEMOGLOBIN 28.3 pg (27.0-33.4); MEAN CORPUSCULAR HGB CONC 33.1 g/dL (32.0-36.0); MEAN CORPUSCULAR VOLUME 85 fl (80-97); PLATELET COUNT 136 10^3/uL (150-450); RED BLOOD COUNT 3.27 10^6/uL (4.35-5.55); RED CELL DISTRIBUTION WIDTH 13.6 % (11.5-14.0); WHITE BLOOD COUNT 11.3 10^3/uL (4.0-10.5)
[2020-01-22 04:12] LABS: ANION GAP 5 (5-19); BLOOD UREA NITROGEN 35 mg/dL (7-20); CALCIUM 8.3 mg/dL (8.4-10.2); CARBON DIOXIDE 24 mmol/L (22-30); CHLORIDE 107 mmol/L (98-107); GLUCOSE 132 mg/dL (75-110); POTASSIUM 5.1 mmol/L (3.6-5.0)
[2020-01-22] MEDS: CEFEPIME HCL 2 GM in DEXTROSE 5%-WATER 50 ML IV SCH ×3 (06:30→22:08)
--- NOTE | 2020-01-22 06:43 | RADIOLOGY REPORT (SQ) ---
EXAM: XR Chest, 1 View EXAM DATE/TIME: 01/22/2020 06:09 CLINICAL HISTORY: The patient is 49 years old and is Male; Pneumothorax TECHNIQUE: Frontal view of the chest. COMPARISON: Chest radiograph from 01/20/2020 FINDINGS: LUNGS: Moderate ill-defined opacities visualized primarily in the left mid to lower lung and right lower lung. These appear slightly worsened since the prior study. PLEURAL SPACE: No significant pleural effusion appreciated. There is no definite pneumothorax, but the lung apices are difficult to clearly visualize secondary to extensive overlying soft tissue air. HEART: No significant enlargement of the cardiac silhouette. MEDIASTINUM: Pneumomediastinum is demonstrated. BONES/JOINTS: The bones are unchanged. SOFT TISSUES: There has been interval development of extensive subcutaneous air throughout the chest wall and extending into the visualized lower neck. TUBES, LINES AND DEVICES: Right internal jugular central venous catheter terminates at the cavoatrial junction or just within the right atrium. Endotracheal tube in satisfactory position. An enteric tube is in place, coursing into the stomach and terminating below the field of view. IMPRESSION: 1. Pneumomediastinum with extensive subcutaneous air in the chest wall and lower neck. There is no definite pneumothorax. 2. Ill-defined moderate opacities visualized primarily in the left mid to lower lung and right lower lung. These appear slightly worsened since the prior study.
--- NOTE | 2020-01-22 07:41 | RADIOLOGY REPORT (SQ) ---
EXAM: CT Chest Without Intravenous Contrast EXAM DATE/TIME: 01/22/2020 07:14 CLINICAL HISTORY: The patient is 49 years old and is Male; Possible bilateral pneumothoraces. COVID 19 + TECHNIQUE: Axial computed tomography images of the chest without intravenous contrast. Sagittal and coronal reformatted images were created and reviewed. This CT exam was performed using one or more of the following dose reduction techniques: automated exposure control, adjustment of the mA and/or kV according to patient size, and/or use of iterative reconstruction technique. COMPARISON: Chest radiograph from 01/22/2020, chest CT from 01/02/2020 FINDINGS: ARTIFACTS: There is streak artifact related to the patient's arms. LUNGS: There are areas of consolidation and/or atelectasis involving the posterior aspects of the lungs, most prominent in the lower lobes. There is also now diffuse groundglass opacification visualized in the remainder of the lungs. Overall, the pulmonary opacities appear worsened compared to the prior CT. PLEURAL SPACE: No pleural effusion. No pneumothorax visualized. HEART: No significant cardiomegaly. No pericardial effusion. MEDIASTINUM: There is extensive pneumomediastinum anteriorly. BONES/JOINTS: No acute fracture. No dislocation. SOFT TISSUES: Extensive subcutaneous air throughout the anterior chest wall, extending into the visualized lower neck, upper back, and extending into the visualized portion of the left upper extremity. Soft tissue air also extends into the anterior extraperitoneal space of the upper abdomen. No definite free intraperitoneal air. VASCULATURE: Unremarkable. No thoracic aortic aneurysm. LYMPH NODES: No significant lymph node enlargement. TUBES, LINES AND DEVICES: Endotracheal tube in place, terminating above the level of the chris. Enteric tube terminates in the distal stomach. Right internal jugular central venous catheter terminates at the cavoatrial junction. IMPRESSION: 1. Extensive pneumomediastinum anteriorly. No pneumothoraces. 2. Extensive subcutaneous air throughout the anterior chest wall, extending into the visualized lower neck, upper back, and left upper extremity. There is also extension of a large amount of air into the anterior extraperitoneal space of the upper abdomen. 3. Interval worsening of bilateral pulmonary opacities, which likely represent COVID-19 pneumonia given the clinical history.
[2020-01-22] MEDS: FLUTICASONE NASAL SPRAY 50 MCG/SPRY 120 SPRAY/16 GM NASL SCH ×2 (07:48→18:56)
[2020-01-22] MEDS: DEXAMETHASONE SOD PHOSPHATE INJ 4 MG/1 ML VIAL IV SCH ×3 (07:48→22:08)
[2020-01-22] MEDS: NORMAL SALINE 500 ML with ROCURONIUM BROMIDE 500 MG IV PRN ×4 (07:51→21:02)
[2020-01-22 09:18] LABS: ARTERIAL BLOOD BASE EXCESS -7.2 mmol/L; ARTERIAL BLOOD HCO3 18.8 mmol/L (20-24); ARTERIAL BLOOD O2 SATURATION 95.2 % (94-98); ARTERIAL BLOOD PCO2 39.8 mmHg (35-45); ARTERIAL BLOOD PH 7.29 (7.35-7.45); ARTERIAL BLOOD PO2 83.6 mmHg (80-100); ARTERIAL BLOOD TOTAL CO2 20.1 mmol/L (23-27)
[2020-01-22 09:23] LABS: ARTERIAL BLOOD FIO2 65%
[2020-01-22] MEDS: HYDRALAZINE HCL INJ/PF 20 MG/1 ML SDV IV PRN (10:20)
[2020-01-22] MEDS: ENOXAPARIN SODIUM INJ 100 MG/1 ML DISP.SYRIN SUBCUT SCH ×2 (10:24→22:08)
[2020-01-22] MEDS: ZINC SULFATE 220 MG CAPSULE NG SCH (10:24)
[2020-01-22] MEDS: CHOLECALCIFEROL (D3) 1,000 UNIT (25 MCG) TABLET NG SCH (10:24)
[2020-01-22] MEDS: NORMAL SALINE 1000 ML 1,000 ML IV PRN ×2 (10:26→21:02)
[2020-01-22] MEDS: PANTOPRAZOLE SODIUM 40 MG VIAL IV SCH (10:26)
[2020-01-22] MEDS ORDERED: FUROSEMIDE INJ/PF 40 MG/4 ML SDV ONE (11:23)
[2020-01-22] MEDS ORDERED: FUROSEMIDE INJ/PF 40 MG/4 ML SDV IV ONE (12:30)
[2020-01-22] MEDS ORDERED: LABETALOL HCL INJ 200 MG/40 ML VIAL IV SCH (13:00)
[2020-01-22] MEDS ORDERED: LABETALOL HCL INJ 20 MG/4 ML DISP.SYRIN IV ONE (13:00)
[2020-01-22] MEDS: LABETALOL HCL INJ 20 MG/4 ML DISP.SYRIN IV SCH (19:08)
[2020-01-22 22:20] LABS: ARTERIAL BLOOD BASE EXCESS -2.6 mmol/L; ARTERIAL BLOOD H2CO3 1.58 mmol/L (1.05-1.35); ARTERIAL BLOOD HCO3 24.5 mmol/L (20-24); ARTERIAL BLOOD O2 SATURATION 95.2 % (94-98); ARTERIAL BLOOD PCO2 52.4 mmHg (35-45); ARTERIAL BLOOD PH 7.29 (7.35-7.45); ARTERIAL BLOOD PO2 85.2 mmHg (80-100); ARTERIAL BLOOD TOTAL CO2 26.1 mmol/L (23-27)
[2020-01-23] MEDS: LABETALOL HCL INJ 20 MG/4 ML DISP.SYRIN IV SCH ×5 (00:35→23:10)
[2020-01-23] MEDS: AMINO AC/PROTEIN HYDR/WHEY PRO 11 GM/45 ML PKT NG SCH ×5 (00:51→23:12)
[2020-01-23] MEDS: ASCORBIC ACID 500 MG TABLET NG SCH ×5 (00:52→23:12)
[2020-01-23] MEDS: IPRATROPIUM/ALBUTEROL 0.5-2.5 MG/3 ML AMPUL NEB SCH ×4 (01:53→20:52)
[2020-01-23] MEDS: FENTANYL CITRATE/PF 600 MCG/60 ML BAG IV PRN ×7 (03:00→22:30)
[2020-01-23] MEDS: MIDAZOLAM HCL 50 MG/100 ML RTUINJ IV PRN ×5 (03:00→22:57)
[2020-01-23 04:32] LABS: ARTERIAL BLOOD BASE EXCESS -1.4 mmol/L; ARTERIAL BLOOD H2CO3 1.84 mmol/L (1.05-1.35); ARTERIAL BLOOD HCO3 26.5 mmol/L (20-24); ARTERIAL BLOOD O2 SATURATION 95.1 % (94-98); ARTERIAL BLOOD PCO2 61.2 mmHg (35-45); ARTERIAL BLOOD PH 7.26 (7.35-7.45); ARTERIAL BLOOD PO2 87.6 mmHg (80-100); ARTERIAL BLOOD TOTAL CO2 28.4 mmol/L (23-27); HEMATOCRIT 27.2 % (37.9-51.0); HEMOGLOBIN 9.1 g/dL (13.5-17.0); MEAN CORPUSCULAR HEMOGLOBIN 28.9 pg (27.0-33.4); MEAN CORPUSCULAR HGB CONC 33.4 g/dL (32.0-36.0); MEAN CORPUSCULAR VOLUME 86 fl (80-97); PLATELET COUNT 155 10^3/uL (150-450); RED BLOOD COUNT 3.15 10^6/uL (4.35-5.55); WHITE BLOOD COUNT 17.2 10^3/uL (4.0-10.5)
[2020-01-23 04:34] LABS: ARTERIAL BLOOD FIO2 80%
[2020-01-23 04:51] LABS: BLOOD UREA NITROGEN 35 mg/dL (7-20); CALCIUM 8.1 mg/dL (8.4-10.2); GLUCOSE 112 mg/dL (75-110); POTASSIUM 5.2 mmol/L (3.6-5.0)
[2020-01-23 04:56] LABS: ANION GAP 5 (5-19); CARBON DIOXIDE 27 mmol/L (22-30); CHLORIDE 105 mmol/L (98-107)
[2020-01-23] MEDS: CEFEPIME HCL 2 GM in DEXTROSE 5%-WATER 50 ML IV SCH ×3 (07:01→22:50)
[2020-01-23] MEDS: DEXAMETHASONE SOD PHOSPHATE INJ 4 MG/1 ML VIAL IV SCH ×3 (07:01→22:50)
[2020-01-23] MEDS: FLUTICASONE NASAL SPRAY 50 MCG/SPRY 120 SPRAY/16 GM NASL SCH ×2 (07:01→17:29)
[2020-01-23] MEDS: CHOLECALCIFEROL (D3) 1,000 UNIT (25 MCG) TABLET NG SCH (10:25)
[2020-01-23] MEDS: ENOXAPARIN SODIUM INJ 100 MG/1 ML DISP.SYRIN SUBCUT SCH ×2 (10:25→22:50)
[2020-01-23] MEDS: ZINC SULFATE 220 MG CAPSULE NG SCH (10:25)
[2020-01-23] MEDS: PANTOPRAZOLE SODIUM 40 MG VIAL IV SCH (10:25)
--- NOTE | 2020-01-23 11:01 | PDOC CRITICAL CARE PROG REPORT ---
General Date:: 01/23/20 ICU Day:: 7 Ventilator Day:: 7 Hospital Day:: 20 Resuscitation Status: Full Code Events in the past 12 to 24 Hours:: The patient got more and more hypoxemic and short of breath requiring intubation and mechanical ventialtion. 01/18 The patient was proned about 4:30PM yesterday given his FI02 needs. He was switched to PC ventilation as well. Presently on PC of 26 and PEEP of 14. We will turn him back later this AM. he remains on a rocuronium infusion and is heavily sedated. Will place an arterial line today. 01/19 The patient remains on 65% FI02 presently. He is supine He remains on paralysis. Little change radiographically as of 01/18. Has been afebbrile. 01/20 Little change from yesterday overall. The patient remains sedated and paralyzed on the ventilator. Had arterial line placed and CVP replaced yesterday. He is on PV ventilation. CXR showed persistent bibasilar infiltrates somewhat improved as of yesterday. 01/21 The patient developed sudden swelling in his neck, face and neck during the night. He has a good deal of subcut emphysema. This was subsequently conformed this AM by CT scan. The patient has a large collection of anterior mediastinal air. There is air in the neck and pectorals as well. There is a good deal of "hepatizination" of the lower lung abrams as well. he has remained hemodynamically stable with no change in his 02 needs as well. 01/22 little change overall in status. the patient did develop a moderate resp. acidosis. I adjusted the ventilator. I changed back to volume control ,RR 30, decreased Ti, TV 480 It appears the the MV may have gone up a 2 lpm. Will recheck ABG. The subcut emphysema appears unchanged. BP reasonably well controlled. Reason for ICU Addmission:: hypoxia tachycardia Physical Exam Vital Signs: Temp Pulse Resp BP Pulse Ox 98.1 F 85 30 H 135/82 H 94 01/23/20 05:39 01/23/20 09:07 01/23/20 09:07 01/21/20 18:00 01/23/20 09:07 Intake & Output 01/22/20 01/23/20 01/24/20 06:59 06:59 06:59 Intake Total 3950 2710 Output Total 3875 5700 Balance 75 -2990 Weight 110.9 kg 109.8 kg Weight/Height Weight 109.8 kg Height 5 ft 8 in Laboratory/Radiographs Laboratory Results: 01/23/20 04:06 01/23/20 04:06 01/22/20 01/23/20 01/23/20 04:06 04:06 WBC 17.2 H RBC 3.15 L Hgb 9.1 L Hct 27.2 L MCV 86 MCH 28.9 MCHC 33.4 RDW 14.0 Plt Count 155 Carbonic Acid 1.58 H HCO3/H2CO3 Ratio 15:1 ABG pH 7.29 L ABG pCO2 52.4 H ABG pO2 85.2 ABG HCO3 24.5 H ABG O2 Saturation 95.2 ABG Base Excess -2.6 FiO2 76% Sodium 136.8 L Potassium 5.2 H Chloride 105 Carbon Dioxide 27 Anion Gap 5 BUN 35 H Creatinine 0.75 Est GFR ( Amer) > 60 Glucose 112 H Calcium 8.1 L 01/23/20 04:06 WBC RBC Hgb Hct MCV MCH MCHC RDW Plt Count Carbonic Acid 1.84 H HCO3/H2CO3 Ratio 14:1 ABG pH 7.26 L ABG pCO2 61.2 H ABG pO2 87.6 ABG HCO3 26.5 H ABG O2 Saturation 95.1 ABG Base Excess -1.4 FiO2 80% Sodium Potassium Chloride Carbon Dioxide Anion Gap BUN Creatinine Est GFR ( Amer) Glucose Calcium 01/06/20 01/16/20 01/17/20 05:11 21:00 05:00 Creatine Kinase 38 L CK-MB (CK-2) Troponin I < 0.012 NT-Pro-B Natriuret Pep 338 H 01/17/20 05:00 Creatine Kinase CK-MB (CK-2) 1.63 Troponin I 0.028 NT-Pro-B Natriuret Pep 504 H Impressions: Chest CT 01/22/20 00:00 IMPRESSION: 1. Extensive pneumomediastinum anteriorly. No pneumothoraces. 2. Extensive subcutaneous air throughout the anterior chest wall, extending into the visualized lower neck, upper back, and left upper extremity. There is also extension of a large amount of air into the anterior extraperitoneal space of the upper abdomen. 3. Interval worsening of bilateral pulmonary opacities, which likely represent COVID-19 pneumonia given the clinical history. Chest X-Ray 01/22/20 00:00 IMPRESSION: 1. Pneumomediastinum with extensive subcutaneous air in the chest wall and lower neck. There is no definite pneumothorax. 2. Ill-defined moderate opacities visualized primarily in the left mid to lower lung and right lower lung. These appear slightly worsened since the prior study. Assessment and Plan - Diagnosis (1) Acute respiratory failure with hypoxia Is this a current diagnosis for this admission?: Yes Plan: Some improvement as was able stay off CPAP through yesterday. Secondary to COVID-19 infection likely w/ ARDS. Continue HFNC. Currently spo2 low 90s on 55L/fio2 90% [Goal spo2 90-94%]. CPAP will be kept on standby. He did have some response to 2 days of daily Lasix pushes but I will hold off for now to avoid dehydration since BUN climbed. 01/17 The patient's condition worsened yesterday necessitation movement to the ICU and eventual intuabtion and paralysis. Given his high FI02 requirements there was an initial attempt too prone the patient that was unsuccessful. [place] remains guarded. I have placed the patient on PCV ventialtion with a 1:1 IE ratio. 01/18 As noted we proned the patient in the late afternoon yesterday. He remains sedated and paralyzed. I was able to turn his FI02 to 70% which is still rather high. His p/F ratio is 108. Repeat sputum culture pending. The patient is on full dose anticoagulation. [place] remains guarded. 01/19 The patient is doing a little better He remains paralyzed on the ventialtor recent tracheal aspirate culuture negative. CXR shows bilateral lower lobe opacities. 01/20 His 02 sat is 90-92% on 65% FI02. Little change from yesterday. The patient remains on PCV ventilation with IP of 26 and PEEP of 14. The patient grew out Serratia on his last sputum culture of 01/18. Unclear if it is truly a pathogen. Nevertheless, the patient remains on cefipime since 01/15. 01/22 The patient continues to have ventiaory problems and ooxygenation issues. The patient is on a Cefpime since 01/15 with 3+ polys. 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 (2) Obesity (BMI 30-39.9) Is this a current diagnosis for this admission?: No (3) Pneumonia due to COVID-19 virus Is this a current diagnosis for this admission?: Yes Plan: Tested positive outpatient-record in chart Received azithromycin 3-4 days of Azithromycin and ceftriaxone. Completed 5 days of remdesivir IV dexamethasone day 9 Received convalescent plasma 01/08 Vitamin and zinc supplements Bronchodilator therapy I will de-escalate therapeutic Lovenox to high dose prophylaxis now that he is D-dimer has normalized. We will continue to trend D-dimer every 48 hours. 01/17 His CRP and LDH are fairly elevated CXR shows a dense LLL infitrate. Patient started on Cefipime on 01/15 Repeat C and S resp. ordered. 01/18 The patient remains non decadron. Has been in the hospital since 01/02 but intubated on 01/16. (4) HTN (hypertension) Is this a current diagnosis for this admission?: Yes Plan: The patient is on Labetalol which appears tpo control his BP. When his sedation ism lowered his BP heads up tpowards the 200 range. Critical Time Critical Time (minutes): 45 Level of Care: ICU -: 1. The care of a critical patient is a dynamic process. This note is a r epresentative synopsis but static in nature. The timeframe for treatments given in order is not necessarily the actual time these treatments may have been done. 2. This patient requires critical care secondary to ongoing requirements for therapy not offered or safe outside the critical care environment. Transfer to a lower level of care will result in altered life or limb morbidity and mortali ty. 3. Multidisciplinary rounds completed. 4. ABCDE bundle addressed.
[2020-01-23 11:36] LABS: ARTERIAL BLOOD BASE EXCESS -1.9 mmol/L; ARTERIAL BLOOD H2CO3 1.27 mmol/L (1.05-1.35); ARTERIAL BLOOD HCO3 23.4 mmol/L (20-24); ARTERIAL BLOOD O2 SATURATION 92.5 % (94-98); ARTERIAL BLOOD PCO2 42.1 mmHg (35-45); ARTERIAL BLOOD PH 7.36 (7.35-7.45); ARTERIAL BLOOD PO2 66.4 mmHg (80-100); ARTERIAL BLOOD TOTAL CO2 24.6 mmol/L (23-27)
[2020-01-23] MEDS: NORMAL SALINE 1000 ML 1,000 ML IV PRN (13:53)
[2020-01-23] MEDS: NORMAL SALINE 500 ML with ROCURONIUM BROMIDE 500 MG IV PRN ×2 (17:26)
[2020-01-23 21:32] LABS: ARTERIAL BLOOD BASE EXCESS -1.1 mmol/L; ARTERIAL BLOOD FIO2 90%; ARTERIAL BLOOD H2CO3 1.24 mmol/L (1.05-1.35); ARTERIAL BLOOD HCO3 23.9 mmol/L (20-24); ARTERIAL BLOOD O2 SATURATION 98.8 % (94-98); ARTERIAL BLOOD PCO2 41.2 mmHg (35-45); ARTERIAL BLOOD PH 7.38 (7.35-7.45); ARTERIAL BLOOD PO2 146.6 mmHg (80-100); ARTERIAL BLOOD TOTAL CO2 25.2 mmol/L (23-27)
[2020-01-24] MEDS: NORMAL SALINE 500 ML with ROCURONIUM BROMIDE 500 MG IV PRN ×8 (00:05→21:50)
[2020-01-24] MEDS: NORMAL SALINE 1000 ML 1,000 ML IV PRN ×2 (01:24→15:36)
[2020-01-24] MEDS: FENTANYL CITRATE/PF 600 MCG/60 ML BAG IV PRN ×8 (01:24→21:30)
[2020-01-24] MEDS: IPRATROPIUM/ALBUTEROL 0.5-2.5 MG/3 ML AMPUL NEB SCH ×4 (02:20→20:40)
[2020-01-24] MEDS: MIDAZOLAM HCL 50 MG/100 ML RTUINJ IV PRN ×5 (03:45→19:52)
[2020-01-24] MEDS: DEXAMETHASONE SOD PHOSPHATE INJ 4 MG/1 ML VIAL IV SCH ×2 (06:05→13:16)
[2020-01-24] MEDS: CEFEPIME HCL 2 GM in DEXTROSE 5%-WATER 50 ML IV SCH ×3 (06:05→23:19)
[2020-01-24] MEDS: ASCORBIC ACID 500 MG TABLET NG SCH ×4 (06:05→23:38)
[2020-01-24] MEDS: AMINO AC/PROTEIN HYDR/WHEY PRO 11 GM/45 ML PKT NG SCH ×4 (06:05→23:38)
[2020-01-24] MEDS: LABETALOL HCL INJ 20 MG/4 ML DISP.SYRIN IV SCH ×5 (06:05→23:38)
[2020-01-24] MEDS: FLUTICASONE NASAL SPRAY 50 MCG/SPRY 120 SPRAY/16 GM NASL SCH ×2 (06:05→17:40)
[2020-01-24 06:25] LABS: HEMATOCRIT 20.9 % (37.9-51.0); MEAN CORPUSCULAR HEMOGLOBIN 28.2 pg (27.0-33.4); MEAN CORPUSCULAR HGB CONC 32.9 g/dL (32.0-36.0); MEAN CORPUSCULAR VOLUME 86 fl (80-97); PLATELET COUNT 129 10^3/uL (150-450); RED BLOOD COUNT 2.44 10^6/uL (4.35-5.55); RED CELL DISTRIBUTION WIDTH 13.6 % (11.5-14.0); WHITE BLOOD COUNT 11.2 10^3/uL (4.0-10.5)
[2020-01-24 06:59] LABS: BLOOD UREA NITROGEN 35 mg/dL (7-20); GLUCOSE 123 mg/dL (75-110); POTASSIUM 4.4 mmol/L (3.6-5.0)
[2020-01-24] MEDS ORDERED: ROCURONIUM BROMIDE INJ 50 MG/5 ML VIAL IV ONE (07:03)
[2020-01-24 07:05] LABS: CARBON DIOXIDE 26 mmol/L (22-30); CHLORIDE 108 mmol/L (98-107)
[2020-01-24 07:12] LABS: ANION GAP 4 (5-19)
[2020-01-24 07:39] LABS: HEMOGLOBIN 6.9 g/dL (13.5-17.0)
[2020-01-24 08:57] LABS: HEMATOCRIT 21.1 % (37.9-51.0); MEAN CORPUSCULAR HEMOGLOBIN 28.2 pg (27.0-33.4); MEAN CORPUSCULAR HGB CONC 33.3 g/dL (32.0-36.0); MEAN CORPUSCULAR VOLUME 85 fl (80-97); PLATELET COUNT 139 10^3/uL (150-450); RED BLOOD COUNT 2.49 10^6/uL (4.35-5.55); RED CELL DISTRIBUTION WIDTH 13.9 % (11.5-14.0); WHITE BLOOD COUNT 12.7 10^3/uL (4.0-10.5)
--- NOTE | 2020-01-24 08:57 | RADIOLOGY REPORT (SQ) ---
EXAM DESCRIPTION: CHEST SINGLE VIEW IMAGES COMPLETED DATE/TIME: 01/24/2020 6:58 am REASON FOR STUDY: resp fsilure , pneumomediastinum COMPARISON: 01/22/2020 NUMBER OF VIEWS: One view. TECHNIQUE: Single frontal radiographic image of the chest acquired. LIMITATIONS: None. FINDINGS: ENDOTRACHEAL TUBE: Appropriate location. OTHER SUPPORT DEVICES: Right IJ central venous catheter and nasogastric catheter appears stable. CHANGES IN RADIOGRAPHIC FINDINGS: Similar appearance of bilateral airspace-interstitial opacities, gr eatest in the left lung base. Slightly diminished subcutaneous gas compared with the previous exam. HARDWARE: None in the chest. OTHER: No other significant finding. IMPRESSION: Similar appearance of bilateral airspace-interstitial opacities, greatest in the left jing ng base. Slightly diminished subcutaneous gas compared with the previous exam. TECHNICAL DOCUMENTATION: JOB ID: [id number] [place]-72 2010 [employer]- All Rights Reserved Reading location - IP/workstation name: [employer]
[2020-01-24 09:43] LABS: ABSOLUTE LYMPHOCYTES# (MANUAL) 0.6 10^3/uL (0.5-4.7); ABSOLUTE MONOCYTES # (MANUAL) 0.6 10^3/uL (0.1-1.4); BAND NEUTROPHILS % (MANUAL) 2 % (3-5); BASOPHILS % (MANUAL) 0 % (0-2); EOSINOPHILS % (MANUAL) 0 % (0-6); LYMPHOCYTES % (MANUAL) 5 % (13-45); MONOCYTES % (MANUAL) 5 % (3-13); SEGMENTED NEUTROPHILS % (MAN) 88 % (42-78); TOTAL CELLS COUNTED 100
[2020-01-24 09:44] LABS: ANISOCYTOSIS SLIGHT; PLATELET COMMENT DECREASED
[2020-01-24] MEDS: CHOLECALCIFEROL (D3) 1,000 UNIT (25 MCG) TABLET NG SCH (09:49)
[2020-01-24] MEDS: PANTOPRAZOLE SODIUM 40 MG VIAL IV SCH (09:49)
[2020-01-24] MEDS: ZINC SULFATE 220 MG CAPSULE NG SCH (09:49)
--- NOTE | 2020-01-24 10:48 | PDOC CRITICAL CARE PROG REPORT ---
General Date:: 01/24/20 ICU Day:: 8 Ventilator Day:: 8 Hospital Day:: 8 Resuscitation Status: Full Code Events in the past 12 to 24 Hours:: The patient got more and more hypoxemic and short of breath requiring intubation and mechanical ventialtion. 01/18 The patient was proned about 4:30PM yesterday given his FI02 needs. He was switched to PC ventilation as well. Presently on PC of 26 and PEEP of 14. We will turn him back later this AM. he remains on a rocuronium infusion and is heavily sedated. Will place an arterial line today. 01/19 The patient remains on 65% FI02 presently. He is supine He remains on paralysis. Little change radiographically as of 01/18. Has been afebbrile. 01/20 Little change from yesterday overall. The patient remains sedated and paralyzed on the ventilator. Had arterial line placed and CVP replaced yesterday. He is on PV ventilation. CXR showed persistent bibasilar infiltrates somewhat improved as of yesterday. 01/21 The patient developed sudden swelling in his neck, face and neck during the night. He has a good deal of subcut emphysema. This was subsequently conformed this AM by CT scan. The patient has a large collection of anterior mediastinal air. There is air in the neck and pectorals as well. There is a good deal of "hepatizination" of the lower lung abrams as well. he has remained hemodynamically stable with no change in his 02 needs as well. 01/22 little change overall in status. the patient did develop a moderate resp. acidosis. I adjusted the ventilator. I changed back to volume control ,RR 30, decreased Ti, TV 480 It appears the the MV may have gone up a 2 lpm. Will recheck ABG. The subcut emphysema appears unchanged. BP reasonably well controlled. 01/23 We took the brachial a-line out as it continued to ooze at times. His Hb apparently dropped this AM as well. It dropped from 9 to 7. No over bleeding. The patient is to get 1 unit of PRBCs. I was able to turn his FI02 down to 70% this AM. his subcut emphysema is unchjanged. CXR is basically unchanged as well. the patient remains on a Rocuron drip. Reason for ICU Addmission:: hypoxia tachycardia Physical Exam Vital Signs: Temp Pulse Resp BP Pulse Ox 97.7 F 92 30 H 104/58 L 100 01/24/20 10:00 01/24/20 08:36 01/24/20 08:36 01/24/20 06:13 01/24/20 08:36 Intake & Output 01/23/20 01/24/20 01/25/20 06:59 06:59 06:59 Intake Total 2810 3269 600 Output Total 5700 4560 650 Balance -2890 -1291 -50 Weight 109.8 kg 110.2 kg Weight/Height Weight 110.2 kg Height 5 ft 8 in Laboratory/Radiographs Laboratory Results: 01/24/20 08:42 01/24/20 05:30 01/23/20 01/23/20 01/24/20 11:26 21:10 05:30 WBC 11.2 H RBC 2.44 L Hgb 6.9 L D Hct 20.9 L MCV 86 MCH 28.2 MCHC 32.9 RDW 13.6 Plt Count 129 L Seg Neutrophils % Carbonic Acid 1.27 1.24 HCO3/H2CO3 Ratio 18:1 19:1 ABG pH 7.36 7.38 ABG pCO2 42.1 41.2 ABG pO2 66.4 L 146.6 H ABG HCO3 23.4 23.9 ABG O2 Saturation 92.5 L 98.8 H ABG Base Excess -1.9 -1.1 FiO2 74% 90% Sodium Potassium Chloride Carbon Dioxide Anion Gap BUN Creatinine Est GFR ( Amer) Glucose Calcium 01/24/20 01/24/20 05:30 08:42 WBC 12.7 H RBC 2.49 L Hgb 7.0 L Hct 21.1 L MCV 85 MCH 28.2 MCHC 33.3 RDW 13.9 Plt Count 139 L Seg Neutrophils % Not Reportable Carbonic Acid HCO3/H2CO3 Ratio ABG pH ABG pCO2 ABG pO2 ABG HCO3 ABG O2 Saturation ABG Base Excess FiO2 Sodium 138.2 Potassium 4.4 Chloride 108 H Carbon Dioxide 26 Anion Gap 4 L BUN 35 H Creatinine 0.64 Est GFR ( Amer) > 60 Glucose 123 H Calcium 8.0 L 01/06/20 01/16/20 01/17/20 05:11 21:00 05:00 Creatine Kinase 38 L CK-MB (CK-2) Troponin I < 0.012 NT-Pro-B Natriuret Pep 338 H 01/17/20 05:00 Creatine Kinase CK-MB (CK-2) 1.63 Troponin I 0.028 NT-Pro-B Natriuret Pep 504 H Impressions: Chest CT 01/22/20 00:00 IMPRESSION: 1. Extensive pneumomediastinum anteriorly. No pneumothoraces. 2. Extensive subcutaneous air throughout the anterior chest wall, extending into the visualized lower neck, upper back, and left upper extremity. There is also extension of a large amount of air into the anterior extraperitoneal space of the upper abdomen. 3. Interval worsening of bilateral pulmonary opacities, which likely represent COVID-19 pneumonia given the clinical history. Chest X-Ray 01/24/20 04:30 IMPRESSION: Similar appearance of bilateral airspace-interstitial opacities, greatest in the left lung base. Slightly diminished subcutaneous gas compared with the previous exam. Assessment and Plan - Diagnosis (1) Acute respiratory failure with hypoxia Is this a current diagnosis for this admission?: Yes Plan: Some improvement as was able stay off CPAP through yesterday. Secondary to COVID-19 infection likely w/ ARDS. Continue HFNC. Currently spo2 low 90s on 55L/fio2 90% [Goal spo2 90-94%]. CPAP will be kept on standby. He did have some response to 2 days of daily Lasix pushes but I will hold off for now to avoid dehydration since BUN climbed. 01/17 The patient's condition worsened yesterday necessitation movement to the ICU and eventual intuabtion and paralysis. Given his high FI02 requirements there was an initial attempt too prone the patient that was unsuccessful. [place] remains guarded. I have placed the patient on PCV ventialtion with a 1:1 IE ratio. 01/18 As noted we proned the patient in the late afternoon yesterday. He remains sedated and paralyzed. I was able to turn his FI02 to 70% which is still rather high. His p/F ratio is 108. Repeat sputum culture pending. The patient is on full dose anticoagulation. [place] remains guarded. 01/19 The patient is doing a little better He remains paralyzed on the ventialtor recent tracheal aspirate culuture negative. CXR shows bilateral lower lobe opacities. 01/20 His 02 sat is 90-92% on 65% FI02. Little change from yesterday. The patient remains on PCV ventilation with IP of 26 and PEEP of 14. The patient grew out Serratia on his last sputum culture of 01/18. Unclear if it is truly a pathogen. Nevertheless, the patient remains on cefipime since 01/15. 01/22 The patient continues to have ventiaory problems and ooxygenation issues. The patient is on a Cefpime since 01/15 with 3+ polys. 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 01/23 As noted we were ablke to dial down his 02 a bit. his PF ratio is better at 162. hwe will likely need a trach this week. (2) Obesity (BMI 30-39.9) Is this a current diagnosis for this admission?: No (3) Pneumonia due to COVID-19 virus Is this a current diagnosis for this admission?: Yes Plan: Tested positive outpatient-record in chart Received azithromycin 3-4 days of Azithromycin and ceftriaxone. Completed 5 days of remdesivir IV dexamethasone day 9 Received convalescent plasma 01/08 Vitamin and zinc supplements Bronchodilator therapy I will de-escalate therapeutic Lovenox to high dose prophylaxis now that he is D -dimer has normalized. We will continue to trend D-dimer every 48 hours. 01/17 His CRP and LDH are fairly elevated CXR shows a dense LLL infitrate. Patient started on Cefipime on 01/15 Repeat C and S resp. ordered. 01/18 The patient remains non decadron. Has been in the hospital since 01/02 but intubated on 01/16. 01/23 Nothing further t reprort. (4) HTN (hypertension) Is this a current diagnosis for this admission?: Yes Plan: The patient is on Labetalol which appears tpo control his BP. When his sedation ism lowered his BP heads up tpowards the 200 range. 01/23 His BP is better controlled with Labetalol and on NMB. Critical Time Critical Time (minutes): 25 Level of Care: ICU -: 1. The care of a critical patient is a dynamic process. This note is a field representatives director synopsis but static in nature. The timeframe for treatments given in order is not necessarily the actual time these treatments may have been done. 2. This patient requires critical care secondary to ongoing requirements for therapy not offered or safe outside the critical care environment. Transfer to a lower level of care will result in altered life or limb morbidity and mortality. 3. Multidisciplinary rounds completed. 4. ABCDE bundle addressed.
[2020-01-24] MEDS ORDERED: FUROSEMIDE INJ/PF 40 MG/4 ML SDV IV ONE (16:00)
[2020-01-24 17:56] LABS: HEMATOCRIT 28.6 % (37.9-51.0); MEAN CORPUSCULAR HEMOGLOBIN 28.6 pg (27.0-33.4); MEAN CORPUSCULAR HGB CONC 33.6 g/dL (32.0-36.0); MEAN CORPUSCULAR VOLUME 85 fl (80-97); PLATELET COUNT 163 10^3/uL (150-450); RED BLOOD COUNT 3.37 10^6/uL (4.35-5.55); RED CELL DISTRIBUTION WIDTH 13.9 % (11.5-14.0); WHITE BLOOD COUNT 17.7 10^3/uL (4.0-10.5)
[2020-01-24 18:15] LABS: HEMOGLOBIN 9.6 g/dL (13.5-17.0)
[2020-01-24 18:18] LABS: ABSOLUTE LYMPHOCYTES# (MANUAL) 1.8 10^3/uL (0.5-4.7); ABSOLUTE MONOCYTES # (MANUAL) 0.5 10^3/uL (0.1-1.4); BAND NEUTROPHILS % (MANUAL) 4 % (3-5); BASOPHILS % (MANUAL) 0 % (0-2); EOSINOPHILS % (MANUAL) 0 % (0-6); LYMPHOCYTES % (MANUAL) 10 % (13-45); MONOCYTES % (MANUAL) 3 % (3-13); NUCLEATED RED BLOOD CELLS 1 /100 WBC (0); SEGMENTED NEUTROPHILS % (MAN) 83 % (42-78); TOTAL CELLS COUNTED 100
[2020-01-24 18:19] LABS: BURR CELLS SLIGHT; POLYCHROMASIA SLIGHT
[2020-01-24 18:20] LABS: PLATELET CLUMPS PRESENT; PLATELET COMMENT ADEQUATE
[2020-01-25] MEDS: FENTANYL CITRATE/PF 600 MCG/60 ML BAG IV PRN ×9 (00:35→23:35)
[2020-01-25] MEDS: MIDAZOLAM HCL 50 MG/100 ML RTUINJ IV PRN ×6 (01:53→23:05)
[2020-01-25] MEDS: IPRATROPIUM/ALBUTEROL 0.5-2.5 MG/3 ML AMPUL NEB SCH ×4 (02:39→20:43)
[2020-01-25 05:48] LABS: ARTERIAL BLOOD BASE EXCESS -1.5 mmol/L; ARTERIAL BLOOD H2CO3 1.15 mmol/L (1.05-1.35); ARTERIAL BLOOD HCO3 23.1 mmol/L (20-24); ARTERIAL BLOOD O2 SATURATION 95.7 % (94-98); ARTERIAL BLOOD PCO2 38.1 mmHg (35-45); ARTERIAL BLOOD TOTAL CO2 24.2 mmol/L (23-27)
[2020-01-25 05:50] LABS: ARTERIAL BLOOD FIO2 60%
[2020-01-25 06:12] LABS: ANION GAP 5 (5-19); BLOOD UREA NITROGEN 42 mg/dL (7-20); CALCIUM 7.9 mg/dL (8.4-10.2); CARBON DIOXIDE 25 mmol/L (22-30); CHLORIDE 106 mmol/L (98-107); GLUCOSE 113 mg/dL (75-110); POTASSIUM 4.1 mmol/L (3.6-5.0)
[2020-01-25] MEDS: NORMAL SALINE 1000 ML 1,000 ML IV PRN ×2 (06:30→19:50)
[2020-01-25] MEDS: CEFEPIME HCL 2 GM in DEXTROSE 5%-WATER 50 ML IV SCH ×3 (06:48→21:55)
[2020-01-25] MEDS: LABETALOL HCL INJ 20 MG/4 ML DISP.SYRIN IV SCH ×4 (06:49→23:41)
[2020-01-25] MEDS: AMINO AC/PROTEIN HYDR/WHEY PRO 11 GM/45 ML PKT NG SCH ×3 (06:49→17:22)
[2020-01-25] MEDS: ASCORBIC ACID 500 MG TABLET NG SCH ×3 (06:50→17:22)
[2020-01-25] MEDS: NORMAL SALINE 500 ML with ROCURONIUM BROMIDE 500 MG IV PRN ×4 (07:01→17:59)
[2020-01-25 07:06] LABS: MEAN CORPUSCULAR HEMOGLOBIN 28.8 pg (27.0-33.4); MEAN CORPUSCULAR HGB CONC 33.9 g/dL (32.0-36.0); MEAN CORPUSCULAR VOLUME 85 fl (80-97); PLATELET COUNT 153 10^3/uL (150-450); RED BLOOD COUNT 2.71 10^6/uL (4.35-5.55); RED CELL DISTRIBUTION WIDTH 13.9 % (11.5-14.0)
[2020-01-25 07:09] LABS: HEMOGLOBIN 7.8 g/dL (13.5-17.0)
[2020-01-25] MEDS: FLUTICASONE NASAL SPRAY 50 MCG/SPRY 120 SPRAY/16 GM NASL SCH ×2 (09:30→17:22)
[2020-01-25] MEDS: DEXAMETHASONE SOD PHOS INJ 10 MG/1 ML VIAL IV SCH (09:31)
[2020-01-25] MEDS: ENOXAPARIN SODIUM INJ 40 MG/0.4 ML DISP.SYRIN SUBCUT SCH (09:32)
[2020-01-25] MEDS: CHOLECALCIFEROL (D3) 1,000 UNIT (25 MCG) TABLET NG SCH (09:35)
[2020-01-25] MEDS: PANTOPRAZOLE SODIUM 40 MG VIAL IV SCH (09:36)
[2020-01-25] MEDS: ZINC SULFATE 220 MG CAPSULE NG SCH (09:36)
--- NOTE | 2020-01-25 12:49 | PDOC CRITICAL CARE PROG REPORT ---
General Date:: 01/25/20 ICU Day:: 8 Ventilator Day:: 8 Hospital Day:: 23 Resuscitation Status: Full Code Events in the past 12 to 24 Hours:: Essentially no change. Review of systems relevant to events:: Pulmonary. Reason for ICU Addmission:: hypoxia tachycardia, intubated. - Medications: Medications reviewed and adjusted accordingly: Yes Vasopressors:: None Sedation:: Propofol, versed, fentanyl. Physical Exam Vital Signs: Temp Pulse Resp BP Pulse Ox 97.7 F 139 H 27 H 139/84 H 95 01/25/20 10:00 01/25/20 10:00 01/25/20 10:00 01/25/20 10:00 01/25/20 12:00 Intake & Output 01/24/20 01/25/20 01/26/20 06:59 06:59 06:59 Intake Total 3269 4612 581 Output Total 4560 5675 1250 Balance -1291 -1063 -669 Weight 110.2 kg 110.1 kg Weight/Height Weight 110.1 kg Height 5 ft 8 in General appearance: PRESENT: no acute distress, well-developed, well-nourished Head exam: PRESENT: atraumatic, normocephalic Eye exam: PRESENT: conjunctiva pink, EOMI, PERRLA. ABSENT: scleral icterus Ear exam: PRESENT: normal external ear exam Mouth exam: PRESENT: moist, tongue midline Respiratory exam: PRESENT: clear to auscultation deepali, rhonchi. ABSENT: rales, wheezes Cardiovascular exam: PRESENT: RRR. ABSENT: diastolic murmur, rubs, systolic murmur GI/Abdominal exam: PRESENT: normal bowel sounds, soft. ABSENT: distended, guarding, mass, organolmegaly, rebound, tenderness Rectal exam: PRESENT: deferred Gentrourinary exam: PRESENT: indwelling catheter Extremities exam: PRESENT: full ROM. ABSENT: calf tenderness, clubbing, pedal edema Musculoskeletal exam: PRESENT: normal inspection Neurological exam: PRESENT: other - Sedated with muscle relaxants. Skin exam: PRESENT: dry, intact, warm. ABSENT: cyanosis, rash Tubes/Lines: PRESENT: Endotracheal Tube, Central Line, Nasogastic Tube Laboratory/Radiographs Laboratory Results: 01/25/20 06:30 01/25/20 04:50 01/24/20 01/24/2020 10:26 17:35 04:40 WBC 17.7 H RBC 3.37 L Hgb 9.6 L D Hct 28.6 L MCV 85 MCH 28.6 MCHC 33.6 RDW 13.9 Plt Count 163 Seg Neutrophils % Not Reportable Carbonic Acid 1.15 HCO3/H2CO3 Ratio 20:1 ABG pH 7.40 ABG pCO2 38.1 ABG pO2 79.0 L ABG HCO3 23.1 ABG O2 Saturation 95.7 ABG Base Excess -1.5 FiO2 60% Sodium Potassium Chloride Carbon Dioxide Anion Gap BUN Creatinine Est GFR ( Amer) Glucose Lactic Acid Calcium Blood Type B POSITIVE Antibody Screen NEGATIVE 01/25/20 01/25/20 01/25/20 04:50 04:50 06:30 WBC Cancelled 13.0 H RBC Cancelled 2.71 L Hgb Cancelled 7.8 L Hct Cancelled 23.0 L MCV Cancelled 85 MCH Cancelled 28.8 MCHC Cancelled 33.9 RDW Cancelled 13.9 Plt Count Cancelled 153 Seg Neutrophils % Carbonic Acid HCO3/H2CO3 Ratio ABG pH ABG pCO2 ABG pO2 ABG HCO3 ABG O2 Saturation ABG Base Excess FiO2 Sodium 135.9 L Potassium 4.1 Chloride 106 Carbon Dioxide 25 Anion Gap 5 BUN 42 H Creatinine 0.61 Est GFR ( Amer) > 60 Glucose 113 H Lactic Acid Calcium 7.9 L Blood Type Antibody Screen 01/25/20 07:00 WBC RBC Hgb Hct MCV MCH MCHC RDW Plt Count Seg Neutrophils % Carbonic Acid HCO3/H2CO3 Ratio ABG pH ABG pCO2 ABG pO2 ABG HCO3 ABG O2 Saturation ABG Base Excess FiO2 Sodium Potassium Chloride Carbon Dioxide Anion Gap BUN Creatinine Est GFR ( Amer) Glucose Lactic Acid 0.8 Calcium Blood Type Antibody Screen 01/06/20 01/16/20 01/17/20 05:11 21:00 05:00 Creatine Kinase 38 L CK-MB (CK-2) Troponin I < 0.012 NT-Pro-B Natriuret Pep 338 H 01/17/20 05:00 Creatine Kinase CK-MB (CK-2) 1.63 Troponin I 0.028 NT-Pro-B Natriuret Pep 504 H Impressions: Chest CT 01/22/20 00:00 IMPRESSION: 1. Extensive pneumomediastinum anteriorly. No pneumothoraces. 2. Extensive subcutaneous air throughout the anterior chest wall, extending into the visualized lower neck, upper back, and left upper extremity. There is also extension of a large amount of air into the anterior extraperitoneal space of the upper abdomen. 3. Interval worsening of bilateral pulmonary opacities, which likely represent COVID-19 pneumonia given the clinical history. Chest X-Ray 01/24/20 04:30 IMPRESSION: Similar appearance of bilateral airspace-interstitial opacities, greatest in the left lung base. Slightly diminished subcutaneous gas compared with the previous exam. All labs, radiographs, diagnostic studies and EKGs were personally reviewed: Yes In addition, reports of radiographic and diagnostic studies were read: Yes Assessment and Plan - Diagnosis (1) Acute respiratory failure with hypoxia Is this a current diagnosis for this admission?: Yes Plan: He is still requiring 60% but we may be able to wean this. (2) Pneumonia due to COVID-19 virus Is this a current diagnosis for this admission?: Yes Plan: He has a Covid appearing CXR from 01/23. Mild bibasilar infiltrates. Clinical effect is more than what is radiologically present. (3) Anemia Qualifiers: Anemia type: other cause Other causes of anemia: other cause, not classified Qualified Code(s): D64.89 - Other specified anemias Is this a current diagnosis for this admission?: Yes Plan: Likely due to inflammation. Hgb 7.8, check again in AM. Critical Time Critical Time (minutes): 35 Level of Care: ICU Anticipated discharge: Home Anticipated DC Timeframe: Other -: 1. The care of a critical patient is a dynamic process. This note is a technical sales representatives synopsis but static in nature. The timeframe for treatments given in order is not necessarily the actual time these treatments may have been done. 2. This patient requires critical care secondary to ongoing requirements for therapy not offered or safe outside the critical care environment. Transfer to a lower level of care will result in altered life or limb morbidity and mortality. 3. Multidisciplinary rounds completed. 4. ABCDE bundle addressed.
[2020-01-25 20:50] LABS: HEMATOCRIT 28.7 % (37.9-51.0); HEMOGLOBIN 9.7 g/dL (13.5-17.0); MEAN CORPUSCULAR HGB CONC 33.7 g/dL (32.0-36.0); MEAN CORPUSCULAR VOLUME 86 fl (80-97); PLATELET COUNT 180 10^3/uL (150-450); RED BLOOD COUNT 3.33 10^6/uL (4.35-5.55); RED CELL DISTRIBUTION WIDTH 14.7 % (11.5-14.0); WHITE BLOOD COUNT 17.6 10^3/uL (4.0-10.5)
[2020-01-25 21:06] LABS: ABSOLUTE LYMPHOCYTES# (MANUAL) 2.3 10^3/uL (0.5-4.7); ABSOLUTE MONOCYTES # (MANUAL) 0.4 10^3/uL (0.1-1.4); BAND NEUTROPHILS % (MANUAL) 1 % (3-5); BASOPHILS % (MANUAL) 0 % (0-2); EOSINOPHILS % (MANUAL) 0 % (0-6); LYMPHOCYTES % (MANUAL) 12 % (13-45); METAMYELOCYTES % (MANUAL) 2 % (0-1); MONOCYTES % (MANUAL) 2 % (3-13); SEGMENTED NEUTROPHILS % (MAN) 82 % (42-78); TOTAL CELLS COUNTED 100
[2020-01-25 21:07] LABS: ANISOCYTOSIS SLIGHT; PLATELET COMMENT ADEQUATE; POLYCHROMASIA SLIGHT
[2020-01-26] MEDS: ASCORBIC ACID 500 MG TABLET NG SCH ×5 (00:16→23:26)
[2020-01-26] MEDS: AMINO AC/PROTEIN HYDR/WHEY PRO 11 GM/45 ML PKT NG SCH ×5 (00:16→23:26)
[2020-01-26] MEDS: LABETALOL HCL INJ 20 MG/4 ML DISP.SYRIN IV SCH ×5 (01:54→23:26)
[2020-01-26] MEDS: FENTANYL CITRATE/PF 600 MCG/60 ML BAG IV PRN ×8 (02:25→23:05)
[2020-01-26] MEDS: IPRATROPIUM/ALBUTEROL 0.5-2.5 MG/3 ML AMPUL NEB SCH ×4 (02:26→20:16)
[2020-01-26] MEDS: MIDAZOLAM HCL 50 MG/100 ML RTUINJ IV PRN ×6 (02:30→21:25)
[2020-01-26] MEDS: NORMAL SALINE 500 ML with ROCURONIUM BROMIDE 500 MG IV PRN ×6 (02:45→20:40)
[2020-01-26 06:03] LABS: HEMATOCRIT 26.1 % (37.9-51.0); HEMOGLOBIN 8.8 g/dL (13.5-17.0); MEAN CORPUSCULAR HEMOGLOBIN 29.3 pg (27.0-33.4); MEAN CORPUSCULAR HGB CONC 33.9 g/dL (32.0-36.0); MEAN CORPUSCULAR VOLUME 87 fl (80-97); PLATELET COUNT 157 10^3/uL (150-450); RED BLOOD COUNT 3.01 10^6/uL (4.35-5.55); RED CELL DISTRIBUTION WIDTH 14.6 % (11.5-14.0); WHITE BLOOD COUNT 13.4 10^3/uL (4.0-10.5)
[2020-01-26] MEDS: FLUTICASONE NASAL SPRAY 50 MCG/SPRY 120 SPRAY/16 GM NASL SCH ×2 (06:04→17:39)
[2020-01-26] MEDS: CEFEPIME HCL 2 GM in DEXTROSE 5%-WATER 50 ML IV SCH ×3 (06:04→22:03)
[2020-01-26 06:34] LABS: ABSOLUTE LYMPHOCYTES# (MANUAL) 0.7 10^3/uL (0.5-4.7); ABSOLUTE MONOCYTES # (MANUAL) 0.4 10^3/uL (0.1-1.4); ANISOCYTOSIS SLIGHT; BASOPHILS % (MANUAL) 0 % (0-2); EOSINOPHILS % (MANUAL) 0 % (0-6); LYMPHOCYTES % (MANUAL) 5 % (13-45); MONOCYTES % (MANUAL) 3 % (3-13); NUCLEATED RED BLOOD CELLS 2 /100 WBC (0); PLATELET COMMENT ADEQUATE; POLYCHROMASIA SLIGHT; SEGMENTED NEUTROPHILS % (MAN) 92 % (42-78); TOTAL CELLS COUNTED 100
--- NOTE | 2020-01-26 09:36 | PDOC CRITICAL CARE PROG REPORT ---
General Date:: 01/26/20 ICU Day:: 9 Ventilator Day:: 9 Hospital Day:: 23 Resuscitation Status: Full Code Events in the past 12 to 24 Hours:: Essentially no change. 01/25. Still no change. Try to decrease FIO2 and stop rocuronium. Review of systems relevant to events:: Pulmonary Reason for ICU Addmission:: hypoxia tachycardia, intubated. - Medications: Medications reviewed and adjusted accordingly: Yes Vasopressors:: None Sedation:: Versed, fentanyl. Physical Exam Vital Signs: Temp Pulse Resp BP Pulse Ox 99.7 F 90 30 H 134/81 H 91 L 01/26/20 09:21 01/26/20 08:16 01/26/20 08:28 01/26/20 08:28 01/26/20 08:28 Intake & Output 01/25/20 01/26/20 01/27/20 06:59 06:59 06:59 Intake Total 4612 3471 439 Output Total 5675 4835 575 Balance -1063 -1364 -136 Weight 110.1 kg 110.4 kg Weight/Height Weight 110.4 kg Height 5 ft 8 in General appearance: PRESENT: obese Head exam: PRESENT: atraumatic, normocephalic Eye exam: PRESENT: conjunctiva pink, EOMI, PERRLA. ABSENT: scleral icterus Ear exam: PRESENT: normal external ear exam Mouth exam: PRESENT: moist, tongue midline Respiratory exam: PRESENT: clear to auscultation deepali, rhonchi - Coarse.. ABSENT: rales, wheezes Cardiovascular exam: PRESENT: RRR, tachycardia. ABSENT: diastolic murmur, rubs, systolic murmur GI/Abdominal exam: PRESENT: normal bowel sounds, soft. ABSENT: distended, guarding, mass, organolmegaly, rebound, tenderness Rectal exam: PRESENT: deferred Gentrourinary exam: PRESENT: indwelling catheter Extremities exam: PRESENT: full ROM. ABSENT: calf tenderness, clubbing, pedal edema Musculoskeletal exam: PRESENT: normal inspection Neurological exam: PRESENT: other - He is both sedated with muscle relaxants. Skin exam: PRESENT: dry, intact, warm. ABSENT: cyanosis, rash Tubes/Lines: PRESENT: Endotracheal Tube, Nasogastic Tube Laboratory/Radiographs Laboratory Results: 01/26/20 04:35 01/25/20 04:50 01/25/20 01/26/20 20:35 04:35 WBC 17.6 H 13.4 H RBC 3.33 L 3.01 L Hgb 9.7 L 8.8 L Hct 28.7 L 26.1 L MCV 86 87 MCH 29.0 29.3 MCHC 33.7 33.9 RDW 14.7 H 14.6 H Plt Count 180 157 Seg Neutrophils % Not Reportable Not Reportable 01/06/20 01/16/20 01/17/20 05:11 21:00 05:00 Creatine Kinase 38 L CK-MB (CK-2) Troponin I < 0.012 NT-Pro-B Natriuret Pep 338 H 01/17/20 05:00 Creatine Kinase CK-MB (CK-2) 1.63 Troponin I 0.028 NT-Pro-B Natriuret Pep 504 H Impressions: Chest CT 01/22/20 00:00 IMPRESSION: 1. Extensive pneumomediastinum anteriorly. No pneumothoraces. 2. Extensive subcutaneous air throughout the anterior chest wall, extending into the visualized lower neck, upper back, and left upper extremity. There is also extension of a large amount of air into the anterior extraperitoneal space of the upper abdomen. 3. Interval worsening of bilateral pulmonary opacities, which likely represent COVID-19 pneumonia given the clinical history. Chest X-Ray 01/24/20 04:30 IMPRESSION: Similar appearance of bilateral airspace-interstitial opacities, greatest in the left lung base. Slightly diminished subcutaneous gas compared with the previous exam. All labs, radiographs, diagnostic studies and EKGs were personally reviewed: Yes In addition, reports of radiographic and diagnostic studies were read: Yes Assessment and Plan - Diagnosis (1) Acute respiratory failure with hypoxia Is this a current diagnosis for this admission?: Yes Plan: He is still requiring 60% but we may be able to wean this. 01/25. Will try FIO2 at 55% and if he does well decrease further. (2) Pneumonia due to COVID-19 virus Is this a current diagnosis for this admission?: Yes Plan: Still in need of ventilator. (3) Anemia Qualifiers: Anemia type: other cause Other causes of anemia: other cause, not classified Qualified Code(s): D64.89 - Other specified anemias Is this a current diagnosis for this admission?: Yes Plan: Lkely due to inflammation. Plan Summary: Will off rocuronium and try weaning O2 level. Critical Time Critical Time (minutes): 35 Level of Care: ICU Anticipated discharge: SNF Anticipated DC Timeframe: Other -: 1. The care of a critical patient is a dynamic process. This note is a quality audit representative synopsis but static in nature. The timeframe for treatments given in order is not necessarily the actual time these treatments may have been done. 2. This patient requires critical care secondary to ongoing requirements for therapy not offered or safe outside the critical care environment. Transfer to a lower level of care will result in altered life or limb morbidity and mortality. 3. Multidisciplinary rounds completed. 4. ABCDE bundle addressed.
[2020-01-26] MEDS: ENOXAPARIN SODIUM INJ 40 MG/0.4 ML DISP.SYRIN SUBCUT SCH (09:40)
[2020-01-26] MEDS: DEXAMETHASONE SOD PHOS INJ 10 MG/1 ML VIAL IV SCH (09:40)
[2020-01-26] MEDS: CHOLECALCIFEROL (D3) 1,000 UNIT (25 MCG) TABLET NG SCH (09:40)
[2020-01-26] MEDS: PANTOPRAZOLE SODIUM 40 MG VIAL IV SCH (09:40)
[2020-01-26] MEDS: ZINC SULFATE 220 MG CAPSULE NG SCH (09:40)
[2020-01-26] MEDS: DOCUSATE SODIUM 100 MG/10 ML UDC PO SCH (09:40)
[2020-01-26] MEDS: NORMAL SALINE 1000 ML 1,000 ML IV PRN ×2 (11:42→23:29)
[2020-01-27] MEDS: MIDAZOLAM HCL 50 MG/100 ML RTUINJ IV PRN ×3 (01:40→13:44)
[2020-01-27] MEDS: IPRATROPIUM/ALBUTEROL 0.5-2.5 MG/3 ML AMPUL NEB SCH ×4 (01:42→20:01)
[2020-01-27] MEDS: FENTANYL CITRATE/PF 600 MCG/60 ML BAG IV PRN ×7 (01:52→22:15)
[2020-01-27] MEDS: NORMAL SALINE 500 ML with ROCURONIUM BROMIDE 500 MG IV PRN ×6 (05:00→17:43)
[2020-01-27 06:10] LABS: HEMATOCRIT 25.9 % (37.9-51.0); HEMOGLOBIN 8.7 g/dL (13.5-17.0); MEAN CORPUSCULAR HEMOGLOBIN 29.1 pg (27.0-33.4); MEAN CORPUSCULAR HGB CONC 33.7 g/dL (32.0-36.0); MEAN CORPUSCULAR VOLUME 87 fl (80-97); PLATELET COUNT 167 10^3/uL (150-450); RED BLOOD COUNT 2.99 10^6/uL (4.35-5.55); WHITE BLOOD COUNT 13.2 10^3/uL (4.0-10.5)
[2020-01-27] MEDS: FLUTICASONE NASAL SPRAY 50 MCG/SPRY 120 SPRAY/16 GM NASL SCH ×2 (06:35→18:17)
[2020-01-27] MEDS: LABETALOL HCL INJ 20 MG/4 ML DISP.SYRIN IV SCH ×3 (06:36→18:16)
[2020-01-27] MEDS: CEFEPIME HCL 2 GM in DEXTROSE 5%-WATER 50 ML IV SCH ×3 (06:36→22:05)
[2020-01-27] MEDS: AMINO AC/PROTEIN HYDR/WHEY PRO 11 GM/45 ML PKT NG SCH ×3 (06:38→18:17)
[2020-01-27] MEDS: ASCORBIC ACID 500 MG TABLET NG SCH ×3 (06:38→18:51)
[2020-01-27 08:48] LABS: APPEARANCE,URINE CLOUDY; BILIRUBIN,URINE NEGATIVE (NEGATIVE); CALCIUM OXALATE CRYSTALS,URINE TOO NUMEROUS TO CNT /HPF; COLOR,URINE STRAW; GLUCOSE, URINE NEGATIVE (NEGATIVE); KETONES,URINE NEGATIVE (NEGATIVE); LEUKOCYTE ESTERASE,URINE NEGATIVE (NEGATIVE); NITRITE,URINE NEGATIVE (NEGATIVE); PROTEIN,URINE NEGATIVE (NEGATIVE); URINE SPECIFIC GRAVITY 1.013; UROBILINOGEN,URINE NEGATIVE mg/dL (<2.0)
[2020-01-27] MEDS: DOCUSATE SODIUM 100 MG/10 ML UDC PO SCH (11:20)
[2020-01-27] MEDS: DEXAMETHASONE SOD PHOS INJ 10 MG/1 ML VIAL IV SCH (11:20)
[2020-01-27] MEDS: ENOXAPARIN SODIUM INJ 40 MG/0.4 ML DISP.SYRIN SUBCUT SCH (11:21)
[2020-01-27] MEDS: ZINC SULFATE 220 MG CAPSULE NG SCH (11:21)
[2020-01-27] MEDS: PANTOPRAZOLE SODIUM 40 MG VIAL IV SCH (11:21)
[2020-01-27] MEDS: CHOLECALCIFEROL (D3) 1,000 UNIT (25 MCG) TABLET NG SCH (11:21)
--- NOTE | 2020-01-27 12:33 | PDOC CRITICAL CARE PROG REPORT ---
General Date:: 01/27/20 ICU Day:: 10 Ventilator Day:: 10 Hospital Day:: 24 Resuscitation Status: Full Code Events in the past 12 to 24 Hours:: Essentially no real change Review of systems relevant to events:: Pulmonary Reason for ICU Addmission:: hypoxia tachycardia, intubated. - Medications: Medications reviewed and adjusted accordingly: Yes Vasopressors:: None Sedation:: Versed, fentanyl Physical Exam Vital Signs: Temp Pulse Resp BP Pulse Ox 97.9 F 84 29 H 155/88 H 90 L 01/27/20 10:00 01/27/20 10:00 01/27/20 10:00 01/27/20 10:00 01/27/20 10:00 Intake & Output 01/26/20 01/27/20 01/28/20 06:59 06:59 06:59 Intake Total 3471 4274 665 Output Total 4835 5425 1025 Balance -9151 -8538 -360 Weight 110.4 kg 109.2 kg Weight/Height Weight 109.2 kg Height 5 ft 8 in General appearance: PRESENT: no acute distress Head exam: PRESENT: atraumatic, normocephalic Eye exam: PRESENT: conjunctiva pink, EOMI, PERRLA. ABSENT: scleral icterus Ear exam: PRESENT: normal external ear exam Mouth exam: PRESENT: moist, tongue midline Respiratory exam: PRESENT: clear to auscultation deepali, decreased breath sounds, rhonchi - Coarse.. ABSENT: rales, wheezes Cardiovascular exam: PRESENT: RRR. ABSENT: diastolic murmur, rubs, systolic murmur GI/Abdominal exam: PRESENT: normal bowel sounds, soft. ABSENT: distended, guarding, mass, organolmegaly, rebound, tenderness Rectal exam: PRESENT: deferred Gentrourinary exam: PRESENT: indwelling catheter Extremities exam: PRESENT: full ROM. ABSENT: calf tenderness, clubbing, pedal edema Musculoskeletal exam: PRESENT: normal inspection Neurological exam: PRESENT: other - Sedated with muscle relaxants. Skin exam: PRESENT: dry, intact, warm. ABSENT: cyanosis, rash Tubes/Lines: PRESENT: Endotracheal Tube, Central Line, Nasogastic Tube Laboratory/Radiographs Laboratory Results: 01/27/20 05:40 01/25/20 04:50 01/27/20 01/27/20 05:40 05:40 WBC 13.2 H RBC 2.99 L Hgb 8.7 L Hct 25.9 L MCV 87 MCH 29.1 MCHC 33.7 RDW 15.0 H Plt Count 167 Urine Color STRAW Urine Appearance CLOUDY Urine pH 5.0 Ur Specific [place] 1.013 Urine Protein NEGATIVE Urine Glucose (UA) NEGATIVE Urine Ketones NEGATIVE Urine Blood SMALL H Urine Nitrite NEGATIVE Ur Leukocyte Esterase NEGATIVE Urine WBC (Auto) 7 Urine RBC (Auto) 23 01/06/20 01/16/20 01/17/20 05:11 21:00 05:00 Creatine Kinase 38 L CK-MB (CK-2) Troponin I < 0.012 NT-Pro-B Natriuret Pep 338 H 01/17/20 05:00 Creatine Kinase CK-MB (CK-2) 1.63 Troponin I 0.028 NT-Pro-B Natriuret Pep 504 H Impressions: Chest CT 01/22/20 00:00 IMPRESSION: 1. Extensive pneumomediastinum anteriorly. No pneumothoraces. 2. Extensive subcutaneous air throughout the anterior chest wall, extending into the visualized lower neck, upper back, and left upper extremity. There is also extension of a large amount of air into the anterior extraperitoneal space of the upper abdomen. 3. Interval worsening of bilateral pulmonary opacities, which likely represent COVID-19 pneumonia given the clinical history. Chest X-Ray 01/24/20 04:30 IMPRESSION: Similar appearance of bilateral airspace-interstitial opacities, greatest in the left lung base. Slightly diminished subcutaneous gas compared with the previous exam. All labs, radiographs, diagnostic studies and EKGs were personally reviewed: Yes In addition, reports of radiographic and diagnostic studies were read: Yes Assessment and Plan - Diagnosis (1) Acute respiratory failure with hypoxia Is this a current diagnosis for this admission?: Yes Plan: We can not make vent weaning changes as his O2 saturation is about 88-91% on 60% FIO2. Maintain as is for now. No reason to prone. (2) Pneumonia due to COVID-19 virus Is this a current diagnosis for this admission?: Yes Plan: Despite his age the virus disease process is fairly severe in him. (3) Anemia Qualifiers: Anemia type: other cause Other causes of anemia: other cause, not classified Qualified Code(s): D64.89 - Other specified anemias Is this a current diagnosis for this admission?: Yes Plan: Stable Plan Summary: Maintain support as is for now. Critical Time Critical Time (minutes): 35 Level of Care: ICU Anticipated discharge: Home with Homehealth Anticipated DC Timeframe: Other -: 1. The care of a critical patient is a dynamic process. This note is a fundraising sale representative synopsis but static in nature. The timeframe for treatments given in order is not necessarily the actual time these treatments may have been done. 2. This patient requires critical care secondary to ongoing requirements for therapy not offered or safe outside the critical care environment. Transfer to a lower level of care will result in altered life or limb morbidity and mortality. 3. Multidisciplinary rounds completed. 4. ABCDE bundle addressed.
[2020-01-27] MEDS: NORMAL SALINE 1000 ML 1,000 ML IV PRN (14:00)
[2020-01-27] MEDS ORDERED: PROPOFOL 1,000 MG/100 ML INFUS..BTL IV ONE (17:28)
[2020-01-27] MEDS: PROPOFOL 1,000 MG/100 ML INFUS..BTL IV PRN ×2 (17:30→22:30)
[2020-01-27] MEDS: MINERAL OIL/PETROLATUM,WHITE OPH OINT 3.5 GM OU PRN (18:52)
--- NOTE | 2020-01-27 19:33 | EKG REPORT ---
SEVERITY:- ABNORMAL ECG - SINUS TACHYCARDIA BORDERLINE LEFT AXIS DEVIATION NONSPECIFIC ST-T CHANGES- ANTEROSEPTAL LEADS : Confirmed by: Kashif Eaton MD 27-Jan-2020 19:32:42
[2020-01-28] MEDS: ASCORBIC ACID 500 MG TABLET NG SCH ×4 (00:12→17:10)
[2020-01-28] MEDS: LABETALOL HCL INJ 20 MG/4 ML DISP.SYRIN IV SCH ×4 (00:12→17:10)
[2020-01-28] MEDS: AMINO AC/PROTEIN HYDR/WHEY PRO 11 GM/45 ML PKT NG SCH ×4 (00:12→17:11)
[2020-01-28] MEDS: NORMAL SALINE 500 ML with ROCURONIUM BROMIDE 500 MG IV PRN ×4 (00:13→11:12)
[2020-01-28] MEDS: FENTANYL CITRATE/PF 600 MCG/60 ML BAG IV PRN ×9 (01:12→23:40)
[2020-01-28] MEDS: IPRATROPIUM/ALBUTEROL 0.5-2.5 MG/3 ML AMPUL NEB SCH ×4 (02:15→20:06)
[2020-01-28] MEDS: PROPOFOL 1,000 MG/100 ML INFUS..BTL IV PRN ×8 (02:30→22:45)
[2020-01-28] MEDS: NORMAL SALINE 1000 ML 1,000 ML IV PRN ×2 (04:00→19:00)
[2020-01-28] MEDS: FLUTICASONE NASAL SPRAY 50 MCG/SPRY 120 SPRAY/16 GM NASL SCH ×2 (05:29→18:01)
[2020-01-28 05:37] LABS: BLOOD UREA NITROGEN 28 mg/dL (7-20); CALCIUM 8.3 mg/dL (8.4-10.2); CARBON DIOXIDE 27 mmol/L (22-30); GLUCOSE 112 mg/dL (75-110); POTASSIUM 4.3 mmol/L (3.6-5.0)
[2020-01-28 05:42] LABS: CHLORIDE 111 mmol/L (98-107)
[2020-01-28 05:43] LABS: ANION GAP 3 (5-19)
[2020-01-28] MEDS: CEFEPIME HCL 2 GM in DEXTROSE 5%-WATER 50 ML IV SCH ×3 (06:24→20:35)
--- NOTE | 2020-01-28 06:29 | RADIOLOGY REPORT (SQ) ---
Abdomen x-ray single view on 01/28/2020 at 5:48 AM CLINICAL INDICATION: Abdominal distention COMPARISON: None FINDINGS: NG tube tip is in the body of the stomach. The inferior abdomen and pelvis is not fully imaged. Visualized bowel gas pattern is unremarkable. No increased stool to suggest significant constipation is noted in the upper abdomen. No abnormal calcification or mass effect is noted. IMPRESSION: Nonspecific abdomen although the lower abdomen and pelvis are not fully imaged.
[2020-01-28 08:27] LABS: HEMATOCRIT 23.5 % (37.9-51.0); MEAN CORPUSCULAR HEMOGLOBIN 29.2 pg (27.0-33.4); MEAN CORPUSCULAR VOLUME 89 fl (80-97); PLATELET COUNT 187 10^3/uL (150-450); RED BLOOD COUNT 2.66 10^6/uL (4.35-5.55); RED CELL DISTRIBUTION WIDTH 15.7 % (11.5-14.0); WHITE BLOOD COUNT 10.6 10^3/uL (4.0-10.5)
[2020-01-28 08:50] LABS: ABSOLUTE LYMPHOCYTES# (MANUAL) 0.6 10^3/uL (0.5-4.7); ABSOLUTE MONOCYTES # (MANUAL) 0.2 10^3/uL (0.1-1.4); BASOPHILS % (MANUAL) 0 % (0-2); EOSINOPHILS % (MANUAL) 0 % (0-6); LYMPHOCYTES % (MANUAL) 6 % (13-45); MONOCYTES % (MANUAL) 2 % (3-13); NUCLEATED RED BLOOD CELLS 1 /100 WBC (0); SEGMENTED NEUTROPHILS % (MAN) 92 % (42-78); TOTAL CELLS COUNTED 100
[2020-01-28 08:51] LABS: ANISOCYTOSIS 1+; PLATELET COMMENT ADEQUATE; POLYCHROMASIA 1+
[2020-01-28 08:53] LABS: HEMOGLOBIN 7.8 g/dL (13.5-17.0)
--- NOTE | 2020-01-28 09:01 | PDOC CRITICAL CARE PROG REPORT ---
General Date:: 01/28/20 ICU Day:: 11 Ventilator Day:: 11 Hospital Day:: 11 Resuscitation Status: Full Code Events in the past 12 to 24 Hours:: Only able to make small changes on vent Review of systems relevant to events:: Pulmonary Reason for ICU Addmission:: hypoxia tachycardia, intubated. - Medications: Medications reviewed and adjusted accordingly: Yes Vasopressors:: None Sedation:: Fentanyl, propofol. Physical Exam Vital Signs: Temp Pulse Resp BP Pulse Ox 97.9 F 79 30 H 105/61 98 01/28/20 07:25 01/28/20 07:55 01/28/20 07:55 01/28/20 07:25 01/28/20 07:55 Intake & Output 01/27/20 01/28/20 01/29/20 06:59 06:59 06:59 Intake Total 4274 3629 59 Output Total 5425 5850 625 Balance -1151 -2221 -566 Weight 109.2 kg 108.3 kg Weight/Height Weight 108.3 kg Height 5 ft 8 in General appearance: PRESENT: no acute distress Head exam: PRESENT: atraumatic, normocephalic Eye exam: PRESENT: conjunctiva pink, EOMI, PERRLA. ABSENT: scleral icterus Ear exam: PRESENT: normal external ear exam Mouth exam: PRESENT: moist, tongue midline Respiratory exam: PRESENT: clear to auscultation deepali, crackles - Dry. ABSENT: rales, rhonchi, wheezes Cardiovascular exam: PRESENT: RRR. ABSENT: diastolic murmur, rubs, systolic murmur GI/Abdominal exam: PRESENT: normal bowel sounds, soft. ABSENT: distended, guarding, mass, organolmegaly, rebound, tenderness Rectal exam: PRESENT: deferred Gentrourinary exam: PRESENT: indwelling catheter Extremities exam: PRESENT: full ROM, +1 edema. ABSENT: calf tenderness, clubbing, pedal edema Musculoskeletal exam: PRESENT: normal inspection Neurological exam: PRESENT: other - He is both sedated and on muscle relaxants. Skin exam: PRESENT: other - Bruising on abdomen. Tubes/Lines: PRESENT: Endotracheal Tube, Central Line, Nasogastic Tube Laboratory/Radiographs Laboratory Results: 01/28/20 05:05 01/27/20 01/28/20 01/28/20 05:40 05:05 05:05 Seg Neutrophils % Not Reportable Sodium 140.9 Potassium 4.3 Chloride 111 H Carbon Dioxide 27 Anion Gap 3 L BUN 28 H Creatinine 0.56 Est GFR ( Amer) > 60 Glucose 112 H Calcium 8.3 L Urine Color STRAW Urine Appearance CLOUDY Urine pH 5.0 Ur Specific [place] 1.013 Urine Protein NEGATIVE Urine Glucose (UA) NEGATIVE Urine Ketones NEGATIVE Urine Blood SMALL H Urine Nitrite NEGATIVE Ur Leukocyte Esterase NEGATIVE Urine WBC (Auto) 7 Urine RBC (Auto) 23 01/06/20 01/16/20 01/17/20 05:11 21:00 05:00 Creatine Kinase 38 L CK-MB (CK-2) Troponin I < 0.012 NT-Pro-B Natriuret Pep 338 H 01/17/20 01/27/20 05:00 15:40 Creatine Kinase CK-MB (CK-2) 1.63 Troponin I 0.028 < 0.012 NT-Pro-B Natriuret Pep 504 H Impressions: Chest CT 01/22/20 00:00 IMPRESSION: 1. Extensive pneumomediastinum anteriorly. No pneumothoraces. 2. Extensive subcutaneous air throughout the anterior chest wall, extending into the visualized lower neck, upper back, and left upper extremity. There is also extension of a large amount of air into the anterior extraperitoneal space of the upper abdomen. 3. Interval worsening of bilateral pulmonary opacities, which likely represent COVID-19 pneumonia given the clinical history. Chest X-Ray 01/24/20 04:30 IMPRESSION: Similar appearance of bilateral airspace-interstitial opacities, greatest in the left lung base. Slightly diminished subcutaneous gas compared with the previous exam. KUB X-Ray 01/28/20 00:00 IMPRESSION: Nonspecific abdomen although the lower abdomen and pelvis are not fully imaged. All labs, radiographs, diagnostic studies and EKGs were personally reviewed: Yes In addition, reports of radiographic and diagnostic studies were read: Yes Assessment and Plan - Diagnosis (1) Acute respiratory failure with hypoxia Is this a current diagnosis for this admission?: Yes Plan: I have been able to wean his FIO2 down only to 60%. He does not have much room to wean after this and we may have leave him at this level until he improves. (2) Pneumonia due to COVID-19 virus Is this a current diagnosis for this admission?: Yes Plan: This is the main cause for his respiratory illness. At 49 he is in a reasonable age category. (3) Anemia Qualifiers: Anemia type: other cause Other causes of anemia: other cause, not classified Qualified Code(s): D64.89 - Other specified anemias Is this a current diagnosis for this admission?: Yes Plan: Stable. Plan Summary: Plan to make only small changes to ventilator until he improves. Critical Time Critical Time (minutes): 35 Level of Care: ICU Anticipated discharge: Home Anticipated DC Timeframe: Other -: 1. The care of a critical patient is a dynamic process. This note is a account development representative synopsis but static in nature. The timeframe for treatments given in order is not necessarily the actual time these treatments may have been done. 2. This patient requires critical care secondary to ongoing requirements for therapy not offered or safe outside the critical care environment. Transfer to a lower level of care will result in altered life or limb morbidity and mortality. 3. Multidisciplinary rounds completed. 4. ABCDE bundle addressed.
[2020-01-28] MEDS: DOCUSATE SODIUM 100 MG/10 ML UDC PO SCH (10:09)
[2020-01-28] MEDS: ENOXAPARIN SODIUM INJ 40 MG/0.4 ML DISP.SYRIN SUBCUT SCH (10:09)
[2020-01-28] MEDS: DEXAMETHASONE SOD PHOS INJ 10 MG/1 ML VIAL IV SCH (10:09)
[2020-01-28] MEDS: CHOLECALCIFEROL (D3) 1,000 UNIT (25 MCG) TABLET NG SCH (10:09)
[2020-01-28] MEDS: PANTOPRAZOLE SODIUM 40 MG VIAL IV SCH (10:09)
[2020-01-28] MEDS: ZINC SULFATE 220 MG CAPSULE NG SCH (10:10)
[2020-01-28] MEDS ORDERED: ROCURONIUM BROMIDE INJ 50 MG/5 ML VIAL IV ONE (12:29)
[2020-01-28] MEDS: HYDRALAZINE HCL INJ/PF 20 MG/1 ML SDV IV PRN (14:08)
[2020-01-28] MEDS ORDERED: POLYETHYLENE GLYCOL 3350 POWDER 17 GM/1 PACKET PO ONE (14:19)
[2020-01-28] MEDS ORDERED: METOPROLOL TARTRATE PF/INJ 5 MG/5 ML SDV IV ONE (14:20)
[2020-01-28 14:58] LABS: ARTERIAL BLOOD BASE EXCESS -2.1 mmol/L; ARTERIAL BLOOD H2CO3 1.25 mmol/L (1.05-1.35); ARTERIAL BLOOD HCO3 23.1 mmol/L (20-24); ARTERIAL BLOOD O2 SATURATION 89.2 % (94-98); ARTERIAL BLOOD PCO2 41.5 mmHg (35-45); ARTERIAL BLOOD PH 7.36 (7.35-7.45); ARTERIAL BLOOD PO2 57.9 mmHg (80-100); ARTERIAL BLOOD TOTAL CO2 24.4 mmol/L (23-27)
[2020-01-28 14:59] LABS: ARTERIAL BLOOD FIO2 60%
[2020-01-28] MEDS ORDERED: PEG 3350/NA SULF,BICARB,CL/KCL 4000 ML NG ONE (17:42)
[2020-01-28] MEDS ORDERED: DEXTROSE 50%-WATER 25 GM/50 ML DISP.SYRIN IV PRN ×2 (18:36)
[2020-01-28] MEDS ORDERED: DEXTROSE 40% GEL 15 GM TUBE PO PRN ×2 (18:36)
[2020-01-28] MEDS ORDERED: GLUCAGON,HUMAN RECOMB 1 MG INJ IM PRN (18:36)
[2020-01-28] MEDS: MIDAZOLAM HCL 50 MG/100 ML RTUINJ IV PRN (19:44)
[2020-01-29] MEDS: MIDAZOLAM HCL 50 MG/100 ML RTUINJ IV PRN ×7 (00:05→22:53)
[2020-01-29] MEDS ORDERED: PEG 3350/NA SULF,BICARB,CL/KCL 4000 ML ONE (00:41)
[2020-01-29] MEDS: LABETALOL HCL INJ 20 MG/4 ML DISP.SYRIN IV SCH ×5 (00:47→23:14)
[2020-01-29] MEDS: INSULIN REG, HUMAN 100 UNIT/ML 3 ML VIAL (PYX) SUBCUT SCH ×5 (00:47→23:14)
[2020-01-29] MEDS: ASCORBIC ACID 500 MG TABLET NG SCH ×5 (00:48→23:14)
[2020-01-29] MEDS: AMINO AC/PROTEIN HYDR/WHEY PRO 11 GM/45 ML PKT NG SCH ×5 (00:48→23:14)
[2020-01-29] MEDS: NORMAL SALINE 500 ML with ROCURONIUM BROMIDE 500 MG IV PRN ×2 (02:00)
[2020-01-29] MEDS: IPRATROPIUM/ALBUTEROL 0.5-2.5 MG/3 ML AMPUL NEB SCH ×4 (02:15→20:24)
[2020-01-29 02:30] LABS: HEMATOCRIT 26.2 % (37.9-51.0); HEMOGLOBIN 8.5 g/dL (13.5-17.0); MEAN CORPUSCULAR HEMOGLOBIN 28.2 pg (27.0-33.4); MEAN CORPUSCULAR HGB CONC 32.4 g/dL (32.0-36.0); MEAN CORPUSCULAR VOLUME 87 fl (80-97); PLATELET COUNT 223 10^3/uL (150-450); RED BLOOD COUNT 3.01 10^6/uL (4.35-5.55); WHITE BLOOD COUNT 11.1 10^3/uL (4.0-10.5)
[2020-01-29] MEDS: FENTANYL CITRATE/PF 600 MCG/60 ML BAG IV PRN ×8 (02:37→22:30)
[2020-01-29 03:04] LABS: ABSOLUTE LYMPHOCYTES# (MANUAL) 0.9 10^3/uL (0.5-4.7); ABSOLUTE MONOCYTES # (MANUAL) 0.1 10^3/uL (0.1-1.4); BAND NEUTROPHILS % (MANUAL) 3 % (3-5); BASOPHILS % (MANUAL) 0 % (0-2); EOSINOPHILS % (MANUAL) 0 % (0-6); LYMPHOCYTES % (MANUAL) 8 % (13-45); METAMYELOCYTES % (MANUAL) 1 % (0-1); MONOCYTES % (MANUAL) 1 % (3-13); SEGMENTED NEUTROPHILS % (MAN) 87 % (42-78); TOTAL CELLS COUNTED 100
[2020-01-29 03:05] LABS: ANISOCYTOSIS 1+; PLATELET COMMENT ADEQUATE
[2020-01-29] MEDS: FLUTICASONE NASAL SPRAY 50 MCG/SPRY 120 SPRAY/16 GM NASL SCH ×2 (05:37→17:37)
[2020-01-29] MEDS: CEFEPIME HCL 2 GM in DEXTROSE 5%-WATER 50 ML IV SCH ×3 (05:37→22:49)
[2020-01-29] MEDS: DOCUSATE SODIUM 100 MG/10 ML UDC PO SCH (09:58)
[2020-01-29] MEDS: PANTOPRAZOLE SODIUM 40 MG VIAL IV SCH (09:58)
[2020-01-29] MEDS: CHOLECALCIFEROL (D3) 1,000 UNIT (25 MCG) TABLET NG SCH (09:58)
[2020-01-29] MEDS: ENOXAPARIN SODIUM INJ 40 MG/0.4 ML DISP.SYRIN SUBCUT SCH (09:58)
[2020-01-29] MEDS: ZINC SULFATE 220 MG CAPSULE NG SCH (09:58)
--- NOTE | 2020-01-29 11:29 | PDOC CRITICAL CARE PROG REPORT ---
General Date:: 01/29/20 ICU Day:: 12 Ventilator Day:: 12 Hospital Day:: 26 Resuscitation Status: Full Code Events in the past 12 to 24 Hours:: FIO2 increased to 70% but now down to 65% Review of systems relevant to events:: Pulmonary Reason for ICU Addmission:: hypoxia tachycardia, intubated. - Medications: Medications reviewed and adjusted accordingly: Yes Vasopressors:: None Sedation:: Fentanyl, versed Physical Exam Vital Signs: Temp Pulse Resp BP Pulse Ox 98.3 F 83 30 H 136/71 H 99 01/29/20 08:00 01/29/20 08:22 01/29/20 08:22 01/29/20 08:00 01/29/20 08:22 Intake & Output 01/28/20 01/29/20 01/30/20 06:59 06:59 06:59 Intake Total 4629 2895 42 Output Total 5850 5525 500 Balance -1221 -2630 -458 Weight 108.3 kg 109.3 kg Weight/Height Weight 109.3 kg Height 5 ft 8 in General appearance: PRESENT: no acute distress Head exam: PRESENT: atraumatic, normocephalic Eye exam: PRESENT: conjunctiva pink, EOMI, PERRLA. ABSENT: scleral icterus Ear exam: PRESENT: normal external ear exam Mouth exam: PRESENT: moist, tongue midline Respiratory exam: PRESENT: clear to auscultation deepali, crackles, rhonchi. ABSENT: rales, wheezes Cardiovascular exam: PRESENT: RRR. ABSENT: diastolic murmur, rubs, systolic murmur GI/Abdominal exam: PRESENT: normal bowel sounds, soft. ABSENT: distended, guarding, mass, organolmegaly, rebound, tenderness Rectal exam: PRESENT: deferred Gentrourinary exam: PRESENT: indwelling catheter Extremities exam: PRESENT: +1 edema Neurological exam: PRESENT: other - Sedated Skin exam: PRESENT: dry, intact, warm. ABSENT: cyanosis, rash Tubes/Lines: PRESENT: Endotracheal Tube, Central Line, Nasogastic Tube Laboratory/Radiographs Laboratory Results: 01/29/20 02:10 01/28/20 05:05 01/28/20 01/28/20 01/29/20 05:05 14:40 02:10 WBC 11.1 H RBC 3.01 L Hgb 8.5 L Hct 26.2 L MCV 87 MCH 28.2 MCHC 32.4 RDW 16.0 H Plt Count 223 Seg Neutrophils % Not Reportable Carbonic Acid 1.25 HCO3/H2CO3 Ratio 18:1 ABG pH 7.36 ABG pCO2 41.5 ABG pO2 57.9 L ABG HCO3 23.1 ABG O2 Saturation 89.2 L ABG Base Excess -2.1 FiO2 60% Triglycerides 205 H 01/06/20 01/16/20 01/17/20 05:11 21:00 05:00 Creatine Kinase 38 L CK-MB (CK-2) Troponin I < 0.012 NT-Pro-B Natriuret Pep 338 H 01/17/20 01/27/20 05:00 15:40 Creatine Kinase CK-MB (CK-2) 1.63 Troponin I 0.028 < 0.012 NT-Pro-B Natriuret Pep 504 H Impressions: Chest CT 01/22/20 00:00 IMPRESSION: 1. Extensive pneumomediastinum anteriorly. No pneumothoraces. 2. Extensive subcutaneous air throughout the anterior chest wall, extending into the visualized lower neck, upper back, and left upper extremity. There is also extension of a large amount of air into the anterior extraperitoneal space of the upper abdomen. 3. Interval worsening of bilateral pulmonary opacities, which likely represent COVID-19 pneumonia given the clinical history. Chest X-Ray 01/24/20 04:30 IMPRESSION: Similar appearance of bilateral airspace-interstitial opacities, greatest in the left lung base. Slightly diminished subcutaneous gas compared with the previous exam. KUB X-Ray 01/28/20 00:00 IMPRESSION: Nonspecific abdomen although the lower abdomen and pelvis are not fully imaged. All labs, radiographs, diagnostic studies and EKGs were personally reviewed: Yes In addition, reports of radiographic and diagnostic studies were read: Yes Assessment and Plan - Diagnosis (1) Acute respiratory failure with hypoxia Is this a current diagnosis for this admission?: Yes Plan: He is still needing 70% FIO2. I have taken him to 65% but his O2 saturations are in the low to mid 90s. We will hold here. (2) Pneumonia due to COVID-19 virus Is this a current diagnosis for this admission?: Yes Plan: Still a current problem. He is tolerating being off rocuronium (3) Anemia Qualifiers: Anemia type: other cause Other causes of anemia: other cause, not classified Qualified Code(s): D64.89 - Other specified anemias Is this a current diagnosis for this admission?: Yes Plan: Stable. Plan Summary: Make only small changes on this ventilator for now. Critical Time Critical Time (minutes): 35 Level of Care: ICU Anticipated discharge: SNF Anticipated DC Timeframe: Other -: 1. The care of a critical patient is a dynamic process. This note is a development representative synopsis but static in nature. The timeframe for treatments given in order is not necessarily the actual time these treatments may have been done. 2. This patient requires critical care secondary to ongoing requirements for therapy not offered or safe outside the critical care environment. Transfer to a lower level of care will result in altered life or limb morbidity and mortality. 3. Multidisciplinary rounds completed. 4. ABCDE bundle addressed.
[2020-01-29] MEDS: NORMAL SALINE 1000 ML 1,000 ML IV PRN ×2 (11:55→23:15)
[2020-01-29] MEDS ORDERED: HYDROMORPHONE HCL INJ/PF 2 MG/ML AMPULE ONE (12:15)
[2020-01-29] MEDS: HYDROMORPHONE HCL INJ/PF 2 MG/ML AMPULE IV PRN ×2 (12:16→17:21)
[2020-01-29] MEDS ORDERED: DEXMEDETOMIDINE IN 0.9 % NACL 400 MCG/100 ML RTUPB IV ONE (18:03)
[2020-01-29] MEDS: DEXMEDETOMIDINE IN 0.9 % NACL 400 MCG/100 ML RTUPB IV PRN (21:17)
[2020-01-30] MEDS: MIDAZOLAM HCL 50 MG/100 ML RTUINJ IV PRN ×8 (00:25→23:53)
[2020-01-30] MEDS: FENTANYL CITRATE/PF 600 MCG/60 ML BAG IV PRN ×9 (01:20→23:57)
[2020-01-30] MEDS: DEXMEDETOMIDINE IN 0.9 % NACL 400 MCG/100 ML RTUPB IV PRN ×4 (02:30→23:51)
[2020-01-30] MEDS: IPRATROPIUM/ALBUTEROL 0.5-2.5 MG/3 ML AMPUL NEB SCH ×4 (02:33→20:39)
[2020-01-30 04:01] LABS: ABSOLUTE EOSINOPHILS # (AUTO) 0.3 10^3/uL (0.0-0.6); ABSOLUTE LYMPHOCYTES (AUTO) 0.7 10^3/uL (0.5-4.7); ABSOLUTE MONOCYTES (AUTO) 0.5 10^3/uL (0.1-1.4); ABSOLUTE NEUT (AUTO) 7.9 10^3/uL (1.7-8.2); BASOPHILS % (AUTO) 0.4 % (0-2); EOSINOPHILS % (AUTO) 2.9 % (0-6); HEMATOCRIT 23.6 % (37.9-51.0); LYMPHOCYTES % (AUTO) 7.6 % (13-45); MEAN CORPUSCULAR HEMOGLOBIN 29.7 pg (27.0-33.4); MEAN CORPUSCULAR HGB CONC 33.6 g/dL (32.0-36.0); MEAN CORPUSCULAR VOLUME 88 fl (80-97); MONOCYTES % (AUTO) 5.2 % (3-13); PLATELET COUNT 207 10^3/uL (150-450); RED BLOOD COUNT 2.68 10^6/uL (4.35-5.55); RED CELL DISTRIBUTION WIDTH 16.1 % (11.5-14.0); SEGMENTED NEUTROPHILS % (AUTO) 83.9 % (42-78); TOTAL CELLS COUNTED % (AUTO) 100 %; WHITE BLOOD COUNT 9.5 10^3/uL (4.0-10.5)
[2020-01-30 04:14] LABS: HEMOGLOBIN 7.9 g/dL (13.5-17.0)
[2020-01-30] MEDS: LABETALOL HCL INJ 20 MG/4 ML DISP.SYRIN IV SCH ×3 (05:48→17:58)
[2020-01-30] MEDS: FLUTICASONE NASAL SPRAY 50 MCG/SPRY 120 SPRAY/16 GM NASL SCH ×2 (05:48→17:57)
[2020-01-30] MEDS: AMINO AC/PROTEIN HYDR/WHEY PRO 11 GM/45 ML PKT NG SCH ×3 (05:48→18:35)
[2020-01-30] MEDS: CEFEPIME HCL 2 GM in DEXTROSE 5%-WATER 50 ML IV SCH ×3 (05:48→21:30)
[2020-01-30] MEDS: ASCORBIC ACID 500 MG TABLET NG SCH ×3 (05:49→18:35)
[2020-01-30] MEDS ORDERED: NEOSTIGMINE METHYLSULFATE 10 MG/10 ML VIAL IV ONE (05:58)
[2020-01-30] MEDS: HYDROMORPHONE HCL INJ/PF 2 MG/ML AMPULE IV PRN ×4 (06:03→21:42)
[2020-01-30] MEDS ORDERED: NEOSTIGMINE METHYLSULFATE 10 MG/10 ML VIAL ONE (06:22)
--- NOTE | 2020-01-30 06:30 | RADIOLOGY REPORT (SQ) ---
ABDOMINAL RADIOGRAPH: 01/30/2020 5:28 AM CARDIOVASCULAR LAB DIRECTOR COMPARISON: Abdominal radiograph performed TECHNIQUE: Multiple radiographic the abdomen obtained. HISTORY: 49-year old with abdominal pain. FINDINGS: Only the upper abdomen was included on this examination. Macro nasogastric The visualized bowel gas pattern is nonspecific and nonobstructive. No abnormal intra-abdominal calcifications are seen. There are no findings to suggest organomegaly. There are hazy airspace opacities noted within the left lung base. There is subcutaneous emphysema over the chest and abdominal wall partially visualized. This is best seen over the left side. Pneumomediastinum is also present. IMPRESSION: The bowel gas pattern is nonobstructive and nonspecific. A nasogastric tube tip is seen overlying the left upper quadrant of the abdomen, projecting at the stomach. There is diffuse subcutaneous emphysema seen at the chest and abdominal wall on the left side.
[2020-01-30] MEDS: INSULIN REG, HUMAN 100 UNIT/ML 3 ML VIAL (PYX) SUBCUT SCH ×3 (06:45→19:41)
--- NOTE | 2020-01-30 08:07 | PDOC CRITICAL CARE PROG REPORT ---
General Date:: 01/30/20 ICU Day:: 13 Ventilator Day:: 13 Hospital Day:: Resuscitation Status: Full Code Events in the past 12 to 24 Hours:: FIO2 increased to 70% but now down to 65% 01/29 Taken down to 60% this AM Review of systems relevant to events:: Pulmonary Reason for ICU Addmission:: hypoxia tachycardia, intubated. - Medications: Medications reviewed and adjusted accordingly: Yes Vasopressors:: None Sedation:: Versed, fentanyl, Presedex. Physical Exam Vital Signs: Temp Pulse Resp BP Pulse Ox 100.0 F 56 L 27 H 147/91 H 99 01/30/20 00:00 01/30/20 07:40 01/30/20 06:15 01/30/20 06:01 01/30/20 06:15 Intake & Output 01/29/20 01/30/20 01/31/20 06:59 06:59 06:59 Intake Total 2895 2709 Output Total 5525 2955 Balance -2630 -246 Weight 109.3 kg 111.3 kg Weight/Height Weight 111.3 kg Height 5 ft 8 in General appearance: PRESENT: no acute distress Head exam: PRESENT: atraumatic, normocephalic Eye exam: PRESENT: conjunctiva pink, EOMI, PERRLA. ABSENT: scleral icterus Ear exam: PRESENT: normal external ear exam Mouth exam: PRESENT: moist, tongue midline Respiratory exam: PRESENT: clear to auscultation deepali, decreased breath sounds, rhonchi - Rhochi are less today.. ABSENT: rales, wheezes Cardiovascular exam: PRESENT: RRR. ABSENT: diastolic murmur, rubs, systolic murmur GI/Abdominal exam: PRESENT: normal bowel sounds, soft. ABSENT: distended, guarding, mass, organolmegaly, rebound, tenderness Rectal exam: PRESENT: deferred Gentrourinary exam: PRESENT: indwelling catheter Extremities exam: PRESENT: full ROM. ABSENT: calf tenderness, clubbing, pedal edema Musculoskeletal exam: PRESENT: normal inspection Neurological exam: PRESENT: other - Heavily sedated. Skin exam: PRESENT: dry, intact, warm. ABSENT: cyanosis, rash Tubes/Lines: PRESENT: Endotracheal Tube, Central Line, Nasogastic Tube Laboratory/Radiographs Laboratory Results: 01/30/20 03:30 01/28/20 05:05 01/30/20 03:30 WBC 9.5 RBC 2.68 L Hgb 7.9 L Hct 23.6 L MCV 88 MCH 29.7 MCHC 33.6 RDW 16.1 H Plt Count 207 Seg Neutrophils % 83.9 H 01/06/20 01/16/20 01/17/20 05:11 21:00 05:00 Creatine Kinase 38 L CK-MB (CK-2) Troponin I < 0.012 NT-Pro-B Natriuret Pep 338 H 01/17/20 01/27/20 05:00 15:40 Creatine Kinase CK-MB (CK-2) 1.63 Troponin I 0.028 < 0.012 NT-Pro-B Natriuret Pep 504 H Impressions: Chest CT 01/22/20 00:00 IMPRESSION: 1. Extensive pneumomediastinum anteriorly. No pneumothoraces. 2. Extensive subcutaneous air throughout the anterior chest wall, extending into the visualized lower neck, upper back, and left upper extremity. There is also extension of a large amount of air into the anterior extraperitoneal space of the upper abdomen. 3. Interval worsening of bilateral pulmonary opacities, which likely represent COVID-19 pneumonia given the clinical history. Chest X-Ray 01/24/20 04:30 IMPRESSION: Similar appearance of bilateral airspace-interstitial opacities, greatest in the left lung base. Slightly diminished subcutaneous gas compared with the previous exam. KUB X-Ray 01/30/20 00:00 IMPRESSION: The bowel gas pattern is nonobstructive and nonspecific. A nasogastric tube tip is seen overlying the left upper quadrant of the abdomen, projecting at the stomach. There is diffuse subcutaneous emphysema seen at the chest and abdominal wall on the left side. All labs, radiographs, diagnostic studies and EKGs were personally reviewed: Yes In addition, reports of radiographic and diagnostic studies were read: Yes Assessment and Plan - Diagnosis (1) Acute respiratory failure with hypoxia Is this a current diagnosis for this admission?: Yes Plan: He is maintaining his oxygenation off rocuronium. Down to 60%. Will try to continue making small decreases. (2) Pneumonia due to COVID-19 virus Is this a current diagnosis for this admission?: Yes Plan: Fairly severe. Expect a protracted vent course. May need trach. (3) Anemia Qualifiers: Anemia type: other cause Other causes of anemia: other cause, not class ified Qualified Code(s): D64.89 - Other specified anemias Is this a current diagnosis for this admission?: Yes Plan: Probably the anemia of acute imflammation. No need to transfuse. Limit blood draws and recheck CBC in AM Plan Summary: Maintain sedation continue off rocuronium. Making only small changes on vent. Critical Time Critical Time (minutes): 35 Level of Care: ICU Anticipated discharge: Home Anticipated DC Timeframe: Other -: 1. The care of a critical patient is a dynamic process. This note is a human resources representative synopsis but static in nature. The timeframe for treatments given in order is not necessarily the actual time these treatments may have been done. 2. This patient requires critical care secondary to ongoing requirements for therapy not offered or safe outside the critical care environment. Transfer to a lower level of care will result in altered life or limb morbidity and mortality. 3. Multidisciplinary rounds completed. 4. ABCDE bundle addressed.
[2020-01-30] MEDS ORDERED: DEXAMETHASONE SOD PHOS INJ 10 MG/1 ML VIAL IV SCH (10:00)
[2020-01-30] MEDS: DEXAMETHASONE SOD PHOSPHATE INJ 4 MG/1 ML VIAL IV SCH (10:41)
[2020-01-30] MEDS: ENOXAPARIN SODIUM INJ 40 MG/0.4 ML DISP.SYRIN SUBCUT SCH (10:42)
[2020-01-30] MEDS: PANTOPRAZOLE SODIUM 40 MG VIAL IV SCH (10:42)
[2020-01-30] MEDS: DOCUSATE SODIUM 100 MG/10 ML UDC PO SCH (10:43)
[2020-01-30] MEDS: ZINC SULFATE 220 MG CAPSULE NG SCH (10:43)
[2020-01-30] MEDS: CHOLECALCIFEROL (D3) 1,000 UNIT (25 MCG) TABLET NG SCH (10:43)
[2020-01-30 11:29] LABS: ARTERIAL BLOOD BASE EXCESS -0.6 mmol/L; ARTERIAL BLOOD H2CO3 1.24 mmol/L (1.05-1.35); ARTERIAL BLOOD HCO3 24.4 mmol/L (20-24); ARTERIAL BLOOD O2 SATURATION 94.7 % (94-98); ARTERIAL BLOOD PCO2 41.3 mmHg (35-45); ARTERIAL BLOOD PH 7.39 (7.35-7.45); ARTERIAL BLOOD PO2 73.9 mmHg (80-100); ARTERIAL BLOOD TOTAL CO2 25.7 mmol/L (23-27)
[2020-01-30 11:30] LABS: ARTERIAL BLOOD FIO2 90%
[2020-01-30] MEDS: NORMAL SALINE 1000 ML 1,000 ML IV PRN (18:37)
[2020-01-30] MEDS ORDERED: PROPOFOL INJ 200 MG/20 ML VIAL IV ONE ×2 (21:42→22:10)
[2020-01-30] MEDS ORDERED: ROCURONIUM BROMIDE INJ 50 MG/5 ML VIAL IV ONE (22:10)
[2020-01-31] MEDS: ASCORBIC ACID 500 MG TABLET NG SCH ×4 (00:02→18:32)
[2020-01-31] MEDS: LABETALOL HCL INJ 20 MG/4 ML DISP.SYRIN IV SCH ×4 (00:02→18:31)
[2020-01-31] MEDS: IPRATROPIUM/ALBUTEROL 0.5-2.5 MG/3 ML AMPUL NEB SCH ×4 (02:29→20:35)
[2020-01-31] MEDS: AMINO AC/PROTEIN HYDR/WHEY PRO 11 GM/45 ML PKT NG SCH ×4 (04:09→18:32)
[2020-01-31] MEDS: DEXMEDETOMIDINE IN 0.9 % NACL 400 MCG/100 ML RTUPB IV PRN ×7 (04:11→23:11)
[2020-01-31] MEDS: MIDAZOLAM HCL 50 MG/100 ML RTUINJ IV PRN ×7 (04:12→21:18)
[2020-01-31] MEDS: FENTANYL CITRATE/PF 600 MCG/60 ML BAG IV PRN ×9 (04:13→23:12)
[2020-01-31] MEDS: INSULIN REG, HUMAN 100 UNIT/ML 3 ML VIAL (PYX) SUBCUT SCH ×5 (06:53→23:11)
[2020-01-31] MEDS: FLUTICASONE NASAL SPRAY 50 MCG/SPRY 120 SPRAY/16 GM NASL SCH ×2 (06:53→18:31)
[2020-01-31] MEDS: CEFEPIME HCL 2 GM in DEXTROSE 5%-WATER 50 ML IV SCH ×3 (06:56→21:17)
[2020-01-31] MEDS: NORMAL SALINE 1000 ML 1,000 ML IV PRN ×2 (06:57→20:22)
[2020-01-31 07:33] LABS: ABSOLUTE EOSINOPHILS # (AUTO) 0.3 10^3/uL (0.0-0.6); ABSOLUTE LYMPHOCYTES (AUTO) 0.4 10^3/uL (0.5-4.7); ABSOLUTE MONOCYTES (AUTO) 0.4 10^3/uL (0.1-1.4); ABSOLUTE NEUT (AUTO) 7.4 10^3/uL (1.7-8.2); BASOPHILS % (AUTO) 0.4 % (0-2); EOSINOPHILS % (AUTO) 3.2 % (0-6); HEMATOCRIT 23.1 % (37.9-51.0); LYMPHOCYTES % (AUTO) 5.1 % (13-45); MEAN CORPUSCULAR HEMOGLOBIN 29.4 pg (27.0-33.4); MEAN CORPUSCULAR HGB CONC 33.1 g/dL (32.0-36.0); MEAN CORPUSCULAR VOLUME 89 fl (80-97); MONOCYTES % (AUTO) 4.6 % (3-13); PLATELET COUNT 169 10^3/uL (150-450); RED CELL DISTRIBUTION WIDTH 16.4 % (11.5-14.0); SEGMENTED NEUTROPHILS % (AUTO) 86.7 % (42-78); TOTAL CELLS COUNTED % (AUTO) 100 %; WHITE BLOOD COUNT 8.5 10^3/uL (4.0-10.5)
--- NOTE | 2020-01-31 07:58 | PDOC CRITICAL CARE PROG REPORT ---
General Date:: 01/31/20 ICU Day:: 14 Ventilator Day:: 14 Hospital Day:: 28 Resuscitation Status: Full Code Events in the past 12 to 24 Hours:: Stable off rocuronium but still needs heavy sedation. Review of systems relevant to events:: Pulmonary Reason for ICU Addmission:: hypoxia tachycardia, intubated. - Medications: Medications reviewed and adjusted accordingly: Yes Vasopressors:: None Sedation:: Fentanyl, versed, Precedex. Physical Exam Vital Signs: Temp Pulse Resp BP Pulse Ox 95.9 F L 77 25 H 128/70 H 100 01/31/20 06:00 01/31/20 02:29 01/31/20 07:32 01/31/20 07:32 01/31/20 07:32 Intake & Output 01/30/20 01/31/20 02/01/20 06:59 06:59 06:59 Intake Total 2709 2952 26 Output Total 2955 1968 Balance -246 984 26 Weight 111.3 kg 114.3 kg Weight/Height Weight 114.3 kg Height 5 ft 8 in General appearance: PRESENT: no acute distress Head exam: PRESENT: atraumatic, normocephalic Eye exam: PRESENT: conjunctiva pink, EOMI, PERRLA. ABSENT: scleral icterus Ear exam: PRESENT: normal external ear exam Mouth exam: PRESENT: moist, tongue midline Respiratory exam: PRESENT: clear to auscultation deepali, crackles, rhonchi - Coarse and dry sounding. ABSENT: rales, wheezes Cardiovascular exam: PRESENT: RRR. ABSENT: diastolic murmur, rubs, systolic murmur GI/Abdominal exam: PRESENT: normal bowel sounds, soft. ABSENT: distended, guarding, mass, organolmegaly, rebound, tenderness Rectal exam: PRESENT: deferred Gentrourinary exam: PRESENT: indwelling catheter Extremities exam: PRESENT: full ROM, +1 edema. ABSENT: calf tenderness, clubbing, pedal edema Neurological exam: PRESENT: other - Heavily sedated Skin exam: PRESENT: dry, intact, warm. ABSENT: cyanosis, rash Tubes/Lines: PRESENT: Endotracheal Tube, Central Line, Nasogastic Tube Laboratory/Radiographs Laboratory Results: 01/28/20 05:05 01/30/20 10:58 Carbonic Acid 1.24 HCO3/H2CO3 Ratio 19:1 ABG pH 7.39 ABG pCO2 41.3 ABG pO2 73.9 L ABG HCO3 24.4 H ABG O2 Saturation 94.7 ABG Base Excess -0.6 FiO2 90% 01/06/20 01/16/20 01/17/20 05:11 21:00 05:00 Creatine Kinase 38 L CK-MB (CK-2) Troponin I < 0.012 NT-Pro-B Natriuret Pep 338 H 01/17/20 01/27/20 05:00 15:40 Creatine Kinase CK-MB (CK-2) 1.63 Troponin I 0.028 < 0.012 NT-Pro-B Natriuret Pep 504 H Impressions: Chest CT 01/22/20 00:00 IMPRESSION: 1. Extensive pneumomediastinum anteriorly. No pneumothoraces. 2. Extensive subcutaneous air throughout the anterior chest wall, extending into the visualized lower neck, upper back, and left upper extremity. There is also extension of a large amount of air into the anterior extraperitoneal space of the upper abdomen. 3. Interval worsening of bilateral pulmonary opacities, which likely represent COVID-19 pneumonia given the clinical history. Chest X-Ray 01/24/20 04:30 IMPRESSION: Similar appearance of bilateral airspace-interstitial opacities, greatest in the left lung base. Slightly diminished subcutaneous gas compared with the previous exam. KUB X-Ray 01/30/20 00:00 IMPRESSION: The bowel gas pattern is nonobstructive and nonspecific. A nasogastric tube tip is seen overlying the left upper quadrant of the abdomen, projecting at the stomach. There is diffuse subcutaneous emphysema seen at the chest and abdominal wall on the left side. All labs, radiographs, diagnostic studies and EKGs were personally reviewed: Yes In addition, reports of radiographic and diagnostic studies were read: Yes Assessment and Plan - Diagnosis (1) Acute respiratory failure with hypoxia Is this a current diagnosis for this admission?: Yes Plan: Able to make only slight changes in FIO2. (2) Pneumonia due to COVID-19 virus Is this a current diagnosis for this admission?: Yes Plan: Severe. Maintain support as is. Hope when lungs improve we can make more meaningful changes. (3) Anemia Qualifiers: Anemia type: other cause Other causes of anemia: other cause, not classified Qualified Code(s): D64.89 - Other specified anemias Is this a current diagnosis for this admission?: Yes Plan: Slight decrease over the last few days. Current CBC still pending. Plan Summary: Maintain supprot as is, transfuse as needed. Critical Time Critical Time (minutes): 35 Level of Care: ICU Anticipated discharge: Home Anticipated DC Timeframe: Other -: 1. The care of a critical patient is a dynamic process. This note is a textile designs sales representative synopsis but static in nature. The timeframe for treatments given in order is not necessarily the actual time these treatments may have been done. 2. This patient requires critical care secondary to ongoing requirements for therapy not offered or safe outside the critical care environment. Transfer to a lower level of care will result in altered life or limb morbidity and mortality. 3. Multidisciplinary rounds completed. 4. ABCDE bundle addressed.
[2020-01-31 08:02] LABS: HEMOGLOBIN 7.6 g/dL (13.5-17.0)
[2020-01-31] MEDS: DEXAMETHASONE SOD PHOSPHATE INJ 4 MG/1 ML VIAL IV SCH (09:41)
[2020-01-31] MEDS: PANTOPRAZOLE SODIUM 40 MG VIAL IV SCH (09:41)
[2020-01-31] MEDS: ENOXAPARIN SODIUM INJ 40 MG/0.4 ML DISP.SYRIN SUBCUT SCH (09:41)
[2020-01-31] MEDS: CHOLECALCIFEROL (D3) 1,000 UNIT (25 MCG) TABLET NG SCH (09:41)
[2020-01-31] MEDS: DOCUSATE SODIUM 100 MG/10 ML UDC PO SCH (09:41)
[2020-01-31] MEDS: ZINC SULFATE 220 MG CAPSULE NG SCH (09:42)
[2020-01-31] MEDS: NORMAL SALINE 500 ML with ROCURONIUM BROMIDE 500 MG IV PRN ×2 (13:10)
[2020-01-31] MEDS ORDERED: ROCURONIUM BROMIDE INJ 50 MG/5 ML VIAL IV ONE ×2 (14:38→16:27)
[2020-01-31] MEDS ORDERED: ENOXAPARIN SODIUM INJ 120 MG/0.8 ML DISP.SYRIN SUBCUT ONE (18:22)
[2020-01-31] MEDS: ENOXAPARIN SODIUM INJ 120 MG/0.8 ML DISP.SYRIN SUBCUT SCH (18:31)
[2020-01-31 19:23] LABS: ARTERIAL BLOOD H2CO3 1.69 mmol/L (1.05-1.35); ARTERIAL BLOOD HCO3 21.9 mmol/L (20-24); ARTERIAL BLOOD PCO2 56.1 mmHg (35-45); ARTERIAL BLOOD PH 7.21 (7.35-7.45); ARTERIAL BLOOD TOTAL CO2 23.7 mmol/L (23-27)
[2020-01-31 19:25] LABS: ARTERIAL BLOOD FIO2 100%; ARTERIAL BLOOD PO2 29.2 mmHg (80-100)
[2020-02-01] MEDS: ASCORBIC ACID 500 MG TABLET NG SCH ×5 (00:10→18:20)
[2020-02-01] MEDS: AMINO AC/PROTEIN HYDR/WHEY PRO 11 GM/45 ML PKT NG SCH ×5 (00:10→18:20)
[2020-02-01] MEDS: LABETALOL HCL INJ 20 MG/4 ML DISP.SYRIN IV SCH ×4 (00:10→18:21)
[2020-02-01] MEDS: MIDAZOLAM HCL 50 MG/100 ML RTUINJ IV PRN ×9 (00:17→23:15)
[2020-02-01] MEDS: DEXMEDETOMIDINE IN 0.9 % NACL 400 MCG/100 ML RTUPB IV PRN ×7 (01:46→21:22)
[2020-02-01] MEDS: FENTANYL CITRATE/PF 600 MCG/60 ML BAG IV PRN ×8 (02:05→22:15)
[2020-02-01] MEDS: IPRATROPIUM/ALBUTEROL 0.5-2.5 MG/3 ML AMPUL NEB SCH ×3 (02:56→13:06)
[2020-02-01 04:23] LABS: MEAN CORPUSCULAR HEMOGLOBIN 29.5 pg (27.0-33.4); MEAN CORPUSCULAR HGB CONC 33.4 g/dL (32.0-36.0); MEAN CORPUSCULAR VOLUME 88 fl (80-97); PLATELET COUNT 167 10^3/uL (150-450); RED BLOOD COUNT 2.61 10^6/uL (4.35-5.55); RED CELL DISTRIBUTION WIDTH 16.2 % (11.5-14.0); WHITE BLOOD COUNT 8.7 10^3/uL (4.0-10.5)
[2020-02-01 04:57] LABS: HEMOGLOBIN 7.7 g/dL (13.5-17.0)
[2020-02-01 05:02] LABS: ABSOLUTE LYMPHOCYTES# (MANUAL) 0.4 10^3/uL (0.5-4.7); ABSOLUTE MONOCYTES # (MANUAL) 0.1 10^3/uL (0.1-1.4); BAND NEUTROPHILS % (MANUAL) 1 % (3-5); BASOPHILS % (MANUAL) 0 % (0-2); EOSINOPHILS % (MANUAL) 0 % (0-6); LYMPHOCYTES % (MANUAL) 5 % (13-45); MONOCYTES % (MANUAL) 1 % (3-13); SEGMENTED NEUTROPHILS % (MAN) 93 % (42-78); TOTAL CELLS COUNTED 100
[2020-02-01 05:03] LABS: ANION GAP 9 (5-19); ANISOCYTOSIS 1+; BLOOD UREA NITROGEN 26 mg/dL (7-20); CALCIUM 7.8 mg/dL (8.4-10.2); CARBON DIOXIDE 21 mmol/L (22-30); CHLORIDE 111 mmol/L (98-107); GLUCOSE 111 mg/dL (75-110); HELMET CELLS SLIGHT; OVALOCYTES SLIGHT; POIKILOCYTOSIS 1+; POTASSIUM 4.7 mmol/L (3.6-5.0); TEAR DROP CELLS 1+; TOXIC GRANULATION 1+
[2020-02-01 05:04] LABS: PLATELET COMMENT ADEQUATE
[2020-02-01] MEDS: INSULIN REG, HUMAN 100 UNIT/ML 3 ML VIAL (PYX) SUBCUT SCH ×3 (05:46→18:21)
[2020-02-01] MEDS ORDERED: CEFEPIME 2 GM/D5W RTU 2 GM/50 ML RTUPB IV ONE (05:47)
[2020-02-01] MEDS: FLUTICASONE NASAL SPRAY 50 MCG/SPRY 120 SPRAY/16 GM NASL SCH (05:47)
[2020-02-01] MEDS: CEFEPIME HCL 2 GM in DEXTROSE 5%-WATER 50 ML IV SCH ×3 (06:02→21:23)
[2020-02-01] MEDS: NORMAL SALINE 500 ML with ROCURONIUM BROMIDE 500 MG IV PRN ×4 (06:29→22:15)
[2020-02-01 06:50] LABS: ARTERIAL BLOOD BASE EXCESS -8.9 mmol/L; ARTERIAL BLOOD H2CO3 1.44 mmol/L (1.05-1.35); ARTERIAL BLOOD HCO3 18.6 mmol/L (20-24); ARTERIAL BLOOD O2 SATURATION 95.8 % (94-98); ARTERIAL BLOOD PH 7.21 (7.35-7.45); ARTERIAL BLOOD PO2 96.7 mmHg (80-100)
[2020-02-01] MEDS ORDERED: ENOXAPARIN SODIUM INJ 120 MG/0.8 ML DISP.SYRIN SUBCUT ONE (06:53)
[2020-02-01 06:54] LABS: ARTERIAL BLOOD FIO2 75%
[2020-02-01] MEDS: ENOXAPARIN SODIUM INJ 120 MG/0.8 ML DISP.SYRIN SUBCUT SCH ×2 (07:03→18:20)
--- NOTE | 2020-02-01 09:23 | RADIOLOGY REPORT (SQ) ---
EXAM DESCRIPTION: CHEST SINGLE VIEW IMAGES COMPLETED DATE/TIME: 02/01/2020 9:12 am REASON FOR STUDY: oxygen desaturation COMPARISON: 01/24/2020 NUMBER OF VIEWS: One view. TECHNIQUE: Single frontal radiographic image of the chest acquired. LIMITATIONS: None. FINDINGS: LUNGS AND PLEURA: Slight progression bibasilar airspace disease. MEDIASTINUM AND HILAR STRUCTURES: Stable heart size and mediastinal structures. HEART AND VASCULAR STRUCTURES: Stable appearance. SUPPORT DEVICES: Appropriate location without change. BONES: No acute findings. OTHER: No other significant finding. IMPRESSION: Slight increase in bibasilar airspace disease. No other interval change. Support lines and tubes remain in place. TECHNICAL DOCUMENTATION: JOB ID: [id number] 2010 [employer]- All Rights Reserved Reading location - IP/workstation name: [email or web address]
[2020-02-01] MEDS: NORMAL SALINE 1000 ML 1,000 ML IV PRN (10:15)
[2020-02-01] MEDS: DEXAMETHASONE SOD PHOSPHATE INJ 4 MG/1 ML VIAL IV SCH ×2 (10:33→14:52)
[2020-02-01] MEDS: PANTOPRAZOLE SODIUM 40 MG VIAL IV SCH (10:33)
[2020-02-01] MEDS: ZINC SULFATE 220 MG CAPSULE NG SCH (10:34)
[2020-02-01] MEDS: DOCUSATE SODIUM 100 MG/10 ML UDC PO SCH (10:34)
[2020-02-01] MEDS: CHOLECALCIFEROL (D3) 1,000 UNIT (25 MCG) TABLET NG SCH (10:34)
[2020-02-01 12:36] LABS: ARTERIAL BLOOD BASE EXCESS -5.6 mmol/L; ARTERIAL BLOOD H2CO3 1.35 mmol/L (1.05-1.35); ARTERIAL BLOOD HCO3 20.7 mmol/L (20-24); ARTERIAL BLOOD O2 SATURATION 98.5 % (94-98); ARTERIAL BLOOD PH 7.28 (7.35-7.45); ARTERIAL BLOOD PO2 143.1 mmHg (80-100); ARTERIAL BLOOD TOTAL CO2 22.1 mmol/L (23-27)
[2020-02-01 12:41] LABS: ARTERIAL BLOOD FIO2 100%
[2020-02-01] MEDS ORDERED: ALBUTEROL SULFATE 0.083% NEB 2.5 MG/3 ML AMPUL NEB PRN (13:52)
[2020-02-01] MEDS: ALBUTEROL SULFATE 0.083% NEB 2.5 MG/3 ML AMPUL NEB SCH ×2 (14:36→19:57)
--- NOTE | 2020-02-01 17:23 | PDOC CRITICAL CARE PROG REPORT ---
General Date:: 02/01/20 ICU Day:: 17 Ventilator Day:: 16 Hospital Day:: 30 Resuscitation Status: Full Code Events in the past 12 to 24 Hours:: This 49-year-old male presented to [facility] emergency department on 01/03/2020 with known [id number] infection. He had previously presented to an urgent care clinic on 12/27/2019, when he was diagnosed. He had been instructed to stay home and quarantine but presented to the emergency department on 01/01/2020 with increasing dyspnea. He was treated with Decadron and azithromycin. He was discharged home only to return on the following day with increasing shortness of breath, fever (100.1 Fahrenheit) and hypoxia (SPO2 70s on room air). He was admitted and started treatment with BiPAP support. Critical care consultation was sought on 01/16/2020 with worsening hypoxia and tachycardia. He was transferred to the ICU on 01/15. The patient ended up r equiring endotracheal intubation and mechanical ventilator support on the following day. 01/31: In prone position. Per nurse report, the patient is approaching 24 hours in prone position. Neuromuscular blockade with rocuronium. On Versed/Precedex/fentanyl for sedation. Ventilator is noted to be on VC mode, Ti 0.5 seconds, with Ppeak in the 50s. ABG this a.m.: 7.21/48/97 on FiO2 80%, PEEP 15. On cefepime for Serratia pneumonia (01/18). Review of systems relevant to events:: Pulmonary Reason for ICU Addmission:: hypoxia tachycardia, intubated. - Medications: Medications reviewed and adjusted accordingly: Yes Vasopressors:: None Sedation:: Versed/Precedex/fentanyl Physical Exam Vital Signs: Temp Pulse Resp BP Pulse Ox 99.0 F 122 H 30 H 112/60 96 02/01/20 12:00 02/01/20 13:06 02/01/20 13:06 02/01/20 12:00 02/01/20 13:06 Intake & Output 01/31/20 02/01/20 02/02/20 06:59 06:59 06:59 Intake Total 2952 3040 1359 Output Total 1968 1700 465 Balance 984 1340 894 Weight 114.3 kg 113.7 kg Weight/Height Weight 113.7 kg Height 1.73 m General appearance: PRESENT: no acute distress, well-developed, other - Prone position Head exam: PRESENT: atraumatic, normocephalic Neck exam: PRESENT: other - Crepitus Respiratory exam: PRESENT: clear to auscultation deepali. ABSENT: rales, rhonchi, wheezes Cardiovascular exam: PRESENT: RRR, tachycardia. ABSENT: diastolic murmur, rubs, systolic murmur Pulses: PRESENT: normal dorsalis pedis pul Gentrourinary exam: PRESENT: indwelling catheter Extremities exam: PRESENT: full ROM. ABSENT: calf tenderness, clubbing, pedal edema Neurological exam: PRESENT: altered, other - Rocuronium Psychiatric exam: ABSENT: agitated, anxious Skin exam: PRESENT: dry, intact, warm. ABSENT: cyanosis, rash Tubes/Lines: PRESENT: Endotracheal Tube, Nasogastic Tube Laboratory/Radiographs Laboratory Results: 02/01/20 03:38 02/01/20 03:38 01/31/20 02/01/20 02/01/20 11:15 03:38 03:38 WBC 8.7 RBC 2.61 L Hgb 7.7 L Hct 23.0 L MCV 88 MCH 29.5 MCHC 33.4 RDW 16.2 H Plt Count 167 Seg Neutrophils % Not Reportable Carbonic Acid 1.69 H HCO3/H2CO3 Ratio 12:1 ABG pH 7.21 L ABG pCO2 56.1 H ABG pO2 29.2 L* ABG HCO3 21.9 ABG O2 Saturation 43.0 L ABG Base Excess -6.0 FiO2 100% Sodium 141.0 Potassium 4.7 Chloride 111 H Carbon Dioxide 21 L Anion Gap 9 BUN 26 H Creatinine 0.85 Est GFR ( Amer) > 60 Glucose 111 H Calcium 7.8 L 02/01/20 02/01/20 04:35 12:20 WBC RBC Hgb Hct MCV MCH MCHC RDW Plt Count Seg Neutrophils % Carbonic Acid 1.44 H 1.35 HCO3/H2CO3 Ratio 12:1 15:1 ABG pH 7.21 L 7.28 L ABG pCO2 48.0 H 45.0 ABG pO2 96.7 143.1 H ABG HCO3 18.6 L 20.7 ABG O2 Saturation 95.8 98.5 H ABG Base Excess -8.9 -5.6 FiO2 75% 100% Sodium Potassium Chloride Carbon Dioxide Anion Gap BUN Creatinine Est GFR ( Amer) Glucose Calcium 01/06/20 01/16/20 01/17/20 05:11 21:00 05:00 Creatine Kinase 38 L CK-MB (CK-2) Troponin I < 0.012 NT-Pro-B Natriuret Pep 338 H 01/17/20 01/27/20 05:00 15:40 Creatine Kinase CK-MB (CK-2) 1.63 Troponin I 0.028 < 0.012 NT-Pro-B Natriuret Pep 504 H Impressions: Chest CT 01/22/20 00:00 IMPRESSION: 1. Extensive pneumomediastinum anteriorly. No pneumothoraces. 2. Extensive subcutaneous air throughout the anterior chest wall, extending into the visualized lower neck, upper back, and left upper extremity. There is also extension of a large amount of air into the anterior extraperitoneal space of the upper abdomen. 3. Interval worsening of bilateral pulmonary opacities, which likely represent COVID-19 pneumonia given the clinical history. KUB X-Ray 01/30/20 00:00 IMPRESSION: The bowel gas pattern is nonobstructive and nonspecific. A nasogastric tube tip is seen overlying the left upper quadrant of the abdomen, projecting at the stomach. There is diffuse subcutaneous emphysema seen at the chest and abdominal wall on the left side. Chest X-Ray 02/01/20 08:32 IMPRESSION: Slight increase in bibasilar airspace disease. No other interval change. Support lines and tubes remain in place. All labs, radiographs, diagnostic studies and EKGs were personally reviewed: Yes In addition, reports of radiographic and diagnostic studies were read: Yes Assessment and Plan - Diagnosis (1) Acute respiratory failure with hypoxia and hypercapnia Is this a current diagnosis for this admission?: Yes Plan: * Change ventilator mode to PRVC (f 30, VT 480, FiO2 100%, PEEP 10, Ti 1 sec). * Titrate vent settings based on ABG results. * Continue sedation. * Titrate rocuronium for 1-2/4 on [id number]. * As the patient has been in prone position for 24 hours, will supinate at this time. I anticipate he will return to prone position after about 6 hours. (2) Pneumonia due to COVID-19 virus Is this a current diagnosis for this admission?: Yes Plan: * Completed remdesivir. * Increase Decadron to 6 mg IV daily. (3) Pneumonia due to Serratia marcescens Is this a current diagnosis for this admission?: Yes Plan: * Continue cefepime (4) Normocytic anemia Is this a current diagnosis for this admission?: Yes Plan: * Monitor hemoglobin. (5) HTN (hypertension) Is this a current diagnosis for this admission?: Yes (6) Obesity (BMI 30-39.9) Is this a current diagnosis for this admission?: No (7) Pneumomediastinum Is this a current diagnosis for this admission?: Yes Plan: * Clinically stable. * With subcutaneous emphysema. Critical Time Critical Time (minutes): 60 Level of Care: ICU -: 1. The care of a critical patient is a dynamic process. This note is a sales donor recruitment representative synopsis but static in nature. The timeframe for treatments given in order is not necessarily the actual time these treatments may have been done. 2. This patient requires critical care secondary to ongoing requirements for therapy not offered or safe outside the critical care environment. Transfer to a lower level of care will result in altered life or limb morbidity and mortality. 3. Multidisciplinary rounds completed. 4. ABCDE bundle addressed.
[2020-02-01] MEDS: BUDESONIDE NEB 0.25 MG/2 ML AMPUL NEB SCH (19:57)
[2020-02-02] MEDS: INSULIN REG, HUMAN 100 UNIT/ML 3 ML VIAL (PYX) SUBCUT SCH ×5 (00:06→23:51)
[2020-02-02] MEDS: ASCORBIC ACID 500 MG TABLET NG SCH ×5 (00:07→23:52)
[2020-02-02] MEDS: AMINO AC/PROTEIN HYDR/WHEY PRO 11 GM/45 ML PKT NG SCH ×5 (00:07→23:53)
[2020-02-02] MEDS: LABETALOL HCL INJ 20 MG/4 ML DISP.SYRIN IV SCH ×5 (00:07→23:52)
[2020-02-02] MEDS: NORMAL SALINE 1000 ML 1,000 ML IV PRN ×2 (00:08→15:15)
[2020-02-02] MEDS: DEXMEDETOMIDINE IN 0.9 % NACL 400 MCG/100 ML RTUPB IV PRN ×10 (00:08→23:52)
[2020-02-02] MEDS: MIDAZOLAM HCL 50 MG/100 ML RTUINJ IV PRN ×8 (01:45→22:59)
[2020-02-02] MEDS: ALBUTEROL SULFATE 0.083% NEB 2.5 MG/3 ML AMPUL NEB SCH ×4 (02:50→20:39)
[2020-02-02] MEDS: FENTANYL CITRATE/PF 600 MCG/60 ML BAG IV PRN ×7 (03:55→21:15)
[2020-02-02 04:04] LABS: HEMATOCRIT 22.1 % (37.9-51.0); MEAN CORPUSCULAR HEMOGLOBIN 29.1 pg (27.0-33.4); MEAN CORPUSCULAR VOLUME 88 fl (80-97); PLATELET COUNT 177 10^3/uL (150-450); RED CELL DISTRIBUTION WIDTH 16.3 % (11.5-14.0); WHITE BLOOD COUNT 7.2 10^3/uL (4.0-10.5)
[2020-02-02 04:20] LABS: ARTERIAL BLOOD BASE EXCESS -8.8 mmol/L; ARTERIAL BLOOD H2CO3 1.32 mmol/L (1.05-1.35); ARTERIAL BLOOD O2 SATURATION 98.2 % (94-98); ARTERIAL BLOOD PCO2 43.8 mmHg (35-45); ARTERIAL BLOOD PH 7.23 (7.35-7.45); ARTERIAL BLOOD PO2 135.8 mmHg (80-100); ARTERIAL BLOOD TOTAL CO2 19.4 mmol/L (23-27)
[2020-02-02 04:21] LABS: ARTERIAL BLOOD FIO2 100%
[2020-02-02 04:30] LABS: HEMOGLOBIN 7.3 g/dL (13.5-17.0)
[2020-02-02 04:32] LABS: ABSOLUTE LYMPHOCYTES# (MANUAL) 0.2 10^3/uL (0.5-4.7); ABSOLUTE MONOCYTES # (MANUAL) 0.1 10^3/uL (0.1-1.4); BASOPHILS % (MANUAL) 0 % (0-2); EOSINOPHILS % (MANUAL) 0 % (0-6); LYMPHOCYTES % (MANUAL) 3 % (13-45); MONOCYTES % (MANUAL) 2 % (3-13); SEGMENTED NEUTROPHILS % (MAN) 95 % (42-78); TOTAL CELLS COUNTED 100
[2020-02-02 04:34] LABS: ANISOCYTOSIS SLIGHT; POLYCHROMASIA SLIGHT
[2020-02-02 04:35] LABS: PLATELET COMMENT ADEQUATE; POIKILOCYTOSIS SLIGHT; TEAR DROP CELLS SLIGHT
[2020-02-02 04:36] LABS: ANION GAP 8 (5-19); BLOOD UREA NITROGEN 38 mg/dL (7-20); CALCIUM 7.9 mg/dL (8.4-10.2); CARBON DIOXIDE 20 mmol/L (22-30); CHLORIDE 113 mmol/L (98-107); GLUCOSE 130 mg/dL (75-110); PHOSPHORUS 4.3 mg/dL (2.5-4.5); POTASSIUM 4.5 mmol/L (3.6-5.0)
[2020-02-02] MEDS: ENOXAPARIN SODIUM INJ 120 MG/0.8 ML DISP.SYRIN SUBCUT SCH (05:54)
[2020-02-02] MEDS: CEFEPIME HCL 2 GM in DEXTROSE 5%-WATER 50 ML IV SCH ×2 (05:54→15:15)
[2020-02-02] MEDS: BUDESONIDE NEB 0.25 MG/2 ML AMPUL NEB SCH ×2 (08:33→20:39)
--- NOTE | 2020-02-02 08:47 | RADIOLOGY REPORT (SQ) ---
EXAM DESCRIPTION: CHEST SINGLE VIEW IMAGES COMPLETED DATE/TIME: 02/02/2020 5:54 am REASON FOR STUDY: ETT tube COMPARISON: 02/01/2020 EXAM PARAMETERS: NUMBER OF VIEWS: One view. TECHNIQUE: Single frontal radiographic view of the chest acquired. RADIATION DOSE: NA LIMITATIONS: None. FINDINGS: LUNGS AND PLEURA: As on the prior examination, extensive bilateral airspace disease. Sma ll pleural effusions may be present. No evidence of pneumothorax. MEDIASTINUM AND HILAR STRUCTURES: Stable appearance. HEART AND VASCULAR STRUCTURES: Stable appearance. BONES: No acute findings. HARDWARE: Endotracheal, nasogastric and right internal jugular catheter are again identified with no interval change. OTHER: No other significant finding. IMPRESSION: 1. No significant interval changes since the prior examination dated 02/01/2020. 2. Support lines and tubes remaining in place. TECHNICAL DOCUMENTATION: JOB ID: [id number] 2010 [employer]- All Rights Reserved Reading location - IP/workstation name: [email or web address]
[2020-02-02] MEDS: CHOLECALCIFEROL (D3) 1,000 UNIT (25 MCG) TABLET NG SCH (09:31)
[2020-02-02] MEDS: DOCUSATE SODIUM 100 MG/10 ML UDC PO SCH (09:31)
[2020-02-02] MEDS: ZINC SULFATE 220 MG CAPSULE NG SCH (09:31)
[2020-02-02] MEDS: PANTOPRAZOLE SODIUM 40 MG VIAL IV SCH (09:32)
[2020-02-02] MEDS: DEXAMETHASONE SOD PHOSPHATE INJ 4 MG/1 ML VIAL IV SCH (09:32)
[2020-02-02 14:12] LABS: ARTERIAL BLOOD BASE EXCESS -7.7 mmol/L; ARTERIAL BLOOD FIO2 85%; ARTERIAL BLOOD H2CO3 1.33 mmol/L (1.05-1.35); ARTERIAL BLOOD HCO3 18.9 mmol/L (20-24); ARTERIAL BLOOD O2 SATURATION 95.1 % (94-98); ARTERIAL BLOOD PCO2 44.3 mmHg (35-45); ARTERIAL BLOOD PH 7.25 (7.35-7.45); ARTERIAL BLOOD PO2 86.6 mmHg (80-100); ARTERIAL BLOOD TOTAL CO2 20.3 mmol/L (23-27)
[2020-02-02] MEDS: ARGATROBAN 250 MG/NS 250 ML (NON-ESRD) IV PRN ×2 (16:43)
--- NOTE | 2020-02-02 20:04 | PDOC CRITICAL CARE PROG REPORT ---
General Date:: 02/02/20 ICU Day:: 18 Ventilator Day:: 17 Hospital Day:: 31 Resuscitation Status: Full Code Events in the past 12 to 24 Hours:: This 49-year-old male presented to [facility] emergency department on 01/03/2020 with known [id number] V infection. He had previously presented to an urgent care clinic on 12/27/2019, when he was diagnosed. He had been instructed to stay home and quarantine but presented to the emergency department on 01/01/2020 with increasing dyspnea. He was treated with Decadron and azithromycin. He was discharged home only to return on the following day with increasing shortness of breath, fever (100.1 Fahrenheit) and hypoxia (SPO2 70s on room air). He was admitted and started treatment with BiPAP support. Critical care consultation was sought on 01/16/2020 with worsening hypoxia and tachycardia. He was transferred to the ICU on 01/15. The patient ended up r equiring endotracheal intubation and mechanical ventilator support on the following day. 01/31: In prone position. Per nurse report, the patient is approaching 24 hours in prone position. Neuromuscular blockade with rocuronium. On Versed/Precedex/fentanyl for sedation. Ventilator is noted to be on VC mode, Ti 0.5 seconds, with Ppeak in the 50s. ABG this a.m.: 7.21/48/97 on FiO2 80%, PEEP 15. On cefepime for Serratia pneumonia (01/18). 02/01: No events reported overnight. The patient was proned at the beginning of retort loader. ABG this a.m.: 7.2 3/43/135. Creatinine 1.3 this morning. Hemoglobin 7.7>7.3. Review of systems relevant to events:: Pulmonary Reason for ICU Addmission:: hypoxia tachycardia, intubated. - Medications: Medications reviewed and adjusted accordingly: Yes Vasopressors:: None Sedation:: Versed/Precedex/fentanyl Physical Exam Vital Signs: Temp Pulse Resp BP Pulse Ox 97.5 F 80 30 H 144/88 H 97 02/02/20 05:24 02/02/20 08:00 02/02/20 06:15 02/02/20 06:04 02/02/20 06:15 Intake & Output 02/01/20 02/02/20 02/03/20 06:59 06:59 06:59 Intake Total 3040 4058 Output Total 1700 0975 Balance 1340 1633 Weight 113.7 kg 112.9 kg Weight/Height Weight 112.9 kg Height 1.73 m General appearance: PRESENT: no acute distress, well-developed, well-nourished, other - Prone Head exam: PRESENT: atraumatic, normocephalic Mouth exam: PRESENT: moist, tongue midline Neck exam: ABSENT: carotid bruit Respiratory exam: PRESENT: other - Tubular breath sounds in the right mid and right lower lung zones. ABSENT: rales, rhonchi, wheezes Cardiovascular exam: PRESENT: RRR. ABSENT: diastolic murmur, rubs, systolic murmur Pulses: PRESENT: normal dorsalis pedis pul Vascular exam: PRESENT: normal capillary refill Gentrourinary exam: PRESENT: indwelling catheter Extremities exam: PRESENT: full ROM. ABSENT: calf tenderness, clubbing, pedal edema Musculoskeletal exam: PRESENT: normal inspection. ABSENT: deformity Laboratory/Radiographs Laboratory Results: 02/02/20 03:15 02/02/20 03:15 02/01/20 02/02/20 02/02/20 12:20 03:15 03:15 WBC Cancelled RBC Cancelled Hgb Cancelled Hct Cancelled MCV Cancelled MCH Cancelled MCHC Cancelled RDW Cancelled Plt Count Cancelled Seg Neutrophils % Carbonic Acid 1.35 HCO3/H2CO3 Ratio 15:1 ABG pH 7.28 L ABG pCO2 45.0 ABG pO2 143.1 H ABG HCO3 20.7 ABG O2 Saturation 98.5 H ABG Base Excess -5.6 FiO2 100% Sodium 141.0 Potassium 4.5 Chloride 113 H Carbon Dioxide 20 L Anion Gap 8 BUN 38 H Creatinine 1.28 H Est GFR ( Amer) > 60 Glucose 130 H Calcium 7.9 L Phosphorus 4.3 Magnesium 2.1 02/02/20 02/02/20 03:15 03:15 WBC 7.2 RBC 2.50 L Hgb 7.3 L Hct 22.1 L MCV 88 MCH 29.1 MCHC 33.0 RDW 16.3 H Plt Count 177 Seg Neutrophils % Not Reportable Carbonic Acid 1.32 HCO3/H2CO3 Ratio 13:1 ABG pH 7.23 L ABG pCO2 43.8 ABG pO2 135.8 H ABG HCO3 18.0 L ABG O2 Saturation 98.2 H ABG Base Excess -8.8 FiO2 100% Sodium Potassium Chloride Carbon Dioxide Anion Gap BUN Creatinine Est GFR ( Amer) Glucose Calcium Phosphorus Magnesium 01/06/20 01/16/20 01/17/20 05:11 21:00 05:00 Creatine Kinase 38 L CK-MB (CK-2) Troponin I < 0.012 NT-Pro-B Natriuret Pep 338 H 01/17/20 01/27/20 05:00 15:40 Creatine Kinase CK-MB (CK-2) 1.63 Troponin I 0.028 < 0.012 NT-Pro-B Natriuret Pep 504 H Impressions: Chest CT 01/22/20 00:00 IMPRESSION: 1. Extensive pneumomediastinum anteriorly. No pneumothoraces. 2. Extensive subcutaneous air throughout the anterior chest wall, extending into the visualized lower neck, upper back, and left upper extremity. There is also extension of a large amount of air into the anterior extraperitoneal space of the upper abdomen. 3. Interval worsening of bilateral pulmonary opacities, which likely represent COVID-19 pneumonia given the clinical history. KUB X-Ray 01/30/20 00:00 IMPRESSION: The bowel gas pattern is nonobstructive and nonspecific. A nasogastric tube tip is seen overlying the left upper quadrant of the abdomen, projecting at the stomach. There is diffuse subcutaneous emphysema seen at the chest and abdominal wall on the left side. All labs, radiographs, diagnostic studies and EKGs were personally reviewed: Yes In addition, reports of radiographic and diagnostic studies were read: Yes Assessment and Plan - Diagnosis (1) Acute respiratory failure with hypoxia and hypercapnia Is this a current diagnosis for this admission?: Yes Plan: * CVP monitoring (in supine position). * Continue PRVC 30/480/100/10, Ti 1 sec. * Titrate vent settings based on ABG results. * Continue sedation. * Hold neuromuscular blockade. * 6 hours supine, 18 hours prone, repeat. (2) Acute kidney injury Is this a current diagnosis for this admission?: Yes Plan: * Avoid nephrotoxic drugs. * Renal dosing of medications. (3) Pneumonia due to COVID-19 virus Is this a current diagnosis for this admission?: Yes (4) Pneumonia due to Serratia marcescens Is this a current diagnosis for this admission?: Yes Plan: * Decrease cefepime dosing to 2 g IV daily. (5) Normocytic anemia Is this a current diagnosis for this admission?: Yes (6) HTN (hypertension) Is this a current diagnosis for this admission?: Yes (7) Obesity (BMI 30-39.9) Is this a current diagnosis for this admission?: No (8) Pneumomediastinum Is this a current diagnosis for this admission?: Yes Critical Time Critical Time (minutes): 60 Level of Care: ICU -: 1. The care of a critical patient is a dynamic process. This note is a apprenticeship representative synopsis but static in nature. The timeframe for treatments given in order is not necessarily the actual time these treatments may have been done. 2. This patient requires critical care secondary to ongoing requirements for therapy not offered or safe outside the critical care environment. Transfer to a lower level of care will result in altered life or limb morbidity and mortality. 3. Multidisciplinary rounds completed. 4. ABCDE bundle addressed.
[2020-02-03] MEDS: FENTANYL CITRATE/PF 600 MCG/60 ML BAG IV PRN ×9 (00:06→22:40)
[2020-02-03] MEDS: MIDAZOLAM HCL 50 MG/100 ML RTUINJ IV PRN ×7 (01:59→22:45)
[2020-02-03] MEDS: DEXMEDETOMIDINE IN 0.9 % NACL 400 MCG/100 ML RTUPB IV PRN ×8 (02:47→22:41)
[2020-02-03] MEDS: ALBUTEROL SULFATE 0.083% NEB 2.5 MG/3 ML AMPUL NEB SCH ×4 (03:01→20:30)
[2020-02-03] MEDS: NORMAL SALINE 1000 ML 1,000 ML IV PRN ×2 (03:32→16:42)
[2020-02-03 03:40] LABS: ARTERIAL BLOOD BASE EXCESS -9.3 mmol/L; ARTERIAL BLOOD H2CO3 1.65 mmol/L (1.05-1.35); ARTERIAL BLOOD O2 SATURATION 92.8 % (94-98); ARTERIAL BLOOD PCO2 54.8 mmHg (35-45); ARTERIAL BLOOD PO2 82.7 mmHg (80-100); ARTERIAL BLOOD TOTAL CO2 20.7 mmol/L (23-27)
[2020-02-03 03:43] LABS: ARTERIAL BLOOD FIO2 100%; ARTERIAL BLOOD PH 7.16 (7.35-7.45)
[2020-02-03 03:46] LABS: HEMATOCRIT 22.2 % (37.9-51.0); MEAN CORPUSCULAR HEMOGLOBIN 29.2 pg (27.0-33.4); MEAN CORPUSCULAR HGB CONC 32.7 g/dL (32.0-36.0); MEAN CORPUSCULAR VOLUME 89 fl (80-97); PLATELET COUNT 182 10^3/uL (150-450); RED BLOOD COUNT 2.49 10^6/uL (4.35-5.55); WHITE BLOOD COUNT 9.4 10^3/uL (4.0-10.5)
[2020-02-03 03:49] LABS: PARTIAL THROMBOPLASTIN TIME 98.5 SEC (23.5-35.8)
[2020-02-03 03:50] LABS: D-DIMER 1.18 ug/mL (0.00-0.50)
[2020-02-03 04:09] LABS: ABSOLUTE LYMPHOCYTES# (MANUAL) 0.2 10^3/uL (0.5-4.7); ABSOLUTE MONOCYTES # (MANUAL) 0.3 10^3/uL (0.1-1.4); BASOPHILS % (MANUAL) 0 % (0-2); EOSINOPHILS % (MANUAL) 0 % (0-6); LYMPHOCYTES % (MANUAL) 2 % (13-45); MONOCYTES % (MANUAL) 3 % (3-13); SEGMENTED NEUTROPHILS % (MAN) 95 % (42-78); TOTAL CELLS COUNTED 100
[2020-02-03 04:12] LABS: ANISOCYTOSIS 1+; PLATELET COMMENT ADEQUATE; SCHISTOCYTES SLIGHT; TEAR DROP CELLS SLIGHT; TOXIC GRANULATION 1+
[2020-02-03 04:13] LABS: HEMOGLOBIN 7.3 g/dL (13.5-17.0)
[2020-02-03 04:28] LABS: PHOSPHORUS 4.5 mg/dL (2.5-4.5)
[2020-02-03 05:01] LABS: ANION GAP 6 (5-19); BLOOD UREA NITROGEN 50 mg/dL (7-20); CALCIUM 8.2 mg/dL (8.4-10.2); CARBON DIOXIDE 19 mmol/L (22-30); CHLORIDE 116 mmol/L (98-107); GLUCOSE 125 mg/dL (75-110); POTASSIUM 4.3 mmol/L (3.6-5.0)
[2020-02-03] MEDS: INSULIN REG, HUMAN 100 UNIT/ML 3 ML VIAL (PYX) SUBCUT SCH ×4 (05:17→23:40)
[2020-02-03] MEDS ORDERED: NORMAL SALINE 250 ML IV PRN ×2 (05:42)
[2020-02-03] MEDS ORDERED: FUROSEMIDE INJ/PF 20 MG/2 ML SDV IV ONE ×2 (05:44→08:24)
[2020-02-03] MEDS: LABETALOL HCL INJ 20 MG/4 ML DISP.SYRIN IV SCH ×4 (05:52→23:40)
[2020-02-03] MEDS: ASCORBIC ACID 500 MG TABLET NG SCH ×4 (05:53→23:40)
[2020-02-03] MEDS: AMINO AC/PROTEIN HYDR/WHEY PRO 11 GM/45 ML PKT NG SCH ×4 (05:53→23:40)
[2020-02-03] MEDS: BUDESONIDE NEB 0.25 MG/2 ML AMPUL NEB SCH ×2 (08:42→20:30)
--- NOTE | 2020-02-03 08:57 | RADIOLOGY REPORT (SQ) ---
EXAM DESCRIPTION: CHEST SINGLE VIEW IMAGES COMPLETED DATE/TIME: 02/03/2020 8:45 am REASON FOR STUDY: ETT tube, worsening resp failure COMPARISON: AP view of the chest from 02/02/2020. EXAM PARAMETERS: NUMBER OF VIEWS: One view. TECHNIQUE: An AP view of the chest was obtained. RADIATION DOSE: NA LIMITATIONS: None. FINDINGS: LUNGS AND PLEURA: Unchanged appearance of the lungs and pleura. MEDIASTINUM AND HILAR STRUCTURES: Stable mediastinal and hilar contours. HEART AND VASCULAR STRUCTURES: Stable cardiac silhouette. BONES: No acute findings. HARDWARE: The tip of the endotracheal tube projects 3.8 cm above the chris. The tip of the right IJ central venous catheter projects within the SVC. The tip of the enteric tube projects past the immanuel roesophageal junction and within the gastric lumen. OTHER: No other finding. IMPRESSION: Tubes and lines as above. Otherwise unchanged a graphic appearance of the chest. TECHNICAL DOCUMENTATION: JOB ID: [id number] 2010 [employer]- All Rights Reserved Reading location - IP/workstation name: [email or web address]
[2020-02-03] MEDS: CHOLECALCIFEROL (D3) 1,000 UNIT (25 MCG) TABLET NG SCH (09:12)
[2020-02-03] MEDS: DOCUSATE SODIUM 100 MG/10 ML UDC PO SCH (09:12)
[2020-02-03] MEDS: DEXAMETHASONE SOD PHOSPHATE INJ 4 MG/1 ML VIAL IV SCH (09:12)
[2020-02-03] MEDS: CEFEPIME HCL 2 GM in DEXTROSE 5%-WATER 50 ML IV SCH (09:25)
[2020-02-03] MEDS: PANTOPRAZOLE SODIUM 40 MG VIAL IV SCH (09:26)
[2020-02-03] MEDS: ZINC SULFATE 220 MG CAPSULE NG SCH (09:26)
[2020-02-03 09:51] LABS: ARTERIAL BLOOD BASE EXCESS -8.5 mmol/L; ARTERIAL BLOOD FIO2 100%; ARTERIAL BLOOD H2CO3 1.44 mmol/L (1.05-1.35); ARTERIAL BLOOD HCO3 18.8 mmol/L (20-24); ARTERIAL BLOOD O2 SATURATION 95.7 % (94-98); ARTERIAL BLOOD PCO2 47.7 mmHg (35-45); ARTERIAL BLOOD PH 7.21 (7.35-7.45); ARTERIAL BLOOD PO2 94.4 mmHg (80-100); ARTERIAL BLOOD TOTAL CO2 20.2 mmol/L (23-27)
[2020-02-03 15:29] LABS: HEMATOCRIT 24.9 % (37.9-51.0); HEMOGLOBIN 8.1 g/dL (13.5-17.0); MEAN CORPUSCULAR HEMOGLOBIN 28.4 pg (27.0-33.4); MEAN CORPUSCULAR HGB CONC 32.5 g/dL (32.0-36.0); MEAN CORPUSCULAR VOLUME 87 fl (80-97); PLATELET COUNT 154 10^3/uL (150-450); RED BLOOD COUNT 2.85 10^6/uL (4.35-5.55)
[2020-02-03] MEDS ORDERED: FUROSEMIDE INJ/PF 40 MG/4 ML SDV IV ONE (15:30)
[2020-02-03 15:37] LABS: ARTERIAL BLOOD BASE EXCESS -7.2 mmol/L; ARTERIAL BLOOD FIO2 100%; ARTERIAL BLOOD H2CO3 1.21 mmol/L (1.05-1.35); ARTERIAL BLOOD HCO3 18.8 mmol/L (20-24); ARTERIAL BLOOD PCO2 40.2 mmHg (35-45); ARTERIAL BLOOD PH 7.29 (7.35-7.45); ARTERIAL BLOOD PO2 56.2 mmHg (80-100)
[2020-02-03 16:00] LABS: ABSOLUTE LYMPHOCYTES# (MANUAL) 0.4 10^3/uL (0.5-4.7); ABSOLUTE MONOCYTES # (MANUAL) 0.1 10^3/uL (0.1-1.4); BASOPHILS % (MANUAL) 0 % (0-2); EOSINOPHILS % (MANUAL) 0 % (0-6); LYMPHOCYTES % (MANUAL) 4 % (13-45); MONOCYTES % (MANUAL) 1 % (3-13); SEGMENTED NEUTROPHILS % (MAN) 95 % (42-78); TOTAL CELLS COUNTED 100
[2020-02-03 16:02] LABS: ANISOCYTOSIS 1+
[2020-02-03 16:03] LABS: PLATELET COMMENT ADEQUATE
--- NOTE | 2020-02-03 20:40 | PDOC CRITICAL CARE PROG REPORT ---
General Date:: 02/03/20 ICU Day:: 19 Ventilator Day:: 18 Hospital Day:: 32 Resuscitation Status: Full Code Events in the past 12 to 24 Hours:: This 49-year-old male presented to [facility] emergency department on 01/03/2020 with known [id number] V infection. He had previously presented to an urgent care clinic on 12/27/2019, when he was diagnosed. He had been instructed to stay home and quarantine but presented to the emergency department on 01/01/2020 with increasing dyspnea. He was treated with Decadron and azithromycin. He was discharged home only to return on the following day with increasing shortness of breath, fever (100.1 Fahrenheit) and hypoxia (SPO2 70s on room air). He was admitted and started treatment with BiPAP support. Critical care consultation was sought on 01/16/2020 with worsening hypoxia and tachycardia. He was transferred to the ICU on 01/15. The patient ended up r equiring endotracheal intubation and mechanical ventilator support on the following day. 01/31: In prone position. Per nurse report, the patient is approaching 24 hours in prone position. Neuromuscular blockade with rocuronium. On Versed/Precedex/fentanyl for sedation. Ventilator is noted to be on VC mode, Ti 0.5 seconds, with Ppeak in the 50s. ABG this a.m.: 7.21/48/97 on FiO2 80%, PEEP 15. On cefepime for Serratia pneumonia (01/18). 02/01: No events reported overnight. The patient was proned at the beginning of night order selector. ABG this a.m.: 7.23/43/135. Creatinine 1.3 this morning. Hemoglobin 7.7>7.3. 02/02: BUN/creatinine continuing to rise, creatinine 1.7 this morning. Hemoglobin stable, 7.3 again this a.m. He was proned at 2000 on night order selector. CVP obtained in the supine position was reportedly elevated (17). Lasix 20 mg IV administered at 0550. ABG this a.m. 7.16/55/83 on PRVC 30/480/100/10. VT was increased to 500 subsequent to this ABG result. CVP 1415. The patient did have a BM yesterday. Review of systems relevant to events:: Pulmonary Reason for ICU Addmission:: hypoxia tachycardia, intubated. - Medications: Medications reviewed and adjusted accordingly: Yes Vasopressors:: None Sedation:: Versed/Precedex/fentanyl Physical Exam Vital Signs: Temp Pulse Resp BP Pulse Ox 99.1 F 97 25 H 129/75 H 91 L 02/03/20 05:46 02/03/20 03:01 02/03/20 06:05 02/03/20 06:05 02/03/20 06:05 Intake & Output 02/02/20 02/03/20 02/04/20 06:59 06:59 06:59 Intake Total 4058 4227 Output Total 2425 2220 Balance 1633 2006 Weight 112.9 kg 117.7 kg Weight/Height Weight 117.7 kg Height 1.73 m General appearance: PRESENT: no acute distress, obese, other - Prone Head exam: PRESENT: atraumatic, normocephalic Neck exam: ABSENT: carotid bruit Respiratory exam: PRESENT: crackles, rales. ABSENT: rhonchi, wheezes Cardiovascular exam: PRESENT: RRR. ABSENT: diastolic murmur, rubs, systolic murmur Pulses: PRESENT: normal dorsalis pedis pul Extremities exam: PRESENT: full ROM. ABSENT: calf tenderness, clubbing, pedal edema Musculoskeletal exam: PRESENT: normal inspection. ABSENT: deformity Neurological exam: PRESENT: altered Psychiatric exam: ABSENT: agitated, anxious Skin exam: PRESENT: dry, intact, warm. ABSENT: cyanosis, rash Tubes/Lines: PRESENT: Endotracheal Tube, Central Line Laboratory/Radiographs Laboratory Results: 02/03/20 03:15 02/03/20 03:15 02/02/20 02/02/20 02/02/20 11:39 12:00 13:44 WBC RBC Hgb Hct MCV MCH MCHC RDW Plt Count Seg Neutrophils % Carbonic Acid Cancelled Cancelled 1.33 HCO3/H2CO3 Ratio Cancelled Cancelled 14:1 ABG pH Cancelled Cancelled 7.25 L ABG pCO2 Cancelled Cancelled 44.3 ABG pO2 Cancelled Cancelled 86.6 ABG HCO3 Cancelled Cancelled 18.9 L ABG O2 Saturation Cancelled Cancelled 95.1 ABG Base Excess Cancelled Cancelled -7.7 FiO2 Cancelled Cancelled 85% Sodium Potassium Chloride Carbon Dioxide Anion Gap BUN Creatinine Est GFR ( Amer) Glucose Calcium Phosphorus Magnesium 02/03/20 02/03/20 02/03/20 03:15 03:15 03:15 WBC 9.4 RBC 2.49 L Hgb 7.3 L Hct 22.2 L MCV 89 MCH 29.2 MCHC 32.7 RDW 17.0 H Plt Count 182 Seg Neutrophils % Not Reportable Carbonic Acid 1.65 H HCO3/H2CO3 Ratio 11:1 ABG pH 7.16 L* ABG pCO2 54.8 H ABG pO2 82.7 ABG HCO3 19.0 L ABG O2 Saturation 92.8 L ABG Base Excess -9.3 FiO2 100% Sodium Potassium Chloride Carbon Dioxide Anion Gap BUN Creatinine Est GFR ( Amer) Glucose Calcium Phosphorus 4.5 Magnesium 2.2 02/03/20 03:15 WBC RBC Hgb Hct MCV MCH MCHC RDW Plt Count Seg Neutrophils % Carbonic Acid HCO3/H2CO3 Ratio ABG pH ABG pCO2 ABG pO2 ABG HCO3 ABG O2 Saturation ABG Base Excess FiO2 Sodium 141.1 Potassium 4.3 Chloride 116 H Carbon Dioxide 19 L Anion Gap 6 BUN 50 H Creatinine 1.65 H Est GFR ( Amer) 54 L Glucose 125 H Calcium 8.2 L Phosphorus Magnesium 01/06/20 01/16/20 01/17/20 05:11 21:00 05:00 Creatine Kinase 38 L CK-MB (CK-2) Troponin I < 0.012 NT-Pro-B Natriuret Pep 338 H 01/17/20 01/27/20 05:00 15:40 Creatine Kinase CK-MB (CK-2) 1.63 Troponin I 0.028 < 0.012 NT-Pro-B Natriuret Pep 504 H Impressions: Chest CT 01/22/20 00:00 IMPRESSION: 1. Extensive pneumomediastinum anteriorly. No pneumothoraces. 2. Extensive subcutaneous air throughout the anterior chest wall, extending into the visualized lower neck, upper back, and left upper extremity. There is also extension of a large amount of air into the anterior extraperitoneal space of the upper abdomen. 3. Interval worsening of bilateral pulmonary opacities, which likely represent COVID-19 pneumonia given the clinical history. KUB X-Ray 01/30/20 00:00 IMPRESSION: The bowel gas pattern is nonobstructive and nonspecific. A nasogastric tube tip is seen overlying the left upper quadrant of the abdomen, projecting at the stomach. There is diffuse subcutaneous emphysema seen at the chest and abdominal wall on the left side. Chest X-Ray 02/02/20 05:00 IMPRESSION: 1. No significant interval changes since the prior examination dated 02/01/2020. 2. Support lines and tubes remaining in place. All labs, radiographs, diagnostic studies and EKGs were personally reviewed: Yes In addition, reports of radiographic and diagnostic studies were read: Yes Assessment and Plan - Diagnosis (1) Acute respiratory failure with hypoxia and hypercapnia Is this a current diagnosis for this admission?: Yes Plan: * This patient is currently on day 18 of mechanical ventilatory support. Clearly, this patient is likely to need percutaneous tracheostomy for prolonged mechanical ventilatory support. However, in light of the patient's high FiO2 and PEEP requirement, along with the need for proning, pursuit of tracheostomy is not feasible at this time. Inevitably, this will require that we extend his period of mechanical ventilatory support via endotracheal intubation beyond 3 weeks. * CVP monitoring (in supine position). * PRVC 30/500/100/10, Ti 1 sec. Followup ABG results. * Titrate vent settings based on ABG results. * Continue sedation. * 6 hours supine, 18 hours prone, repeat. (2) Acute kidney injury Is this a current diagnosis for this admission?: Yes Plan: * Avoid nephrotoxic drugs. * Renal dosing of medications. * Transfuse 1 unit PRBC for hemoglobin 7.3. In light of his elevated CVP and suspected volume overload status, will follow with furosemide. (3) Pneumonia due to COVID-19 virus Is this a current diagnosis for this admission?: Yes Plan: * Completed remdesivir. * Continue Decadron 6 mg IV daily. (4) Pneumonia due to Serratia marcescens Is this a current diagnosis for this admission?: Yes Plan: * Continue cefepime 2 g IV daily. (5) Normocytic anemia Is this a current diagnosis for this admission?: Yes Plan: * Monitor hemoglobin. * Transfuse 1 unit PRBC today. (6) HTN (hypertension) Is this a current diagnosis for this admission?: Yes (7) Obesity (BMI 30-39.9) Is this a current diagnosis for this admission?: No (8) Pneumomediastinum Is this a current diagnosis for this admission?: Yes Plan: * Clinically stable, radiographically improving. * Cutaneous emphysema/crepitus no longer appreciated. Plan Summary: (Gail) updated by phone. Critical Time Critical Time (minutes): 90 Level of Care: ICU -: 1. The care of a critical patient is a dynamic process. This note is a healthcare sales representative synopsis but static in nature. The timeframe for treatments given in order is not necessarily the actual time these treatments may have been done. 2. This patient requires critical care secondary to ongoing requirements for therapy not offered or safe outside the critical care environment. Transfer to a lower level of care will result in altered life or limb morbidity and mortality. 3. Multidisciplinary rounds completed. 4. ABCDE bundle addressed.
[2020-02-04] MEDS: FENTANYL CITRATE/PF 600 MCG/60 ML BAG IV PRN ×8 (01:31→21:55)
[2020-02-04] MEDS: DEXMEDETOMIDINE IN 0.9 % NACL 400 MCG/100 ML RTUPB IV PRN ×8 (01:31→23:08)
[2020-02-04] MEDS: MIDAZOLAM HCL 50 MG/100 ML RTUINJ IV PRN ×7 (01:32→23:05)
[2020-02-04] MEDS: ALBUTEROL SULFATE 0.083% NEB 2.5 MG/3 ML AMPUL NEB SCH ×4 (02:56→20:09)
[2020-02-04 04:26] LABS: ARTERIAL BLOOD BASE EXCESS -10.4 mmol/L; ARTERIAL BLOOD H2CO3 1.38 mmol/L (1.05-1.35); ARTERIAL BLOOD HCO3 17.2 mmol/L (20-24); ARTERIAL BLOOD O2 SATURATION 89.5 % (94-98); ARTERIAL BLOOD PCO2 45.8 mmHg (35-45); ARTERIAL BLOOD TOTAL CO2 18.6 mmol/L (23-27)
[2020-02-04 04:27] LABS: ARTERIAL BLOOD FIO2 90%
[2020-02-04 04:28] LABS: ABSOLUTE EOSINOPHILS # (AUTO) 0.1 10^3/uL (0.0-0.6); ABSOLUTE LYMPHOCYTES (AUTO) 0.5 10^3/uL (0.5-4.7); ABSOLUTE MONOCYTES (AUTO) 0.5 10^3/uL (0.1-1.4); ABSOLUTE NEUT (AUTO) 7.9 10^3/uL (1.7-8.2); ARTERIAL BLOOD PH 7.19 (7.35-7.45); BASOPHILS % (AUTO) 0.1 % (0-2); EOSINOPHILS % (AUTO) 0.8 % (0-6); HEMATOCRIT 25.1 % (37.9-51.0); HEMOGLOBIN 8.2 g/dL (13.5-17.0); MEAN CORPUSCULAR HGB CONC 32.9 g/dL (32.0-36.0); MEAN CORPUSCULAR VOLUME 88 fl (80-97); MONOCYTES % (AUTO) 5.3 % (3-13); PLATELET COUNT 146 10^3/uL (150-450); RED BLOOD COUNT 2.84 10^6/uL (4.35-5.55); RED CELL DISTRIBUTION WIDTH 16.3 % (11.5-14.0); SEGMENTED NEUTROPHILS % (AUTO) 87.8 % (42-78); TOTAL CELLS COUNTED % (AUTO) 100 %
[2020-02-04 04:46] LABS: ANION GAP 6 (5-19); BLOOD UREA NITROGEN 62 mg/dL (7-20); CALCIUM 8.1 mg/dL (8.4-10.2); CARBON DIOXIDE 20 mmol/L (22-30); CHLORIDE 116 mmol/L (98-107); GLUCOSE 95 mg/dL (75-110); PHOSPHORUS 4.8 mg/dL (2.5-4.5)
[2020-02-04] MEDS: ASCORBIC ACID 500 MG TABLET NG SCH ×3 (05:34→17:16)
[2020-02-04] MEDS: LABETALOL HCL INJ 20 MG/4 ML DISP.SYRIN IV SCH ×3 (05:34→17:15)
[2020-02-04] MEDS: AMINO AC/PROTEIN HYDR/WHEY PRO 11 GM/45 ML PKT NG SCH ×3 (05:34→17:15)
[2020-02-04] MEDS: INSULIN REG, HUMAN 100 UNIT/ML 3 ML VIAL (PYX) SUBCUT SCH ×3 (05:35→17:17)
[2020-02-04] MEDS: NORMAL SALINE 1000 ML 1,000 ML IV PRN (06:05)
[2020-02-04] MEDS: BUDESONIDE NEB 0.25 MG/2 ML AMPUL NEB SCH ×2 (08:40→20:09)
--- NOTE | 2020-02-04 11:12 | RADIOLOGY REPORT (SQ) ---
EXAM DESCRIPTION: U/S RETROPERITON (RENAL/AORTA) IMAGES COMPLETED DATE/TIME: 02/04/2020 10:48 am REASON FOR STUDY: worsening renal function COMPARISON: None. TECHNIQUE: Dynamic and static grayscale images acquired of the kidneys and bladder and recorded on P ACS. Additional selected color Doppler and spectral images recorded. LIMITATIONS: None. FINDINGS: RIGHT KIDNEY: Normal size. Normal echogenicity. No solid or suspicious masses. No hydronep hrosis. No calcifications. LEFT KIDNEY: Normal size. Normal echogenicity. No solid or suspicious masses. No hydronephrosis. No calcifications. BLADDER: Decompressed by a Hendrickson catheter OTHER FINDINGS: No other significant finding. IMPRESSION: Normal sonographic appearance of the kidneys. TECHNICAL DOCUMENTATION: JOB ID: [id number] 2010 [employer]- All Rights Reserved Reading location - IP/workstation name: [email or web address]
[2020-02-04] MEDS: ARGATROBAN 250 MG/NS 250 ML (NON-ESRD) IV PRN ×2 (11:13)
[2020-02-04] MEDS: DOCUSATE SODIUM 100 MG/10 ML UDC PO SCH (11:14)
[2020-02-04] MEDS: DEXAMETHASONE SOD PHOSPHATE INJ 4 MG/1 ML VIAL IV SCH (11:14)
[2020-02-04] MEDS: PANTOPRAZOLE SODIUM 40 MG VIAL IV SCH (11:14)
[2020-02-04] MEDS: CEFEPIME HCL 2 GM in DEXTROSE 5%-WATER 50 ML IV SCH (11:14)
[2020-02-04] MEDS ORDERED: ACETAMINOPHEN SOLN 325 MG/10.15 ML UDCUP NG PRN (13:00)
[2020-02-04] MEDS: NORMAL SALINE 500 ML with ROCURONIUM BROMIDE 500 MG IV PRN ×4 (14:15→21:09)
[2020-02-04] MEDS ORDERED: NITROGLYCERIN 2% OINTMENT 1 GM PACKET ONE (14:23)
--- NOTE | 2020-02-04 15:10 | RADIOLOGY REPORT (SQ) ---
EXAM DESCRIPTION: CHEST SINGLE VIEW IMAGES COMPLETED DATE/TIME: 02/04/2020 3:00 pm REASON FOR STUDY: acute hypoxia COMPARISON: 02/03/2020 EXAM PARAMETERS: NUMBER OF VIEWS: One view. TECHNIQUE: Single frontal radiographic view of the chest acquired. RADIATION DOSE: NA LIMITATIONS: None. FINDINGS: LUNGS AND PLEURA: Low lung volumes with persistent bilateral interstitial alveolar opaciti es, mildly improved aeration on the right. No pneumothorax. Likely trace bilateral effusions. MEDIASTINUM AND HILAR STRUCTURES: No masses. Contour normal. HEART AND VASCULAR STRUCTURES: Heart normal in size. Normal vasculature. BONES: No acute findings. HARDWARE: Right internal jugular central venous catheter tip at right atrium. Endotracheal tube tip 2.8 cm above the chris. Enteric tube tip overlies gastric body. OTHER: No other significant finding. IMPRESSION: Endotracheal tube tip 2.8 cm above the chris. Low lung volumes with persistent bilateral interstitial and alveolar opacities, mildly improved aerat ion from prior. TECHNICAL DOCUMENTATION: JOB ID: [id number] 2010 [employer]- All Rights Reserved Reading location - IP/workstation name: [email or web address]
[2020-02-04] MEDS ORDERED: NITROGLYCERIN 2% OINTMENT 1 GM PACKET TP ONE (15:15)
[2020-02-04] MEDS: FUROSEMIDE INJ/PF 40 MG/4 ML SDV IV SCH ×2 (16:47→23:04)
[2020-02-04 17:59] LABS: ARTERIAL BLOOD BASE EXCESS -11.8 mmol/L; ARTERIAL BLOOD FIO2 100%; ARTERIAL BLOOD H2CO3 1.39 mmol/L (1.05-1.35); ARTERIAL BLOOD HCO3 16.1 mmol/L (20-24); ARTERIAL BLOOD PCO2 46.1 mmHg (35-45); ARTERIAL BLOOD PO2 52.1 mmHg (80-100); ARTERIAL BLOOD TOTAL CO2 17.6 mmol/L (23-27)
[2020-02-04 18:01] LABS: ARTERIAL BLOOD PH 7.16 (7.35-7.45)
--- NOTE | 2020-02-04 20:22 | PDOC CRITICAL CARE PROG REPORT ---
General Date:: 02/04/20 ICU Day:: 20 Ventilator Day:: 19 Hospital Day:: 33 Resuscitation Status: Full Code Events in the past 12 to 24 Hours:: This 49-year-old [facility] 01[facility]2020 with known [id number] infection. He had previously presented to an urgent care clinic on 12/27/2019, when he was diagnosed. He had been instructed to stay home and quarantine but presented to the emergency department on 01/01/2020 with increasing dyspnea. He was treated with Decadron and azithromycin. He was discharged home only to return on the following day with increasing shortness of breath, fever (100.1 Fahrenheit) and hypoxia (SPO2 70s on room air). He was admitted and started treatment with BiPAP support. Critical care consultation was sought on 01/16/2020 with worsening hypoxia and tachycardia. He was transferred to the ICU on 01/15. The patient ended up requ iring endotracheal intubation and mechanical ventilator support on the following day. 01/31: In prone position. Per nurse report, the patient is approaching 24 hours in prone position. Neuromuscular blockade with rocuronium. On Versed/Precedex/fentanyl for sedation. Ventilator is noted to be on VC mode, Ti 0.5 seconds, with Ppeak in the 50s. ABG this a.m.: 7.21/48/97 on FiO2 80%, PEEP 15. On cefepime for Serratia pneumonia (01/18). 02/01: No events reported overnight. The patient was proned at the beginning of restaurant shift leader. ABG this a.m.: 7.23/43/135. Creatinine 1.3 this morning. Hemoglobin 7.7>7.3. 02/02: BUN/creatinine continuing to rise, creatinine 1.7 this morning. Hemoglobin stable, 7.3 again this a.m. He was proned at 2000 on restaurant shift leader. CVP obtained in the supine position was reportedly elevated (17). Lasix 20 mg IV administered at 0550. ABG this a.m. 7.16/55/83 on PRVC 30/480/100/10. VT was increased to 500 subsequent to this ABG result. CVP 1415. The patient did have a BM yesterday. 02/03: Spent all morning in prone position. Remains intubated. On PRVC 30/500/100/10. However, after returning to supine position, the patient demonstrated prompt oxygen desaturation, requiring bag mask ventilation. [place] frothy secretions were noted to be produced from the ET tube circuit. Patient's oxygen saturation fell as low as 70%. During this time, the patient became hypertensive and tachycardic. Nonoliguric renal failure, creatinine rising, 1.7> 2.0. Renal ultrasound ordered for this a.m. Hemoglobin 8.2, stable after transfusion of 1 unit PRBC yesterday. Patient's was updated by phone yesterday. She is agreeable to proceeding with tracheostomy, when ventilator settings prove compatible with long-term care via tracheostomy. Review of systems relevant to events:: Pulmonary Reason for ICU Addmission:: hypoxia tachycardia, intubated. - Medications: Medications reviewed and adjusted accordingly: Yes Vasopressors:: None Sedation:: Versed/Precedex/fentanyl Physical Exam Vital Signs: Temp Pulse Resp BP Pulse Ox 98.6 F 82 30 H 146/79 H 91 L 02/04/20 05:29 02/04/20 07:50 02/04/20 06:00 02/04/20 05:51 02/04/20 06:00 Intake & Output 02/03/20 02/04/20 02/05/20 06:59 06:59 06:59 Intake Total 4227 4517 Output Total 2220 5210 Balance 2006 Weight 117.7 kg 117.7 kg Weight/Height Weight 117.7 kg Height 1.73 m General appearance: PRESENT: no acute distress, morbidly obese, well-developed, well-nourished Head exam: PRESENT: atraumatic, normocephalic Neck exam: ABSENT: carotid bruit, JVD, lymphadenopathy, thyromegaly Respiratory exam: PRESENT: crackles, rales, symmetrical, tachypnea. ABSENT: rhonchi, wheezes Cardiovascular exam: PRESENT: RRR, tachycardia. ABSENT: diastolic murmur, rubs, systolic murmur Pulses: PRESENT: normal dorsalis pedis pul GI/Abdominal exam: PRESENT: normal bowel sounds, soft. ABSENT: distended, guarding, mass, organolmegaly, rebound, tenderness Extremities exam: PRESENT: full ROM, pedal edema, +1 edema. ABSENT: calf tenderness, clubbing Neurological exam: PRESENT: altered Psychiatric exam: ABSENT: agitated, anxious Skin exam: PRESENT: dry, intact, warm. ABSENT: cyanosis, rash Tubes/Lines: PRESENT: Endotracheal Tube, Central Line, Other - Orogastric Laboratory/Radiographs Laboratory Results: 02/04/20 03:45 02/04/20 03:45 02/03/20 02/03/20 02/03/20 07:05 08:43 09:29 WBC RBC Hgb Hct MCV MCH MCHC RDW Plt Count Seg Neutrophils % Carbonic Acid Cancelled 1.44 H HCO3/H2CO3 Ratio Cancelled 13:1 ABG pH Cancelled 7.21 L ABG pCO2 Cancelled 47.7 H ABG pO2 Cancelled 94.4 ABG HCO3 Cancelled 18.8 L ABG O2 Saturation Cancelled 95.7 ABG Base Excess Cancelled -8.5 FiO2 Cancelled 100% Sodium Potassium Chloride Carbon Dioxide Anion Gap BUN Creatinine Est GFR ( Amer) Glucose Calcium Phosphorus Magnesium C-Reactive Protein Blood Type B POSITIVE Antibody Screen NEGATIVE 02/03/20 02/03/20 02/03/20 15:00 15:00 15:15 WBC 9.0 RBC 2.85 L Hgb 8.1 L Hct 24.9 L MCV 87 MCH 28.4 MCHC 32.5 RDW 16.0 H Plt Count 154 Seg Neutrophils % Not Reportable Carbonic Acid 1.21 HCO3/H2CO3 Ratio 15:1 ABG pH 7.29 L ABG pCO2 40.2 ABG pO2 56.2 L ABG HCO3 18.8 L ABG O2 Saturation 86.0 L ABG Base Excess -7.2 FiO2 100% Sodium Potassium Chloride Carbon Dioxide Anion Gap BUN Creatinine Est GFR ( Amer) Glucose Calcium Phosphorus Magnesium C-Reactive Protein 44.2 H Blood Type Antibody Screen 02/04/20 02/04/20 02/04/20 03:45 03:45 03:45 WBC 9.0 RBC 2.84 L Hgb 8.2 L Hct 25.1 L MCV 88 MCH 29.0 MCHC 32.9 RDW 16.3 H Plt Count 146 L Seg Neutrophils % 87.8 H Carbonic Acid 1.38 H HCO3/H2CO3 Ratio 12:1 ABG pH 7.19 L* ABG pCO2 45.8 H ABG pO2 69.0 L ABG HCO3 17.2 L ABG O2 Saturation 89.5 L ABG Base Excess -10.4 FiO2 90% Sodium 142.1 Potassium 4.0 Chloride 116 H Carbon Dioxide 20 L Anion Gap 6 BUN 62 H Creatinine 1.99 H Est GFR ( Amer) 43 L Glucose 95 Calcium 8.1 L Phosphorus 4.8 H Magnesium 2.1 C-Reactive Protein Blood Type Antibody Screen 01/06/20 01/16/20 01/17/20 05:11 21:00 05:00 Creatine Kinase 38 L CK-MB (CK-2) Troponin I < 0.012 NT-Pro-B Natriuret Pep 338 H 01/17/20 01/27/20 05:00 15:40 Creatine Kinase CK-MB (CK-2) 1.63 Troponin I 0.028 < 0.012 NT-Pro-B Natriuret Pep 504 H Impressions: Chest CT 01/22/20 00:00 IMPRESSION: 1. Extensive pneumomediastinum anteriorly. No pneumothoraces. 2. Extensive subcutaneous air throughout the anterior chest wall, extending into the visualized lower neck, upper back, and left upper extremity. There is also extension of a large amount of air into the anterior extraperitoneal space of the upper abdomen. 3. Interval worsening of bilateral pulmonary opacities, which likely represent COVID-19 pneumonia given the clinical history. KUB X-Ray 01/30/20 00:00 IMPRESSION: The bowel gas pattern is nonobstructive and nonspecific. A nasogastric tube tip is seen overlying the left upper quadrant of the abdomen, projecting at the stomach. There is diffuse subcutaneous emphysema seen at the chest and abdominal wall on the left side. Chest X-Ray 02/03/20 08:08 IMPRESSION: Tubes and lines as above. Otherwise unchanged a graphic appearance of the chest. All labs, radiographs, diagnostic studies and EKGs were personally reviewed: Yes In addition, reports of radiographic and diagnostic studies were read: Yes Assessment and Plan - Diagnosis (1) Acute respiratory failure with hypoxia and hypercapnia Is this a current diagnosis for this admission?: Yes Plan: * This patient is currently on day 19 of mechanical ventilatory support. Clearly, this patient is likely to need percutaneous tracheostomy for prolonged mechanical ventilatory support. * The patient will be returned to supine position at 1300 today. We will plan to maintain supine position and trend ABGs, in hopes that they will suggest the patient may proceed with tracheostomy. * CVP monitoring (in supine position). * PRVC 32/480/100/10, Ti 1 sec. Followup ABG results. Restart NMB (rocuronium). * Titrate vent settings based on ABG results. * Continue sedation. * Check proBNP. Stat chest x-ray. Suspicious for flash pulmonary edema. (2) Acute kidney injury Is this a current diagnosis for this admission?: Yes Plan: * Nonoliguric renal failure. * Avoid nephrotoxic drugs. * Renal dosing of medications. * Decreased protein supplementation. (3) Pneumonia due to COVID-19 virus Is this a current diagnosis for this admission?: Yes (4) Pneumonia due to Serratia marcescens Is this a current diagnosis for this admission?: Yes (5) Normocytic anemia Is this a current diagnosis for this admission?: Yes (6) HTN (hypertension) Is this a current diagnosis for this admission?: Yes (7) Obesity (BMI 30-39.9) Is this a current diagnosis for this admission?: No (8) Pneumomediastinum Is this a current diagnosis for this admission?: Yes Critical Time Critical Time (minutes): 60 Level of Care: ICU -: 1. The care of a critical patient is a dynamic process. This note is a auto claim representative synopsis but static in nature. The timeframe for treatments given in order is not necessarily the actual time these treatments may have been done. 2. This patient requires critical care secondary to ongoing requirements for therapy not offered or safe outside the critical care environment. Transfer to a lower level of care will result in altered life or limb morbidity and mortality. 3. Multidisciplinary rounds completed. 4. ABCDE bundle addressed.
[2020-02-05] MEDS ORDERED: FUROSEMIDE INJ/PF 40 MG/4 ML SDV ONE (00:33)
[2020-02-05] MEDS: INSULIN REG, HUMAN 100 UNIT/ML 3 ML VIAL (PYX) SUBCUT SCH ×5 (00:54→23:03)
[2020-02-05] MEDS: LABETALOL HCL INJ 20 MG/4 ML DISP.SYRIN IV SCH ×5 (00:58→23:04)
[2020-02-05] MEDS: AMINO AC/PROTEIN HYDR/WHEY PRO 11 GM/45 ML PKT NG SCH ×5 (01:03→23:04)
[2020-02-05] MEDS: ASCORBIC ACID 500 MG TABLET NG SCH ×5 (01:03→23:04)
[2020-02-05] MEDS: FENTANYL CITRATE/PF 600 MCG/60 ML BAG IV PRN ×9 (01:30→23:20)
[2020-02-05] MEDS: MIDAZOLAM HCL 50 MG/100 ML RTUINJ IV PRN ×7 (02:00→23:52)
[2020-02-05] MEDS: ALBUTEROL SULFATE 0.083% NEB 2.5 MG/3 ML AMPUL NEB SCH ×4 (02:25→20:35)
[2020-02-05] MEDS: DEXMEDETOMIDINE IN 0.9 % NACL 400 MCG/100 ML RTUPB IV PRN ×7 (04:30→23:36)
[2020-02-05 05:52] LABS: ABSOLUTE EOSINOPHILS # (AUTO) 0.1 10^3/uL (0.0-0.6); ABSOLUTE LYMPHOCYTES (AUTO) 0.4 10^3/uL (0.5-4.7); ABSOLUTE MONOCYTES (AUTO) 0.3 10^3/uL (0.1-1.4); BASOPHILS % (AUTO) 0.3 % (0-2); HEMATOCRIT 23.6 % (37.9-51.0); LYMPHOCYTES % (AUTO) 5.2 % (13-45); MEAN CORPUSCULAR HEMOGLOBIN 28.2 pg (27.0-33.4); MEAN CORPUSCULAR HGB CONC 32.2 g/dL (32.0-36.0); MEAN CORPUSCULAR VOLUME 88 fl (80-97); MONOCYTES % (AUTO) 4.1 % (3-13); PLATELET COUNT 117 10^3/uL (150-450); RED BLOOD COUNT 2.69 10^6/uL (4.35-5.55); RED CELL DISTRIBUTION WIDTH 16.2 % (11.5-14.0); SEGMENTED NEUTROPHILS % (AUTO) 89.4 % (42-78); TOTAL CELLS COUNTED % (AUTO) 100 %; WHITE BLOOD COUNT 7.8 10^3/uL (4.0-10.5)
[2020-02-05 05:58] LABS: HEMOGLOBIN 7.6 g/dL (13.5-17.0)
[2020-02-05] MEDS: NORMAL SALINE 500 ML with ROCURONIUM BROMIDE 500 MG IV PRN ×6 (06:00→17:45)
[2020-02-05 06:02] LABS: PARTIAL THROMBOPLASTIN TIME 86.8 SEC (23.5-35.8)
[2020-02-05 06:03] LABS: D-DIMER 1.31 ug/mL (0.00-0.50)
[2020-02-05 06:14] LABS: ARTERIAL BLOOD BASE EXCESS -9.2 mmol/L; ARTERIAL BLOOD FIO2 100%; ARTERIAL BLOOD H2CO3 1.33 mmol/L (1.05-1.35); ARTERIAL BLOOD HCO3 17.9 mmol/L (20-24); ARTERIAL BLOOD O2 SATURATION 90.1 % (94-98); ARTERIAL BLOOD PCO2 44.1 mmHg (35-45); ARTERIAL BLOOD PH 7.23 (7.35-7.45); ARTERIAL BLOOD PO2 68.2 mmHg (80-100); ARTERIAL BLOOD TOTAL CO2 19.2 mmol/L (23-27)
[2020-02-05] MEDS: FUROSEMIDE INJ/PF 40 MG/4 ML SDV IV SCH (06:14)
[2020-02-05 06:20] LABS: ANION GAP 9 (5-19); BLOOD UREA NITROGEN 69 mg/dL (7-20); C-REACTIVE PROTEIN 66.4 mg/L (<10.0); CALCIUM 7.8 mg/dL (8.4-10.2); CARBON DIOXIDE 19 mmol/L (22-30); CHLORIDE 117 mmol/L (98-107); GLUCOSE 104 mg/dL (75-110); PHOSPHORUS 4.8 mg/dL (2.5-4.5); POTASSIUM 3.9 mmol/L (3.6-5.0)
[2020-02-05] MEDS ORDERED: NORMAL SALINE 250 ML IV PRN ×2 (08:45)
[2020-02-05] MEDS ORDERED: FUROSEMIDE INJ/PF 40 MG/4 ML SDV IV PRN (08:45)
[2020-02-05] MEDS: BUDESONIDE NEB 0.25 MG/2 ML AMPUL NEB SCH ×2 (08:55→20:35)
[2020-02-05] MEDS: CEFEPIME HCL 2 GM in DEXTROSE 5%-WATER 50 ML IV SCH (10:17)
[2020-02-05] MEDS: DEXAMETHASONE SOD PHOSPHATE INJ 4 MG/1 ML VIAL IV SCH (10:19)
[2020-02-05] MEDS: DOCUSATE SODIUM 100 MG/10 ML UDC PO SCH (10:20)
[2020-02-05] MEDS: PANTOPRAZOLE SODIUM 40 MG VIAL IV SCH (10:20)
--- NOTE | 2020-02-05 18:52 | PDOC CRITICAL CARE PROG REPORT ---
General Date:: 02/05/20 ICU Day:: 21 Ventilator Day:: 20 Hospital Day:: 34 Resuscitation Status: Full Code Events in the past 12 to 24 Hours:: This 49-year-old male presented to [facility] emergency department on 01/03/2020 with known [id number] infection. He had previously presented to an urgent care clinic on 12/27/2019, when he was diagnosed. He had been instructed to stay home and quarantine but presented to the emergency department on 01/01/2020 with increasing dyspnea. He was treated with Decadron and azithromycin. He was discharged home only to return on the following day with increasing shortness of breath, fever (100.1 Fahrenheit) and hypoxia (SPO2 70s on room air). He was admitted and started treatment with BiPAP support. Critical care consultation was sought on 01/16/2020 with worsening hypoxia and tachycardia. He was transferred to the ICU on 01/15. The patient ended up requ iring endotracheal intubation and mechanical ventilator support on the following day. 01/31: In prone position. Per nurse report, the patient is approaching 24 hours in prone position. Neuromuscular blockade with rocuronium. On Versed/Precedex/fentanyl for sedation. Ventilator is noted to be on VC mode, Ti 0.5 seconds, with Ppeak in the 50s. ABG this a.m.: 7.21/48/97 on FiO2 80%, PEEP 15. On cefepime for Serratia pneumonia (01/18). 02/01: No events reported overnight. The patient was proned at the beginning of hourly shift. ABG this a.m.: 7.23/43/135. Creatinine 1.3 this morning. Hemoglobin 7.7>7.3. 02/02: BUN/creatinine continuing to rise, creatinine 1.7 this morning. Hemoglobin stable, 7.3 again this a.m. He was proned at 2000 on hourly shift. CVP obtained in the supine position was reportedly elevated (17). Lasix 20 mg IV administered at 0550. ABG this a.m. 7.16/55/83 on PRVC 30/480/100/10. VT was increased to 500 subsequent to this ABG result. CVP 1415. The patient did have a BM yesterday. 02/03: Spent all morning in prone position. Remains intubated. On PRVC 30/500/100/10. However, after returning to supine position, the patient demonstrated prompt oxygen desaturation, requiring bag mask ventilation. [place] frothy secretions were noted to be produced from the ET tube circuit. Patient's oxygen saturation fell as low as 70%. During this time, the patient became hypertensive and tachycardic. Nonoliguric renal failure, creatinine rising, 1.7> 2.0. Renal ultrasound ordered for this a.m. Hemoglobin 8.2, stable after transfusion of 1 unit PRBC yesterday. Patient's was updated by phone yesterday. She is agreeable to proceeding with tracheostomy, when ventilator settings prove compatible with long-term care via tracheostomy. 02/04: The patient was supinated yesterday afternoon. He was maintained supine throughout the night. I/O over the past 24 hours -2536 mL. proBNP this morning 10,800. Remains intubated. On PRVC 30/500/100/10. ABG this a.m.: 7.23/44/68. After returning to the supine position, the patient was restarted on rocuronium to decrease work of breathing and metabolic demand. Continues to demonstrate worsening nonoliguric renal failure, creatinine 2.2. Hemoglobin this a.m. 7.6. Review of systems relevant to events:: Pulmonary Reason for ICU Addmission:: hypoxia tachycardia, intubated. - Medications: Medications reviewed and adjusted accordingly: Yes Vasopressors:: None Sedation:: Versed/Precedex/fentanyl Physical Exam Vital Signs: Temp Pulse Resp BP Pulse Ox 98.4 F 105 H 32 H 134/78 H 91 L 02/05/20 06:00 02/05/20 02:25 02/05/20 08:00 02/05/20 07:18 02/05/20 08:00 Intake & Output 02/04/20 02/05/20 02/06/20 06:59 06:59 06:59 Intake Total 4617 2364 Output Total 5279 4907 450 Balance -593 -2536 -450 Weight 119 kg 121.9 kg Weight/Height Weight 121.9 kg Height 1.73 m General appearance: PRESENT: no acute distress, morbidly obese, well-developed, well-nourished Head exam: PRESENT: atraumatic, normocephalic Eye exam: PRESENT: conjunctiva pink, periorbital swelling. ABSENT: scleral icterus Mouth exam: PRESENT: moist, tongue midline Neck exam: ABSENT: carotid bruit, JVD, lymphadenopathy, thyromegaly Respiratory exam: PRESENT: clear to auscultation deepali, symmetrical, tachypnea. ABSENT: rales, rhonchi, wheezes Cardiovascular exam: PRESENT: RRR. ABSENT: diastolic murmur, rubs, systolic murmur Pulses: PRESENT: normal dorsalis pedis pul GI/Abdominal exam: PRESENT: hypoactive bowel sounds, soft. ABSENT: distended, guarding, mass, organolmegaly, rebound, tenderness Gentrourinary exam: PRESENT: indwelling catheter Extremities exam: PRESENT: pedal edema, +1 edema. ABSENT: calf tenderness, clubbing Musculoskeletal exam: PRESENT: normal inspection. ABSENT: deformity Neurological exam: PRESENT: altered, other - On sedation and neuromuscular blockade. ABSENT: reflexes normal Psychiatric exam: ABSENT: agitated, anxious Skin exam: PRESENT: dry, intact, warm. ABSENT: cyanosis, rash Tubes/Lines: PRESENT: Endotracheal Tube, Central Line, Other - Orogastric tube Laboratory/Radiographs Laboratory Results: 02/05/20 04:40 02/05/20 04:40 02/04/20 02/05/20 02/05/20 14:40 04:40 04:40 WBC 7.8 RBC 2.69 L Hgb 7.6 L Hct 23.6 L MCV 88 MCH 28.2 MCHC 32.2 RDW 16.2 H Plt Count 117 L Seg Neutrophils % 89.4 H Carbonic Acid 1.39 H HCO3/H2CO3 Ratio 11:1 ABG pH 7.16 L* ABG pCO2 46.1 H ABG pO2 52.1 L ABG HCO3 16.1 L ABG O2 Saturation 77.0 L ABG Base Excess -11.8 FiO2 100% Sodium Potassium Chloride Carbon Dioxide Anion Gap BUN Creatinine Est GFR ( Amer) Glucose Calcium Phosphorus Magnesium Ferritin 474.00 H C-Reactive Protein 02/05/20 02/05/20 04:40 05:50 WBC RBC Hgb Hct MCV MCH MCHC RDW Plt Count Seg Neutrophils % Carbonic Acid 1.33 HCO3/H2CO3 Ratio 13:1 ABG pH 7.23 L ABG pCO2 44.1 ABG pO2 68.2 L ABG HCO3 17.9 L ABG O2 Saturation 90.1 L ABG Base Excess -9.2 FiO2 100% Sodium 144.5 Potassium 3.9 Chloride 117 H Carbon Dioxide 19 L Anion Gap 9 BUN 69 H Creatinine 2.24 H Est GFR ( Amer) 38 L Glucose 104 Calcium 7.8 L Phosphorus 4.8 H Magnesium 2.1 Ferritin C-Reactive Protein 66.4 H 01/06/20 01/16/20 01/17/20 05:11 21:00 05:00 Creatine Kinase 38 L CK-MB (CK-2) Troponin I < 0.012 NT-Pro-B Natriuret Pep 338 H 01/17/20 01/27/20 02/04/20 05:00 15:40 14:20 Creatine Kinase CK-MB (CK-2) 1.63 Troponin I 0.028 < 0.012 NT-Pro-B Natriuret Pep 504 H 9710 H 02/05/20 04:40 Creatine Kinase CK-MB (CK-2) Troponin I NT-Pro-B Natriuret Pep 56480 H Impressions: Chest CT 01/22/20 00:00 IMPRESSION: 1. Extensive pneumomediastinum anteriorly. No pneumothoraces. 2. Extensive subcutaneous air throughout the anterior chest wall, extending into the visualized lower neck, upper back, and left upper extremity. There is also extension of a large amount of air into the anterior extraperitoneal space of the upper abdomen. 3. Interval worsening of bilateral pulmonary opacities, which likely represent COVID-19 pneumonia given the clinical history. KUB X-Ray 01/30/20 00:00 IMPRESSION: The bowel gas pattern is nonobstructive and nonspecific. A nasogastric tube tip is seen overlying the left upper quadrant of the abdomen, projecting at the stomach. There is diffuse subcutaneous emphysema seen at the chest and abdominal wall on the left side. Renal Ultrasound 02/04/20 09:00 IMPRESSION: Normal sonographic appearance of the kidneys. Chest X-Ray 02/04/20 14:32 IMPRESSION: Endotracheal tube tip 2.8 cm above the chris. Low lung volumes with persistent bilateral interstitial and alveolar opacities, mildly improved aeration from prior. All labs, radiographs, diagnostic studies and EKGs were personally reviewed: Yes In addition, reports of radiographic and diagnostic studies were read: Yes Assessment and Plan - Diagnosis (1) Acute respiratory failure with hypoxia and hypercapnia Is this a current diagnosis for this admission?: Yes (2) Normocytic anemia Is this a current diagnosis for this admission?: Yes Plan: * Monitor hemoglobin. * Transfuse 1 unit PRBC today. * Furosemide 40 mg IV single dose after transfusion of 1 unit PRBC today. (3) Acute kidney injury Is this a current diagnosis for this admission?: Yes Plan: * Nonoliguric renal failure. * Avoid nephrotoxic drugs. * Renal dosing of medications. * Decreased protein supplementation on 02/03. (4) Pneumonia due to COVID-19 virus Is this a current diagnosis for this admission?: Yes Plan: * Completed remdesivir. * Continue Decadron 6 mg IV daily. (5) Pneumonia due to Serratia marcescens Is this a current diagnosis for this admission?: Yes (6) HTN (hypertension) Qualifiers: Hypertension type: unspecified Qualified Code(s): I10 - Essential (primary) hypertension Is this a current diagnosis for this admission?: Yes (7) Obesity (BMI 30-39.9) Is this a current diagnosis for this admission?: No (8) Pneumomediastinum Is this a current diagnosis for this admission?: Yes Critical Time Critical Time (minutes): 60 Level of Care: ICU -: 1. The care of a critical patient is a dynamic process. This note is a traveling sales representative synopsis but static in nature. The timeframe for treatments given in order is not necessarily the actual time these treatments may have been done. 2. This patient requires critical care secondary to ongoing requirements for therapy not offered or safe outside the critical care environment. Transfer to a lower level of care will result in altered life or limb morbidity and mortality. 3. Multidisciplinary rounds completed. 4. ABCDE bundle addressed.
[2020-02-05] MEDS: PHARMACY COMMUNICATION ORDER MC SCH (20:25)
[2020-02-05] MEDS: ARGATROBAN 250 MG/NS 250 ML (NON-ESRD) IV PRN ×2 (20:25)
[2020-02-06] MEDS: NORMAL SALINE 500 ML with ROCURONIUM BROMIDE 500 MG IV PRN ×8 (01:15→23:31)
[2020-02-06] MEDS: FENTANYL CITRATE/PF 600 MCG/60 ML BAG IV PRN ×8 (01:55→22:11)
[2020-02-06] MEDS: MIDAZOLAM HCL 50 MG/100 ML RTUINJ IV PRN ×8 (02:30→23:30)
[2020-02-06] MEDS: DEXMEDETOMIDINE IN 0.9 % NACL 400 MCG/100 ML RTUPB IV PRN ×9 (02:30→23:31)
[2020-02-06] MEDS: ALBUTEROL SULFATE 0.083% NEB 2.5 MG/3 ML AMPUL NEB SCH ×4 (03:43→20:36)
[2020-02-06 04:08] LABS: ARTERIAL BLOOD O2 SATURATION 92.7 % (94-98); ARTERIAL BLOOD PCO2 46.4 mmHg (35-45); ARTERIAL BLOOD PO2 79.6 mmHg (80-100); ARTERIAL BLOOD TOTAL CO2 18.4 mmol/L (23-27)
[2020-02-06 04:10] LABS: ABSOLUTE EOSINOPHILS # (AUTO) 0.2 10^3/uL (0.0-0.6); ABSOLUTE LYMPHOCYTES (AUTO) 0.6 10^3/uL (0.5-4.7); ABSOLUTE MONOCYTES (AUTO) 0.3 10^3/uL (0.1-1.4); BASOPHILS % (AUTO) 0.4 % (0-2); EOSINOPHILS % (AUTO) 2.1 % (0-6); HEMOGLOBIN 9.6 g/dL (13.5-17.0); LYMPHOCYTES % (AUTO) 5.7 % (13-45); MEAN CORPUSCULAR HGB CONC 33.1 g/dL (32.0-36.0); MEAN CORPUSCULAR VOLUME 85 fl (80-97); MONOCYTES % (AUTO) 3.3 % (3-13); PLATELET COUNT 116 10^3/uL (150-450); RED BLOOD COUNT 3.43 10^6/uL (4.35-5.55); RED CELL DISTRIBUTION WIDTH 18.2 % (11.5-14.0); SEGMENTED NEUTROPHILS % (AUTO) 88.5 % (42-78); TOTAL CELLS COUNTED % (AUTO) 100 %; WHITE BLOOD COUNT 10.1 10^3/uL (4.0-10.5)
[2020-02-06 04:15] LABS: ARTERIAL BLOOD FIO2 100%
[2020-02-06 04:16] LABS: ARTERIAL BLOOD PH 7.18 (7.35-7.45)
[2020-02-06 04:34] LABS: CALCIUM 7.9 mg/dL (8.4-10.2)
[2020-02-06 04:36] LABS: ALBUMIN 2.3 g/dL (3.5-5.0); ALKALINE PHOSPHATASE 70 U/L (38-126); ANION GAP 11 (5-19); ASPARTATE AMINO TRANSFERASE 34 U/L (17-59); BILIRUBIN,DIRECT 0.4 mg/dL (0.0-0.4); BILIRUBIN,TOTAL 0.6 mg/dL (0.2-1.3); BLOOD UREA NITROGEN 71 mg/dL (7-20); CARBON DIOXIDE 20 mmol/L (22-30); CHLORIDE 116 mmol/L (98-107); GLUCOSE 109 mg/dL (75-110); PHOSPHORUS 5.1 mg/dL (2.5-4.5); POTASSIUM 3.8 mmol/L (3.6-5.0); TOTAL PROTEIN 4.7 g/dL (6.3-8.2)
[2020-02-06] MEDS: AMINO AC/PROTEIN HYDR/WHEY PRO 11 GM/45 ML PKT NG SCH ×4 (06:11→23:21)
[2020-02-06] MEDS: INSULIN REG, HUMAN 100 UNIT/ML 3 ML VIAL (PYX) SUBCUT SCH ×4 (06:11→23:14)
[2020-02-06] MEDS: ASCORBIC ACID 500 MG TABLET NG SCH ×4 (06:13→23:21)
[2020-02-06] MEDS: LABETALOL HCL INJ 20 MG/4 ML DISP.SYRIN IV SCH ×4 (06:13→23:16)
[2020-02-06] MEDS: BUDESONIDE NEB 0.25 MG/2 ML AMPUL NEB SCH ×2 (08:22→20:36)
[2020-02-06] MEDS: DOCUSATE SODIUM 100 MG/10 ML UDC PO SCH (10:22)
[2020-02-06] MEDS: DEXAMETHASONE SOD PHOSPHATE INJ 4 MG/1 ML VIAL IV SCH (10:22)
[2020-02-06] MEDS: PANTOPRAZOLE SODIUM 40 MG VIAL IV SCH (10:23)
[2020-02-06 10:44] LABS: ARTERIAL BLOOD BASE EXCESS -10.5 mmol/L; ARTERIAL BLOOD H2CO3 1.45 mmol/L (1.05-1.35); ARTERIAL BLOOD HCO3 17.5 mmol/L (20-24); ARTERIAL BLOOD O2 SATURATION 92.6 % (94-98); ARTERIAL BLOOD PCO2 48.2 mmHg (35-45); ARTERIAL BLOOD PO2 79.9 mmHg (80-100); ARTERIAL BLOOD TOTAL CO2 18.9 mmol/L (23-27)
[2020-02-06 10:45] LABS: ARTERIAL BLOOD FIO2 100%
[2020-02-06 10:46] LABS: ARTERIAL BLOOD PH 7.18 (7.35-7.45)
[2020-02-06] MEDS: CEFEPIME HCL 2 GM in DEXTROSE 5%-WATER 50 ML IV SCH (10:52)
[2020-02-06] MEDS ORDERED: FUROSEMIDE INJ/PF 40 MG/4 ML SDV IV SCH (11:30)
[2020-02-06] MEDS: ALBUMIN HUMAN 12.5 GM/50 ML RTUINJ IV SCH ×2 (12:11→12:42)
[2020-02-06] MEDS ORDERED: FUROSEMIDE INJ/PF 40 MG/4 ML SDV ONE (12:17)
[2020-02-06] MEDS: FUROSEMIDE INJ/PF 40 MG/4 ML SDV IV SCH ×2 (14:00→21:10)
[2020-02-06] MEDS: ARGATROBAN 250 MG/NS 250 ML (NON-ESRD) IV PRN ×2 (17:42)
[2020-02-06] MEDS: PHARMACY COMMUNICATION ORDER MC SCH (17:43)
--- NOTE | 2020-02-06 18:30 | PDOC CRITICAL CARE PROG REPORT ---
General Date:: 02/06/20 ICU Day:: 22 Ventilator Day:: 21 Hospital Day:: 35 Resuscitation Status: Full Code Events in the past 12 to 24 Hours:: This 49-year-old male presented to [facility] emergency department on 01/03/2020 with known [id number] infection. He had previously presented to an urgent care clinic on 12/27/2019, when he was diagnosed. He had been instructed to stay home and quarantine but presented to the emergency department on 01/01/2020 with increasing dyspnea. He was treated with Decadron and azithromycin. He was discharged home only to return on the following day with increasing shortness of breath, fever (100.1 Fahrenheit) and hypoxia (SPO2 70s on room air). He was admitted and started treatment with BiPAP support. Critical care consultation was sought on 01/16/2020 with worsening hypoxia and tachycardia. He was transferred to the ICU on 01/15. The patient ended up requ iring endotracheal intubation and mechanical ventilator support on the following day. 01/31: In prone position. Per nurse report, the patient is approaching 24 hours in prone position. Neuromuscular blockade with rocuronium. On Versed/Precedex/fentanyl for sedation. Ventilator is noted to be on VC mode, Ti 0.5 seconds, with Ppeak in the 50s. ABG this a.m.: 7.21/48/97 on FiO2 80%, PEEP 15. On cefepime for Serratia pneumonia (01/18). 02/01: No events reported overnight. The patient was proned at the beginning of slot shift supervisor. ABG this a.m.: 7.23/43/135. Creatinine 1.3 this morning. Hemoglobin 7.7>7.3. 02/02: BUN/creatinine continuing to rise, creatinine 1.7 this morning. Hemoglobin stable, 7.3 again this a.m. He was proned at 2000 on slot shift supervisor. CVP obtained in the supine position was reportedly elevated (17). Lasix 20 mg IV administered at 0550. ABG this a.m. 7.16/55/83 on PRVC 30/480/100/10. VT was increased to 500 subsequent to this ABG result. CVP 1415. The patient did have a BM yesterday. 02/03: Spent all morning in prone position. Remains intubated. On PRVC 30/500/100/10. However, after returning to supine position, the patient demonstrated prompt oxygen desaturation, requiring bag mask ventilation. [place] frothy secretions were noted to be produced from the ET tube circuit. Patient's oxygen saturation fell as low as 70%. During this time, the patient became hypertensive and tachycardic. Nonoliguric renal failure, creatinine rising, 1.7> 2.0. Renal ultrasound ordered for this a.m. Hemoglobin 8.2, stable after transfusion of 1 unit PRBC yesterday. Patient's was updated by phone yesterday. She is agreeable to proceeding with tracheostomy, when ventilator settings prove compatible with long-term care via tracheostomy. 02/04: The patient was supinated yesterday afternoon. He was maintained supine throughout the night. I/O over the past 24 hours -2536 mL. proBNP this morning 10,800. Remains intubated. On PRVC 30/500/100/10. ABG this a.m.: 7.23/44/68. After returning to the supine position, the patient was restarted on rocuronium to decrease work of breathing and metabolic demand. Continues to demonstrate worsening nonoliguric renal failure, creatinine 2.2. Hemoglobin this a.m. 7.6. 02/05: Patient was proned at 0300. proBNP this morning 10,900. Remains intubated. On PRVC 30/500/100/12. PEEP had to be increased to 12. ABG this a.m.: 7.18/48/80. Got 1 unit PRBC yesterday for hemoglobin 7.6. Hemoglobin 9.6 this a.m. Creatinine 2.4. Review of systems relevant to events:: Pulmonary Reason for ICU Addmission:: hypoxia tachycardia, intubated. - Medications: Medications reviewed and adjusted accordingly: Yes Vasopressors:: None Sedation:: Versed/Precedex/fentanyl Physical Exam Vital Signs: Temp Pulse Resp BP Pulse Ox 97.2 F 89 32 H 125/74 93 02/06/20 06:00 02/06/20 08:30 02/06/20 10:19 02/06/20 10:19 02/06/20 11:04 Intake & Output 02/05/20 02/06/20 02/07/20 06:59 06:59 06:59 Intake Total 1076 3262 800 Output Total 5650 5075 350 Balance -3337 -3734 450 Weight 121.9 kg 121.7 kg Weight/Height Weight 121.7 kg Height 1.73 m General appearance: PRESENT: no acute distress, well-developed, well-nourished, other - Prone Head exam: PRESENT: atraumatic, normocephalic Respiratory exam: PRESENT: decreased breath sounds, rales. ABSENT: rhonchi, wheezes Cardiovascular exam: PRESENT: RRR. ABSENT: diastolic murmur, rubs, systolic murmur Pulses: PRESENT: normal dorsalis pedis pul Extremities exam: PRESENT: full ROM, pedal edema, +2 edema. ABSENT: calf tenderness, clubbing Neurological exam: PRESENT: altered Psychiatric exam: ABSENT: agitated, anxious Skin exam: PRESENT: dry, intact, warm. ABSENT: cyanosis, rash Tubes/Lines: PRESENT: Endotracheal Tube, Central Line - Orogastric tube Laboratory/Radiographs Laboratory Results: 02/06/20 03:55 02/06/20 03:55 02/06/20 02/06/20 02/06/20 03:55 03:55 03:55 WBC 10.1 RBC 3.43 L Hgb 9.6 L Hct 29.0 L MCV 85 MCH 28.0 MCHC 33.1 RDW 18.2 H Plt Count 116 L Seg Neutrophils % 88.5 H Carbonic Acid 1.40 H HCO3/H2CO3 Ratio 12:1 ABG pH 7.18 L* ABG pCO2 46.4 H ABG pO2 79.6 L ABG HCO3 17.0 L ABG O2 Saturation 92.7 L ABG Base Excess -11.0 FiO2 100% Sodium 146.8 H Potassium 3.8 Chloride 116 H Carbon Dioxide 20 L Anion Gap 11 BUN 71 H Creatinine 2.44 H Est GFR ( Amer) 34 L Glucose 109 Calcium 7.9 L Phosphorus 5.1 H Magnesium 2.1 Total Bilirubin 0.6 AST 34 Alkaline Phosphatase 70 Total Protein 4.7 L Albumin 2.3 L 02/06/20 10:15 WBC RBC Hgb Hct MCV MCH MCHC RDW Plt Count Seg Neutrophils % Carbonic Acid 1.45 H HCO3/H2CO3 Ratio 12:1 ABG pH 7.18 L* ABG pCO2 48.2 H ABG pO2 79.9 L ABG HCO3 17.5 L ABG O2 Saturation 92.6 L ABG Base Excess -10.5 FiO2 100% Sodium Potassium Chloride Carbon Dioxide Anion Gap BUN Creatinine Est GFR ( Amer) Glucose Calcium Phosphorus Magnesium Total Bilirubin AST Alkaline Phosphatase Total Protein Albumin 01/06/20 01/16/20 01/17/20 05:11 21:00 05:00 Creatine Kinase 38 L CK-MB (CK-2) Troponin I < 0.012 NT-Pro-B Natriuret Pep 338 H 01/17/20 01/27/20 02/04/20 05:00 15:40 14:20 Creatine Kinase CK-MB (CK-2) 1.63 Troponin I 0.028 < 0.012 NT-Pro-B Natriuret Pep 504 H 9710 H 02/05/20 02/06/20 04:40 03:55 Creatine Kinase CK-MB (CK-2) Troponin I NT-Pro-B Natriuret Pep 75030 H 80075 H Impressions: Chest CT 01/22/20 00:00 IMPRESSION: 1. Extensive pneumomediastinum anteriorly. No pneumothoraces. 2. Extensive subcutaneous air throughout the anterior chest wall, extending into the visualized lower neck, upper back, and left upper extremity. There is also extension of a large amount of air into the anterior extraperitoneal space of the upper abdomen. 3. Interval worsening of bilateral pulmonary opacities, which likely represent COVID-19 pneumonia given the clinical history. KUB X-Ray 01/30/20 00:00 IMPRESSION: The bowel gas pattern is nonobstructive and nonspecific. A nasogastric tube tip is seen overlying the left upper quadrant of the abdomen, projecting at the stomach. There is diffuse subcutaneous emphysema seen at the chest and abdominal wall on the left side. Renal Ultrasound 02/04/20 09:00 IMPRESSION: Normal sonographic appearance of the kidneys. Chest X-Ray 02/04/20 14:32 IMPRESSION: Endotracheal tube tip 2.8 cm above the chris. Low lung volumes with persistent bilateral interstitial and alveolar opacities, mildly improved aeration from prior. All labs, radiographs, diagnostic studies and EKGs were personally reviewed: Yes In addition, reports of radiographic and diagnostic studies were read: Yes Assessment and Plan - Diagnosis (1) Acute respiratory failure with hypoxia and hypercapnia Is this a current diagnosis for this admission?: Yes Plan: * This patient is currently on day 21 of mechanical ventilatory support. Clearly, this patient is likely to need percutaneous tracheostomy for prolonged mechanical ventilatory support. But, the current institution of proning protocol along with high PEEP makes it unwise to pursue tracheostomy at this time. The patient's has decided that she is willing to proceed with tracheostomy as soon as it becomes feasible. * CVP monitoring (in supine position). * PRVC 32/480/100/10, Ti 1 sec. Followup ABG results. Restart NMB (rocuronium). * Titrate vent settings based on ABG results. * Continue sedation. * Diurese. (2) Normocytic anemia Is this a current diagnosis for this admission?: Yes Plan: * Monitor hemoglobin. (3) Acute kidney injury Is this a current diagnosis for this admission?: Yes (4) Pneumonia due to COVID-19 virus Is this a current diagnosis for this admission?: Yes (5) Pneumonia due to Serratia marcescens Is this a current diagnosis for this admission?: Yes (6) HTN (hypertension) Qualifiers: Hypertension type: unspecified Qualified Code(s): I10 - Essential (primary) hypertension Is this a current diagnosis for this admission?: Yes (7) Obesity (BMI 30-39.9) Is this a current diagnosis for this admission?: No (8) Pneumomediastinum Is this a current diagnosis for this admission?: Yes (9) Elevated brain natriuretic peptide (BNP) level Is this a current diagnosis for this admission?: Yes Plan: * Notably, raised concern for congestive heart failure today during phone update. She reports that the patient has been gaining weight rapidly (with lower extremity edema) over the past several weeks (to months) prior to hospitalization. * Cardiology evaluation is warranted prior to discharge. Plan Summary: (Gail) updated by phone. Critical Time Critical Time (minutes): 75 Level of Care: ICU -: 1. The care of a critical patient is a dynamic process. This note is a billing customer service representative synopsis but static in nature. The timeframe for treatments given in order is not necessarily the actual time these treatments may have been done. 2. This patient requires critical care secondary to ongoing requirements for therapy not offered or safe outside the critical care environment. Transfer to a lower level of care will result in altered life or limb morbidity and mortality. 3. Multidisciplinary rounds completed. 4. ABCDE bundle addressed.
[2020-02-07] MEDS: MIDAZOLAM HCL 50 MG/100 ML RTUINJ IV PRN ×7 (02:23→23:10)
[2020-02-07] MEDS: DEXMEDETOMIDINE IN 0.9 % NACL 400 MCG/100 ML RTUPB IV PRN ×8 (02:24→21:45)
[2020-02-07] MEDS: ALBUTEROL SULFATE 0.083% NEB 2.5 MG/3 ML AMPUL NEB SCH ×4 (02:39→20:26)
[2020-02-07] MEDS: FENTANYL CITRATE/PF 600 MCG/60 ML BAG IV PRN ×7 (03:35→21:36)
[2020-02-07 04:33] LABS: ARTERIAL BLOOD BASE EXCESS -10.7 mmol/L; ARTERIAL BLOOD H2CO3 1.34 mmol/L (1.05-1.35); ARTERIAL BLOOD HCO3 16.9 mmol/L (20-24); ARTERIAL BLOOD O2 SATURATION 90.6 % (94-98); ARTERIAL BLOOD PCO2 44.6 mmHg (35-45); ARTERIAL BLOOD PO2 71.6 mmHg (80-100); ARTERIAL BLOOD TOTAL CO2 18.3 mmol/L (23-27)
[2020-02-07 04:36] LABS: ABSOLUTE EOSINOPHILS # (AUTO) 0.2 10^3/uL (0.0-0.6); ABSOLUTE LYMPHOCYTES (AUTO) 0.7 10^3/uL (0.5-4.7); ABSOLUTE MONOCYTES (AUTO) 0.4 10^3/uL (0.1-1.4); ABSOLUTE NEUT (AUTO) 8.8 10^3/uL (1.7-8.2); BASOPHILS % (AUTO) 0.4 % (0-2); EOSINOPHILS % (AUTO) 2.4 % (0-6); HEMATOCRIT 29.1 % (37.9-51.0); HEMOGLOBIN 9.5 g/dL (13.5-17.0); LYMPHOCYTES % (AUTO) 6.5 % (13-45); MEAN CORPUSCULAR HEMOGLOBIN 27.7 pg (27.0-33.4); MEAN CORPUSCULAR HGB CONC 32.7 g/dL (32.0-36.0); MEAN CORPUSCULAR VOLUME 85 fl (80-97); MONOCYTES % (AUTO) 3.5 % (3-13); PLATELET COUNT 109 10^3/uL (150-450); RED BLOOD COUNT 3.44 10^6/uL (4.35-5.55); RED CELL DISTRIBUTION WIDTH 18.4 % (11.5-14.0); SEGMENTED NEUTROPHILS % (AUTO) 87.2 % (42-78); TOTAL CELLS COUNTED % (AUTO) 100 %; WHITE BLOOD COUNT 10.1 10^3/uL (4.0-10.5)
[2020-02-07 04:42] LABS: PARTIAL THROMBOPLASTIN TIME 74.7 SEC (23.5-35.8)
[2020-02-07 04:43] LABS: D-DIMER 1.76 ug/mL (0.00-0.50)
[2020-02-07 05:10] LABS: ANION GAP 9 (5-19); BLOOD UREA NITROGEN 75 mg/dL (7-20); C-REACTIVE PROTEIN 49.1 mg/L (<10.0); CARBON DIOXIDE 18 mmol/L (22-30); CHLORIDE 117 mmol/L (98-107); GLUCOSE 89 mg/dL (75-110); PHOSPHORUS 5.3 mg/dL (2.5-4.5); POTASSIUM 3.9 mmol/L (3.6-5.0)
[2020-02-07] MEDS: FUROSEMIDE INJ/PF 40 MG/4 ML SDV IV SCH ×3 (05:12→21:20)
[2020-02-07] MEDS: ASCORBIC ACID 500 MG TABLET NG SCH ×3 (05:13→21:21)
[2020-02-07] MEDS: AMINO AC/PROTEIN HYDR/WHEY PRO 11 GM/45 ML PKT NG SCH ×3 (05:13→18:42)
[2020-02-07] MEDS: LABETALOL HCL INJ 20 MG/4 ML DISP.SYRIN IV SCH ×3 (05:14→18:41)
[2020-02-07 05:26] LABS: ARTERIAL BLOOD FIO2 100%
[2020-02-07] MEDS: INSULIN REG, HUMAN 100 UNIT/ML 3 ML VIAL (PYX) SUBCUT SCH ×3 (05:27→17:42)
[2020-02-07] MEDS ORDERED: FUROSEMIDE INJ/PF 40 MG/4 ML SDV IV ONE (06:42)
[2020-02-07] MEDS: NORMAL SALINE 500 ML with ROCURONIUM BROMIDE 500 MG IV PRN ×4 (07:01→14:20)
[2020-02-07] MEDS: BUDESONIDE NEB 0.25 MG/2 ML AMPUL NEB SCH ×2 (08:09→20:26)
[2020-02-07] MEDS ORDERED: SODIUM BICARBONATE 8.4% INJ 50 MEQ/50 ML DISP.SYRIN IV ONE ×2 (08:52→15:33)
[2020-02-07] MEDS ORDERED: DEXTROSE 5%-WATER 1000 ML 1,000 ML with SODIUM BICARBONATE 150 MEQ IV PRN ×2 (08:52)
--- NOTE | 2020-02-07 10:45 | RADIOLOGY REPORT (SQ) ---
EXAM DESCRIPTION: CHEST SINGLE VIEW IMAGES COMPLETED DATE/TIME: 02/07/2020 5:40 am REASON FOR STUDY: ETT tube COMPARISON: 02/04/2020 NUMBER OF VIEWS: One view. TECHNIQUE: Single frontal radiographic image of the chest acquired. LIMITATIONS: None. FINDINGS: LUNGS AND PLEURA: Diffuse bilateral airspace disease not significantly changed. No pneumo thorax. MEDIASTINUM AND HEART: Stable heart size and mediastinal structures. SUPPORT DEVICES: Appropriate location without change. BONY STRUCTURES: No acute findings. HARDWARE: None. OTHER: No other significant finding. IMPRESSION: No significant change. No pneumothorax. Reading location - IP/workstation name: [email or web address]
[2020-02-07] MEDS: PANTOPRAZOLE SODIUM 40 MG VIAL IV SCH (10:52)
[2020-02-07] MEDS: DEXAMETHASONE SOD PHOSPHATE INJ 4 MG/1 ML VIAL IV SCH (10:52)
[2020-02-07] MEDS: CEFEPIME HCL 2 GM in DEXTROSE 5%-WATER 50 ML IV SCH (10:53)
[2020-02-07] MEDS: DOCUSATE SODIUM 100 MG/10 ML UDC PO SCH (10:54)
[2020-02-07] MEDS: MINERAL OIL/PETROLATUM,WHITE OPH OINT 3.5 GM OU PRN ×2 (12:30→23:35)
[2020-02-07 15:13] LABS: ARTERIAL BLOOD BASE EXCESS -13.2 mmol/L; ARTERIAL BLOOD H2CO3 1.45 mmol/L (1.05-1.35); ARTERIAL BLOOD HCO3 15.6 mmol/L (20-24); ARTERIAL BLOOD O2 SATURATION 78.4 % (94-98); ARTERIAL BLOOD PCO2 48.1 mmHg (35-45); ARTERIAL BLOOD PO2 55.3 mmHg (80-100)
[2020-02-07 15:16] LABS: ARTERIAL BLOOD FIO2 100%
[2020-02-07 15:17] LABS: ARTERIAL BLOOD PH 7.13 (7.35-7.45)
[2020-02-07] MEDS: DEXTROSE 5%-WATER 1000 ML 1,000 ML with SODIUM BICARBONATE 150 MEQ IV PRN ×2 (15:54)
[2020-02-07 16:56] LABS: ARTERIAL BLOOD H2CO3 1.49 mmol/L (1.05-1.35); ARTERIAL BLOOD HCO3 20.4 mmol/L (20-24); ARTERIAL BLOOD O2 SATURATION 81.8 % (94-98); ARTERIAL BLOOD PCO2 49.6 mmHg (35-45); ARTERIAL BLOOD PH 7.23 (7.35-7.45); ARTERIAL BLOOD PO2 53.9 mmHg (80-100); ARTERIAL BLOOD TOTAL CO2 21.9 mmol/L (23-27)
[2020-02-07 16:57] LABS: ARTERIAL BLOOD FIO2 100%
[2020-02-07 17:10] LABS: ANION GAP 10 (5-19); BLOOD UREA NITROGEN 82 mg/dL (7-20); CALCIUM 7.7 mg/dL (8.4-10.2); CARBON DIOXIDE 21 mmol/L (22-30); CHLORIDE 115 mmol/L (98-107); GLUCOSE 134 mg/dL (75-110); POTASSIUM 3.7 mmol/L (3.6-5.0)
[2020-02-07] MEDS ORDERED: NITROGLYCERIN 2% OINTMENT 1 GM PACKET ONE (17:48)
[2020-02-07] MEDS ORDERED: NITROGLYCERIN 2% OINTMENT 1 GM PACKET TP ONE (18:30)
[2020-02-07] MEDS: PHARMACY COMMUNICATION ORDER MC SCH (18:40)
--- NOTE | 2020-02-07 18:53 | PDOC CRITICAL CARE PROG REPORT ---
General Date:: 02/07/20 ICU Day:: 23 Ventilator Day:: 22 Hospital Day:: 36 Resuscitation Status: Full Code Events in the past 12 to 24 Hours:: This 49-year-old male presented to [facility] emergency department on 01/03/2020 with known [id number] infection. He had previously presented to an urgent care clinic on 12/27/2019, when he was diagnosed. He had been instructed to stay home and quarantine but presented to the emergency department on 01/01/2020 with increasing dyspnea. He was treated with Decadron and azithromycin. He was discharged home only to return on the following day with increasing shortness of breath, fever (100.1 Fahrenheit) and hypoxia (SPO2 70s on room air). He was admitted and started treatment with BiPAP support. Critical care consultation was sought on 01/16/2020 with worsening hypoxia and tachycardia. He was transferred to the ICU on 01/15. The patient ended up requ iring endotracheal intubation and mechanical ventilator support on the following day. 01/31: In prone position. Per nurse report, the patient is approaching 24 hours in prone position. Neuromuscular blockade with rocuronium. On Versed/Precedex/fentanyl for sedation. Ventilator is noted to be on VC mode, Ti 0.5 seconds, with Ppeak in the 50s. ABG this a.m.: 7.21/48/97 on FiO2 80%, PEEP 15. On cefepime for Serratia pneumonia (01/18). 02/01: No events reported overnight. The patient was proned at the beginning of sheet metal foreman. ABG this a.m.: 7.23/43/135. Creatinine 1.3 this morning. Hemoglobin 7.7>7.3. 02/02: BUN/creatinine continuing to rise, creatinine 1.7 this morning. Hemoglobin stable, 7.3 again this a.m. He was proned at 2000 on sheet metal foreman. CVP obtained in the supine position was reportedly elevated (17). Lasix 20 mg IV administered at 0550. ABG this a.m. 7.16/55/83 on PRVC 30/480/100/10. VT was increased to 500 subsequent to this ABG result. CVP 1415. The patient did have a BM yesterday. 02/03: Spent all morning in prone position. Remains intubated. On PRVC 30/500//. However, after returning to supine position, the patient demonstrated prompt oxygen desaturation, requiring bag mask ventilation. [place] frothy secretions were noted to be produced from the ET tube circuit. Patient's oxygen saturation fell as low as 70%. During this time, the patient became hypertensive and tachycardic. Nonoliguric renal failure, creatinine rising, 1.7> 2.0. Renal ultrasound ordered for this a.m. Hemoglobin 8.2, stable after transfusion of 1 unit PRBC yesterday. Patient's was updated by phone yesterday. She is agreeable to proceeding with tracheostomy, when ventilator settings prove compatible with long-term care via tracheostomy. 02/04: The patient was supinated yesterday afternoon. He was maintained supine throughout the night. I/O over the past 24 hours -2536 mL. proBNP this morning 10,800. Remains intubated. On PRVC . ABG this a.m.: 7.23/44/68. After returning to the supine position, the patient was restarted on rocuronium to decrease work of breathing and metabolic demand. Continues to demonstrate worsening nonoliguric renal failure, creatinine 2.2. Hemoglobin this a.m. 7.6. 02/05: Patient was proned at 0300. proBNP this morning 10,900. Remains intubated. On PRVC . PEEP had to be increased to 12. ABG this a.m.: 7.18/48/80. Got 1 unit PRBC yesterday for hemoglobin 7.6. Hemoglobin 9.6 this a.m. Creatinine 2.4. 02/06: Still on Versed/Precedex/fentanyl/rocuronium overnight, the patient was supinated at 2100; however, sheet metal foreman reports that they returned him to prone position due to oxygen desaturation (SPO2 80s). Now, back in prone position. proBNP this morning 11,100. Remains intubated. On PRVC . ABG this a.m.: 7.20/45/72. Hemoglobin 9.5. Creatinine 2.6. Review of systems relevant to events:: Pulmonary Reason for ICU Addmission:: hypoxia tachycardia, intubated. - Medications: Medications reviewed and adjusted accordingly: Yes Vasopressors:: None Sedation:: Versed/Precedex/fentanyl and rocuronium. Physical Exam Vital Signs: Temp Pulse Resp BP Pulse Ox 98.6 F 102 H 28 H 139/79 H 92 02/07/20 06:00 02/07/20 08:00 02/07/20 10:00 02/07/20 09:19 02/07/20 10:00 Intake & Output 02/06/20 02/07/20 02/08/20 06:59 06:59 06:59 Intake Total 3262 3768 182 Output Total 5075 4375 850 Balance -1813 -607 -668 Weight 121.7 kg 123.1 kg Weight/Height Weight 123.1 kg Height 1.7 m General appearance: PRESENT: no acute distress, morbidly obese, well-developed, well-nourished Head exam: PRESENT: atraumatic, normocephalic Eye exam: PRESENT: conjunctiva pink, periorbital swelling. ABSENT: scleral i cterus Neck exam: ABSENT: carotid bruit, JVD, lymphadenopathy, thyromegaly Respiratory exam: PRESENT: crackles - Bilaterally, rales - Scattered. ABSENT: rhonchi, wheezes Cardiovascular exam: PRESENT: RRR. ABSENT: diastolic murmur, rubs, systolic murmur Gentrourinary exam: PRESENT: indwelling catheter Extremities exam: PRESENT: full ROM, pedal edema, +1 edema. ABSENT: calf tenderness, clubbing Neurological exam: PRESENT: altered Psychiatric exam: ABSENT: agitated, anxious Skin exam: PRESENT: dry, intact, warm, other - Lower abdominal ecchymosis. ABSENT: cyanosis, rash Tubes/Lines: PRESENT: Endotracheal Tube - Insertion 01/16, Central Line - Right IJ (01/16), Other - Orogastric Laboratory/Radiographs Laboratory Results: 02/07/20 04:08 02/07/20 04:08 02/07/20 02/07/20 02/07/20 04:08 04:08 04:08 WBC Cancelled RBC Cancelled Hgb Cancelled Hct Cancelled MCV Cancelled MCH Cancelled MCHC Cancelled RDW Cancelled Plt Count Cancelled Seg Neutrophils % Carbonic Acid 1.34 HCO3/H2CO3 Ratio 12:1 ABG pH 7.20 L* ABG pCO2 44.6 ABG pO2 71.6 L ABG HCO3 16.9 L ABG O2 Saturation 90.6 L ABG Base Excess -10.7 FiO2 100% Sodium 143.6 Potassium 3.9 Chloride 117 H Carbon Dioxide 18 L Anion Gap 9 BUN 75 H Creatinine 2.59 H Est GFR ( Amer) 32 L Glucose 89 Calcium 8.0 L Phosphorus 5.3 H Magnesium 2.0 Ferritin 516.00 H C-Reactive Protein 49.1 H 02/07/20 04:08 WBC 10.1 RBC 3.44 L Hgb 9.5 L Hct 29.1 L MCV 85 MCH 27.7 MCHC 32.7 RDW 18.4 H Plt Count 109 L Seg Neutrophils % 87.2 H Carbonic Acid HCO3/H2CO3 Ratio ABG pH ABG pCO2 ABG pO2 ABG HCO3 ABG O2 Saturation ABG Base Excess FiO2 Sodium Potassium Chloride Carbon Dioxide Anion Gap BUN Creatinine Est GFR ( Amer) Glucose Calcium Phosphorus Magnesium Ferritin C-Reactive Protein 01/06/20 01/16/20 01/17/20 05:11 21:00 05:00 Creatine Kinase 38 L CK-MB (CK-2) Troponin I < 0.012 NT-Pro-B Natriuret Pep 338 H 01/17/20 01/27/20 02/04/20 05:00 15:40 14:20 Creatine Kinase CK-MB (CK-2) 1.63 Troponin I 0.028 < 0.012 NT-Pro-B Natriuret Pep 504 H 9710 H 02/05/20 02/06/20 02/07/20 04:40 03:55 04:08 Creatine Kinase CK-MB (CK-2) Troponin I NT-Pro-B Natriuret Pep 94972 H 46190 H 62985 H Impressions: Chest CT 01/22/20 00:00 IMPRESSION: 1. Extensive pneumomediastinum anteriorly. No pneumothoraces. 2. Extensive subcutaneous air throughout the anterior chest wall, extending into the visualized lower neck, upper back, and left upper extremity. There is also extension of a large amount of air into the anterior extraperitoneal space of the upper abdomen. 3. Interval worsening of bilateral pulmonary opacities, which likely represent COVID-19 pneumonia given the clinical history. KUB X-Ray 01/30/20 00:00 IMPRESSION: The bowel gas pattern is nonobstructive and nonspecific. A nasogastric tube tip is seen overlying the left upper quadrant of the abdomen, projecting at the stomach. There is diffuse subcutaneous emphysema seen at the chest and abdominal wall on the left side. Renal Ultrasound 02/04/20 09:00 IMPRESSION: Normal sonographic appearance of the kidneys. Chest X-Ray 02/07/20 05:00 IMPRESSION: No significant change. No pneumothorax. All labs, radiographs, diagnostic studies and EKGs were personally reviewed: Yes In addition, reports of radiographic and diagnostic studies were read: Yes Assessment and Plan - Diagnosis (1) Acute respiratory failure with hypoxia and hypercapnia Is this a current diagnosis for this admission?: Yes Plan: * This patient is currently on day 22 of mechanical ventilatory support. Clearly, this patient is likely to need percutaneous tracheostomy for pr olonged mechanical ventilatory support. But, the current institution of proning protocol along with high PEEP makes it unwise to pursue tracheostomy at this time. The patient's has decided that she is willing to proceed with tracheostomy as soon as it becomes feasible. * CVP monitoring (in supine position). * PRVC 32/480/100/10, Ti 1 sec. Followup ABG results. On NMB (rocuronium). * Titrate vent settings based on ABG results. * Continue sedation. * Diurese again today. (2) Oxaluria Is this a current diagnosis for this admission?: Yes Plan: * In light of his acute kidney injury, will decrease vitamin C to 1000 mg NG every 8 hours. Consider further decrease. * Also, with his high ventilator settings and uncompensated non-anion gap metabolic acidosis, will initiate low-dose bicarbonate infusion. (3) Normocytic anemia Is this a current diagnosis for this admission?: Yes (4) Acute kidney injury Is this a current diagnosis for this admission?: Yes (5) Pneumonia due to COVID-19 virus Is this a current diagnosis for this admission?: Yes (6) Pneumonia due to Serratia marcescens Is this a current diagnosis for this admission?: Yes (7) HTN (hypertension) Qualifiers: Hypertension type: unspecified Qualified Code(s): I10 - Essential (primary) hypertension Is this a current diagnosis for this admission?: Yes (8) Obesity (BMI 30-39.9) Is this a current diagnosis for this admission?: No (9) Pneumomediastinum Is this a current diagnosis for this admission?: Yes (10) Elevated brain natriuretic peptide (BNP) level Is this a current diagnosis for this admission?: Yes Critical Time Critical Time (minutes): 150 Level of Care: ICU -: 1. The care of a critical patient is a dynamic process. This note is a door to door sales representative synopsis but static in nature. The timeframe for treatments given in order is not necessarily the actual time these treatments may have been done. 2. This patient requires critical care secondary to ongoing requirements for therapy not offered or safe outside the critical care environment. Transfer to a lower level of care will result in altered life or limb morbidity and mortality. 3. Multidisciplinary rounds completed. 4. ABCDE bundle addressed.
[2020-02-07 19:21] LABS: APPEARANCE,URINE CLEAR; BILIRUBIN,URINE NEGATIVE (NEGATIVE); COLOR,URINE STRAW; GLUCOSE, URINE NEGATIVE (NEGATIVE); KETONES,URINE NEGATIVE (NEGATIVE); LEUKOCYTE ESTERASE,URINE NEGATIVE (NEGATIVE); NITRITE,URINE NEGATIVE (NEGATIVE); PROTEIN,URINE 30 mg/dL (NEGATIVE); URINE SPECIFIC GRAVITY 1.009; UROBILINOGEN,URINE NEGATIVE mg/dL (<2.0)
--- NOTE | 2020-02-07 20:24 | RADIOLOGY REPORT (SQ) ---
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 Comparison: Chest radiograph performed 02/07/2020. Findings: The cardiomediastinal silhouette is enlarged. There are increasing bilateral airspace opacities with interstitial and central vascular prominence. No pneumothorax is seen. There is blunting of both costophrenic angles, suggestive of trace effusions. An endotracheal tube tip projects approximately 3.1 cm above the chris. There is obscuration of the right hemidiaphragm, likely due to overlying airspace opacities and/or effusions. The nasogastric tube traverses below the left hemidiaphragm. The tip is not seen on this examination. There is elevation of the right hemidiaphragm. The previously seen right internal jugular line is no longer apparent. Impression: There are increasing bilateral airspace opacities with interstitial and central vascular prominence.
[2020-02-08] MEDS: AMINO AC/PROTEIN HYDR/WHEY PRO 11 GM/45 ML PKT NG SCH ×4 (00:32→17:26)
[2020-02-08] MEDS: LABETALOL HCL INJ 20 MG/4 ML DISP.SYRIN IV SCH ×6 (00:32→23:52)
[2020-02-08] MEDS: INSULIN REG, HUMAN 100 UNIT/ML 3 ML VIAL (PYX) SUBCUT SCH ×4 (00:32→17:26)
[2020-02-08] MEDS: ARGATROBAN 250 MG/NS 250 ML (NON-ESRD) IV PRN ×4 (00:35→16:29)
[2020-02-08] MEDS: DEXMEDETOMIDINE IN 0.9 % NACL 400 MCG/100 ML RTUPB IV PRN ×9 (00:37→21:30)
[2020-02-08] MEDS: ALBUTEROL SULFATE 0.083% NEB 2.5 MG/3 ML AMPUL NEB SCH ×4 (02:15→19:51)
[2020-02-08] MEDS: FENTANYL CITRATE/PF 600 MCG/60 ML BAG IV PRN ×8 (03:15→23:43)
[2020-02-08] MEDS: NORMAL SALINE 500 ML with ROCURONIUM BROMIDE 500 MG IV PRN ×2 (03:54)
[2020-02-08 04:16] LABS: HEMATOCRIT 29.7 % (37.9-51.0); HEMOGLOBIN 9.6 g/dL (13.5-17.0); MEAN CORPUSCULAR HEMOGLOBIN 27.6 pg (27.0-33.4); MEAN CORPUSCULAR HGB CONC 32.3 g/dL (32.0-36.0); MEAN CORPUSCULAR VOLUME 85 fl (80-97); PLATELET COUNT 121 10^3/uL (150-450); RED BLOOD COUNT 3.47 10^6/uL (4.35-5.55); RED CELL DISTRIBUTION WIDTH 18.5 % (11.5-14.0); WHITE BLOOD COUNT 11.9 10^3/uL (4.0-10.5)
[2020-02-08 04:28] LABS: ALBUMIN 2.6 g/dL (3.5-5.0); ALKALINE PHOSPHATASE 68 U/L (38-126); ANION GAP 9 (5-19); ASPARTATE AMINO TRANSFERASE 38 U/L (17-59); BILIRUBIN,DIRECT 0.4 mg/dL (0.0-0.4); BILIRUBIN,TOTAL 0.6 mg/dL (0.2-1.3); BLOOD UREA NITROGEN 83 mg/dL (7-20); CALCIUM 7.7 mg/dL (8.4-10.2); CARBON DIOXIDE 23 mmol/L (22-30); CHLORIDE 114 mmol/L (98-107); GLUCOSE 124 mg/dL (75-110); PHOSPHORUS 6.4 mg/dL (2.5-4.5); POTASSIUM 3.9 mmol/L (3.6-5.0)
[2020-02-08 04:35] LABS: PREALBUMIN 15.1 mg/dL (17.6-36.0)
[2020-02-08 04:39] LABS: ABSOLUTE MONOCYTES # (MANUAL) 0.6 10^3/uL (0.1-1.4); BASOPHILS % (MANUAL) 0 % (0-2); EOSINOPHILS % (MANUAL) 1 % (0-6); LYMPHOCYTES % (MANUAL) 8 % (13-45); MONOCYTES % (MANUAL) 5 % (3-13); SEGMENTED NEUTROPHILS % (MAN) 86 % (42-78); TOTAL CELLS COUNTED 100
[2020-02-08 04:40] LABS: PLATELET COMMENT DECREASED
[2020-02-08 04:41] LABS: ANISOCYTOSIS 2+
[2020-02-08 04:42] LABS: POLYCHROMASIA SLIGHT
[2020-02-08 04:43] LABS: OVALOCYTES SLIGHT
[2020-02-08 05:13] LABS: ARTERIAL BLOOD H2CO3 1.99 mmol/L (1.05-1.35); ARTERIAL BLOOD HCO3 20.7 mmol/L (20-24); ARTERIAL BLOOD O2 SATURATION 93.7 % (94-98); ARTERIAL BLOOD PO2 91.3 mmHg (80-100); ARTERIAL BLOOD TOTAL CO2 22.7 mmol/L (23-27)
[2020-02-08 05:15] LABS: ARTERIAL BLOOD FIO2 100%; ARTERIAL BLOOD PH 7.11 (7.35-7.45)
[2020-02-08] MEDS: DEXTROSE 5%-WATER 1000 ML 1,000 ML with SODIUM BICARBONATE 150 MEQ IV PRN ×4 (05:28→22:10)
[2020-02-08] MEDS: MIDAZOLAM HCL 50 MG/100 ML RTUINJ IV PRN ×4 (05:38→21:30)
[2020-02-08] MEDS: MINERAL OIL/PETROLATUM,WHITE OPH OINT 3.5 GM OU PRN (05:41)
[2020-02-08] MEDS: FUROSEMIDE INJ/PF 40 MG/4 ML SDV IV SCH ×3 (06:07→17:26)
[2020-02-08] MEDS ORDERED: FUROSEMIDE INJ/PF 40 MG/4 ML SDV IV ONE (06:15)
[2020-02-08] MEDS: ASCORBIC ACID 500 MG TABLET NG SCH ×3 (06:17→22:18)
[2020-02-08] MEDS: BUDESONIDE NEB 0.25 MG/2 ML AMPUL NEB SCH ×2 (08:22→19:51)
--- NOTE | 2020-02-08 08:59 | PDOC CRITICAL CARE PROG REPORT ---
General Date:: 02/08/20 ICU Day:: 22 Ventilator Day:: 22 Hospital Day:: 37 Resuscitation Status: Full Code Events in the past 12 to 24 Hours:: This 49-year-old male presented to [facility] emergency department on 01/03/2020 with known [id number] infection. He had previously presented to an urgent care clinic on 12/27/2019, when he was diagnosed. He had been instructed to stay home and quarantine but presented to the emergency department on 01/01/2020 with increasing dyspnea. He was treated with Decadron and azithromycin. He was discharged home only to return on the following day with increasing shortness of breath, fever (100.1 Fahrenheit) and hypoxia (SPO2 70s on room air). He was admitted and started treatment with BiPAP support. Critical care consultation was sought on 01/16/2020 with worsening hypoxia and tachycardia. He was transferred to the ICU on 01/15. The patient ended up requ iring endotracheal intubation and mechanical ventilator support on the following day. 01/31: In prone position. Per nurse report, the patient is approaching 24 hours in prone position. Neuromuscular blockade with rocuronium. On Versed/Precedex/fentanyl for sedation. Ventilator is noted to be on VC mode, Ti 0.5 seconds, with Ppeak in the 50s. ABG this a.m.: 7.21/48/97 on FiO2 80%, PEEP 15. On cefepime for Serratia pneumonia (01/18). 02/01: No events reported overnight. The patient was proned at the beginning of manufacturing shift supervisor. ABG this a.m.: 7.23/43/135. Creatinine 1.3 this morning. Hemoglobin 7.7>7.3. 02/02: BUN/creatinine continuing to rise, creatinine 1.7 this morning. Hemoglobin stable, 7.3 again this a.m. He was proned at 2000 on manufacturing shift supervisor. CVP obtained in the supine position was reportedly elevated (17). Lasix 20 mg IV administered at 0550. ABG this a.m. 7.16/55/83 on PRVC 30/480/100/10. VT was increased to 500 subsequent to this ABG result. CVP 1415. The patient did have a BM yesterday. 02/03: Spent all morning in prone position. Remains intubated. On PRVC 30/500/100/10. However, after returning to supine position, the patient demonstrated prompt oxygen desaturation, requiring bag mask ventilation. [place] frothy secretions were noted to be produced from the ET tube circuit. Patient's oxygen saturation fell as low as 70%. During this time, the patient became hypertensive and tachycardic. Nonoliguric renal failure, creatinine rising, 1.7> 2.0. Renal ultrasound ordered for this a.m. Hemoglobin 8.2, stable after transfusion of 1 unit PRBC yesterday. Patient's was updated by phone yesterday. She is agreeable to proceeding with tracheostomy, when ventilator settings prove compatible with long-term care via tracheostomy. 02/04: The patient was supinated yesterday afternoon. He was maintained supine throughout the night. I/O over the past 24 hours -2536 mL. proBNP this morning 10,800. Remains intubated. On PRVC . ABG this a.m.: 7.23/44/68. After returning to the supine position, the patient was restarted on rocuronium to decrease work of breathing and metabolic demand. Continues to demonstrate worsening nonoliguric renal failure, creatinine 2.2. Hemoglobin this a.m. 7.6. 5: Patient was proned at 0300. proBNP this morning 10,900. Remains intubated. On PRVC . PEEP had to be increased to 12. ABG this a.m.: 7.18/48/80. Got 1 unit PRBC yesterday for hemoglobin 7.6. Hemoglobin 9.6 this a.m. Creatinine 2.4. 02/06: Still on Versed/Precedex/fentanyl/rocuronium overnight, the patient was supinated at 2100; however, manufacturing shift supervisor reports that they returned him to prone position due to oxygen desaturation (SPO2 80s). Now, back in prone position. proBNP this morning 11,100. Remains intubated. On PRVC . ABG this a.m.: 7.20/45/72. Hemoglobin 9.5. Creatinine 2.6. 02/07: Proned still. Oxygenation improved. I/O still positive. Lasix increased. Cr 2.7. PH still low. Supinate at 1PM. Review of systems relevant to events:: Pulmonary Reason for ICU Addmission:: hypoxia tachycardia, intubated. - Medications: Medications reviewed and adjusted accordingly: Yes Vasopressors:: None Sedation:: Fentanyl, versed, precedex Physical Exam Vital Signs: Temp Pulse Resp BP Pulse Ox 99.5 F 101 H 12 99/50 L 96 02/08/20 05:52 02/08/20 07:52 02/08/20 08:23 02/08/20 08:23 02/08/20 08:23 Intake & Output 02/07/20 02/08/20 02/09/20 06:59 06:59 06:59 Intake Total 3768 3751 93 Output Total 4375 3705 225 Balance -607 46 -132 Weight 123.1 kg 121 kg Weight/Height Weight 121 kg Height 5 ft 7 in General appearance: PRESENT: no acute distress, well-developed, well-nourished Head exam: PRESENT: atraumatic, normocephalic Eye exam: PRESENT: conjunctiva pink, other - No pressure on eyes.. ABSENT: scleral icterus Ear exam: PRESENT: normal external ear exam Mouth exam: PRESENT: moist, tongue midline Neck exam: ABSENT: carotid bruit, JVD, lymphadenopathy, thyromegaly Respiratory exam: PRESENT: clear to auscultation deepali. ABSENT: rales, rhonchi, wheezes Cardiovascular exam: PRESENT: RRR, tachycardia. ABSENT: diastolic murmur, rubs, systolic murmur GI/Abdominal exam: PRESENT: normal bowel sounds, soft. ABSENT: distended, guarding, mass, organolmegaly, rebound, tenderness Rectal exam: PRESENT: deferred Gentrourinary exam: PRESENT: indwelling catheter Extremities exam: PRESENT: full ROM, +2 edema. ABSENT: calf tenderness, clubbing, pedal edema Musculoskeletal exam: PRESENT: normal inspection Neurological exam: PRESENT: other - Heavily sedated and on rocuronium. Skin exam: PRESENT: dry, intact, warm. ABSENT: cyanosis, rash Tubes/Lines: PRESENT: Endotracheal Tube, Central Line, Nasogastic Tube Laboratory/Radiographs Laboratory Results: 02/08/20 03:15 02/08/20 03:15 02/07/20 02/07/20 02/07/20 15:00 16:43 16:43 WBC RBC Hgb Hct MCV MCH MCHC RDW Plt Count Seg Neutrophils % Carbonic Acid 1.45 H 1.49 H HCO3/H2CO3 Ratio 10:1 13:1 ABG pH 7.13 L* 7.23 L ABG pCO2 48.1 H 49.6 H ABG pO2 55.3 L 53.9 L ABG HCO3 15.6 L 20.4 ABG O2 Saturation 78.4 L 81.8 L ABG Base Excess -13.2 -7.0 FiO2 100% 100% Sodium 145.6 H Potassium 3.7 Chloride 115 H Carbon Dioxide 21 L Anion Gap 10 BUN 82 H Creatinine 2.43 H Est GFR ( Amer) 34 L Glucose 134 H Calcium 7.7 L Phosphorus Magnesium 2.0 Total Bilirubin AST Alkaline Phosphatase Total Protein Albumin Prealbumin Urine Color Urine Appearance Urine pH Ur Specific [place] Urine Protein Urine Glucose (UA) Urine Ketones Urine Blood Urine Nitrite Ur Leukocyte Esterase Urine WBC (Auto) Urine RBC (Auto) 02/07/20 02/08/20 02/08/20 16:43 03:15 03:15 WBC 11.9 H RBC 3.47 L Hgb 9.6 L Hct 29.7 L MCV 85 MCH 27.6 MCHC 32.3 RDW 18.5 H Plt Count 121 L Seg Neutrophils % Not Reportable Carbonic Acid HCO3/H2CO3 Ratio ABG pH ABG pCO2 ABG pO2 ABG HCO3 ABG O2 Saturation ABG Base Excess FiO2 Sodium 145.6 H Potassium 3.9 Chloride 114 H Carbon Dioxide 23 Anion Gap 9 BUN 83 H Creatinine 2.71 H Est GFR ( Amer) 30 L Glucose 124 H Calcium 7.7 L Phosphorus 6.4 H Magnesium 2.0 Total Bilirubin 0.6 AST 38 Alkaline Phosphatase 68 Total Protein 5.0 L Albumin 2.6 L Prealbumin 15.1 L Urine Color STRAW Urine Appearance CLEAR Urine pH 5.0 Ur Specific [place] 1.009 Urine Protein 30 H Urine Glucose (UA) NEGATIVE Urine Ketones NEGATIVE Urine Blood LARGE H Urine Nitrite NEGATIVE Ur Leukocyte Esterase NEGATIVE Urine WBC (Auto) 1 Urine RBC (Auto) 02/08/20 05:00 WBC RBC Hgb Hct MCV MCH MCHC RDW Plt Count Seg Neutrophils % Carbonic Acid 1.99 H HCO3/H2CO3 Ratio 10:1 ABG pH 7.11 L* ABG pCO2 66.0 H ABG pO2 91.3 ABG HCO3 20.7 ABG O2 Saturation 93.7 L ABG Base Excess -9.0 FiO2 100% Sodium Potassium Chloride Carbon Dioxide Anion Gap BUN Creatinine Est GFR ( Amer) Glucose Calcium Phosphorus Magnesium Total Bilirubin AST Alkaline Phosphatase Total Protein Albumin Prealbumin Urine Color Urine Appearance Urine pH Ur Specific [place] Urine Protein Urine Glucose (UA) Urine Ketones Urine Blood Urine Nitrite Ur Leukocyte Esterase Urine WBC (Auto) Urine RBC (Auto) 01/06/20 01/16/20 01/17/20 05:11 21:00 05:00 Creatine Kinase 38 L CK-MB (CK-2) Troponin I < 0.012 NT-Pro-B Natriuret Pep 338 H 01/17/20 01/27/20 02/04/20 05:00 15:40 14:20 Creatine Kinase CK-MB (CK-2) 1.63 Troponin I 0.028 < 0.012 NT-Pro-B Natriuret Pep 504 H 9710 H 02/05/20 02/06/20 02/07/20 04:40 03:55 04:08 Creatine Kinase CK-MB (CK-2) Troponin I NT-Pro-B Natriuret Pep 10161 H 68083 H 90179 H 02/08/20 03:15 Creatine Kinase CK-MB (CK-2) Troponin I NT-Pro-B Natriuret Pep 03543 H Impressions: Chest CT 01/22/20 00:00 IMPRESSION: 1. Extensive pneumomediastinum anteriorly. No pneumothoraces. 2. Extensive subcutaneous air throughout the anterior chest wall, extending into the visualized lower neck, upper back, and left upper extremity. There is also extension of a large amount of air into the anterior extraperitoneal space of the upper abdomen. 3. Interval worsening of bilateral pulmonary opacities, which likely represent COVID-19 pneumonia given the clinical history. KUB X-Ray 01/30/20 00:00 IMPRESSION: The bowel gas pattern is nonobstructive and nonspecific. A nasogastric tube tip is seen overlying the left upper quadrant of the abdomen, projecting at the stomach. There is diffuse subcutaneous emphysema seen at the chest and abdominal wall on the left side. Renal Ultrasound 02/04/20 09:00 IMPRESSION: Normal sonographic appearance of the kidneys. All labs, radiographs, diagnostic studies and EKGs were personally reviewed: Yes In addition, reports of radiographic and diagnostic studies were read: Yes Assessment and Plan - Diagnosis (1) Acute respiratory failure with hypoxia Is this a current diagnosis for this admission?: Yes Plan: PO2 improving slightly. Will need to reassess when supinated. No changes on vent yet. (2) Pneumonia due to COVID-19 virus Is this a current diagnosis for this admission?: Yes Plan: Still active, but he is also volume overloaded. Lasix increased (3) Anemia Qualifiers: Anemia type: other cause Other causes of anemia: other cause, not classified Qualified Code(s): D64.89 - Other specified anemias Is this a current diagnosis for this admission?: Yes Plan: Stable (4) Acute kidney injury Is this a current diagnosis for this admission?: Yes Plan: At this time it may be beneficial to ask for nephrology input. Acidosis and volume overload seem to merit this. Plan Summary: Nephrology consult. Small changes on vent if tolerated when supine. Continue with tube feeds. Critical Time Critical Time (minutes): 35 Level of Care: ICU Anticipated discharge: Home with Homehealth Anticipated DC Timeframe: Other -: 1. The care of a critical patient is a dynamic process. This note is a credit resolution representative synopsis but static in nature. The timeframe for treatments given in order is not necessarily the actual time these treatments may have been done. 2. This patient requires critical care secondary to ongoing requirements for therapy not offered or safe outside the critical care environment. Transfer to a lower level of care will result in altered life or limb morbidity and mortality. 3. Multidisciplinary rounds completed. 4. ABCDE bundle addressed.
[2020-02-08] MEDS: CEFEPIME HCL 2 GM in DEXTROSE 5%-WATER 50 ML IV SCH (09:18)
[2020-02-08] MEDS: PANTOPRAZOLE SODIUM 40 MG VIAL IV SCH (09:19)
[2020-02-08] MEDS: DEXAMETHASONE SOD PHOSPHATE INJ 4 MG/1 ML VIAL IV SCH (09:20)
[2020-02-08] MEDS: DOCUSATE SODIUM 100 MG/10 ML UDC PO SCH (09:20)
--- NOTE | 2020-02-08 16:45 | PDOC CONSULTATION ---
Consultation Consult Date: 02/08/20 Provider Consulted: CHYNA SPARROW Consult reason:: ARIELLA History of Present Illness Admission Date/PCP: 01/03/20 12:56 History of Present Illness: ZI ALLEN is a 49 year old gentleman who has no known significant past medical history admitted initially on 01/03/2020 due to worsening shortness of breath. He tested positive for COVID-19 on 12/27/2019 at an urgent care. He was initially admitted in the floor but then turn for the worse and transferred to the ICU on 01/16/2020. He has been intubated on prone alternating supine position. He has been treated with remdesivir, zinc, still on Decadron and vitamin C along with antibiotics including ceftriaxone and currently on cefepime. He remains to be mechanically ventilated and sedated. He does not appear to be on vasopressors and blood pressure has been acceptable. In terms of his kidney function he had a creatinine of 0.85 on 02/01/2020 then subsequently increased to 1.28 on 02/02/2020. Creatinine continues to get worse every day and today he has a creatinine of 2.71 and BUN of 83. His urinalysis is pretty diluted with specific gravity 1.009, protein of 30, large blood and RBC of 20 and a Hendrickson catheter specimen. Previous urinalysis also showed calcium oxalate crystals, too numerous to count with increased ascorbic acid. He is nonoliguric and has been passing a good amount of urine output anywhere between 3 to 5 L daily. He is being given furosemide initially at 40 mg IV every 8 hours and has been increased today to 80 mg IV every 12 hours. He was also acidotic and so he is being given sodium bicarbonate drip. Currently his bicarbonate and potassium are within acceptable limits. His BNP remains elevated at 13,000 today. He clinically has anasarca. He had a renal ultrasound on 02/04/2020 which shows normal-sized kidney is pretty unremarkable. His chest x-ray yesterday showed increasing bilateral airspace opacities with interstitial and central vascular prominence. He remains to require an FiO2 of 100%. Past Medical History Medical History: None Past Surgical History Past Surgical History: Reports: None Social History Information Source: [facility] Records Lives with: Family Smoking Status: Never Smoker Electronic Cigarette use?: No Frequency of Alcohol Use: None Hx Recreational Drug Use: No Drugs: None Hx Prescription Drug Abuse: No - Advance Directive Resuscitation Status: Full Code Family History Family History: Unobtainable at this time since the patient is intubated and sedated. Parental Family History Reviewed: No Children Family History Reviewed: No Sibling(s) Family History Reviewed.: No Medication/Allergy Home Medications: Azithromycin [Zithromax 250 mg Tablet] 250 mg PO DAILY 4 Days #4 tablet 01/02/20 Dexamethasone [Decadron 4 Mg Tablet] 6 mg PO DAILY #8 tablet 01/02/20 Allergies/Adverse Reactions: No Known Allergies Allergy (Unverified 01/03/20 12:03) Review of Systems ROS unobtainable: Due to endotracheal tube, Due to mental status Physical Exam Vital Signs: Temp Pulse Resp BP Pulse Ox 99.5 F 103 H 0 L 130/75 H 84 L 02/08/20 05:52 02/08/20 08:22 02/08/20 14:23 02/08/20 14:23 02/08/20 14:23 Intake & Output 02/07/20 02/08/20 02/09/20 06:59 06:59 06:59 Intake Total 3768 3751 1102 Output Total 4375 3705 1025 Balance -607 46 77 Weight 123.1 kg 121 kg Exam: General appearance: Currently intubated and sedated Head exam: PRESENT: atraumatic, normocephalic Eye exam: PRESENT: Eyes are closed with obvious periorbital edema from prone positioning Mouth exam: PRESENT: ET tube in place Neck exam: PRESENT: Grossly normal Respiratory exam: PRESENT: Diminished to auscultation bilaterally. ABSENT: rales, rhonchi, stridor, wheezes Cardiovascular exam: PRESENT: RRR, +S1, +S2. ABSENT: systolic murmur Pulses: PRESENT: normal radial pulses, normal dorsalis pedis pulses GI/Abdominal exam: PRESENT: normal bowel sounds, soft. ABSENT: guarding, mass, tenderness Rectal exam: Deferred Extremities exam: PRESENT: full ROM. Positive anasarca with bilateral upper and lower extremities pitting grade 2 edema ABSENT: calf tenderness Musculoskeletal: PRESENT: full ROM. ABSENT: deformity Neurological exam: PRESENT: Sedated Psychiatric exam: PRESENT: Cannot be assessed at this time Skin exam: PRESENT: intact, dry, warm. Positive pallor ABSENT: rash Results Laboratory Results: 02/08/20 03:15 02/08/20 03:15 02/07/20 02/07/20 02/07/20 15:00 16:43 16:43 WBC RBC Hgb Hct MCV MCH MCHC RDW Plt Count Seg Neutrophils % Carbonic Acid 1.45 H 1.49 H HCO3/H2CO3 Ratio 10:1 13:1 ABG pH 7.13 L* 7.23 L ABG pCO2 48.1 H 49.6 H ABG pO2 55.3 L 53.9 L ABG HCO3 15.6 L 20.4 ABG O2 Saturation 78.4 L 81.8 L ABG Base Excess -13.2 -7.0 FiO2 100% 100% Sodium 145.6 H Potassium 3.7 Chloride 115 H Carbon Dioxide 21 L Anion Gap 10 BUN 82 H Creatinine 2.43 H Est GFR ( Amer) 34 L Glucose 134 H Calcium 7.7 L Phosphorus Magnesium 2.0 Total Bilirubin AST Alkaline Phosphatase Total Protein Albumin Prealbumin Urine Color Urine Appearance Urine pH Ur Specific [place] Urine Protein Urine Glucose (UA) Urine Ketones Urine Blood Urine Nitrite Ur Leukocyte Esterase Urine WBC (Auto) Urine RBC (Auto) 02/07/20 02/08/20 02/08/20 16:43 03:15 03:15 WBC 11.9 H RBC 3.47 L Hgb 9.6 L Hct 29.7 L MCV 85 MCH 27.6 MCHC 32.3 RDW 18.5 H Plt Count 121 L Seg Neutrophils % Not Reportable Carbonic Acid HCO3/H2CO3 Ratio ABG pH ABG pCO2 ABG pO2 ABG HCO3 ABG O2 Saturation ABG Base Excess FiO2 Sodium 145.6 H Potassium 3.9 Chloride 114 H Carbon Dioxide 23 Anion Gap 9 BUN 83 H Creatinine 2.71 H Est GFR ( Amer) 30 L Glucose 124 H Calcium 7.7 L Phosphorus 6.4 H Magnesium 2.0 Total Bilirubin 0.6 AST 38 Alkaline Phosphatase 68 Total Protein 5.0 L Albumin 2.6 L Prealbumin 15.1 L Urine Color STRAW Urine Appearance CLEAR Urine pH 5.0 Ur Specific [place] 1.009 Urine Protein 30 H Urine Glucose (UA) NEGATIVE Urine Ketones NEGATIVE Urine Blood LARGE H Urine Nitrite NEGATIVE Ur Leukocyte Esterase NEGATIVE Urine WBC (Auto) 1 Urine RBC (Auto) 02/08/20 05:00 WBC RBC Hgb Hct MCV MCH MCHC RDW Plt Count Seg Neutrophils % Carbonic Acid 1.99 H HCO3/H2CO3 Ratio 10:1 ABG pH 7.11 L* ABG pCO2 66.0 H ABG pO2 91.3 ABG HCO3 20.7 ABG O2 Saturation 93.7 L ABG Base Excess -9.0 FiO2 100% Sodium Potassium Chloride Carbon Dioxide Anion Gap BUN Creatinine Est GFR ( Amer) Glucose Calcium Phosphorus Magnesium Total Bilirubin AST Alkaline Phosphatase Total Protein Albumin Prealbumin Urine Color Urine Appearance Urine pH Ur Specific [place] Urine Protein Urine Glucose (UA) Urine Ketones Urine Blood Urine Nitrite Ur Leukocyte Esterase Urine WBC (Auto) Urine RBC (Auto) 01/06/20 01/16/20 01/17/20 05:11 21:00 05:00 Creatine Kinase 38 L CK-MB (CK-2) Troponin I < 0.012 NT-Pro-B Natriuret Pep 338 H 01/17/20 01/27/20 02/04/20 05:00 15:40 14:20 Creatine Kinase CK-MB (CK-2) 1.63 Troponin I 0.028 < 0.012 NT-Pro-B Natriuret Pep 504 H 9710 H 02/05/20 02/06/20 02/07/20 04:40 03:55 04:08 Creatine Kinase CK-MB (CK-2) Troponin I NT-Pro-B Natriuret Pep 87125 H 86211 H 59775 H 02/08/20 03:15 Creatine Kinase CK-MB (CK-2) Troponin I NT-Pro-B Natriuret Pep 85315 H Impressions: Chest CT 01/22/20 00:00 IMPRESSION: 1. Extensive pneumomediastinum anteriorly. No pneumothoraces. 2. Extensive subcutaneous air throughout the anterior chest wall, extending into the visualized lower neck, upper back, and left upper extremity. There is also extension of a large amount of air into the anterior extraperitoneal space of the upper abdomen. 3. Interval worsening of bilateral pulmonary opacities, which likely represent COVID-19 pneumonia given the clinical history. KUB X-Ray 01/30/20 00:00 IMPRESSION: The bowel gas pattern is nonobstructive and nonspecific. A nasogastric tube tip is seen overlying the left upper quadrant of the abdomen, projecting at the stomach. There is diffuse subcutaneous emphysema seen at the chest and abdominal wall on the left side. Renal Ultrasound 02/04/20 09:00 IMPRESSION: Normal sonographic appearance of the kidneys. Assessment & Plan - Diagnosis (1) Acute kidney injury Is this a current diagnosis for this admission?: Yes Plan: Nonoliguric. Normal baseline kidney function. This is most likely secondary to COVID-19 infection affecting the kidneys versus acute oxalate nephropathy due to hyperoxaluria with treatment of vitamin C. Agree with continuation of IV diuresis. At this time there is no indication for renal replacement therapy but if the patient continues to be having pulmonary congestion despite IV diuretics and current urine output, he might need to initiate renal replacement therapy. Continue to monitor kidney function and electrolytes. Avoid nephrotoxic medications. Discussed with Dr. Alicia. (2) Acute respiratory failure with hypoxia and hypercapnia Is this a current diagnosis for this admission?: Yes Plan: On mechanical ventilation with FiO2 of 100%. Per roll hand. (3) Anemia Qualifiers: Anemia type: other cause Other causes of anemia: other cause, not classified Qualified Code(s): D64.89 - Other specified anemias Is this a current diagnosis for this admission?: Yes (4) Pneumonia due to COVID-19 virus Is this a current diagnosis for this admission?: Yes Plan: On cefepime, Decadron and reduced dose of vitamin C. Previously treated with remdesivir and zinc. (5) Anasarca Is this a current diagnosis for this admission?: Yes Plan: Continue current IV furosemide. (6) Metabolic acidosis Is this a current diagnosis for this admission?: Yes Plan: Controlled with bicarbonate drip. Continue the same. (7) Oxaluria Is this a current diagnosis for this admission?: Yes Plan: Calcium oxalate crystals are in the urine. Also with ascorbic acid in the urine which finally turned negative but reduction of dose of vitamin C. - Notes Notes: Discussed with Dr. Alicia. Thank you very much for this consultation. We will follow with you.
[2020-02-08] MEDS: PHARMACY COMMUNICATION ORDER MC SCH (17:04)
[2020-02-08] MEDS: DEXMEDETOMIDINE IN NS 400 MCG/100 ML RTUPB IV PRN (21:50)
[2020-02-08] MEDS ORDERED: FUROSEMIDE INJ/PF 40 MG/4 ML SDV ONE (22:00)
[2020-02-08] MEDS ORDERED: FUROSEMIDE INJ/PF 20 MG/2 ML SDV IV ONE (22:18)
[2020-02-08] MEDS ORDERED: ALBUMIN HUMAN 12.5 GM/50 ML RTUINJ IV ONE (22:19)
[2020-02-08 22:27] LABS: ARTERIAL BLOOD BASE EXCESS -6.9 mmol/L; ARTERIAL BLOOD H2CO3 2.05 mmol/L (1.05-1.35); ARTERIAL BLOOD HCO3 22.6 mmol/L (20-24); ARTERIAL BLOOD O2 SATURATION 94.1 % (94-98); ARTERIAL BLOOD PCO2 68.1 mmHg (35-45); ARTERIAL BLOOD PO2 91.6 mmHg (80-100); ARTERIAL BLOOD TOTAL CO2 24.6 mmol/L (23-27)
[2020-02-08 22:29] LABS: ARTERIAL BLOOD FIO2 100%
[2020-02-08 22:30] LABS: ARTERIAL BLOOD PH 7.14 (7.35-7.45)
[2020-02-09] MEDS: INSULIN REG, HUMAN 100 UNIT/ML 3 ML VIAL (PYX) SUBCUT SCH ×4 (00:44→17:34)
[2020-02-09] MEDS: AMINO AC/PROTEIN HYDR/WHEY PRO 11 GM/45 ML PKT NG SCH ×4 (00:45→17:34)
[2020-02-09] MEDS: DEXMEDETOMIDINE IN NS 400 MCG/100 ML RTUPB IV PRN (00:46)
[2020-02-09] MEDS ORDERED: BUMETANIDE INJ/PF 1 MG/4 ML SDV IV ONE (02:00)
[2020-02-09] MEDS ORDERED: ALBUMIN HUMAN 12.5 GM/50 ML RTUINJ IV ONE (02:00)
[2020-02-09] MEDS: ALBUTEROL SULFATE 0.083% NEB 2.5 MG/3 ML AMPUL NEB SCH ×4 (02:21→21:11)
[2020-02-09] MEDS ORDERED: ATROPINE SULFATE INJ 1 MG/1 ML VIAL ONE (02:31)
[2020-02-09] MEDS ORDERED: SODIUM BICARBONATE 8.4% INJ 50 MEQ/50 ML DISP.SYRIN ONE (02:32)
[2020-02-09] MEDS: FENTANYL CITRATE/PF 600 MCG/60 ML BAG IV PRN ×8 (02:45→23:25)
[2020-02-09] MEDS: LABETALOL HCL INJ 20 MG/4 ML DISP.SYRIN IV SCH ×3 (05:22→17:34)
[2020-02-09 05:57] LABS: ABSOLUTE EOSINOPHILS # (AUTO) 0.3 10^3/uL (0.0-0.6); ABSOLUTE LYMPHOCYTES (AUTO) 1.2 10^3/uL (0.5-4.7); ABSOLUTE MONOCYTES (AUTO) 0.4 10^3/uL (0.1-1.4); ABSOLUTE NEUT (AUTO) 9.7 10^3/uL (1.7-8.2); BASOPHILS % (AUTO) 0.4 % (0-2); EOSINOPHILS % (AUTO) 2.8 % (0-6); HEMATOCRIT 27.9 % (37.9-51.0); LYMPHOCYTES % (AUTO) 10.1 % (13-45); MEAN CORPUSCULAR HEMOGLOBIN 27.8 pg (27.0-33.4); MEAN CORPUSCULAR HGB CONC 32.3 g/dL (32.0-36.0); MEAN CORPUSCULAR VOLUME 86 fl (80-97); MONOCYTES % (AUTO) 3.4 % (3-13); PLATELET COUNT 130 10^3/uL (150-450); RED BLOOD COUNT 3.25 10^6/uL (4.35-5.55); RED CELL DISTRIBUTION WIDTH 19.1 % (11.5-14.0); SEGMENTED NEUTROPHILS % (AUTO) 83.3 % (42-78); TOTAL CELLS COUNTED % (AUTO) 100 %; WHITE BLOOD COUNT 11.6 10^3/uL (4.0-10.5)
[2020-02-09] MEDS: ASCORBIC ACID 500 MG TABLET NG SCH ×3 (05:59→22:50)
[2020-02-09 06:03] LABS: ARTERIAL BLOOD BASE EXCESS -8.7 mmol/L; ARTERIAL BLOOD H2CO3 1.84 mmol/L (1.05-1.35); ARTERIAL BLOOD HCO3 20.5 mmol/L (20-24); ARTERIAL BLOOD O2 SATURATION 95.2 % (94-98); ARTERIAL BLOOD PCO2 61.2 mmHg (35-45); ARTERIAL BLOOD PO2 97.8 mmHg (80-100); ARTERIAL BLOOD TOTAL CO2 22.3 mmol/L (23-27)
[2020-02-09 06:04] LABS: ARTERIAL BLOOD FIO2 100%
[2020-02-09 06:05] LABS: ARTERIAL BLOOD PH 7.14 (7.35-7.45)
[2020-02-09 06:33] LABS: ANION GAP 9 (5-19); BLOOD UREA NITROGEN 89 mg/dL (7-20); C-REACTIVE PROTEIN 44.6 mg/L (<10.0); CALCIUM 8.1 mg/dL (8.4-10.2); CARBON DIOXIDE 24 mmol/L (22-30); CHLORIDE 112 mmol/L (98-107); GLUCOSE 136 mg/dL (75-110); POTASSIUM 3.7 mmol/L (3.6-5.0)
[2020-02-09] MEDS: MIDAZOLAM HCL 50 MG/100 ML RTUINJ IV PRN ×5 (07:20→22:08)
[2020-02-09] MEDS: BUDESONIDE NEB 0.25 MG/2 ML AMPUL NEB SCH ×2 (08:19→21:11)
--- NOTE | 2020-02-09 08:52 | PDOC CRITICAL CARE PROG REPORT ---
General Date:: 02/09/20 ICU Day:: 23 Ventilator Day:: 23 Hospital Day:: 37 Resuscitation Status: Full Code Events in the past 12 to 24 Hours:: This 49-year-old male presented to [facility] emergency department on 01/03/2020 with known [id number] infection. He had previously presented to an urgent care clinic on 12/27/2019, when he was diagnosed. He had been instructed to stay home and quarantine but presented to the emergency department on 01/01/2020 with increasing dyspnea. He was treated with Decadron and azithromycin. He was discharged home only to return on the following day with increasing shortness of breath, fever (100.1 Fahrenheit) and hypoxia (SPO2 70s on room air). He was admitted and started treatment with BiPAP support. Critical care consultation was sought on 01/16/2020 with worsening hypoxia and tachycardia. He was transferred to the ICU on 01/15. The patient ended up requ iring endotracheal intubation and mechanical ventilator support on the following day. 01/31: In prone position. Per nurse report, the patient is approaching 24 hours in prone position. Neuromuscular blockade with rocuronium. On Versed/Precedex/fentanyl for sedation. Ventilator is noted to be on VC mode, Ti 0.5 seconds, with Ppeak in the 50s. ABG this a.m.: 7.21/48/97 on FiO2 80%, PEEP 15. On cefepime for Serratia pneumonia (01/18). 02/01: No events reported overnight. The patient was proned at the beginning of night club manager. ABG this a.m.: 7.23/43/135. Creatinine 1.3 this morning. Hemoglobin 7.7>7.3. 02/02: BUN/creatinine continuing to rise, creatinine 1.7 this morning. Hemoglobin stable, 7.3 again this a.m. He was proned at 2000 on night club manager. CVP obtained in the supine position was reportedly elevated (17). Lasix 20 mg IV administered at 0550. ABG this a.m. 7.16/55/83 on PRVC 30/480/100/10. VT was increased to 500 subsequent to this ABG result. CVP 1415. The patient did have a BM yesterday. 02/03: Spent all morning in prone position. Remains intubated. On PRVC 30/500/100/10. However, after returning to supine position, the patient demonstrated prompt oxygen desaturation, requiring bag mask ventilation. Melfa frothy secretions were noted to be produced from the ET tube circuit. Patient's oxygen saturation fell as low as 70%. During this time, the patient became hypertensive and tachycardic. Nonoliguric renal failure, creatinine rising, 1.7> 2.0. Renal ultrasound ordered for this a.m. Hemoglobin 8.2, stable after transfusion of 1 unit PRBC yesterday. Patient's was updated by phone yesterday. She is agreeable to proceeding with tracheostomy, when ventilator settings prove compatible with long-term care via tracheostomy. 02/04: The patient was supinated yesterday afternoon. He was maintained supine throughout the night. I/O over the past 24 hours -2536 mL. proBNP this morning 10,800. Remains intubated. On PRVC . ABG this a.m.: 7.23/44/68. After returning to the supine position, the patient was restarted on rocuronium to decrease work of breathing and metabolic demand. Continues to demonstrate worsening nonoliguric renal failure, creatinine 2.2. Hemoglobin this a.m. 7.6. 5: Patient was proned at 0300. proBNP this morning 10,900. Remains intubated. On PRVC . PEEP had to be increased to 12. ABG this a.m.: 7.18/48/80. Got 1 unit PRBC yesterday for hemoglobin 7.6. Hemoglobin 9.6 this a.m. Creatinine 2.4. 02/06: Still on Versed/Precedex/fentanyl/rocuronium overnight, the patient was supinated at 2100; however, night club manager reports that they returned him to prone position due to oxygen desaturation (SPO2 80s). Now, back in prone position. proBNP this morning 11,100. Remains intubated. On PRVC . ABG this a.m.: 7.20/45/72. Hemoglobin 9.5. Creatinine 2.6. 02/07: Proned still. Oxygenation improved. I/O still positive. Lasix increased. Cr 2.7. PH still low. Supinated at 1PM. 02/08: Pt desaturated to 80s after proning and did not recover until re-proned. PO2 now 93 but on 100% and 14 PEEP. Kidney function worse. Review of systems relevant to events:: Pulmonary, renal. Reason for ICU Addmission:: hypoxia tachycardia, intubated. - Medications: Medications reviewed and adjusted accordingly: Yes Vasopressors:: None Sedation:: Versed, fentanyl Physical Exam Vital Signs: Temp Pulse Resp BP Pulse Ox 95.9 F L 114 H 32 H 146/66 H 92 02/09/20 00:00 02/09/20 08:20 02/09/20 08:20 02/09/20 08:08 02/09/20 08:20 Intake & Output 02/08/20 02/09/20 02/10/20 06:59 06:59 06:59 Intake Total 3751 3059 Output Total 3705 2455 150 Balance 46 604 -150 Weight 121 kg 122.3 kg Weight/Height Weight 122.3 kg Height 5 ft 7 in General appearance: PRESENT: no acute distress, other - Sweaty. Head exam: PRESENT: atraumatic, normocephalic Eye exam: PRESENT: conjunctiva pink, periorbital swelling. ABSENT: scleral icterus Mouth exam: PRESENT: moist, tongue midline Respiratory exam: PRESENT: clear to auscultation deepali. ABSENT: rales, rhonchi, wheezes Cardiovascular exam: PRESENT: RRR. ABSENT: diastolic murmur, rubs, systolic mur mur GI/Abdominal exam: PRESENT: normal bowel sounds, soft. ABSENT: distended, guarding, mass, organolmegaly, rebound, tenderness Rectal exam: PRESENT: deferred Gentrourinary exam: PRESENT: indwelling catheter Extremities exam: PRESENT: full ROM, +2 edema. ABSENT: calf tenderness, clubbing, pedal edema Musculoskeletal exam: PRESENT: normal inspection Neurological exam: PRESENT: other - Heavily sedated. Skin exam: PRESENT: dry, intact, warm. ABSENT: cyanosis, rash Tubes/Lines: PRESENT: Endotracheal Tube, Central Line, Nasogastic Tube Laboratory/Radiographs Laboratory Results: 02/09/20 02:40 02/09/20 02:40 02/08/20 02/09/20 02/09/20 22:00 02:40 02:40 WBC RBC Hgb Hct MCV MCH MCHC RDW Plt Count Seg Neutrophils % Carbonic Acid 2.05 H HCO3/H2CO3 Ratio 11:1 ABG pH 7.14 L* ABG pCO2 68.1 H ABG pO2 91.6 ABG HCO3 22.6 ABG O2 Saturation 94.1 ABG Base Excess -6.9 FiO2 100% Sodium 145.2 H Potassium 3.7 Chloride 112 H Carbon Dioxide 24 Anion Gap 9 BUN 89 H Creatinine 3.00 H Est GFR ( Amer) 27 L Glucose 136 H Calcium 8.1 L Ferritin Cancelled 443.00 C-Reactive Protein 44.6 H 02/09/20 02/09/20 02:40 05:15 WBC 11.6 H RBC 3.25 L Hgb 9.0 L Hct 27.9 L MCV 86 MCH 27.8 MCHC 32.3 RDW 19.1 H Plt Count 130 L Seg Neutrophils % 83.3 H Carbonic Acid 1.84 H HCO3/H2CO3 Ratio 11:1 ABG pH 7.14 L* ABG pCO2 61.2 H ABG pO2 97.8 ABG HCO3 20.5 ABG O2 Saturation 95.2 ABG Base Excess -8.7 FiO2 100% Sodium Potassium Chloride Carbon Dioxide Anion Gap BUN Creatinine Est GFR ( Amer) Glucose Calcium Ferritin C-Reactive Protein 01/06/20 01/16/20 01/17/20 05:11 21:00 05:00 Creatine Kinase 38 L CK-MB (CK-2) Troponin I < 0.012 NT-Pro-B Natriuret Pep 338 H 01/17/20 01/27/20 02/04/20 05:00 15:40 14:20 Creatine Kinase CK-MB (CK-2) 1.63 Troponin I 0.028 < 0.012 NT-Pro-B Natriuret Pep 504 H 9710 H 02/05/20 02/06/20 02/07/20 04:40 03:55 04:08 Creatine Kinase CK-MB (CK-2) Troponin I NT-Pro-B Natriuret Pep 35402 H 26143 H 10785 H 02/08/20 02/09/20 03:15 02:40 Creatine Kinase CK-MB (CK-2) Troponin I NT-Pro-B Natriuret Pep 89184 H 26070 H Impressions: Chest CT 01/22/20 00:00 IMPRESSION: 1. Extensive pneumomediastinum anteriorly. No pneumothoraces. 2. Extensive subcutaneous air throughout the anterior chest wall, extending into the visualized lower neck, upper back, and left upper extremity. There is also extension of a large amount of air into the anterior extraperitoneal space of the upper abdomen. 3. Interval worsening of bilateral pulmonary opacities, which likely represent COVID-19 pneumonia given the clinical history. KUB X-Ray 01/30/20 00:00 IMPRESSION: The bowel gas pattern is nonobstructive and nonspecific. A nasogastric tube tip is seen overlying the left upper quadrant of the abdomen, projecting at the stomach. There is diffuse subcutaneous emphysema seen at the chest and abdominal wall on the left side. Renal Ultrasound 02/04/20 09:00 IMPRESSION: Normal sonographic appearance of the kidneys. All labs, radiographs, diagnostic studies and EKGs were personally reviewed: Yes In addition, reports of radiographic and diagnostic studies were read: Yes Assessment and Plan - Diagnosis (1) Acute respiratory failure with hypoxia Is this a current diagnosis for this admission?: Yes Plan: He is improved when proned. Still hypoxic when supine. On 100% and PEEP 14. Makes trach not advisable while proning. (2) Pneumonia due to COVID-19 virus Is this a current diagnosis for this admission?: Yes Plan: Stil critically ill. No improvement in days. (3) Anemia Qualifiers: Anemia type: other cause Other causes of anemia: other cause, not classified Qualified Code(s): D64.89 - Other specified anemias Is this a current diagnosis for this admission?: Yes Plan: Hgb stable (4) Acute kidney injury Is this a current diagnosis for this admission?: Yes Plan: Cr 3.0, GFR 22. Plan Summary: Perhaps make slight changes on PEEP. Critical Time Critical Time (minutes): 35 Level of Care: ICU Anticipated discharge: SNF Anticipated DC Timeframe: Other -: 1. The care of a critical patient is a dynamic process. This note is a residential sales representative synopsis but static in nature. The timeframe for treatments given in order is not necessarily the actual time these treatments may have been done. 2. This patient requires critical care secondary to ongoing requirements for therapy not offered or safe outside the critical care environment. Transfer to a lower level of care will result in altered life or limb morbidity and mortality. 3. Multidisciplinary rounds completed. 4. ABCDE bundle addressed.
[2020-02-09] MEDS: CEFEPIME HCL 2 GM in DEXTROSE 5%-WATER 50 ML IV SCH (09:38)
[2020-02-09] MEDS: FUROSEMIDE INJ/PF 40 MG/4 ML SDV IV SCH (09:39)
[2020-02-09] MEDS: DEXAMETHASONE SOD PHOSPHATE INJ 4 MG/1 ML VIAL IV SCH (09:40)
[2020-02-09] MEDS: DOCUSATE SODIUM 100 MG/10 ML UDC PO SCH (09:40)
[2020-02-09] MEDS: PANTOPRAZOLE SODIUM 40 MG VIAL IV SCH (09:40)
--- NOTE | 2020-02-09 11:08 | PDOC PROGRESS REPORT ---
Subjective Date:: 02/09/20 Subjective:: Patient remains to be intubated and sedated. Currently in a prone position. Clinton arriola's urine output this not able to keep up with the intake and is still in positive fluid balance of 604 from yesterday despite diuretics and IV albumin. His urine output was 2455 for the past 24 hours. Reported CVP was 24 this morning. Since admission to ICU on 1114 his weight has gone up from 103-122 today. His kidney function is worse today. Reason For Visit: HYPOXIA COVID 19 Physical Exam Vital Signs: Temp Pulse Resp BP Pulse Ox 95.9 F L 114 H 32 H 146/66 H 92 02/09/20 00:00 02/09/20 08:20 02/09/20 08:20 02/09/20 08:08 02/09/20 08:20 Intake & Output 02/08/20 02/09/20 02/10/20 06:59 06:59 06:59 Intake Total 3751 3059 Output Total 3705 2455 150 Balance 46 604 -150 Weight 121 kg 122.3 kg Exam: General appearance: PRESENT: Intubated, sedated in proned Head exam: PRESENT: atraumatic, normocephalic Eye exam: PRESENT: Positive periorbital edema Neck exam: ABSENT: JVD Respiratory exam: PRESENT: Diminished breath sounds. ABSENT: crackles, rales, rhonchi, unlabored, wheezes Cardiovascular exam: PRESENT: Regular rate rhythm -+S1, +S2. Tachycardic ABSENT: diastolic murmur, systolic murmur GI/Abdominal exam: PRESENT: normal bowel sounds, soft. ABSENT: guarding, mass, tenderness Extremities exam: Unchanged anasarca involving upper and lower extremities with grade 2 bilateral pitting edema Neurological exam: PRESENT: Sedated. Skin exam: PRESENT: dry, warm, Results Laboratory Results: 02/09/20 02:40 02/09/20 02:40 02/08/20 02/09/20 02/09/20 22:00 02:40 02:40 WBC RBC Hgb Hct MCV MCH MCHC RDW Plt Count Seg Neutrophils % Carbonic Acid 2.05 H HCO3/H2CO3 Ratio 11:1 ABG pH 7.14 L* ABG pCO2 68.1 H ABG pO2 91.6 ABG HCO3 22.6 ABG O2 Saturation 94.1 ABG Base Excess -6.9 FiO2 100% Sodium 145.2 H Potassium 3.7 Chloride 112 H Carbon Dioxide 24 Anion Gap 9 BUN 89 H Creatinine 3.00 H Est GFR ( Amer) 27 L Glucose 136 H Calcium 8.1 L Ferritin Cancelled 443.00 C-Reactive Protein 44.6 H 02/09/20 02/09/20 02:40 05:15 WBC 11.6 H RBC 3.25 L Hgb 9.0 L Hct 27.9 L MCV 86 MCH 27.8 MCHC 32.3 RDW 19.1 H Plt Count 130 L Seg Neutrophils % 83.3 H Carbonic Acid 1.84 H HCO3/H2CO3 Ratio 11:1 ABG pH 7.14 L* ABG pCO2 61.2 H ABG pO2 97.8 ABG HCO3 20.5 ABG O2 Saturation 95.2 ABG Base Excess -8.7 FiO2 100% Sodium Potassium Chloride Carbon Dioxide Anion Gap BUN Creatinine Est GFR ( Amer) Glucose Calcium Ferritin C-Reactive Protein 01/06/20 01/16/20 01/17/20 05:11 21:00 05:00 Creatine Kinase 38 L CK-MB (CK-2) Troponin I < 0.012 NT-Pro-B Natriuret Pep 338 H 01/17/20 01/27/20 02/04/20 05:00 15:40 14:20 Creatine Kinase CK-MB (CK-2) 1.63 Troponin I 0.028 < 0.012 NT-Pro-B Natriuret Pep 504 H 9710 H 02/05/20 02/06/20 02/07/20 04:40 03:55 04:08 Creatine Kinase CK-MB (CK-2) Troponin I NT-Pro-B Natriuret Pep 47983 H 27452 H 51438 H 02/08/20 02/09/20 03:15 02:40 Creatine Kinase CK-MB (CK-2) Troponin I NT-Pro-B Natriuret Pep 46795 H 28183 H Impressions: Chest CT 01/22/20 00:00 IMPRESSION: 1. Extensive pneumomediastinum anteriorly. No pneumothoraces. 2. Extensive subcutaneous air throughout the anterior chest wall, extending into the visualized lower neck, upper back, and left upper extremity. There is also extension of a large amount of air into the anterior extraperitoneal space of the upper abdomen. 3. Interval worsening of bilateral pulmonary opacities, which likely represent COVID-19 pneumonia given the clinical history. KUB X-Ray 01/30/20 00:00 IMPRESSION: The bowel gas pattern is nonobstructive and nonspecific. A nasogastric tube tip is seen overlying the left upper quadrant of the abdomen, projecting at the stomach. There is diffuse subcutaneous emphysema seen at the chest and abdominal wall on the left side. Renal Ultrasound 02/04/20 09:00 IMPRESSION: Normal sonographic appearance of the kidneys. Assessment & Plan - Diagnosis (1) Acute kidney injury Is this a current diagnosis for this admission?: Yes Plan: Normal baseline kidney function. He has minimal proteinuria with some microhematuria in a catheterized urine specimen. No other precipitating or nephrotoxic agents. This is most likely secondary to COVID-19 infection affecting the kidneys causing ATN versus acute oxalate nephropathy due to hyperoxaluria with treatment of vitamin C. In view of anasarca, and ongoing fluid overload with worsening kidney function I recommended the patient start renal replacement therapy. I discussed this with Dr. Alicia and he agreed that we can start renal replacement therapy tomorrow since at this time the patient has just gotten prone and and still trying to get the oxygenation better. Echocardiogram was also ordered today. Dr. Alicia agreed to put a temporary dialysis catheter for tomorrow's dialysis. I also called and spoke to the patient's , Ms. Gail Gallagher. I informed her regarding the patient's acute kidney injury likely related to Covid. I also explained to her my recommendation of starting renal replacement therapy. I explained to her the procedure, the benefits and risks to include but not limited to infection, bleeding, hemodynamic instability with changes in blood pressures and heart rate and rarely cardiac arrest while on dialysis. Also explained to her that he would need to have dialysis catheter inserted. She consented to have procedure done. She had some questions which I answered. So plan will be renal replacement therapy tomorrow morning. Meanwhile I will increase the patient's furosemide to 80 mg IV every 6 hours. We will give 25 g of IV albumin before the next dose of Lasix. Discussed plan with the patient's nurse today. (2) Acute respiratory failure with hypoxia and hypercapnia Is this a current diagnosis for this admission?: Yes Plan: On mechanical ventilation with FiO2 of 100%. Per fowl blood tester. (3) Pneumonia due to COVID-19 virus Is this a current diagnosis for this admission?: Yes Plan: On cefepime, Decadron and reduced dose of vitamin C. Previously treated with remdesivir and zinc. (4) Anemia Qualifiers: Anemia type: other cause Other causes of anemia: other cause, not classified Qualified Code(s): D64.89 - Other specified anemias Is this a current diagnosis for this admission?: Yes (5) Anasarca Is this a current diagnosis for this admission?: Yes Plan: Due to ARIELLA and hypoalbuminemia with increase fluid intake. 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 (6) Metabolic acidosis Is this a current diagnosis for this admission?: Yes Plan: Controlled with bicarbonate drip. Continue the same. (7) Oxaluria Is this a current diagnosis for this admission?: Yes Plan: Calcium oxalate crystals are in the urine. Also with ascorbic acid in the urine which finally turned negative but reduction of dose of vitamin C. - Time Time with patient: Greater than 35 minutes
[2020-02-09] MEDS ORDERED: FUROSEMIDE INJ/PF 100 MG/10 ML SDV IV SCH ×2 (12:00→16:00)
--- NOTE | 2020-02-09 14:09 | Progress Note ---
Provider Note Provider Note: R femoral dialysis catheter (30 cm) placed sterilely in R femoral vein on first attempt. No complications. Sutured in place.
[2020-02-09] MEDS: ALBUMIN HUMAN 12.5 GM/50 ML RTUINJ IV SCH ×2 (14:24→15:01)
[2020-02-09] MEDS: ARGATROBAN 250 MG/NS 250 ML (NON-ESRD) IV PRN ×2 (16:48)
[2020-02-09] MEDS: PHARMACY COMMUNICATION ORDER MC SCH (17:17)
[2020-02-09 17:29] LABS: C DIFFICILE GDH NEGATIVE (NEGATIVE)
[2020-02-09] MEDS: DEXTROSE 5%-WATER 1000 ML 1,000 ML with SODIUM BICARBONATE 150 MEQ IV PRN ×2 (18:48)
--- NOTE | 2020-02-09 18:58 | XCELERA REPORT ---
[address] [address] Transthoracic Echocardiogram Report Name: ZI ALLEN Age: 49 yrs Gender: Male : 1970 Patient Status: Inpatient Patient Location: ICU^605^A Study Date: 02/09/2020 01:56 PM Height: 67 in Weight: 269 lb BSA: 2.3 m2 Procedure: A two-dimensional transthoracic echocardiogram with color flow and Doppler was performed. Study Quality: Fair. Difficult color flow dopples. Reason For Study: ELEVATED BNP, CHF History: ELEVATED BNP, CHF. Ordering Physician: YARIEL JANE Performed By: Charlene Tuttle Interpretation Summary The left ventricle is normal in size. There is normal left ventricular wall thickness. Left ventricular systolic function is normal. Doppler measurements suggest normal left ventricular diastolic function LV EF is Greater than 70% There is no thrombus. No ASD,VSD or PFO seen. Global contractility is some what hyperdynamic. Flattened septum is consistent with RV pressure overload The right ventricle is mild to moderately dilated. The right ventricular systolic function is normal. The right atrium is normal in size The left atrial size is normal. There is no evidence of mitral valve prolapse. There is no vegetation seen on the mitral valve. There is no mitral valve stenosis. Mild perhps mild to moderaate MR. There is no aortic valvular vegetation. There is no aortic valve stenosis There is no LVOT obstruction. There is a trace amount of aortic regurgitation There is no tricuspid stenosis. There is a mild to moderate amount of tricuspid regurgitation There is servere pulmonary hypertension by echo RVSP is att least 1087758 mm of Hg , withRA mean of at least 20. There is no pulmonic valvular stenosis. There is a trace amount of pulmonic regurgitation The aortic root is normal size. The inferior vena cava appeared dilated and did not change with respiration (RAP > 20 mmHg) There is no pericardial effusion. MMode/2D Measurements & Calculations RVDd: 4.0 cm LVIDd: 4.6 cm FS: 45.9 % Ao root diam: 2.6 cm IVSd: 1.0 cm LVIDs: 2.5 cm EDV(Teich): 97.7 ml Ao root area: 5.5 cm2 LVPWd: 0.97 cm ESV(Teich): 22.2 ml LA dimension: 3.8 cm EF(Teich): 77.3 % Doppler Measurements & Calculations MV E max cipriano: MV P1/2t max cipriano: Ao V2 max: LV V1 max P.8 cm/sec 132.8 cm/sec 171.4 cm/sec 11.0 mmHg MV A max cipriano: MV P1/2t: 63.6 msec Ao max PG: LV V1 max: 102.7 cm/sec MVA(P1/2t): 3.5 cm2 11.8 mmHg 166.2 cm/sec MV E/A: 1.3 MV dec slope: LV dP/dt: 3029 mmHg/s 611.3 cm/sec2 MV dec time: 0.23 sec PA V2 max: PI end-d cipriano: TR max cipriano: MV P1/2t-pr_phl: 100.2 cm/sec 232.1 cm/sec 374.6 cm/sec 63.6 msec PA max P.0 mmHg TR max P.1 mmHg Left Ventricle The left ventricle is normal in size. There is normal left ventricular wall thickness. LV EF is Greater than 70%. Left ventricular systolic function is normal. Doppler measurements suggest normal left ventricular diastolic function. Global contractility is some what hyperdynamic. Flattened septum is consistent with RV pressure overload. There is no thrombus. No ASD,VSD or PFO seen. Right Ventricle The right ventricle is mild to moderately dilated. The right ventricular systolic function is normal. Atria The right atrium is normal in size. The left atrial size is normal. Mitral Valve There is no evidence of mitral valve prolapse. There is no vegetation seen on the mitral valve. There is no mitral valve stenosis. Mild perhps mild to moderaate MR. Aortic Valve There is no aortic valvular vegetation. There is no aortic valve stenosis. There is no LVOT obstruction. There is a trace amount of aortic regurgitation. Tricuspid Valve There is no tricuspid stenosis. There is a mild to moderate amount of tricuspid regurgitation. There is servere pulmonary hypertension by echo. RVSP is att least 6540448 mm of Hg , withRA mean of at least 20. Pulmonic Valve There is no pulmonic valvular stenosis. There is a trace amount of pulmonic regurgitation. Great Vessels The aortic root is normal size. The inferior vena cava appeared dilated and did not change with respiration (RAP > 20 mmHg). Effusions There is no pericardial effusion. : YARIEL JANE Lakshmi
[2020-02-10] MEDS: LABETALOL HCL INJ 20 MG/4 ML DISP.SYRIN IV SCH ×4 (00:50→17:43)
[2020-02-10] MEDS: INSULIN REG, HUMAN 100 UNIT/ML 3 ML VIAL (PYX) SUBCUT SCH ×4 (01:00→17:42)
[2020-02-10] MEDS: AMINO AC/PROTEIN HYDR/WHEY PRO 11 GM/45 ML PKT NG SCH ×4 (01:03→17:43)
[2020-02-10] MEDS: MIDAZOLAM HCL 50 MG/100 ML RTUINJ IV PRN ×6 (02:00→22:00)
[2020-02-10] MEDS: ALBUTEROL SULFATE 0.083% NEB 2.5 MG/3 ML AMPUL NEB SCH ×4 (02:04→20:39)
[2020-02-10] MEDS: FENTANYL CITRATE/PF 600 MCG/60 ML BAG IV PRN ×8 (02:20→22:40)
[2020-02-10] MEDS ORDERED: NORMAL SALINE 1000 ML 1,000 ML IV PRN (05:00)
[2020-02-10] MEDS ORDERED: HEPARIN SOD (PORCINE) 1,000 UNIT/ML 10 ML VIAL IV PRN (05:00)
[2020-02-10 05:10] LABS: ARTERIAL BLOOD BASE EXCESS -4.8 mmol/L; ARTERIAL BLOOD H2CO3 2.17 mmol/L (1.05-1.35); ARTERIAL BLOOD HCO3 24.3 mmol/L (20-24); ARTERIAL BLOOD O2 SATURATION 77.9 % (94-98); ARTERIAL BLOOD PO2 55.1 mmHg (80-100); ARTERIAL BLOOD TOTAL CO2 26.5 mmol/L (23-27)
[2020-02-10 05:19] LABS: ARTERIAL BLOOD FIO2 100%; ARTERIAL BLOOD PH 7.15 (7.35-7.45)
[2020-02-10 05:23] LABS: HEMATOCRIT 24.6 % (37.9-51.0); MEAN CORPUSCULAR HEMOGLOBIN 27.6 pg (27.0-33.4); MEAN CORPUSCULAR HGB CONC 32.2 g/dL (32.0-36.0); MEAN CORPUSCULAR VOLUME 86 fl (80-97); PLATELET COUNT 128 10^3/uL (150-450); RED BLOOD COUNT 2.88 10^6/uL (4.35-5.55); RED CELL DISTRIBUTION WIDTH 19.2 % (11.5-14.0)
[2020-02-10 05:39] LABS: ALBUMIN 2.7 g/dL (3.5-5.0); ALKALINE PHOSPHATASE 72 U/L (38-126); ANION GAP 8 (5-19); ASPARTATE AMINO TRANSFERASE 55 U/L (17-59); BILIRUBIN,DIRECT 0.3 mg/dL (0.0-0.4); BILIRUBIN,TOTAL 0.4 mg/dL (0.2-1.3); BLOOD UREA NITROGEN 95 mg/dL (7-20); CALCIUM 8.2 mg/dL (8.4-10.2); CARBON DIOXIDE 27 mmol/L (22-30); CHLORIDE 109 mmol/L (98-107); GLUCOSE 119 mg/dL (75-110); POTASSIUM 3.1 mmol/L (3.6-5.0); TOTAL PROTEIN 4.8 g/dL (6.3-8.2)
[2020-02-10 05:49] LABS: ABSOLUTE LYMPHOCYTES# (MANUAL) 0.7 10^3/uL (0.5-4.7); ABSOLUTE MONOCYTES # (MANUAL) 0.5 10^3/uL (0.1-1.4); BAND NEUTROPHILS % (MANUAL) 5 % (3-5); BASOPHILS % (MANUAL) 0 % (0-2); EOSINOPHILS % (MANUAL) 1 % (0-6); LYMPHOCYTES % (MANUAL) 7 % (13-45); MONOCYTES % (MANUAL) 5 % (3-13); SEGMENTED NEUTROPHILS % (MAN) 82 % (42-78); TOTAL CELLS COUNTED 100
[2020-02-10 05:50] LABS: ANISOCYTOSIS 2+; PLATELET COMMENT DECREASED; POLYCHROMASIA SLIGHT
[2020-02-10 05:51] LABS: HEMOGLOBIN 7.9 g/dL (13.5-17.0)
[2020-02-10] MEDS: ASCORBIC ACID 500 MG TABLET NG SCH ×3 (06:23→21:09)
[2020-02-10 06:37] LABS: HEPATITS B SURFACE ANTIGEN Negative (Negative)
[2020-02-10 07:13] LABS: HEPATITIS B CORE AB TOT Negative (Negative)
--- NOTE | 2020-02-10 08:15 | RADIOLOGY REPORT (SQ) ---
EXAM DESCRIPTION: CHEST SINGLE VIEW IMAGES COMPLETED DATE/TIME: 02/10/2020 6:41 am REASON FOR STUDY: vent COMPARISON: 02/07/2020 EXAM PARAMETERS: NUMBER OF VIEWS: One view. TECHNIQUE: Single frontal radiographic view of the chest acquired. RADIATION DOSE: NA LIMITATIONS: None. FINDINGS: LUNGS AND PLEURA: Persistent diffuse bilateral interstitial and alveolar opacities with mi ldly improved aeration on the right. No large effusion. No pneumothorax. MEDIASTINUM AND HILAR STRUCTURES: Stable. HEART AND VASCULAR STRUCTURES: Enlarged, stable. BONES: No acute findings. HARDWARE: Endotracheal tube tip overlies midthoracic trachea. Enteric tube tip below diaphragm but e xcluded by collimation. Right internal jugular central venous catheter tip at right atrium. OTHER: No other significant finding. IMPRESSION: Persistent diffuse bilateral interstitial and alveolar opacities, mildly improved aerati on on the right. Endotracheal tube tip overlies midthoracic trachea. Additional lines as above. TECHNICAL DOCUMENTATION: JOB ID: [id number] [employer]- All Rights Reserved Reading location - IP/workstation name: [email or web address]
[2020-02-10] MEDS: BUDESONIDE NEB 0.25 MG/2 ML AMPUL NEB SCH ×2 (08:21→20:39)
--- NOTE | 2020-02-10 09:26 | PDOC CRITICAL CARE PROG REPORT ---
General Date:: 02/10/20 ICU Day:: 24 Ventilator Day:: 24 Hospital Day:: 39 Resuscitation Status: Full Code Events in the past 12 to 24 Hours:: This 49-year-old male presented to [facility] emergency department on 01/03/2020 with known [id number] infection. He had previously presented to an urgent care clinic on 12/27/2019, when he was diagnosed. He had been instructed to stay home and quarantine but presented to the emergency department on 01/01/2020 with increasing dyspnea. He was treated with Decadron and azithromycin. He was discharged home only to return on the following day with increasing shortness of breath, fever (100.1 Fahrenheit) and hypoxia (SPO2 70s on room air). He was admitted and started treatment with BiPAP support. Critical care consultation was sought on 01/16/2020 with worsening hypoxia and tachycardia. He was transferred to the ICU on 01/15. The patient ended up requ iring endotracheal intubation and mechanical ventilator support on the following day. 01/31: In prone position. Per nurse report, the patient is approaching 24 hours in prone position. Neuromuscular blockade with rocuronium. On Versed/Precedex/fentanyl for sedation. Ventilator is noted to be on VC mode, Ti 0.5 seconds, with Ppeak in the 50s. ABG this a.m.: 7.21/48/97 on FiO2 80%, PEEP 15. On cefepime for Serratia pneumonia (01/18). 02/01: No events reported overnight. The patient was proned at the beginning of shift stacker. ABG this a.m.: 7.23/43/135. Creatinine 1.3 this morning. Hemoglobin 7.7>7.3. 02/02: BUN/creatinine continuing to rise, creatinine 1.7 this morning. Hemoglobin stable, 7.3 again this a.m. He was proned at 2000 on shift stacker. CVP obtained in the supine position was reportedly elevated (17). Lasix 20 mg IV administered at 0550. ABG this a.m. 7.16/55/83 on PRVC 30/480/100/10. VT was increased to 500 subsequent to this ABG result. CVP 1415. The patient did have a BM yesterday. 02/03: Spent all morning in prone position. Remains intubated. On PRVC 30/500/100/10. However, after returning to supine position, the patient demonstrated prompt oxygen desaturation, requiring bag mask ventilation. Merrill frothy secretions were noted to be produced from the ET tube circuit. Patient's oxygen saturation fell as low as 70%. During this time, the patient became hypertensive and tachycardic. Nonoliguric renal failure, creatinine rising, 1.7> 2.0. Renal ultrasound ordered for this a.m. Hemoglobin 8.2, stable after transfusion of 1 unit PRBC yesterday. Patient's was updated by phone yesterday. She is agreeable to proceeding with tracheostomy, when ventilator settings prove compatible with long-term care via tracheostomy. 02/04: The patient was supinated yesterday afternoon. He was maintained supine throughout the night. I/O over the past 24 hours -2536 mL. proBNP this morning 10,800. Remains intubated. On PRVC . ABG this a.m.: 7.23/44/68. After returning to the supine position, the patient was restarted on rocuronium to decrease work of breathing and metabolic demand. Continues to demonstrate worsening nonoliguric renal failure, creatinine 2.2. Hemoglobin this a.m. 7.6. 5: Patient was proned at 0300. proBNP this morning 10,900. Remains intubated. On PRVC . PEEP had to be increased to 12. ABG this a.m.: 7.18/48/80. Got 1 unit PRBC yesterday for hemoglobin 7.6. Hemoglobin 9.6 this a.m. Creatinine 2.4. 02/06: Still on Versed/Precedex/fentanyl/rocuronium overnight, the patient was supinated at 2100; however, shift stacker reports that they returned him to prone position due to oxygen desaturation (SPO2 80s). Now, back in prone position. proBNP this morning 11,100. Remains intubated. On PRVC . ABG this a.m.: 7.20/45/72. Hemoglobin 9.5. Creatinine 2.6. 02/07: Proned still. Oxygenation improved. I/O still positive. Lasix increased. Cr 2.7. PH still low. Supinated at 1PM. 02/08: Pt desaturated to 80s after proning and did not recover until re-proned. PO2 now 93 but on 100% and 14 PEEP. Kidney function worse. 02/09: Tolerated supinating better today. Getting HD for the first time. Review of systems relevant to events:: Pulmonary, renal. Reason for ICU Addmission:: hypoxia tachycardia, intubated. - Medications: Medications reviewed and adjusted accordingly: Yes Vasopressors:: None Sedation:: Precedex, fentanyl, versed. Physical Exam Vital Signs: Temp Pulse Resp BP Pulse Ox 97.0 F 75 32 H 142/74 H 95 02/10/20 06:00 02/10/20 08:21 02/10/20 08:21 02/10/20 06:30 02/10/20 08:21 Intake & Output 02/09/20 02/10/20 02/11/20 06:59 06:59 06:59 Intake Total 3059 2073 Output Total 2455 2450 Balance 604 -377 Weight 122.3 kg 121.6 kg Weight/Height Weight 121.6 kg Height 5 ft 7 in General appearance: PRESENT: no acute distress, obese Head exam: PRESENT: atraumatic, normocephalic Eye exam: PRESENT: conjunctiva pink, EOMI, PERRLA. ABSENT: scleral icterus Ear exam: PRESENT: normal external ear exam Mouth exam: PRESENT: moist, tongue midline Respiratory exam: PRESENT: clear to auscultation deepali, rhonchi - Less prominent today.. ABSENT: rales, wheezes Cardiovascular exam: PRESENT: RRR. ABSENT: diastolic murmur, rubs, systolic murmur GI/Abdominal exam: PRESENT: normal bowel sounds, soft. ABSENT: distended, guarding, mass, organolmegaly, rebound, tenderness Rectal exam: PRESENT: deferred Gentrourinary exam: PRESENT: indwelling catheter Extremities exam: PRESENT: full ROM, +2 edema. ABSENT: calf tenderness, clubbing, pedal edema Musculoskeletal exam: PRESENT: normal inspection Neurological exam: PRESENT: other - Heavily sedated. Skin exam: PRESENT: dry, intact, warm. ABSENT: cyanosis, rash Tubes/Lines: PRESENT: Endotracheal Tube, Nasogastic Tube Laboratory/Radiographs Laboratory Results: 02/10/20 04:42 02/10/20 04:42 02/10/20 02/10/20 02/10/20 04:42 04:42 04:42 WBC 10.0 RBC 2.88 L Hgb 7.9 L Hct 24.6 L MCV 86 MCH 27.6 MCHC 32.2 RDW 19.2 H Plt Count 128 L Seg Neutrophils % Not Reportable Carbonic Acid 2.17 H HCO3/H2CO3 Ratio 11:1 ABG pH 7.15 L* ABG pCO2 72.0 H* ABG pO2 55.1 L ABG HCO3 24.3 H ABG O2 Saturation 77.9 L ABG Base Excess -4.8 FiO2 100% Sodium 144.3 Potassium 3.1 L Chloride 109 H Carbon Dioxide 27 Anion Gap 8 BUN 95 H Creatinine 3.24 H Est GFR ( Amer) 25 L Glucose 119 H Calcium 8.2 L Magnesium 2.0 Total Bilirubin 0.4 AST 55 Alkaline Phosphatase 72 Total Protein 4.8 L Albumin 2.7 L 01/06/20 01/16/20 01/17/20 05:11 21:00 05:00 Creatine Kinase 38 L CK-MB (CK-2) Troponin I < 0.012 NT-Pro-B Natriuret Pep 338 H 01/17/20 01/27/20 02/04/20 05:00 15:40 14:20 Creatine Kinase CK-MB (CK-2) 1.63 Troponin I 0.028 < 0.012 NT-Pro-B Natriuret Pep 504 H 9710 H 02/05/20 02/06/20 02/07/20 04:40 03:55 04:08 Creatine Kinase CK-MB (CK-2) Troponin I NT-Pro-B Natriuret Pep 88165 H 27859 H 36933 H 02/08/20 02/09/20 03:15 02:40 Creatine Kinase CK-MB (CK-2) Troponin I NT-Pro-B Natriuret Pep 55017 H 77521 H Impressions: Chest CT 01/22/20 00:00 IMPRESSION: 1. Extensive pneumomediastinum anteriorly. No pneumothoraces. 2. Extensive subcutaneous air throughout the anterior chest wall, extending into the visualized lower neck, upper back, and left upper extremity. There is also extension of a large amount of air into the anterior extraperitoneal space of the upper abdomen. 3. Interval worsening of bilateral pulmonary opacities, which likely represent COVID-19 pneumonia given the clinical history. KUB X-Ray 01/30/20 00:00 IMPRESSION: The bowel gas pattern is nonobstructive and nonspecific. A nasogastric tube tip is seen overlying the left upper quadrant of the abdomen, projecting at the stomach. There is diffuse subcutaneous emphysema seen at the chest and abdominal wall on the left side. Renal Ultrasound 02/04/20 09:00 IMPRESSION: Normal sonographic appearance of the kidneys. Chest X-Ray 02/10/20 05:00 IMPRESSION: Persistent diffuse bilateral interstitial and alveolar opacities, mildly improved aeration on the right. Endotracheal tube tip overlies midthoracic trachea. Additional lines as above. All labs, radiographs, diagnostic studies and EKGs were personally reviewed: Yes In addition, reports of radiographic and diagnostic studies were read: Yes Assessment and Plan - Diagnosis (1) Acute respiratory failure with hypoxia Is this a current diagnosis for this admission?: Yes Plan: Some is due to excess water in lungs. We have decreased FiO2 to 90% and after HD may be able to decrease more. (2) Pneumonia due to COVID-19 virus Is this a current diagnosis for this admission?: Yes Plan: Still having effects. Vent support as needed (3) Anemia Qualifiers: Anemia type: other cause Other causes of anemia: other cause, not classified Qualified Code(s): D64.89 - Other specified anemias Is this a current diagnosis for this admission?: Yes Plan: Hgb level 7.9. Recheck labs after HD. (4) Acute kidney injury Is this a current diagnosis for this admission?: Yes Plan: First day on HD. So far tolerating. Cr 3.2, GFR 20 slightly worse. Plan Summary: HD today, hope to make moves on ventilator after this. May need HD the next few days as well. Critical Time Critical Time (minutes): 35 Level of Care: ICU Anticipated discharge: Home with Homehealth Anticipated DC Timeframe: Other -: 1. The care of a critical patient is a dynamic process. This note is a floor representative synopsis but static in nature. The timeframe for treatments given in order is not necessarily the actual time these treatments may have been done. 2. This patient requires critical care secondary to ongoing requirements for therapy not offered or safe outside the critical care environment. Transfer to a lower level of care will result in altered life or limb morbidity and mortality. 3. Multidisciplinary rounds completed. 4. ABCDE bundle addressed.
--- NOTE | 2020-02-10 10:08 | PDOC PROGRESS REPORT ---
Subjective Date:: 02/10/20 Subjective:: I am seeing the patient during his first hemodialysis treatment this morning. Eboni sol is currently supine and is tolerating dialysis so far with stable blood pressures and heart rate. He is tolerating dialysis. He remains to be intubated and sedated. He made about 2450 mL from the past 24 hours and was - 327 fluid balance. Weight is 121.6 kgs today from initial rate in the ICU of 103 kg. Reason For Visit: HYPOXIA COVID 19 Physical Exam Vital Signs: Temp Pulse Resp BP Pulse Ox 97.0 F 75 32 H 142/74 H 95 02/10/20 06:00 02/10/20 08:21 02/10/20 08:21 02/10/20 06:30 02/10/20 08:21 Intake & Output 02/09/20 02/10/20 02/11/20 06:59 06:59 06:59 Intake Total 3059 2073 Output Total 2455 2450 Balance 604 -377 Weight 122.3 kg 121.6 kg Vitals during dialysis: Blood pressure 157/83, heart rate of 73, oxygen saturation of 91% now with FiO2 just switched to 90%. His blood flow rate at 250 mL/min and dialysate flow rate of 650 mL/min. Exam: General appearance: PRESENT: Intubated and sedated Head exam: PRESENT: Facial edema Eye exam: PRESENT: Eyes closed with periorbital edema Neck exam: ABSENT: JVD Respiratory exam: PRESENT: Diminished breath sounds. ABSENT: crackles, rales, rhonchi, unlabored, wheezes Cardiovascular exam: PRESENT: Regular rate rhythm -+S1, +S2. ABSENT: diastolic murmur, systolic murmur GI/Abdominal exam: PRESENT: normal bowel sounds, soft. ABSENT: guarding, mass, tenderness Extremities exam: Positive anasarca Neurological exam: PRESENT: Sedated. Skin exam: PRESENT: dry, warm, pale Results Laboratory Results: 02/10/20 04:42 02/10/20 04:42 02/10/20 02/10/20 02/10/20 04:42 04:42 04:42 WBC 10.0 RBC 2.88 L Hgb 7.9 L Hct 24.6 L MCV 86 MCH 27.6 MCHC 32.2 RDW 19.2 H Plt Count 128 L Seg Neutrophils % Not Reportable Carbonic Acid 2.17 H HCO3/H2CO3 Ratio 11:1 ABG pH 7.15 L* ABG pCO2 72.0 H* ABG pO2 55.1 L ABG HCO3 24.3 H ABG O2 Saturation 77.9 L ABG Base Excess -4.8 FiO2 100% Sodium 144.3 Potassium 3.1 L Chloride 109 H Carbon Dioxide 27 Anion Gap 8 BUN 95 H Creatinine 3.24 H Est GFR ( Amer) 25 L Glucose 119 H Calcium 8.2 L Magnesium 2.0 Total Bilirubin 0.4 AST 55 Alkaline Phosphatase 72 Total Protein 4.8 L Albumin 2.7 L 01/06/20 01/16/20 01/17/20 05:11 21:00 05:00 Creatine Kinase 38 L CK-MB (CK-2) Troponin I < 0.012 NT-Pro-B Natriuret Pep 338 H 01/17/20 01/27/20 02/04/20 05:00 15:40 14:20 Creatine Kinase CK-MB (CK-2) 1.63 Troponin I 0.028 < 0.012 NT-Pro-B Natriuret Pep 504 H 9710 H 02/05/20 02/06/20 02/07/20 04:40 03:55 04:08 Creatine Kinase CK-MB (CK-2) Troponin I NT-Pro-B Natriuret Pep 95422 H 68731 H 16775 H 02/08/20 02/09/20 03:15 02:40 Creatine Kinase CK-MB (CK-2) Troponin I NT-Pro-B Natriuret Pep 33122 H 60661 H Impressions: Chest CT 01/22/20 00:00 IMPRESSION: 1. Extensive pneumomediastinum anteriorly. No pneumothoraces. 2. Extensive subcutaneous air throughout the anterior chest wall, extending into the visualized lower neck, upper back, and left upper extremity. There is also extension of a large amount of air into the anterior extraperitoneal space of the upper abdomen. 3. Interval worsening of bilateral pulmonary opacities, which likely represent COVID-19 pneumonia given the clinical history. KUB X-Ray 01/30/20 00:00 IMPRESSION: The bowel gas pattern is nonobstructive and nonspecific. A nasogastric tube tip is seen overlying the left upper quadrant of the abdomen, projecting at the stomach. There is diffuse subcutaneous emphysema seen at the chest and abdominal wall on the left side. Renal Ultrasound 02/04/20 09:00 IMPRESSION: Normal sonographic appearance of the kidneys. Chest X-Ray 02/10/20 05:00 IMPRESSION: Persistent diffuse bilateral interstitial and alveolar opacities, mildly improved aeration on the right. Endotracheal tube tip overlies midthoracic trachea. Additional lines as above. Assessment & Plan - Diagnosis (1) Acute kidney injury Is this a current diagnosis for this admission?: Yes Plan: Normal baseline kidney function. He has minimal proteinuria with some microhematuria in a catheterized urine specimen. No other precipitating or nephrotoxic agents. This is most likely secondary to COVID-19 infection affect ing the kidneys causing ATN versus acute oxalate nephropathy due to hyperoxaluria with treatment of vitamin C. In view of anasarca, and ongoing fluid overload with worsening kidney function I recommended the patient start renal replacement therapy. We will do dialysis today for 2.5 hours, using the patient's right femoral dialysis catheter, with 4 potassium bath, blood flow rate of 250 mL per minute, dialysate flow rate of 600 mL per minute, ultrafiltration 2 to 3 L as tolerated, no heparin and no Procrit. Patient is currently monitored very closely. Continue IV diuretics. I plan to dialyze the patient tomorrow as well to optimize treatment. Discussed with Dr. Alicia and he agreed. (2) Acute respiratory failure with hypoxia and hypercapnia Is this a current diagnosis for this admission?: Yes Plan: On mechanical ventilation with FiO2 of 90%. Hypercapnia seems worse early this morning. Per upholstery mechanic. (3) Pneumonia due to COVID-19 virus Is this a current diagnosis for this admission?: Yes Plan: On cefepime, Decadron and reduced dose of vitamin C. Previously treated with remdesivir and zinc. (4) Anemia Qualifiers: Anemia type: other cause Other causes of anemia: other cause, not classified Qualified Code(s): D64.89 - Other specified anemias Is this a current diagnosis for this admission?: Yes Plan: Acute drop in the hemoglobin could be due to hemodilution. We will see how it goes after ultrafiltration with dialysis today. No signs of active bleeding. (5) Anasarca Is this a current diagnosis for this admission?: Yes Plan: Due to ARIELLA and hypoalbuminemia with increase fluid intake. Continue diuretics and currently doing ultrafiltration through dialysis. (6) Hypokalemia Is this a current diagnosis for this admission?: Yes Plan: We will use high potassium bath on dialysis. Further replacement if necessary. (7) Metabolic acidosis Is this a current diagnosis for this admission?: Yes Plan: Bicarbonate is actually now within acceptable normal limits. Agree with dis continuation of bicarb drip. (8) Oxaluria Is this a current diagnosis for this admission?: Yes Plan: Calcium oxalate crystals are in the urine. Also with ascorbic acid in the urine which finally turned negative but reduction of dose of vitamin C. - Time Time with patient: 15-25 minutes
[2020-02-10] MEDS: DOCUSATE SODIUM 100 MG/10 ML UDC PO SCH (10:24)
[2020-02-10] MEDS: CEFEPIME HCL 2 GM in DEXTROSE 5%-WATER 50 ML IV SCH (10:24)
[2020-02-10] MEDS: DEXAMETHASONE SOD PHOSPHATE INJ 4 MG/1 ML VIAL IV SCH (10:24)
[2020-02-10] MEDS: DEXTROSE 5%-WATER 1000 ML 1,000 ML with SODIUM BICARBONATE 150 MEQ IV PRN ×2 (10:26)
[2020-02-10 12:38] LABS: HEMATOCRIT 25.3 % (37.9-51.0); HEMOGLOBIN 8.5 g/dL (13.5-17.0); MEAN CORPUSCULAR HEMOGLOBIN 28.3 pg (27.0-33.4); MEAN CORPUSCULAR HGB CONC 33.7 g/dL (32.0-36.0); MEAN CORPUSCULAR VOLUME 84 fl (80-97); RED BLOOD COUNT 3.01 10^6/uL (4.35-5.55); RED CELL DISTRIBUTION WIDTH 18.6 % (11.5-14.0); WHITE BLOOD COUNT 10.5 10^3/uL (4.0-10.5)
[2020-02-10 12:51] LABS: ANION GAP 6 (5-19); CALCIUM 8.2 mg/dL (8.4-10.2); CARBON DIOXIDE 31 mmol/L (22-30); CHLORIDE 104 mmol/L (98-107); GLUCOSE 136 mg/dL (75-110)
[2020-02-10 12:54] LABS: ABSOLUTE LYMPHOCYTES# (MANUAL) 0.1 10^3/uL (0.5-4.7); ABSOLUTE MONOCYTES # (MANUAL) 0.4 10^3/uL (0.1-1.4); ANISOCYTOSIS 2+; BAND NEUTROPHILS % (MANUAL) 2 % (3-5); BASOPHILS % (MANUAL) 0 % (0-2); EOSINOPHILS % (MANUAL) 3 % (0-6); LYMPHOCYTES % (MANUAL) 1 % (13-45); MONOCYTES % (MANUAL) 4 % (3-13); PLATELET CLUMPS PRESENT; PLATELET COMMENT DECREASED; SEGMENTED NEUTROPHILS % (MAN) 90 % (42-78); TOTAL CELLS COUNTED 100
[2020-02-10 12:55] LABS: POLYCHROMASIA 1+
[2020-02-10 12:56] LABS: OVALOCYTES 1+; POIKILOCYTOSIS 1+; TARGET CELLS SLIGHT
[2020-02-10 12:57] LABS: PLATELET COUNT 129 10^3/uL (150-450)
[2020-02-10 12:59] LABS: BLOOD UREA NITROGEN 67 mg/dL (7-20)
[2020-02-10 13:00] LABS: POTASSIUM 2.9 mmol/L (3.6-5.0)
[2020-02-10] MEDS: PHARMACY COMMUNICATION ORDER MC SCH (17:42)
[2020-02-10] MEDS: ARGATROBAN 250 MG/NS 250 ML (NON-ESRD) IV PRN ×2 (17:50)
[2020-02-10 21:41] LABS: ANION GAP 7 (5-19); BLOOD UREA NITROGEN 73 mg/dL (7-20); CALCIUM 8.2 mg/dL (8.4-10.2); CARBON DIOXIDE 29 mmol/L (22-30); CHLORIDE 102 mmol/L (98-107); GLUCOSE 120 mg/dL (75-110); POTASSIUM 3.2 mmol/L (3.6-5.0)
[2020-02-10] MEDS ORDERED: POTASSIUM CHLORIDE 20 MEQ PACKET PO ONE (22:22)
[2020-02-11] MEDS: INSULIN REG, HUMAN 100 UNIT/ML 3 ML VIAL (PYX) SUBCUT SCH ×4 (00:24→17:40)
[2020-02-11] MEDS: LABETALOL HCL INJ 20 MG/4 ML DISP.SYRIN IV SCH ×4 (00:24→17:33)
[2020-02-11 00:36] LABS: HEPATITIS C QUANTITATION HCV Not Detected IU/mL (.)
[2020-02-11] MEDS: AMINO AC/PROTEIN HYDR/WHEY PRO 11 GM/45 ML PKT NG SCH ×4 (01:00→17:33)
[2020-02-11] MEDS: FENTANYL CITRATE/PF 600 MCG/60 ML BAG IV PRN ×8 (01:30→21:17)
[2020-02-11] MEDS: MIDAZOLAM HCL 50 MG/100 ML RTUINJ IV PRN ×6 (02:00→21:12)
[2020-02-11] MEDS: ALBUTEROL SULFATE 0.083% NEB 2.5 MG/3 ML AMPUL NEB SCH ×4 (02:32→20:55)
[2020-02-11 03:38] LABS: HEMATOCRIT 24.9 % (37.9-51.0); HEMOGLOBIN 8.2 g/dL (13.5-17.0); MEAN CORPUSCULAR HEMOGLOBIN 27.9 pg (27.0-33.4); MEAN CORPUSCULAR HGB CONC 32.8 g/dL (32.0-36.0); MEAN CORPUSCULAR VOLUME 85 fl (80-97); RED BLOOD COUNT 2.93 10^6/uL (4.35-5.55); RED CELL DISTRIBUTION WIDTH 18.8 % (11.5-14.0); WHITE BLOOD COUNT 10.8 10^3/uL (4.0-10.5)
[2020-02-11 03:53] LABS: CHOLESTEROL 140.54 mg/dL (0-200); TRIGLYCERIDES 187 mg/dL (<150)
[2020-02-11 03:58] LABS: ALBUMIN 2.7 g/dL (3.5-5.0); ALKALINE PHOSPHATASE 70 U/L (38-126); ANION GAP 6 (5-19); ASPARTATE AMINO TRANSFERASE 50 U/L (17-59); BILIRUBIN,DIRECT 0.4 mg/dL (0.0-0.4); BILIRUBIN,TOTAL 0.6 mg/dL (0.2-1.3); BLOOD UREA NITROGEN 73 mg/dL (7-20); C-REACTIVE PROTEIN 35.9 mg/L (<10.0); CARBON DIOXIDE 32 mmol/L (22-30); CHLORIDE 103 mmol/L (98-107); GLUCOSE 95 mg/dL (75-110); POTASSIUM 3.2 mmol/L (3.6-5.0); TOTAL PROTEIN 4.8 g/dL (6.3-8.2)
[2020-02-11 04:04] LABS: DIRECT LDL 95 mg/dL (<100); VLDL CHOLESTEROL 37.4 mg/dL (10-31)
[2020-02-11 04:06] LABS: PARTIAL THROMBOPLASTIN TIME 69.4 SEC (23.5-35.8)
[2020-02-11 04:08] LABS: D-DIMER 1.2 ug/mL (0.00-0.50)
[2020-02-11 04:12] LABS: ABSOLUTE MONOCYTES # (MANUAL) 0.6 10^3/uL (0.1-1.4); BASOPHILS % (MANUAL) 0 % (0-2); EOSINOPHILS % (MANUAL) 4 % (0-6); LYMPHOCYTES % (MANUAL) 9 % (13-45); MONOCYTES % (MANUAL) 6 % (3-13); SEGMENTED NEUTROPHILS % (MAN) 81 % (42-78); TOTAL CELLS COUNTED 100
[2020-02-11 04:14] LABS: ANISOCYTOSIS SLIGHT; POLYCHROMASIA SLIGHT
[2020-02-11 04:15] LABS: PLATELET CLUMPS PRESENT; PLATELET COMMENT ADEQUATE; PLATELET COUNT 150 10^3/uL (150-450)
[2020-02-11 04:19] LABS: ARTERIAL BLOOD BASE EXCESS 0.4 mmol/L; ARTERIAL BLOOD FIO2 85%; ARTERIAL BLOOD H2CO3 2.04 mmol/L (1.05-1.35); ARTERIAL BLOOD HCO3 28.6 mmol/L (20-24); ARTERIAL BLOOD O2 SATURATION 93.9 % (94-98); ARTERIAL BLOOD PCO2 67.8 mmHg (35-45); ARTERIAL BLOOD PH 7.24 (7.35-7.45); ARTERIAL BLOOD PO2 82.5 mmHg (80-100); ARTERIAL BLOOD TOTAL CO2 30.7 mmol/L (23-27)
[2020-02-11] MEDS ORDERED: HEPARIN SOD (PORCINE) 1,000 UNIT/ML 10 ML VIAL IV PRN (05:00)
[2020-02-11] MEDS ORDERED: NORMAL SALINE 1000 ML 1,000 ML IV PRN (05:00)
[2020-02-11] MEDS: ASCORBIC ACID 500 MG TABLET NG SCH ×3 (06:23→21:12)
[2020-02-11] MEDS: BUDESONIDE NEB 0.25 MG/2 ML AMPUL NEB SCH ×2 (08:05→20:55)
--- NOTE | 2020-02-11 10:20 | PDOC PROGRESS REPORT ---
Subjective Date:: 02/11/20 Subjective:: I am seeing the patient during dialysis this morning. He is currently supine and still intubated. He has done well during his first dialysis treatment yesterday. The ultrafiltration seems to have helped in terms of oxygen requirement and clearing up infiltrates in his chest x-ray. His urine output was only recorded at 750 mL for the last 24 hours ago. He is currently tolera ting dialysis very well. Reason For Visit: HYPOXIA COVID 19 Physical Exam Vital Signs: Temp Pulse Resp BP Pulse Ox 97.7 F 63 33 H 139/77 H 93 02/11/20 08:00 02/11/20 08:05 02/11/20 08:05 02/11/20 08:00 02/11/20 08:05 Intake & Output 02/10/20 02/11/20 02/12/20 06:59 06:59 06:59 Intake Total 2073 2093 Output Total 2450 7070 225 Balance -441 -1657 -225 Weight 121.6 kg 120.6 kg Vitals during dialysis: Blood pressure 158/70, heart rate of 93, oxygen saturation of 92% with FiO2 of 95%, respiration of 29, blood flow rate of 250 mL/min and dialysate flow rate of 600 mL/min. Exam: General appearance: PRESENT: Intubated and sedated Head exam: PRESENT: atraumatic, normocephalic, facial swelling has decreased significantly Eye exam: PRESENT: Eyes closed with significantly decreased periorbital edema Neck exam: ABSENT: JVD Respiratory exam: PRESENT: Diminished breath sounds. ABSENT: crackles, rales, rhonchi, unlabored, wheezes Cardiovascular exam: PRESENT: Regular rate rhythm -+S1, +S2. ABSENT: diastolic murmur, systolic murmur GI/Abdominal exam: PRESENT: normal bowel sounds, soft. ABSENT: guarding, mass, tenderness Extremities exam: Still with significant anasarca with bilateral upper and lower extremity pitting edema Neurological exam: PRESENT: Sedated. Skin exam: PRESENT: dry, warm, pale Results Laboratory Results: 02/11/20 03:15 02/11/20 03:15 02/10/20 02/10/20 02/10/20 12:28 12:28 20:40 WBC 10.5 RBC 3.01 L Hgb 8.5 L Hct 25.3 L MCV 84 MCH 28.3 MCHC 33.7 RDW 18.6 H Plt Count 129 L Seg Neutrophils % Not Reportable Carbonic Acid HCO3/H2CO3 Ratio ABG pH ABG pCO2 ABG pO2 ABG HCO3 ABG O2 Saturation ABG Base Excess FiO2 Sodium 140.7 137.7 Potassium 2.9 L* 3.2 L Chloride 104 102 Carbon Dioxide 31 H 29 Anion Gap 6 7 BUN 67 H D 73 H Creatinine 2.32 H 2.62 H Est GFR ( Amer) 36 L 31 L Glucose 136 H 120 H Calcium 8.2 L 8.2 L Magnesium Ferritin Total Bilirubin AST Alkaline Phosphatase C-Reactive Protein Total Protein Albumin Triglycerides Cholesterol LDL Cholesterol Direct VLDL Cholesterol HDL Cholesterol 02/11/20 02/11/20 02/11/20 03:15 03:15 03:15 WBC 10.8 H RBC 2.93 L Hgb 8.2 L Hct 24.9 L MCV 85 MCH 27.9 MCHC 32.8 RDW 18.8 H Plt Count 150 Seg Neutrophils % Not Reportable Carbonic Acid HCO3/H2CO3 Ratio ABG pH ABG pCO2 ABG pO2 ABG HCO3 ABG O2 Saturation ABG Base Excess FiO2 Sodium 141.3 Potassium 3.2 L Chloride 103 Carbon Dioxide 32 H Anion Gap 6 BUN 73 H Creatinine 3.02 H Est GFR ( Amer) 27 L Glucose 95 Calcium 8.0 L Magnesium 1.9 Ferritin 477.00 H Total Bilirubin 0.6 AST 50 Alkaline Phosphatase 70 C-Reactive Protein 35.9 H Total Protein 4.8 L Albumin 2.7 L Triglycerides 187 H Cholesterol 140.54 LDL Cholesterol Direct 95 VLDL Cholesterol 37.4 H HDL Cholesterol 27 L 02/11/20 04:10 WBC RBC Hgb Hct MCV MCH MCHC RDW Plt Count Seg Neutrophils % Carbonic Acid 2.04 H HCO3/H2CO3 Ratio 14:1 ABG pH 7.24 L ABG pCO2 67.8 H ABG pO2 82.5 ABG HCO3 28.6 H ABG O2 Saturation 93.9 L ABG Base Excess 0.4 FiO2 85% Sodium Potassium Chloride Carbon Dioxide Anion Gap BUN Creatinine Est GFR ( Amer) Glucose Calcium Magnesium Ferritin Total Bilirubin AST Alkaline Phosphatase C-Reactive Protein Total Protein Albumin Triglycerides Cholesterol LDL Cholesterol Direct VLDL Cholesterol HDL Cholesterol 01/06/20 01/16/20 01/17/20 05:11 21:00 05:00 Creatine Kinase 38 L CK-MB (CK-2) Troponin I < 0.012 NT-Pro-B Natriuret Pep 338 H 01/17/20 01/27/20 02/04/20 05:00 15:40 14:20 Creatine Kinase CK-MB (CK-2) 1.63 Troponin I 0.028 < 0.012 NT-Pro-B Natriuret Pep 504 H 9710 H 02/05/20 02/06/20 02/07/20 04:40 03:55 04:08 Creatine Kinase CK-MB (CK-2) Troponin I NT-Pro-B Natriuret Pep 17964 H 37049 H 40449 H 02/08/20 02/09/20 03:15 02:40 Creatine Kinase CK-MB (CK-2) Troponin I NT-Pro-B Natriuret Pep 84118 H 70416 H Impressions: Chest CT 01/22/20 00:00 IMPRESSION: 1. Extensive pneumomediastinum anteriorly. No pneumothoraces. 2. Extensive subcutaneous air throughout the anterior chest wall, extending into the visualized lower neck, upper back, and left upper extremity. There is also extension of a large amount of air into the anterior extraperitoneal space of the upper abdomen. 3. Interval worsening of bilateral pulmonary opacities, which likely represent COVID-19 pneumonia given the clinical history. KUB X-Ray 01/30/20 00:00 IMPRESSION: The bowel gas pattern is nonobstructive and nonspecific. A nasogastric tube tip is seen overlying the left upper quadrant of the abdomen, projecting at the stomach. There is diffuse subcutaneous emphysema seen at the chest and abdominal wall on the left side. Renal Ultrasound 02/04/20 09:00 IMPRESSION: Normal sonographic appearance of the kidneys. Assessment & Plan - Diagnosis (1) Acute kidney injury Is this a current diagnosis for this admission?: Yes Plan: Normal baseline kidney function. He has minimal proteinuria with some microhematuria in a catheterized urine specimen. No other precipitating or nephrotoxic agents. This is most likely secondary to COVID-19 infection affecting the kidneys causing ATN versus other concomitant with acute oxalate nephropathy due to hyperoxaluria with treatment of vitamin C. In view of anasarca, and ongoing fluid overload with worsening kidney function I recommended the patient start renal replacement therapy. First dialysis treatment yesterday, 02/10/2020. We will do dialysis today for 2.5 hours, using the patient's right femoral dialysis catheter, with 4 potassium bath, blood flow rate of 250 mL per minute, dialysate flow rate of 600 mL per minute, ultrafiltration 2 to 3 L as tolerated, no heparin and no Procrit. Patient is currently monitored very closely. Continue to monitor kidney function, electrolytes and volume status. Off diuretics for now while being dialyzed. (2) Acute respiratory failure with hypoxia and hypercapnia Is this a current diagnosis for this admission?: Yes Plan: On mechanical ventilation with FiO2 of 85%. Hypercapnia seems worse early this morning. Per film reader. (3) Pneumonia due to COVID-19 virus Is this a current diagnosis for this admission?: Yes Plan: On cefepime, Decadron and reduced dose of vitamin C. Previously treated with remdesivir and zinc. (4) Anemia Qualifiers: Anemia type: other cause Other causes of anemia: other cause, not classified Qualified Code(s): D64.89 - Other specified anemias Is this a current diagnosis for this admission?: Yes Plan: No signs of active bleeding. It is most likely partly due to hemodilution as his hemoglobin improved after ultrafiltration and now currently 8.2. (5) Anasarca Is this a current diagnosis for this admission?: Yes Plan: Due to ARIELLA and hypoalbuminemia with increase fluid intake. Ultrafiltration to dialysis. (6) Hypokalemia Is this a current diagnosis for this admission?: Yes Plan: We will use high potassium bath on dialysis. Further replacement if necessary. (7) Metabolic acidosis Is this a current diagnosis for this admission?: Yes Plan: Resolved. Discontinue sodium bicarbonate drip. (8) Oxaluria Is this a current diagnosis for this admission?: Yes Plan: Calcium oxalate crystals are in the urine. Also with ascorbic acid in the urine which finally turned negative but reduction of dose of vitamin C. (9) Pulmonary hypertension Is this a current diagnosis for this admission?: Yes Plan: Echo on 02/09/2020 showed LVEF greater than 70% with severe pulmonary hypertension. - Time Time with patient: 15-25 minutes
--- NOTE | 2020-02-11 11:06 | PDOC CRITICAL CARE PROG REPORT ---
General Date:: 02/11/20 ICU Day:: 25 Ventilator Day:: 25 Hospital Day:: 39 Resuscitation Status: Full Code Events in the past 12 to 24 Hours:: This 49-year-old [facility] 01[facility]2020 with known [id number] infection. He had previously presented to an urgent care clinic on 12/27/2019, when he was diagnosed. He had been instructed to stay home and quarantine but presented to the emergency department on 01/01/2020 with increasing dyspnea. He was treated with Decadron and azithromycin. He was discharged home only to return on the following day with increasing shortness of breath, fever (100.1 Fahrenheit) and hypoxia (SPO2 70s on room air). He was admitted and started treatment with BiPAP support. Critical care consultation was sought on 01/16/2020 with worsening hypoxia and tachycardia. He was transferred to the ICU on 01/15. The patient ended up requ iring endotracheal intubation and mechanical ventilator support on the following day. 01/31: In prone position. Per nurse report, the patient is approaching 24 hours in prone position. Neuromuscular blockade with rocuronium. On Versed/Precedex/fentanyl for sedation. Ventilator is noted to be on VC mode, Ti 0.5 seconds, with Ppeak in the 50s. ABG this a.m.: 7.21/48/97 on FiO2 80%, PEEP 15. On cefepime for Serratia pneumonia (01/18). 02/01: No events reported overnight. The patient was proned at the beginning of manufacturing supervisor 2nd shift. ABG this a.m.: 7.23/43/135. Creatinine 1.3 this morning. Hemoglobin 7.7>7.3. 02/02: BUN/creatinine continuing to rise, creatinine 1.7 this morning. Hemoglobin stable, 7.3 again this a.m. He was proned at 2000 on manufacturing supervisor 2nd shift. CVP obtained in the supine position was reportedly elevated (17). Lasix 20 mg IV administered at 0550. ABG this a.m. 7.16/55/83 on PRVC 30/480/100/10. VT was increased to 500 subsequent to this ABG result. CVP 1415. The patient did have a BM yesterday. 02/03: Spent all morning in prone position. Remains intubated. On PRVC 30/500/100/10. However, after returning to supine position, the patient demonstrated prompt oxygen desaturation, requiring bag mask ventilation. [place] frothy secretions were noted to be produced from the ET tube circuit. Patient's oxygen saturation fell as low as 70%. During this time, the patient became hypertensive and tachycardic. Nonoliguric renal failure, creatinine rising, 1.7> 2.0. Renal ultrasound ordered for this a.m. Hemoglobin 8.2, stable after transfusion of 1 unit PRBC yesterday. Patient's was updated by phone yesterday. She is agreeable to proceeding with tracheostomy, when ventilator settings prove compatible with long-term care via tracheostomy. 02/04: The patient was supinated yesterday afternoon. He was maintained supine throughout the night. I/O over the past 24 hours -2536 mL. proBNP this morning 10,800. Remains intubated. On PRVC . ABG this a.m.: 7.23/44/68. After returning to the supine position, the patient was restarted on rocuronium to decrease work of breathing and metabolic demand. Continues to demonstrate worsening nonoliguric renal failure, creatinine 2.2. Hemoglobin this a.m. 7.6. 5: Patient was proned at 0300. proBNP this morning 10,900. Remains intubated. On PRVC . PEEP had to be increased to 12. ABG this a.m.: 7.18/48/80. Got 1 unit PRBC yesterday for hemoglobin 7.6. Hemoglobin 9.6 this a.m. Creatinine 2.4. 02/06: Still on Versed/Precedex/fentanyl/rocuronium overnight, the patient was supinated at 2100; however, manufacturing supervisor 2nd shift reports that they returned him to prone position due to oxygen desaturation (SPO2 80s). Now, back in prone position. proBNP this morning 11,100. Remains intubated. On PRVC . ABG this a.m.: 7.20/45/72. Hemoglobin 9.5. Creatinine 2.6. 02/07: Proned still. Oxygenation improved. I/O still positive. Lasix increased. Cr 2.7. PH still low. Supinated at 1PM. 02/08: Pt desaturated to 80s after proning and did not recover until re-proned. PO2 now 93 but on 100% and 14 PEEP. Kidney function worse. 02/09: Tolerated supinating better today. Getting HD for the first time. 02/10: Slight improvement in oxygenation. Titrating FiO2 from 100%. HD again today. 3L off 02/09, 3L off today. Review of systems relevant to events:: Pulmonary, renal. Reason for ICU Addmission:: hypoxia tachycardia, intubated. ARF - Medications: Medications reviewed and adjusted accordingly: Yes Vasopressors:: None Sedation:: Versed, fentanyl. Physical Exam Vital Signs: Temp Pulse Resp BP Pulse Ox 97.7 F 96 32 H 164/75 H 92 02/11/20 08:00 02/11/20 10:00 02/11/20 10:31 02/11/20 10:31 02/11/20 10:31 Intake & Output 02/10/20 02/11/20 02/12/20 06:59 06:59 06:59 Intake Total 2073 2093 Output Total 2450 3750 3223 Balance -377 -3389 -3222 Weight 121.6 kg 120.6 kg Weight/Height Weight 120.6 kg Height 5 ft 7 in General appearance: PRESENT: no acute distress Head exam: PRESENT: atraumatic, normocephalic Eye exam: PRESENT: PERRLA, other - No periorbital swelling Ear exam: PRESENT: normal external ear exam Mouth exam: PRESENT: moist, tongue midline Respiratory exam: PRESENT: clear to auscultation deepali, decreased breath sounds. ABSENT: rales, rhonchi, wheezes Cardiovascular exam: PRESENT: RRR, tachycardia. ABSENT: diastolic murmur, rubs, systolic murmur GI/Abdominal exam: PRESENT: normal bowel sounds, soft. ABSENT: distended, guarding, mass, organolmegaly, rebound, tenderness Rectal exam: PRESENT: deferred Gentrourinary exam: PRESENT: indwelling catheter Extremities exam: PRESENT: full ROM, +2 edema. ABSENT: calf tenderness, clubbing, pedal edema Musculoskeletal exam: PRESENT: normal inspection Neurological exam: PRESENT: other - Heavily sedated Skin exam: PRESENT: dry, intact, warm. ABSENT: cyanosis, rash Tubes/Lines: PRESENT: Endotracheal Tube, Central Line, Dialysis catheter, Nasogastic Tube Laboratory/Radiographs Laboratory Results: 02/11/20 03:15 02/11/20 03:15 02/10/20 02/10/20 02/10/20 12:28 12:28 20:40 WBC 10.5 RBC 3.01 L Hgb 8.5 L Hct 25.3 L MCV 84 MCH 28.3 MCHC 33.7 RDW 18.6 H Plt Count 129 L Seg Neutrophils % Not Reportable Carbonic Acid HCO3/H2CO3 Ratio ABG pH ABG pCO2 ABG pO2 ABG HCO3 ABG O2 Saturation ABG Base Excess FiO2 Sodium 140.7 137.7 Potassium 2.9 L* 3.2 L Chloride 104 102 Carbon Dioxide 31 H 29 Anion Gap 6 7 BUN 67 H D 73 H Creatinine 2.32 H 2.62 H Est GFR ( Amer) 36 L 31 L Glucose 136 H 120 H Calcium 8.2 L 8.2 L Magnesium Ferritin Total Bilirubin AST Alkaline Phosphatase C-Reactive Protein Total Protein Albumin Triglycerides Cholesterol LDL Cholesterol Direct VLDL Cholesterol HDL Cholesterol 02/11/20 02/11/20 02/11/20 03:15 03:15 03:15 WBC 10.8 H RBC 2.93 L Hgb 8.2 L Hct 24.9 L MCV 85 MCH 27.9 MCHC 32.8 RDW 18.8 H Plt Count 150 Seg Neutrophils % Not Reportable Carbonic Acid HCO3/H2CO3 Ratio ABG pH ABG pCO2 ABG pO2 ABG HCO3 ABG O2 Saturation ABG Base Excess FiO2 Sodium 141.3 Potassium 3.2 L Chloride 103 Carbon Dioxide 32 H Anion Gap 6 BUN 73 H Creatinine 3.02 H Est GFR ( Amer) 27 L Glucose 95 Calcium 8.0 L Magnesium 1.9 Ferritin 477.00 H Total Bilirubin 0.6 AST 50 Alkaline Phosphatase 70 C-Reactive Protein 35.9 H Total Protein 4.8 L Albumin 2.7 L Triglycerides 187 H Cholesterol 140.54 LDL Cholesterol Direct 95 VLDL Cholesterol 37.4 H HDL Cholesterol 27 L 02/11/20 04:10 WBC RBC Hgb Hct MCV MCH MCHC RDW Plt Count Seg Neutrophils % Carbonic Acid 2.04 H HCO3/H2CO3 Ratio 14:1 ABG pH 7.24 L ABG pCO2 67.8 H ABG pO2 82.5 ABG HCO3 28.6 H ABG O2 Saturation 93.9 L ABG Base Excess 0.4 FiO2 85% Sodium Potassium Chloride Carbon Dioxide Anion Gap BUN Creatinine Est GFR ( Amer) Glucose Calcium Magnesium Ferritin Total Bilirubin AST Alkaline Phosphatase C-Reactive Protein Total Protein Albumin Triglycerides Cholesterol LDL Cholesterol Direct VLDL Cholesterol HDL Cholesterol 01/06/20 01/16/20 01/17/20 05:11 21:00 05:00 Creatine Kinase 38 L CK-MB (CK-2) Troponin I < 0.012 NT-Pro-B Natriuret Pep 338 H 01/17/20 01/27/20 02/04/20 05:00 15:40 14:20 Creatine Kinase CK-MB (CK-2) 1.63 Troponin I 0.028 < 0.012 NT-Pro-B Natriuret Pep 504 H 9710 H 02/05/20 02/06/20 02/07/20 04:40 03:55 04:08 Creatine Kinase CK-MB (CK-2) Troponin I NT-Pro-B Natriuret Pep 99084 H 69936 H 51026 H 02/08/20 02/09/20 03:15 02:40 Creatine Kinase CK-MB (CK-2) Troponin I NT-Pro-B Natriuret Pep 87381 H 49277 H Impressions: Chest CT 01/22/20 00:00 IMPRESSION: 1. Extensive pneumomediastinum anteriorly. No pneumothoraces. 2. Extensive subcutaneous air throughout the anterior chest wall, extending into the visualized lower neck, upper back, and left upper extremity. There is also extension of a large amount of air into the anterior extraperitoneal space of the upper abdomen. 3. Interval worsening of bilateral pulmonary opacities, which likely represent COVID-19 pneumonia given the clinical history. KUB X-Ray 01/30/20 00:00 IMPRESSION: The bowel gas pattern is nonobstructive and nonspecific. A nasogastric tube tip is seen overlying the left upper quadrant of the abdomen, projecting at the stomach. There is diffuse subcutaneous emphysema seen at the chest and abdominal wall on the left side. Renal Ultrasound 02/04/20 09:00 IMPRESSION: Normal sonographic appearance of the kidneys. All labs, radiographs, diagnostic studies and EKGs were personally reviewed: Yes In addition, reports of radiographic and diagnostic studies were read: Yes Assessment and Plan - Diagnosis (1) Acute respiratory failure with hypoxia Is this a current diagnosis for this admission?: Yes Plan: Making small slow progress on FiO2. Hope to make more with more fluid off. (2) Pneumonia due to COVID-19 virus Is this a current diagnosis for this admission?: Yes Plan: Still present and likely still positive. (3) Anemia Qualifiers: Anemia type: other cause Other causes of anemia: other cause, not classifi ed Qualified Code(s): D64.89 - Other specified anemias Is this a current diagnosis for this admission?: Yes Plan: HgB 8.2. Due to renal failure, inflammation, not bleeding noted. (4) Acute kidney injury Is this a current diagnosis for this admission?: Yes Plan: Getting 2nd day of HD. Bicarb drip off. Pulling more fluid off. Plan Summary: Titrate down FiO2 as allowed. Plan for trach if he is still not extubatable. Critical Time Critical Time (minutes): 35 Level of Care: ICU Anticipated discharge: SNF Anticipated DC Timeframe: Other -: 1. The care of a critical patient is a dynamic process. This note is a auto claim representative synopsis but static in nature. The timeframe for treatments given in order is not necessarily the actual time these treatments may have been done. 2. This patient requires critical care secondary to ongoing requirements for therapy not offered or safe outside the critical care environment. Transfer to a lower level of care will result in altered life or limb morbidity and mortality. 3. Multidisciplinary rounds completed. 4. ABCDE bundle addressed.
[2020-02-11] MEDS: DEXAMETHASONE SOD PHOSPHATE INJ 4 MG/1 ML VIAL IV SCH (11:52)
[2020-02-11] MEDS: DOCUSATE SODIUM 100 MG/10 ML UDC PO SCH (11:52)
[2020-02-11] MEDS: CEFEPIME HCL 2 GM in DEXTROSE 5%-WATER 50 ML IV SCH (11:52)
--- NOTE | 2020-02-11 14:15 | RADIOLOGY REPORT (SQ) ---
EXAM DESCRIPTION: CHEST SINGLE VIEW IMAGES COMPLETED DATE/TIME: 02/11/2020 5:59 am REASON FOR STUDY: vent COMPARISON: Previous day. NUMBER OF VIEWS: One view. TECHNIQUE: Single frontal radiographic image of the chest acquired. LIMITATIONS: None. FINDINGS: LUNGS AND PLEURA: Bilateral airspace disease with consolidation slight improved aeration i n the right lung. No pneumothorax. MEDIASTINUM AND HEART: Stable heart size and mediastinal structures. SUPPORT DEVICES: Appropriate location without change. BONY STRUCTURES: No acute findings. HARDWARE: None. OTHER: No other significant finding. IMPRESSION: Slight improvement. No pneumothorax. Reading location - IP/workstation name: [email or web address]
[2020-02-11 15:20] LABS: HEMATOCRIT 25.3 % (37.9-51.0); HEMOGLOBIN 8.3 g/dL (13.5-17.0); MEAN CORPUSCULAR HEMOGLOBIN 27.9 pg (27.0-33.4); MEAN CORPUSCULAR HGB CONC 32.8 g/dL (32.0-36.0); MEAN CORPUSCULAR VOLUME 85 fl (80-97); PLATELET COUNT 152 10^3/uL (150-450); RED BLOOD COUNT 2.98 10^6/uL (4.35-5.55); RED CELL DISTRIBUTION WIDTH 18.8 % (11.5-14.0); WHITE BLOOD COUNT 9.5 10^3/uL (4.0-10.5)
[2020-02-11 15:38] LABS: BLOOD UREA NITROGEN 55 mg/dL (7-20); GLUCOSE 124 mg/dL (75-110); POTASSIUM 3.6 mmol/L (3.6-5.0)
[2020-02-11 15:44] LABS: CARBON DIOXIDE 32 mmol/L (22-30); CHLORIDE 103 mmol/L (98-107)
[2020-02-11 15:46] LABS: ANION GAP 3 (5-19)
[2020-02-11] MEDS: ARGATROBAN 250 MG/NS 250 ML (NON-ESRD) IV PRN ×2 (20:10)
[2020-02-11] MEDS: PHARMACY COMMUNICATION ORDER MC SCH (20:10)
[2020-02-12] MEDS: AMINO AC/PROTEIN HYDR/WHEY PRO 11 GM/45 ML PKT NG SCH ×3 (00:30→15:11)
[2020-02-12] MEDS: INSULIN REG, HUMAN 100 UNIT/ML 3 ML VIAL (PYX) SUBCUT SCH ×3 (00:36→12:41)
[2020-02-12] MEDS: LABETALOL HCL INJ 20 MG/4 ML DISP.SYRIN IV SCH ×3 (02:25→15:11)
[2020-02-12] MEDS: FENTANYL CITRATE/PF 600 MCG/60 ML BAG IV PRN ×5 (02:37→11:08)
[2020-02-12] MEDS: ALBUTEROL SULFATE 0.083% NEB 2.5 MG/3 ML AMPUL NEB SCH ×3 (02:49→13:27)
[2020-02-12] MEDS: MIDAZOLAM HCL 50 MG/100 ML RTUINJ IV PRN ×4 (03:30→10:20)
[2020-02-12] MEDS ORDERED: HEPARIN SOD (PORCINE) 1,000 UNIT/ML 10 ML VIAL IV PRN (05:00)
[2020-02-12] MEDS ORDERED: NORMAL SALINE 1000 ML 1,000 ML IV PRN (05:00)
[2020-02-12 05:16] LABS: ARTERIAL BLOOD BASE EXCESS -5.5 mmol/L; ARTERIAL BLOOD H2CO3 2.09 mmol/L (1.05-1.35); ARTERIAL BLOOD HCO3 23.9 mmol/L (20-24); ARTERIAL BLOOD O2 SATURATION 87.3 % (94-98); ARTERIAL BLOOD PO2 67.8 mmHg (80-100); ARTERIAL BLOOD TOTAL CO2 26.1 mmol/L (23-27)
[2020-02-12 05:17] LABS: ARTERIAL BLOOD FIO2 80%
[2020-02-12 05:19] LABS: ABSOLUTE EOSINOPHILS # (AUTO) 0.2 10^3/uL (0.0-0.6); ABSOLUTE MONOCYTES (AUTO) 0.6 10^3/uL (0.1-1.4); ABSOLUTE NEUT (AUTO) 12.7 10^3/uL (1.7-8.2); ARTERIAL BLOOD PCO2 69.3 mmHg (35-45); ARTERIAL BLOOD PH 7.16 (7.35-7.45); BASOPHILS % (AUTO) 0.3 % (0-2); EOSINOPHILS % (AUTO) 1.5 % (0-6); HEMATOCRIT 25.4 % (37.9-51.0); HEMOGLOBIN 8.2 g/dL (13.5-17.0); LYMPHOCYTES % (AUTO) 6.8 % (13-45); MEAN CORPUSCULAR HEMOGLOBIN 27.8 pg (27.0-33.4); MEAN CORPUSCULAR HGB CONC 32.2 g/dL (32.0-36.0); MEAN CORPUSCULAR VOLUME 86 fl (80-97); MONOCYTES % (AUTO) 4.3 % (3-13); PLATELET COUNT 187 10^3/uL (150-450); RED BLOOD COUNT 2.95 10^6/uL (4.35-5.55); SEGMENTED NEUTROPHILS % (AUTO) 87.1 % (42-78); TOTAL CELLS COUNTED % (AUTO) 100 %; WHITE BLOOD COUNT 14.6 10^3/uL (4.0-10.5)
[2020-02-12 05:53] LABS: ALBUMIN 2.7 g/dL (3.5-5.0); ALKALINE PHOSPHATASE 86 U/L (38-126); ANION GAP 8 (5-19); ASPARTATE AMINO TRANSFERASE 44 U/L (17-59); BILIRUBIN,DIRECT 0.4 mg/dL (0.0-0.4); BILIRUBIN,TOTAL 0.6 mg/dL (0.2-1.3); BLOOD UREA NITROGEN 63 mg/dL (7-20); CALCIUM 8.2 mg/dL (8.4-10.2); CARBON DIOXIDE 27 mmol/L (22-30); CHLORIDE 104 mmol/L (98-107); GLUCOSE 104 mg/dL (75-110); POTASSIUM 3.7 mmol/L (3.6-5.0)
[2020-02-12] MEDS: ASCORBIC ACID 500 MG TABLET NG SCH ×2 (06:26→15:11)
[2020-02-12] MEDS: BUDESONIDE NEB 0.25 MG/2 ML AMPUL NEB SCH (07:54)
--- NOTE | 2020-02-12 08:27 | PDOC CRITICAL CARE PROG REPORT ---
General Date:: 02/12/20 ICU Day:: 25 Ventilator Day:: 25 Hospital Day:: 41 Resuscitation Status: Full Code Events in the past 12 to 24 Hours:: This 49-year-old male presented to [facility] emergency department on 01/03/2020 with known [id number] infection. He had previously presented to an urgent care clinic on 12/27/2019, when he was diagnosed. He had been instructed to stay home and quarantine but presented to the emergency department on 01/01/2020 with increasing dyspnea. He was treated with Decadron and azithromycin. He was discharged home only to return on the following day with increasing shortness of breath, fever (100.1 Fahrenheit) and hypoxia (SPO2 70s on room air). He was admitted and started treatment with BiPAP support. Critical care consultation was sought on 01/16/2020 with worsening hypoxia and tachycardia. He was transferred to the ICU on 01/15. The patient ended up requ iring endotracheal intubation and mechanical ventilator support on the following day. 01/31: In prone position. Per nurse report, the patient is approaching 24 hours in prone position. Neuromuscular blockade with rocuronium. On Versed/Precedex/fentanyl for sedation. Ventilator is noted to be on VC mode, Ti 0.5 seconds, with Ppeak in the 50s. ABG this a.m.: 7.21/48/97 on FiO2 80%, PEEP 15. On cefepime for Serratia pneumonia (01/18). 02/01: No events reported overnight. The patient was proned at the beginning of loom repairer. ABG this a.m.: 7.23/43/135. Creatinine 1.3 this morning. Hemoglobin 7.7>7.3. 02/02: BUN/creatinine continuing to rise, creatinine 1.7 this morning. Hemoglobin stable, 7.3 again this a.m. He was proned at 2000 on loom repairer. CVP obtained in the supine position was reportedly elevated (17). Lasix 20 mg IV administered at 0550. ABG this a.m. 7.16/55/83 on PRVC 30/480/100/10. VT was increased to 500 subsequent to this ABG result. CVP 1415. The patient did have a BM yesterday. 02/03: Spent all morning in prone position. Remains intubated. On PRVC 30/500/100/10. However, after returning to supine position, the patient demonstrated prompt oxygen desaturation, requiring bag mask ventilation. [place] frothy secretions were noted to be produced from the ET tube circuit. Patient's oxygen saturation fell as low as 70%. During this time, the patient became hypertensive and tachycardic. Nonoliguric renal failure, creatinine rising, 1.7> 2.0. Renal ultrasound ordered for this a.m. Hemoglobin 8.2, stable after transfusion of 1 unit PRBC yesterday. Patient's was updated by phone yesterday. She is agreeable to proceeding with tracheostomy, when ventilator settings prove compatible with long-term care via tracheostomy. 02/04: The patient was supinated yesterday afternoon. He was maintained supine throughout the night. I/O over the past 24 hours -2536 mL. proBNP this morning 10,800. Remains intubated. On PRVC . ABG this a.m.: 7.23/44/68. After returning to the supine position, the patient was restarted on rocuronium to decrease work of breathing and metabolic demand. Continues to demonstrate worsening nonoliguric renal failure, creatinine 2.2. Hemoglobin this a.m. 7.6. 5: Patient was proned at 0300. proBNP this morning 10,900. Remains intubated. On PRVC . PEEP had to be increased to 12. ABG this a.m.: 7.18/48/80. Got 1 unit PRBC yesterday for hemoglobin 7.6. Hemoglobin 9.6 this a.m. Creatinine 2.4. 02/06: Still on Versed/Precedex/fentanyl/rocuronium overnight, the patient was supinated at 2100; however, loom repairer reports that they returned him to prone position due to oxygen desaturation (SPO2 80s). Now, back in prone position. proBNP this morning 11,100. Remains intubated. On PRVC . ABG this a.m.: 7.20/45/72. Hemoglobin 9.5. Creatinine 2.6. 02/07: Proned still. Oxygenation improved. I/O still positive. Lasix increased. Cr 2.7. PH still low. Supinated at 1PM. 02/08: Pt desaturated to 80s after proning and did not recover until re-proned. PO2 now 93 but on 100% and 14 PEEP. Kidney function worse. 02/09: Tolerated supinating better today. Getting HD for the first time. 02/10: Slight improvement in oxygenation. Titrating FiO2 from 100%. HD again today. 3L off 02/09, 3L off today. 02/11: Doing a bit worse with supination. O2 saturations in low to mid-80s. He needs to be supine for HD and fluid removal. 6L off in last 2 days. Review of systems relevant to events:: Pulmonary, renal. Reason for ICU Addmission:: hypoxia tachycardia, intubated. ARF - Medications: Medications reviewed and adjusted accordingly: Yes Vasopressors:: None Sedation:: Fentanyl, Versed. Physical Exam Vital Signs: Temp Pulse Resp BP Pulse Ox 99.1 F 94 32 H 134/74 H 90 L 02/12/20 05:56 02/12/20 05:56 02/12/20 05:56 02/12/20 06:16 02/12/20 06:16 Intake & Output 02/11/20 02/12/20 02/13/20 06:59 06:59 06:59 Intake Total 2092 2012 Output Total 37495 Balance -1656 Weight 120.6 kg 120.3 kg Weight/Height Weight 120.3 kg Height 5 ft 7 in General appearance: PRESENT: no acute distress Head exam: PRESENT: atraumatic, normocephalic Eye exam: PRESENT: conjunctiva pink, PERRLA, other - Periorbital and facial edema nearly resolved.. ABSENT: scleral icterus Ear exam: PRESENT: normal external ear exam Mouth exam: PRESENT: moist, tongue midline Respiratory exam: PRESENT: clear to auscultation deepali, rhonchi - Faint. ABSENT: rales, wheezes Cardiovascular exam: PRESENT: RRR, tachycardia. ABSENT: diastolic murmur, rubs, systolic murmur GI/Abdominal exam: PRESENT: normal bowel sounds, soft. ABSENT: distended, guarding, mass, organolmegaly, rebound, tenderness Rectal exam: PRESENT: deferred Gentrourinary exam: PRESENT: indwelling catheter Extremities exam: PRESENT: full ROM, +1 edema, other - Extremity edema slightly less.. ABSENT: calf tenderness, clubbing, pedal edema Neurological exam: PRESENT: other - Heavily sedated Tubes/Lines: PRESENT: Endotracheal Tube, Central Line, Nasogastic Tube Laboratory/Radiographs Laboratory Results: 02/12/20 04:50 02/12/20 04:50 02/11/20 02/11/20 02/12/20 14:57 14:57 04:50 WBC 9.5 RBC 2.98 L Hgb 8.3 L Hct 25.3 L MCV 85 MCH 27.9 MCHC 32.8 RDW 18.8 H Plt Count 152 Seg Neutrophils % Carbonic Acid 2.09 H HCO3/H2CO3 Ratio 11:1 ABG pH 7.16 L* ABG pCO2 69.3 H* ABG pO2 67.8 L ABG HCO3 23.9 ABG O2 Saturation 87.3 L ABG Base Excess -5.5 FiO2 80% Sodium 137.6 Potassium 3.6 Chloride 103 Carbon Dioxide 32 H Anion Gap 3 L BUN 55 H Creatinine 2.31 H Est GFR ( Amer) 36 L Glucose 124 H Calcium 8.0 L Magnesium Total Bilirubin AST Alkaline Phosphatase Total Protein Albumin 02/12/20 02/12/20 04:50 04:50 WBC 14.6 H RBC 2.95 L Hgb 8.2 L Hct 25.4 L MCV 86 MCH 27.8 MCHC 32.2 RDW 19.0 H Plt Count 187 Seg Neutrophils % 87.1 H Carbonic Acid HCO3/H2CO3 Ratio ABG pH ABG pCO2 ABG pO2 ABG HCO3 ABG O2 Saturation ABG Base Excess FiO2 Sodium 139.2 Potassium 3.7 Chloride 104 Carbon Dioxide 27 Anion Gap 8 BUN 63 H Creatinine 2.60 H Est GFR ( Amer) 32 L Glucose 104 Calcium 8.2 L Magnesium 1.9 Total Bilirubin 0.6 AST 44 Alkaline Phosphatase 86 Total Protein 5.0 L Albumin 2.7 L 01/06/20 01/16/20 01/17/20 05:11 21:00 05:00 Creatine Kinase 38 L CK-MB (CK-2) Troponin I < 0.012 NT-Pro-B Natriuret Pep 338 H 01/17/20 01/27/20 02/04/20 05:00 15:40 14:20 Creatine Kinase CK-MB (CK-2) 1.63 Troponin I 0.028 < 0.012 NT-Pro-B Natriuret Pep 504 H 9710 H 02/05/20 02/06/20 02/07/20 04:40 03:55 04:08 Creatine Kinase CK-MB (CK-2) Troponin I NT-Pro-B Natriuret Pep 36932 H 93107 H 93792 H 02/08/20 02/09/20 03:15 02:40 Creatine Kinase CK-MB (CK-2) Troponin I NT-Pro-B Natriuret Pep 12843 H 08430 H Impressions: Chest CT 01/22/20 00:00 IMPRESSION: 1. Extensive pneumomediastinum anteriorly. No pneumothoraces. 2. Extensive subcutaneous air throughout the anterior chest wall, extending into the visualized lower neck, upper back, and left upper extremity. There is also extension of a large amount of air into the anterior extraperitoneal space of the upper abdomen. 3. Interval worsening of bilateral pulmonary opacities, which likely represent COVID-19 pneumonia given the clinical history. KUB X-Ray 01/30/20 00:00 IMPRESSION: The bowel gas pattern is nonobstructive and nonspecific. A nasogastric tube tip is seen overlying the left upper quadrant of the abdomen, projecting at the stomach. There is diffuse subcutaneous emphysema seen at the chest and abdominal wall on the left side. Renal Ultrasound 02/04/20 09:00 IMPRESSION: Normal sonographic appearance of the kidneys. Chest X-Ray 02/11/20 05:00 IMPRESSION: Slight improvement. No pneumothorax. All labs, radiographs, diagnostic studies and EKGs were personally reviewed: Yes In addition, reports of radiographic and diagnostic studies were read: Yes Assessment and Plan - Diagnosis (1) Acute respiratory failure with hypoxia Is this a current diagnosis for this admission?: Yes Plan: Still needing 100% but oxygen saturations lower despite fluid off 6L. Still on > 10cm PEEP. (2) Pneumonia due to COVID-19 virus Is this a current diagnosis for this admission?: Yes Plan: He is not improving and after nearly a month is worsening. (3) Anemia Qualifiers: Anemia type: other cause Other causes of anemia: other cause, not classified Qualified Code(s): D64.89 - Other specified anemias Is this a current diagnosis for this admission?: Yes Plan: Hgb 8.2. Stable. Due to COVID inflammation and ARF. (4) Acute kidney injury Is this a current diagnosis for this admission?: Yes Plan: HD for 3rd straight day. Aim to remove 3L. Total of 9L in 3 days. Plan Summary: Patient will likely need a trach and PEG but his high PEEP and need for daily proning seems to preclude this. Critical Time Critical Time (minutes): 35 Level of Care: ICU Anticipated discharge: SNF Anticipated DC Timeframe: Other -: 1. The care of a critical patient is a dynamic process. This note is a sales representative wire rope synopsis but static in nature. The timeframe for treatments given in order is not necessarily the actual time these treatments may have been done. 2. This patient requires critical care secondary to ongoing requirements for therapy not offered or safe outside the critical care environment. Transfer to a lower level of care will result in altered life or limb morbidity and mortality. 3. Multidisciplinary rounds completed. 4. ABCDE bundle addressed.
[2020-02-12] MEDS: DOCUSATE SODIUM 100 MG/10 ML UDC PO SCH (09:03)
[2020-02-12] MEDS: DEXAMETHASONE SOD PHOSPHATE INJ 4 MG/1 ML VIAL IV SCH (09:03)
--- NOTE | 2020-02-12 10:33 | PDOC PROGRESS REPORT ---
Subjective Date:: 02/12/20 Subjective:: I am seeing hemodialysis this morning. He is supine and oxygen requirement incr eased from prone position requiring 80% and now back to 100. He is otherwise tolerating dialysis with good blood pressure so far. His urine output has declined making about 595 mL for the last 24 hours only with dialysis ultrafiltration. He still intubated and sedated without any pressors. Reason For Visit: HYPOXIA COVID 19 Physical Exam Vital Signs: Temp Pulse Resp BP Pulse Ox 99.1 F 113 H 32 H 134/74 H 86 L 02/12/20 05:56 02/12/20 07:55 02/12/20 07:55 02/12/20 06:16 02/12/20 07:55 Intake & Output 02/11/20 02/12/20 02/13/20 06:59 06:59 06:59 Intake Total 2092 2012 Output Total 37495 Balance -1656 Weight 120.6 kg 120.3 kg Vitals during dialysis: Blood pressure 123/75, heart rate of 114, oxygen saturation 91% with FiO2 of 100%, blood flow rate of 250 mL/min and dialysate flow rate of 600 mL/min. Exam: General appearance: PRESENT: Intubated and sedated Head exam: PRESENT: atraumatic, normocephalic, marked improvement in facial swelling Eye exam: PRESENT: Eyes closed with marked improvement of periorbital edema Neck exam: ABSENT: JVD Respiratory exam: PRESENT: Diminished breath sounds. ABSENT: crackles, rales, rhonchi, unlabored, wheezes Cardiovascular exam: PRESENT: Regular rate rhythm -+S1, +S2. ABSENT: diastolic murmur, systolic murmur GI/Abdominal exam: PRESENT: normal bowel sounds, soft. ABSENT: guarding, mass, tenderness Extremities exam: Decreasing anasarca with decreased upper and lower extremity pitting edema Neurological exam: PRESENT: Sedated. Skin exam: PRESENT: dry, warm, pale Results Laboratory Results: 02/12/20 04:50 02/12/20 04:50 02/11/20 02/11/20 02/12/20 14:57 14:57 04:50 WBC 9.5 RBC 2.98 L Hgb 8.3 L Hct 25.3 L MCV 85 MCH 27.9 MCHC 32.8 RDW 18.8 H Plt Count 152 Seg Neutrophils % Carbonic Acid 2.09 H HCO3/H2CO3 Ratio 11:1 ABG pH 7.16 L* ABG pCO2 69.3 H* ABG pO2 67.8 L ABG HCO3 23.9 ABG O2 Saturation 87.3 L ABG Base Excess -5.5 FiO2 80% Sodium 137.6 Potassium 3.6 Chloride 103 Carbon Dioxide 32 H Anion Gap 3 L BUN 55 H Creatinine 2.31 H Est GFR ( Amer) 36 L Glucose 124 H Calcium 8.0 L Magnesium Total Bilirubin AST Alkaline Phosphatase Total Protein Albumin 02/12/20 02/12/20 04:50 04:50 WBC 14.6 H RBC 2.95 L Hgb 8.2 L Hct 25.4 L MCV 86 MCH 27.8 MCHC 32.2 RDW 19.0 H Plt Count 187 Seg Neutrophils % 87.1 H Carbonic Acid HCO3/H2CO3 Ratio ABG pH ABG pCO2 ABG pO2 ABG HCO3 ABG O2 Saturation ABG Base Excess FiO2 Sodium 139.2 Potassium 3.7 Chloride 104 Carbon Dioxide 27 Anion Gap 8 BUN 63 H Creatinine 2.60 H Est GFR ( Amer) 32 L Glucose 104 Calcium 8.2 L Magnesium 1.9 Total Bilirubin 0.6 AST 44 Alkaline Phosphatase 86 Total Protein 5.0 L Albumin 2.7 L 01/06/20 01/16/20 01/17/20 05:11 21:00 05:00 Creatine Kinase 38 L CK-MB (CK-2) Troponin I < 0.012 NT-Pro-B Natriuret Pep 338 H 01/17/20 01/27/20 02/04/20 05:00 15:40 14:20 Creatine Kinase CK-MB (CK-2) 1.63 Troponin I 0.028 < 0.012 NT-Pro-B Natriuret Pep 504 H 9710 H 02/05/20 02/06/20 02/07/20 04:40 03:55 04:08 Creatine Kinase CK-MB (CK-2) Troponin I NT-Pro-B Natriuret Pep 45999 H 55319 H 31878 H 02/08/20 02/09/20 03:15 02:40 Creatine Kinase CK-MB (CK-2) Troponin I NT-Pro-B Natriuret Pep 86091 H 60233 H Impressions: Chest CT 01/22/20 00:00 IMPRESSION: 1. Extensive pneumomediastinum anteriorly. No pneumothoraces. 2. Extensive subcutaneous air throughout the anterior chest wall, extending into the visualized lower neck, upper back, and left upper extremity. There is also extension of a large amount of air into the anterior extraperitoneal space of the upper abdomen. 3. Interval worsening of bilateral pulmonary opacities, which likely represent COVID-19 pneumonia given the clinical history. KUB X-Ray 01/30/20 00:00 IMPRESSION: The bowel gas pattern is nonobstructive and nonspecific. A nasogastric tube tip is seen overlying the left upper quadrant of the abdomen, projecting at the stomach. There is diffuse subcutaneous emphysema seen at the chest and abdominal wall on the left side. Renal Ultrasound 02/04/20 09:00 IMPRESSION: Normal sonographic appearance of the kidneys. Chest X-Ray 02/11/20 05:00 IMPRESSION: Slight improvement. No pneumothorax. Assessment & Plan - Diagnosis (1) Acute kidney injury Is this a current diagnosis for this admission?: Yes Plan: Normal baseline kidney function. He has minimal proteinuria with some m icrohematuria in a catheterized urine specimen. No other precipitating or nephrotoxic agents. This is most likely secondary to COVID-19 infection affecting the kidneys causing ATN versus other concomitant with acute oxalate nephropathy due to hyperoxaluria with treatment of vitamin C. In view of anasarca, and ongoing fluid overload with worsening kidney function I recommended the patient start renal replacement therapy. First dialysis treatment was on 02/10/2020. We are dialyzing him 3 days in a row and today is the third day of dialysis. So far he had done well for the first 2 days and is still doing the well right now. We will do dialysis today for 2.5 hours, using the patient's right femoral dialysis catheter, with 3 potassium bath, blood flow rate of 250 mL per minute, dialysate flow rate of 600 mL per minute, ultrafiltration 2 to 3 L as tolerated, no heparin and no Procrit. Patient is currently monitored very closely. Continue to monitor kidney function, electrolytes and volume status. Over the weekend I recommend the patient to have some diuretics, to see if he could have some spontaneous renal recovery and more natural diuresis. (2) Acute respiratory failure with hypoxia and hypercapnia Is this a current diagnosis for this admission?: Yes Plan: On mechanical ventilation with FiO2 of 80% at prone position but currently requiring 100% supine. Hypercapnia unchanged. Per healthcare risk control consultant. (3) Pneumonia due to COVID-19 virus Is this a current diagnosis for this admission?: Yes Plan: On cefepime, Decadron and reduced dose of vitamin C. Previously treated with remdesivir and zinc. (4) Anemia Qualifiers: Anemia type: other cause Other causes of anemia: other cause, not classified Qualified Code(s): D64.89 - Other specified anemias Is this a current diagnosis for this admission?: Yes Plan: No signs of active bleeding. It is most likely partly due to hemodilution as his hemoglobin improved after ultrafiltration and now currently 8.2. (5) Anasarca Is this a current diagnosis for this admission?: Yes Plan: Due to ARIELLA and hypoalbuminemia with increase fluid intake. Improved with dialysis/ultrafiltration. (6) Hypokalemia Is this a current diagnosis for this admission?: Yes Plan: We will use high potassium bath on dialysis. Further replacement if necessary. Improved. (7) Metabolic acidosis Is this a current diagnosis for this admission?: Yes Plan: Resolved. (8) Oxaluria Is this a current diagnosis for this admission?: Yes Plan: Calcium oxalate crystals are in the urine. Also with ascorbic acid in the urine which finally turned negative but reduction of dose of vitamin C. (9) Pulmonary hypertension Is this a current diagnosis for this admission?: Yes Plan: Echo on 02/09/2020 showed LVEF greater than 70% with severe pulmonary hypertension. - Time Time with patient: 15-25 minutes
[2020-02-12] MEDS: CEFEPIME HCL 2 GM in DEXTROSE 5%-WATER 50 ML IV SCH (10:58)
[2020-02-12] MEDS ORDERED: EPINEPHRINE INJ/PF 1 MG/1 ML AMPULE ONE ×2 (12:16→13:59)
[2020-02-12] MEDS ORDERED: EPINEPHRINE INJ 1 MG/10 ML DISP.SYRIN ONE ×2 (12:17→16:26)
[2020-02-12 12:47] LABS: ARTERIAL BLOOD BASE EXCESS -7.8 mmol/L; ARTERIAL BLOOD H2CO3 1.86 mmol/L (1.05-1.35); ARTERIAL BLOOD O2 SATURATION 19.4 % (94-98); ARTERIAL BLOOD PCO2 61.8 mmHg (35-45); ARTERIAL BLOOD TOTAL CO2 22.9 mmol/L (23-27)
[2020-02-12 12:50] LABS: ARTERIAL BLOOD FIO2 100%
[2020-02-12 12:52] LABS: ARTERIAL BLOOD PH 7.15 (7.35-7.45); ARTERIAL BLOOD PO2 19.1 mmHg (80-100)
[2020-02-12 14:39] VITALS: BP 42/11
--- NOTE | 2020-02-12 14:59 | Death Summary ---
Summary Date : 02/12/20 Time of :: 14:24 Autopsy: No Resuscitation Status: Full Code Consulting Provider: Arcenio Alicia MD - Final Diagnosis (1) Acute respiratory failure with hypoxia Is this a current diagnosis for this admission?: Yes (2) Pneumonia due to COVID-19 virus Is this a current diagnosis for this admission?: Yes (3) Anemia Is this a current diagnosis for this admission?: Yes (4) Acute kidney injury Is this a current diagnosis for this admission?: Yes Hospital Course:: This patient was a 49 yo man who was hospitalized for 41 days, 36 in the ICU intubated. His main issue was hypoxia due to COVID pneumonia. He was maintained on the medical floor for about 5 days before transfer and intubation. Since that time he has been maintained on variable PEEP. For the last few days fairly high at around 12-15. He met criteria for sepsis and was appropriately volume loaded. He did have a good diuresis after resucitation but his input exceeded his output causing much peripheral edema. His response to diuretics was not enough to eliminate the fluid. He was ultimately dialyzed due to worsening renal function ascribed to COVID. He was not hyperkalemic nor acidotic. He was dialyzed with 3L removed on Feb 09, ,. Despite this his oxygenation became worse. He was proned periodically with good results but on Feb 11 his proning did not work and he became progressively hypoxic, unresponsive to 100% O2, bagging, proning, supinating. He eventually became bradycaric and had a PEA arrest. Several rounds of epinephrine were given with good results initially but with progressive bradycardia and hypotension unr esponsive to atropine, epinephrine, epi drip, bicarb. His was brought in and witnessed the second arrest and after several minutes requested us to stop as it was apparent it would not succeed and she did not want a neurologic devestation. Efforts were halted and he was pronounced at 14:24 PM on Feb 12, 2020.
[2020-02-12] MEDS ORDERED: DEXTROSE 5%-WATER 250 ML with EPINEPHRINE/PF 1 MG IV PRN ×2 (15:36)
[2020-02-12] MEDS ORDERED: SODIUM BICARBONATE 8.4% INJ 50 MEQ/50 ML DISP.SYRIN ONE (16:26)
== END 2020-02-12 17:43 | DRG 207 ==
LOC: ER 09:36 → EH 12:56 → 3N 15:00 → ICU 01-16 21:59
PROVIDERS: ADMIT Anesthesiology; ATTEND Anesthesiology
PROC: 04JY3ZZ Inspection of Lower Artery, Percutaneous Approach (ICD-10-PCS; 2020-01-03)
PROC: XW033E5 Introduction of Remdesivir Anti-infective into Peripheral Vein, Percutaneous Approach, New Technology Group 5 (ICD-10-PCS; 2020-01-03)
PROC: 5A09557 Assistance with Respiratory Ventilation, Greater than 96 Consecutive Hours, Continuous Positive Airway Pressure (ICD-10-PCS; 2020-01-03)
PROC: XW13325 Transfusion of Convalescent Plasma (Nonautologous) into Peripheral Vein, Percutaneous Approach, New Technology Group 5 (ICD-10-PCS; 2020-01-09)
PROC: 5A1955Z Respiratory Ventilation, Greater than 96 Consecutive Hours (ICD-10-PCS; principal; 2020-01-16)
PROC: 02HV33Z Insertion of Infusion Device into Superior Vena Cava, Percutaneous Approach (ICD-10-PCS; 2020-01-16)
PROC: 0BH17EZ Insertion of Endotracheal Airway into Trachea, Via Natural or Artificial Opening (ICD-10-PCS; 2020-01-16)
PROC: 05HM33Z Insertion of Infusion Device into Right Internal Jugular Vein, Percutaneous Approach (ICD-10-PCS; 2020-01-20)
PROC: 03H733Z Insertion of Infusion Device into Right Brachial Artery, Percutaneous Approach (ICD-10-PCS; 2020-01-20)
PROC: 30233N1 Transfusion of Nonautologous Red Blood Cells into Peripheral Vein, Percutaneous Approach (ICD-10-PCS; 2020-01-24)
PROC: B24BZZZ Ultrasonography of Heart with Aorta (ICD-10-PCS; 2020-02-09)
PROC: 5A1D70Z Performance of Urinary Filtration, Intermittent, Less than 6 Hours Per Day (ICD-10-PCS; 2020-02-10)
DX: U07.1 COVID-19 (principal); J96.01 Acute respiratory failure with hypoxia; J12.89 Other viral pneumonia; J15.6 Pneumonia due to other Gram-negative bacteria; N17.0 Acute kidney failure with tubular necrosis; J96.02 Acute respiratory failure with hypercapnia; E87.2 Acidosis; E72.53 Primary hyperoxaluria; E66.9 Obesity, unspecified; J98.2 Interstitial emphysema; D64.89 Other specified anemias; R00.0 Tachycardia, unspecified; E88.09 Other disorders of plasma-protein metabolism, not elsewhere classified; I27.20 Pulmonary hypertension, unspecified; Z78.1 Physical restraint status; R03.0 Elevated blood-pressure reading, without diagnosis of hypertension; Z68.37 Body mass index [BMI] 37.0-37.9, adult
CPT/HCPCS: 31500; 36415; 36430; 36556; 36600; 36620; 71045; 71250; 74018; 76770; 80048; 80053; 80061; 81001; 82330; 82550; 82553; 82728; 82803; 82962; 83605; 83615; 83735; 83880; 83930; 84100; 84134; 84478; 84484; 85025; 85027; 85379; 85610; 85730; 86022; 86140; 86317; 86704; 86850; 86900; 86901; 86920; 87040; 87070; 87077; 87186; 87205; 87324; 87340; 87449; 87522; 87635; 92950; 93005; 93010; 93306; 94002; 94003; 94640; 94660; 96365; 96368; 99285; 99291; 99292; C9113; C9803; J0171; J0360; J0456; J0692; J0696; J0883; J1100; J1170; J1642; J1644; J1650; J1815; J1940; J2060; J2250; J2270; J2543; J2704; J2710; J3010; J3480; J3490; J7030; J7040; J7050; J7060; J7613; P9016; P9047